=== PATIENT | female | born 1950 | race Caucasian/White ===

== ENCOUNTER 2023-12-18 15:05 | Inpatient (IN) | payer MEDICARE, OTHER, SELFPAY ==
--- NOTE | 2023-12-18 15:10 | MHC.CARE ---
Expect from [facility]. Pt is on a section 12 and disposition at this time is Geriatric bedsearch pending medical clearance.
[2023-12-18 15:21] VITALS: BP 165/62; PULSE 76; RESP 16; TEMP 36.6; O2SAT 100; BMI 33.3
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
[2023-12-18 16:53] LABS: MANUAL DIFF FLAG NO
[2023-12-18 16:55] LABS: Basophils Percent Auto 0.4 % (0-2); Eosinophils Percent Auto 0.2 % (0-4); Hematocrit 37.3 % (37.0-47.0); Hemoglobin 12.5 g/dl (12.0-16.0); Imm Gran Abs Auto 0.01 X10*3/uL (0.00-0.03); Imm Gran Pct Auto 0.2 % (0.0-0.4); Lymphocytes Absolute Auto 1.5 X10*3/uL (1.2-4.9); Lymphocytes Percent Auto 28.4 % (20-40); Mean Corpuscular HGB Conc 33.5 g/dl (31.0-35.0); Mean Corpuscular Hemoglobin 31.3 pg (27.0-33.0); Mean Corpuscular Volume 93.3 fL (80.0-98.0); Mean Platelet Volume 10.3 fL (9.4-12.3); Monocytes Absolute Auto 0.6 X10*3/uL (0.1-1.2); Monocytes Percent Auto 11.7 % (2-11); Neutrophils Absolute Auto 3.1 x10*3/uL (2.0-8.3); Neutrophils Percent Auto 59.1 % (45-73); Platelet Count 244 X10*3/uL (160-400); Red Cell Distribution Width 12.3 % (11.0-16.0); White Blood Count 5.2 X10*3/uL (4.8-10.8)
[2023-12-18 17:16] LABS: Alanine Aminotransferase 18 U/L (0-31); Albumin Level 4.5 g/dL (3.5-5.0); Alkaline Phosphatase 62 U/L (39-117); Anion Gap 16 (12-20); Aspartate Amino Transferase 20 U/L (5-31); Bilirubin Direct 0.2 mg/dL (0.0-0.5); Bilirubin Total 0.5 mg/dL (0.0-1.0); Blood Urea Nitrogen 13 mg/dL (9-16); Calcium 9.7 mg/dL (8.4-10.2); Carbon Dioxide 25 mmol/L (22-29); Chloride 106 mmol/L (96-108); Creatinine Clr Calc Pharmacy 61.4; Estimated Glomerular Filt Rate > 60; Ethanol < 10 mg/dL; Glucose Random 109 mg/dL (60-115); Magnesium 1.8 mg/dL (1.6-2.6); Potassium 3.9 mmol/L (3.3-5.1); Sodium 143 mmol/L (135-145); Total Protein 6.8 g/dL (6.5-8.0)
[2023-12-18 17:18] LABS: COVID-19 Test Negative (Negative); IDNOW Serial# 152EDE1D
[2023-12-18 17:29] LABS: TSH reflex Free T4 1.18 uIU/mL (0.32-4.0)
[2023-12-18 18:30] LABS: Appearance Urine Clear; Color Urine Yellow; Glucose Urine UA Negative (Negative); Leukocyte Esterase Urine Trace (Negative); Nitrite Urine Negative (Negative); PH 6.5 (5.0-9.0); UMIC TRIGGER UACC YES; Urine Blood Negative (Negative); Urine Ketones Trace mg/dL (Negative); Urine Protein Negative (Neg-Trace)
[2023-12-18 18:33] LABS: Bacteria Urine None Seen (None Seen); Hyaline Casts Urine 0-2 /LPF (0-2); RBC Urine 0-2 /HPF (0-2); Squamous Epithelial Cell Urine 0-2 /HPF (0-2); WBC Urine 0-5 /HPF (0-5)
[2023-12-18 18:34] LABS: Amphetamine Screen Urine Not Detected (Not Detect); Barbiturates, Urine Not Detected (Not Detect); Benzodiazepines Screen Urine POSITIVE (Not Detect); Cannabinoid Screen Urine Not Detected (Not Detect); Cocaine Screen Urine Not Detected (Not Detect); Fentanyl, urine Not Detected (Not Detect); Opiate Screen Urine Not Detected (Not Detect); Phencyclidine Screen Urine Not Detected (Not Detect)
--- NOTE | 2023-12-18 19:30 | PC.NURSE ---
This investment underwriter assumed care of this Pt at 1900. 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 Pt denies SI/HI/AH/VH. 1:1 sitter at bedside, sister at bedside.
[2023-12-18 21:02] VITALS: RESP 16
--- NOTE | 2023-12-18 23:37 | PC.NURSE ---
Med rec done by charge nurse Wilma, Pt and sister verbalized home meds. Provider Jigar made aware.
[2023-12-18] MEDS: ALPRAZolam 0.5 MG TABLET PO (23:46)
[2023-12-18] MEDS: Gabapentin 300 MG CAPSULE PO (23:46)
--- NOTE | 2023-12-19 02:34 | PC.NURSE ---
Pt given sandwich and PO fluids. Sister remains at bedside.
[2023-12-19] MEDS: OLANZapine 5 MG TABLET PO ×2 (02:41→18:23)
[2023-12-19 04:00] VITALS: BP 112/45; PULSE 78; RESP 16; O2SAT 93
[2023-12-19] MEDS: LORazepam 1 MG TABLET PO ×2 (04:58→18:23)
--- NOTE | 2023-12-19 05:15 | PC.NURSE ---
Pt ambulated to BR with slow steady gait. Reports given to Lin, Pt will be transferred to pod. Sister updated on plan.
--- NOTE | 2023-12-19 05:45 | MHC.EDTECH ---
PATIENT JUST CAME OVER FROM THE MAIN ED TO POD ROOM #1 ,PATIENT SISTER ACCOMPANY HER INTO POD ,WARM BLANKET WAS GIVEN TO PATIENT ,PATIENT NOW SLEEPING ,PATIENT BELONGING S LIST WAS UPDATED ,BECAUSE PT SISTER TOOK PATIENT JEWELRY HOME .
[2023-12-19 10:25] VITALS: BP 154/89; PULSE 90; TEMP 36.3; O2SAT 97
[2023-12-19] MEDS: lisinopriL 20 MG TABLET PO (10:25)
[2023-12-19] MEDS: hydroCHLOROthiazide 12.5 MG TABLET PO (10:25)
[2023-12-19] MEDS: Gabapentin 300 MG CAPSULE PO ×3 (10:25→20:46)
--- NOTE | 2023-12-19 12:19 | ECG_ITS ---
Test Reason : CHECK PROLONG QT Blood Pressure : / mmHG Vent. Rate : 071 BPM Atrial Rate : 071 BPM P-R Int : 138 ms QRS Dur : 072 ms QT Int : 416 ms P-R-T Axes : 028 014 021 degrees QTc Int : 452 ms Normal sinus rhythm Normal ECG No previous ECGs available Referred By: Wade Yu Electronically Signed By:ELSA ARIAS MD
[2023-12-19 14:05] VITALS: BP 136/61; PULSE 84; RESP 16; TEMP 35.8; O2SAT 93
[2023-12-19 14:06] VITALS: BMI 33.0
--- NOTE | 2023-12-19 15:24 | PC.ADMIT ---
Maryam was admitted to at 14:00 on 12/19/23 on a CV for the treatment of unspecified mood disorder. Sharps check was completed by staff. Prior to admission, Maryam had been endorsing SI without a plan. Maryam's sister reports increased paranoia and delusional thoughts regarding her neighbors and being a part of a group on the dark web . She denies suicidal and homicidal thoughts and intent. She denies auditory and visual hallucinations. She is alert and oriented to person, place, and time. She was cooperative with the admission process. She was hyperverbal and pressured during admission interview. She denies current substance abuse, utox was positive for benzos, BAL <10. She was placed on 5 minute checks for safety.
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
[2023-12-19 19:50] VITALS: BP 108/52; PULSE 74; RESP 18; TEMP 36.2; O2SAT 97
[2023-12-19] MEDS: OLANZapine 2.5 MG TABLET PO (20:46)
[2023-12-19] MEDS: Atorvastatin Calcium 20 MG TABLET PO (20:46)
[2023-12-19] MEDS: traZODone HCL 50 MG TABLET PO (20:46)
[2023-12-20 06:00] VITALS: BP 138/74; PULSE 86; RESP 14; TEMP 36.7; O2SAT 98
[2023-12-20] MEDS: Levothyroxine Sodium 125 MCG TABLET PO (06:42)
[2023-12-20] MEDS: hydroCHLOROthiazide 12.5 MG TABLET PO (08:24)
[2023-12-20] MEDS: lisinopriL 20 MG TABLET PO (08:24)
[2023-12-20] MEDS: Gabapentin 300 MG CAPSULE PO ×3 (08:24→20:40)
[2023-12-20 08:56] LABS: Alanine Aminotransferase 17 U/L (0-31); Albumin Level 4.4 g/dL (3.5-5.0); Alkaline Phosphatase 61 U/L (39-117); Anion Gap 13 (12-20); Aspartate Amino Transferase 20 U/L (5-31); Bilirubin Total 0.6 mg/dL (0.0-1.0); Blood Urea Nitrogen 17 mg/dL (9-16); Calcium 9.8 mg/dL (8.4-10.2); Carbon Dioxide 23 mmol/L (22-29); Chloride 107 mmol/L (96-108); Cholesterol 172 mg/dL (<200); Creatinine Clr Calc Pharmacy 47.7; Estimated Glomerular Filt Rate 51; Glucose Fasting 118 mg/dL (60-99); HDL Cholesterol 69 mg/dL (>40); LDL Cholesterol Calculated 83 mg/dL (<100); Potassium 3.7 mmol/L (3.3-5.1); Sodium 139 mmol/L (135-145); Total Protein 6.8 g/dL (6.5-8.0); Triglycerides 103 mg/dL (<150)
--- NOTE | 2023-12-20 13:11 | HO.PSYCHPN ---
Subjective Subjective Date of Service: 12/20/23 Reason For Visit: SI psychosis Subjective Notes: Conditional Voluntary Interim History: The nursing staff reported the patient was compliant with her medications she took all her medications and she reported that she had past suicidal ideation with a plan. Today she denies suicidal ideation she denies auditory hallucinations she had been cooperative. She slept well last night and she looks less pressured than yesterday. Mental Status Exam Mental Status Exam Patient Appearance: Appropriate (On hospital gowns) Patient Orientation: Person Level of Consciousness: Awake Patient Behavior: Guarded Mood Description: Anxious and Apprehensive Affect Description: Labile Ability to Follow Directions: Fair Speech Pattern: Monotone and Rapid Hallucinations: None Delusions: Grandiose and Ideas of Reference Thought Process: Distracted and Evasive Thought Content: positive for Flight of Ideas and positive for [place] Judgement: Poor Diagnostics Vital Signs (24Hr): Vital Signs - 24 hr 12/19/23 14:05 12/19/23 19:50 Temperature 96.4 F L 97.2 F Pulse Rate 84 74 Respiratory Rate 16 18 Blood Pressure 136/61 108/52 L Pulse Oximetry 93 97 Oxygen Delivery Method Room Air Room Air BMI result Body Mass Index 33.0 Labs 12/18/23 16:48 12/20/23 07:59 Labs: Laboratory Results - last 48 hr 12/18/23 12/18/23 12/18/23 16:48 16:48 18:19 WBC 5.2 RBC 4.00 L Hgb 12.5 Hct 37.3 MCV 93.3 MCH 31.3 MCHC 33.5 RDW 12.3 Plt Count 244 MPV 10.3 Immature Gran % (Auto) 0.2 Neut % (Auto) 59.1 Lymph % (Auto) 28.4 [place] % (Auto) 11.7 H Eos % (Auto) 0.2 Baso % (Auto) 0.4 Lymph # (Auto) 1.5 [place] # (Auto) 0.6 Eos # (Auto) 0.0 Baso # (Auto) 0.0 Abs Immat Gran (auto) 0.01 Absolute Neuts (auto) 3.1 Absolute Nucleated RBC 0.000 Nucleated RBC % (auto) 0.0 Sodium 143 Potassium 3.9 Chloride 106 Carbon Dioxide 25 Anion Gap 16 BUN 13 Creatinine 0.82 Estim Creat Clear Calc 61.4 Estimated GFR > 60 Random Glucose 109 Fasting Glucose Calcium 9.7 Magnesium 1.8 Total Bilirubin 0.5 Direct Bilirubin 0.2 AST 20 ALT 18 Alkaline Phosphatase 62 Total Protein 6.8 Albumin 4.5 Triglycerides Cholesterol LDL Cholesterol, Calc HDL Cholesterol TSH 1.18 Urine Color Yellow Urine Appearance Clear Urine pH 6.5 Ur Specific [place] 1.010 Urine Protein Negative Urine Glucose (UA) Negative Urine Ketones Trace Urine Blood Negative Urine Nitrite Negative Ur Leukocyte Esterase Trace H Urine RBC 0-2 Urine WBC 0-5 Ur Squamous Epith Cells 0-2 Urine Bacteria None Seen Hyaline Casts 0-2 Urine Opiates Screen Not Detected Urine Fentanyl Screen Not Detected Ur Barbiturates Screen Not Detected Ur Phencyclidine Scrn Not Detected Ur Amphetamines Screen Not Detected U Benzodiazepines Scrn POSITIVE H Urine Cocaine Screen Not Detected U Marijuana (THC) Screen Not Detected Ethyl Alcohol < 10 Cancelled COVID-19 ([facility]OMI) Negative COVID-19 [employer] See Note 12/20/23 07:59 WBC RBC Hgb Hct MCV MCH MCHC RDW Plt Count MPV Immature Gran % (Auto) Neut % (Auto) Lymph % (Auto) [place] % (Auto) Eos % (Auto) Baso % (Auto) Lymph # (Auto) [place] # (Auto) Eos # (Auto) Baso # (Auto) Abs Immat Gran (auto) Absolute Neuts (auto) Absolute Nucleated RBC Nucleated RBC % (auto) Sodium 139 Potassium 3.7 Chloride 107 Carbon Dioxide 23 Anion Gap 13 BUN 17 H Creatinine 1.05 Estim Creat Clear Calc 47.7 Estimated GFR 51 Random Glucose Fasting Glucose 118 H Calcium 9.8 Magnesium Total Bilirubin 0.6 Direct Bilirubin AST 20 ALT 17 Alkaline Phosphatase 61 Total Protein 6.8 Albumin 4.4 Triglycerides 103 Cholesterol 172 LDL Cholesterol, Calc 83 HDL Cholesterol 69 TSH Urine Color Urine Appearance Urine pH Ur Specific [place] Urine Protein Urine Glucose (UA) Urine Ketones Urine Blood Urine Nitrite Ur Leukocyte Esterase Urine RBC Urine WBC Ur Squamous Epith Cells Urine Bacteria Hyaline Casts Urine Opiates Screen Urine Fentanyl Screen Ur Barbiturates Screen Ur Phencyclidine Scrn Ur Amphetamines Screen U Benzodiazepines Scrn Urine Cocaine Screen U Marijuana (THC) Screen Ethyl Alcohol COVID-19 ([facility]OMI) COVID-19 [employer] Medications Medications Current Medications Acetaminophen (Acetaminophen 325 Mg Tablet) 650 mg PO Q6H PRN PRN Reason: Headache/Pain Mild Scale (1-3) Al Hydroxide/Mg Hydroxide (Magnesium Hydrox/Alum Hydrox 30 Ml Oral.Susp) 30 ml PO Q6H PRN PRN Reason: Heartburn/Nausea Atorvastatin Calcium (Atorvastatin Calcium 20 Mg Tablet) 20 mg PO BEDTIME [facility] Last Admin: 12/19/23 20:46 Dose: 20 mg Docusate Sodium (Docusate Sodium 100 Mg Capsule) 100 mg PO BEDTIME [facility] Gabapentin (Gabapentin 300 Mg Capsule) 300 mg PO TID [facility] Last Admin: 12/20/23 08:24 Dose: 300 mg Hydrochlorothiazide (Hydrochlorothiazide 12.5 Mg Tablet) 12.5 mg PO DAILY [facility]; Protocol Last Admin: 12/20/23 08:24 Dose: 12.5 mg Hydroxyzine HCl (Hydroxyzine Hcl 25 Mg Tablet) 25 mg PO Q6H PRN PRN Reason: Anxiety Levothyroxine Sodium (Levothyroxine Sodium 125 Mcg Tablet) 125 mcg PO DAILY@0630 [facility] Last Admin: 12/20/23 06:42 Dose: 125 mcg Lisinopril (Lisinopril 20 Mg Tablet) 20 mg PO DAILY [facility]; Protocol Last Admin: 12/20/23 08:24 Dose: 20 mg Loratadine (Loratadine 10 Mg Tablet) 10 mg PO BEDTIME [facility] Magnesium Hydroxide (Milk Of Magnesia 30 Ml Oral.Susp) 30 ml PO DAILY PRN PRN Reason: Constipation Olanzapine (Olanzapine 2.5 Mg Tablet) 2.5 mg PO BEDTIME [facility] Last Admin: 12/19/23 20:46 Dose: 2.5 mg Trazodone HCl (Trazodone Hcl 50 Mg Tablet) 50 mg PO BEDTIME [facility] Last Admin: 12/19/23 20:46 Dose: 50 mg Trazodone HCl (Trazodone Hcl 50 Mg Tablet) 50 mg PO BEDTIME MRX1 PRN PRN Reason: Insomnia Allergies Allergies Allergy/AdvReac Type Severity Reaction Status Date / Time Unable to Assess Allergy Verified 12/18/23 15:46 Assessment & Plan Assessment & Plan (1) Bipolar disorder: Status: Acute Code(s): F31.9 - Bipolar disorder, unspecified (2) Borderline personality disorder: Status: Acute Code(s): F60.3 - Borderline personality disorder (3) Psychosis: Status: Acute Code(s): F29 - Unspecified psychosis not due to a substance or known physiological condition Plan The patient is an elderly female with a past history of borderline personality disorder and bipolar disorder who was brought into the facility with active symptoms of loan with racing thoughts, flight of ideas and grandiosity but also recently she complained of suicidal ideation without a clear plan or intent. Sister called 911 since she had been reporting suicidal thoughts. On interview it was clear that the patient was manic. Plan 1. Gather collateral information. We will try to contact her sister to get more information regarding past treatments. 2. Continue with gabapentin and other medications prescribed by her previous psychiatrist. 3. We discussed risks, benefits, side-effects and alternatives and the patient agreed to take Zyprexa 2.5 mg p.o. q.h.s. to target insomnia and mood lability. 4. Blood work tomorrow. 5. . Reassessment with results. 6. 15 minute checks. The patient is able to contract for safety in the facility . 7. Increase Zyprexa to 5 mg p.o. q.h.s. on December 20 Reason for continued inpatient stay Substantial Risk for: inability to function, rapid decompensation and med/psych decompensation Time Spent With Patient Time: Total time managing care of this patient today __20__ minutes.
[2023-12-20 18:00] VITALS: BP 136/60; PULSE 82; RESP 18; TEMP 36.6; O2SAT 96
[2023-12-20] MEDS: Docusate Sodium 100 MG CAPSULE PO (20:40)
[2023-12-20] MEDS: OLANZapine 5 MG TABLET PO (20:40)
[2023-12-20] MEDS: Loratadine 10 MG TABLET PO (20:40)
[2023-12-20] MEDS: Atorvastatin Calcium 20 MG TABLET PO (20:41)
[2023-12-20] MEDS: traZODone HCL 50 MG TABLET PO (20:41)
[2023-12-20] MEDS: Magnesium Hydrox/Alum Hydrox 30 ML ORAL.SUSP PO (20:48)
[2023-12-21] MEDS: Levothyroxine Sodium 125 MCG TABLET PO (05:40)
[2023-12-21 07:00] VITALS: BMI 33.3
[2023-12-21 07:30] VITALS: BP 106/62; PULSE 80; RESP 18; TEMP 36.8; O2SAT 96
[2023-12-21] MEDS: hydroCHLOROthiazide 12.5 MG TABLET PO (08:21)
[2023-12-21] MEDS: Gabapentin 300 MG CAPSULE PO ×3 (08:21→20:53)
[2023-12-21] MEDS: lisinopriL 20 MG TABLET PO (08:21)
--- NOTE | 2023-12-21 16:48 | HO.PSYCHPN ---
Subjective Subjective Date of Service: 12/21/23 Reason For Visit: SI psychosis Subjective Notes: Conditional Voluntary Interim History: The nursing staff reported the patient had been more talkative in the evening hyperverbal at times. In the morning she was doing fairly well. The occupational therapist reported that she was self aware of her hypomania she had good insight and she left the group when she became a little disruptive. On interview the patient denies new symptoms she feels much better she agreed to increase Zyprexa to 7.5 p.o. q.h.s.. Mental Status Exam Mental Status Exam Patient Appearance: Well Grooomed and Appropriate Patient Orientation: Person and Situation Level of Consciousness: Awake and Appropriate Patient Behavior: Guarded and Passive Mood Description: Withdrawn Affect Description: Constricted Patient Cognition Impaired: Yes Ability to Follow Directions: Good Speech Pattern: Clear Hallucinations: None Delusions: Ideas of Reference Thought Process: Distracted Thought Content: positive for [place] and positive for Poverty of Content Judgement: Poor Diagnostics Vital Signs (24Hr): Vital Signs - 24 hr 12/20/23 18:00 12/21/23 07:30 Temperature 97.9 F 98.2 F Pulse Rate 82 80 Respiratory Rate 18 18 Blood Pressure 136/60 106/62 Pulse Oximetry 96 96 Oxygen Delivery Method Room Air Room Air BMI result Body Mass Index 33.3 Labs 12/18/23 16:48 12/20/23 07:59 Labs: Laboratory Results - last 48 hr 12/20/23 07:59 Sodium 139 Potassium 3.7 Chloride 107 Carbon Dioxide 23 Anion Gap 13 BUN 17 H Creatinine 1.05 Estim Creat Clear Calc 47.7 Estimated GFR 51 Fasting Glucose 118 H Calcium 9.8 Total Bilirubin 0.6 AST 20 ALT 17 Alkaline Phosphatase 61 Total Protein 6.8 Albumin 4.4 Triglycerides 103 Cholesterol 172 LDL Cholesterol, Calc 83 HDL Cholesterol 69 Medications Medications Current Medications Acetaminophen (Acetaminophen 325 Mg Tablet) 650 mg PO Q6H PRN PRN Reason: Headache/Pain Mild Scale (1-3) Al Hydroxide/Mg Hydroxide (Magnesium Hydrox/Alum Hydrox 30 Ml Oral.Susp) 30 ml PO Q6H PRN PRN Reason: Heartburn/Nausea Last Admin: 12/20/23 20:48 Dose: 30 ml Atorvastatin Calcium (Atorvastatin Calcium 20 Mg Tablet) 20 mg PO BEDTIME [facility] Last Admin: 12/20/23 20:41 Dose: 20 mg Docusate Sodium (Docusate Sodium 100 Mg Capsule) 100 mg PO BEDTIME [facility] Last Admin: 12/20/23 20:40 Dose: 100 mg Gabapentin (Gabapentin 300 Mg Capsule) 300 mg PO TID [facility] Last Admin: 12/21/23 14:34 Dose: 300 mg Hydrochlorothiazide (Hydrochlorothiazide 12.5 Mg Tablet) 12.5 mg PO DAILY [facility]; Protocol Last Admin: 12/21/23 08:21 Dose: 12.5 mg Levothyroxine Sodium (Levothyroxine Sodium 125 Mcg Tablet) 125 mcg PO DAILY@0630 [facility] Last Admin: 12/21/23 05:40 Dose: 125 mcg Lisinopril (Lisinopril 20 Mg Tablet) 20 mg PO DAILY [facility]; Protocol Last Admin: 12/21/23 08:21 Dose: 20 mg Loratadine (Loratadine 10 Mg Tablet) 10 mg PO BEDTIME [facility] Last Admin: 12/20/23 20:40 Dose: 10 mg Lorazepam (Lorazepam 1 Mg Tablet) 1 mg PO Q6H PRN PRN Reason: Anxiety Magnesium Hydroxide (Milk Of Magnesia 30 Ml Oral.Susp) 30 ml PO DAILY PRN PRN Reason: Constipation Olanzapine (Olanzapine 2.5 Mg Tablet) 2.5 mg PO BID PRN PRN Reason: psychosis Olanzapine (Olanzapine 7.5 Mg Tablet) 7.5 mg PO BEDTIME [facility] Trazodone HCl (Trazodone Hcl 50 Mg Tablet) 50 mg PO BEDTIME [facility] Last Admin: 12/20/23 20:41 Dose: 50 mg Trazodone HCl (Trazodone Hcl 50 Mg Tablet) 50 mg PO BEDTIME MRX1 PRN PRN Reason: Insomnia Allergies Allergies Allergy/AdvReac Type Severity Reaction Status Date / Time Unable to Assess Allergy Verified 12/18/23 15:46 Assessment & Plan Assessment & Plan (1) Bipolar disorder: Status: Acute Code(s): F31.9 - Bipolar disorder, unspecified (2) Borderline personality disorder: Status: Acute Code(s): F60.3 - Borderline personality disorder (3) Psychosis: Status: Acute Code(s): F29 - Unspecified psychosis not due to a substance or known physiological condition Plan The patient is an elderly female with a past history of borderline personality disorder and bipolar disorder who was brought into the facility with active symptoms of loan with racing thoughts, flight of ideas and grandiosity but also recently she complained of suicidal ideation without a clear plan or intent. Sister called 911 since she had been reporting suicidal thoughts. On interview it was clear that the patient was manic. Plan 1. Gather collateral information. We will try to contact her sister to get more information regarding past treatments. 2. Continue with gabapentin and other medications prescribed by her previous psychiatrist. 3. We discussed risks, benefits, side-effects and alternatives and the patient agreed to take Zyprexa 2.5 mg p.o. q.h.s. to target insomnia and mood lability. 4. Blood work tomorrow. 5. . Reassessment with results. 6. 15 minute checks. The patient is able to contract for safety in the facility . 7. Increase Zyprexa to7. 5 mg p.o. q.h.s. on December 21 Reason for continued inpatient stay Substantial Risk for: inability to function, rapid decompensation and med/psych decompensation Time Spent With Patient Time: Total time managing care of this patient today __20__ minutes.
[2023-12-21 18:00] VITALS: BP 157/69; PULSE 76; RESP 16; TEMP 35.9; O2SAT 99
[2023-12-21] MEDS: Acetaminophen 325 MG TABLET 650 MG PO (20:52)
[2023-12-21] MEDS: OLANZapine 7.5 MG TABLET PO (20:53)
[2023-12-21] MEDS: Docusate Sodium 100 MG CAPSULE PO (20:53)
[2023-12-21] MEDS: Loratadine 10 MG TABLET PO (20:53)
[2023-12-21] MEDS: Atorvastatin Calcium 20 MG TABLET PO (20:54)
[2023-12-21] MEDS: traZODone HCL 50 MG TABLET PO ×3 (20:54→22:32)
[2023-12-21] MEDS: LORazepam 1 MG TABLET PO (22:32)
[2023-12-22] MEDS: Levothyroxine Sodium 125 MCG TABLET PO (06:18)
[2023-12-22 08:33] VITALS: BP 153/65; PULSE 102; RESP 18; TEMP 36.3; O2SAT 97
[2023-12-22] MEDS: lisinopriL 20 MG TABLET PO (08:35)
[2023-12-22] MEDS: Gabapentin 300 MG CAPSULE PO ×3 (08:35→20:53)
[2023-12-22] MEDS: hydroCHLOROthiazide 12.5 MG TABLET PO (08:35)
--- NOTE | 2023-12-22 11:19 | HO.PSYCHPN ---
Subjective Subjective Reason For Visit: SI psychosis Diagnostics Vital Signs (24Hr): Vital Signs - 24 hr 12/21/23 18:00 12/22/23 08:33 Temperature 96.6 F L 97.4 F Pulse Rate 76 102 H Respiratory Rate 16 18 Blood Pressure 157/69 H 153/65 H Pulse Oximetry 99 97 Oxygen Delivery Method Room Air BMI result Body Mass Index 33.3 Labs 12/18/23 16:48 12/20/23 07:59 Medications Medications Current Medications Acetaminophen (Acetaminophen 325 Mg Tablet) 650 mg PO Q6H PRN PRN Reason: Headache/Pain Mild Scale (1-3) Last Admin: 12/21/23 20:52 Dose: 650 mg Al Hydroxide/Mg Hydroxide (Magnesium Hydrox/Alum Hydrox 30 Ml Oral.Susp) 30 ml PO Q6H PRN PRN Reason: Heartburn/Nausea Last Admin: 12/20/23 20:48 Dose: 30 ml Atorvastatin Calcium (Atorvastatin Calcium 20 Mg Tablet) 20 mg PO BEDTIME [facility] Last Admin: 12/21/23 20:54 Dose: 20 mg Docusate Sodium (Docusate Sodium 100 Mg Capsule) 100 mg PO BEDTIME [facility] Last Admin: 12/21/23 20:53 Dose: 100 mg Gabapentin (Gabapentin 300 Mg Capsule) 300 mg PO TID [facility] Last Admin: 12/22/23 08:35 Dose: 300 mg Hydrochlorothiazide (Hydrochlorothiazide 12.5 Mg Tablet) 12.5 mg PO DAILY [facility]; Protocol Last Admin: 12/22/23 08:35 Dose: 12.5 mg Levothyroxine Sodium (Levothyroxine Sodium 125 Mcg Tablet) 125 mcg PO DAILY@0630 [facility] Last Admin: 12/22/23 06:18 Dose: 125 mcg Lisinopril (Lisinopril 20 Mg Tablet) 20 mg PO DAILY [facility]; Protocol Last Admin: 12/22/23 08:35 Dose: 20 mg Loratadine (Loratadine 10 Mg Tablet) 10 mg PO BEDTIME [facility] Last Admin: 12/21/23 20:53 Dose: 10 mg Lorazepam (Lorazepam 1 Mg Tablet) 1 mg PO Q6H PRN PRN Reason: Anxiety Last Admin: 12/21/23 22:32 Dose: 1 mg Magnesium Hydroxide (Milk Of Magnesia 30 Ml Oral.Susp) 30 ml PO DAILY PRN PRN Reason: Constipation Olanzapine (Olanzapine 2.5 Mg Tablet) 2.5 mg PO BID PRN PRN Reason: psychosis Olanzapine (Olanzapine 7.5 Mg Tablet) 7.5 mg PO BEDTIME [facility] Last Admin: 12/21/23 20:53 Dose: 7.5 mg Trazodone HCl (Trazodone Hcl 50 Mg Tablet) 50 mg PO BEDTIME [facility] Last Admin: 12/21/23 20:54 Dose: 50 mg Trazodone HCl (Trazodone Hcl 50 Mg Tablet) 50 mg PO BEDTIME MRX1 PRN PRN Reason: Insomnia Last Admin: 12/21/23 22:32 Dose: 50 mg Allergies Allergies Allergy/AdvReac Type Severity Reaction Status Date / Time Unable to Assess Allergy Verified 12/18/23 15:46 Assessment & Plan Assessment & Plan (1) Bipolar disorder: Status: Acute Code(s): F31.9 - Bipolar disorder, unspecified (2) Borderline personality disorder: Status: Acute Code(s): F60.3 - Borderline personality disorder (3) Psychosis: Status: Acute Code(s): F29 - Unspecified psychosis not due to a substance or known physiological condition Plan The patient is an elderly female with a past history of borderline personality disorder and bipolar disorder who was brought into the facility with active symptoms of loan with racing thoughts, flight of ideas and grandiosity but also recently she complained of suicidal ideation without a clear plan or intent. Sister called 911 since she had been reporting suicidal thoughts. On interview it was clear that the patient was manic. Plan 1. Gather collateral information. We will try to contact her sister to get more information regarding past treatments. 2. Continue with gabapentin and other medications prescribed by her previous psychiatrist. 3. We discussed risks, benefits, side-effects and alternatives and the patient agreed to take Zyprexa 2.5 mg p.o. q.h.s. to target insomnia and mood lability. 4. Blood work tomorrow. 5. . Reassessment with results. 6. 15 minute checks. The patient is able to contract for safety in the facility . 7. Increase Zyprexa to7. 5 mg p.o. q.h.s. on December 21 Time Spent With Patient Time: Total time managing care of this patient today ____ minutes.
--- NOTE | 2023-12-22 15:03 | HO.PSYCHPN ---
Subjective Subjective Date of Service: 12/22/23 Reason For Visit: SI psychosis Interim History: The nursing staff reported the patient had been more talkative in the evening hyperverbal at times. In the morning she was doing fairly well. This advertising copy writer observed patient being very kind and patient with another patient who was quite confused and needed redirection. pt continues to be tangential and has some persecutory thoughts but less agitated. patient denies new symptoms and states she feels much better with current medication. Medication Compliance: Yes Side effects from medications: No Attending Groups: Intermittent Review of Systems Acute medical concerns: No Medical Review of Systems: unchanged Review of Systems Review of Systems no change Yes all other systems are reviewed and are negative Mental Status Exam Mental Status Exam Patient Appearance: Well Grooomed and Appropriate Patient Orientation: Person and Situation Level of Consciousness: Awake and Appropriate Patient Behavior: Guarded and Passive Mood Description: Withdrawn and Cheerful Affect Description: Constricted, Cheerful and Expansive Patient Cognition Impaired: Yes Ability to Follow Directions: Good Speech Pattern: Clear Memory Description: Intact Thought Process: Racing Thought Content: positive for Loose Associations Judgement: Fair Diagnostics Vital Signs (24Hr): Vital Signs - 24 hr 12/21/23 18:00 12/22/23 08:33 Temperature 96.6 F L 97.4 F Pulse Rate 76 102 H Respiratory Rate 16 18 Blood Pressure 157/69 H 153/65 H Pulse Oximetry 99 97 Oxygen Delivery Method Room Air BMI result Body Mass Index 33.3 Labs 12/18/23 16:48 12/20/23 07:59 Medications Medications Current Medications Acetaminophen (Acetaminophen 325 Mg Tablet) 650 mg PO Q6H PRN PRN Reason: Headache/Pain Mild Scale (1-3) Last Admin: 12/21/23 20:52 Dose: 650 mg Al Hydroxide/Mg Hydroxide (Magnesium Hydrox/Alum Hydrox 30 Ml Oral.Susp) 30 ml PO Q6H PRN PRN Reason: Heartburn/Nausea Last Admin: 12/20/23 20:48 Dose: 30 ml Atorvastatin Calcium (Atorvastatin Calcium 20 Mg Tablet) 20 mg PO BEDTIME [facility] Last Admin: 12/21/23 20:54 Dose: 20 mg Docusate Sodium (Docusate Sodium 100 Mg Capsule) 100 mg PO BEDTIME [facility] Last Admin: 12/21/23 20:53 Dose: 100 mg Gabapentin (Gabapentin 300 Mg Capsule) 300 mg PO TID [facility] Last Admin: 12/22/23 14:54 Dose: 300 mg Hydrochlorothiazide (Hydrochlorothiazide 12.5 Mg Tablet) 12.5 mg PO DAILY [facility]; Protocol Last Admin: 12/22/23 08:35 Dose: 12.5 mg Levothyroxine Sodium (Levothyroxine Sodium 125 Mcg Tablet) 125 mcg PO DAILY@0630 [facility] Last Admin: 12/22/23 06:18 Dose: 125 mcg Lisinopril (Lisinopril 20 Mg Tablet) 20 mg PO DAILY [facility]; Protocol Last Admin: 12/22/23 08:35 Dose: 20 mg Loratadine (Loratadine 10 Mg Tablet) 10 mg PO BEDTIME [facility] Last Admin: 12/21/23 20:53 Dose: 10 mg Lorazepam (Lorazepam 1 Mg Tablet) 1 mg PO Q6H PRN PRN Reason: Anxiety Last Admin: 12/21/23 22:32 Dose: 1 mg Magnesium Hydroxide (Milk Of Magnesia 30 Ml Oral.Susp) 30 ml PO DAILY PRN PRN Reason: Constipation Olanzapine (Olanzapine 2.5 Mg Tablet) 2.5 mg PO BID PRN PRN Reason: psychosis Olanzapine (Olanzapine 7.5 Mg Tablet) 7.5 mg PO BEDTIME [facility] Last Admin: 12/21/23 20:53 Dose: 7.5 mg Trazodone HCl (Trazodone Hcl 50 Mg Tablet) 50 mg PO BEDTIME [facility] Last Admin: 12/21/23 20:54 Dose: 50 mg Trazodone HCl (Trazodone Hcl 50 Mg Tablet) 50 mg PO BEDTIME MRX1 PRN PRN Reason: Insomnia Last Admin: 12/21/23 22:32 Dose: 50 mg Allergies Allergies Allergy/AdvReac Type Severity Reaction Status Date / Time Unable to Assess Allergy Verified 12/18/23 15:46 Assessment & Plan Assessment & Plan (1) Bipolar disorder: Status: Acute Code(s): F31.9 - Bipolar disorder, unspecified (2) Borderline personality disorder: Status: Acute Code(s): F60.3 - Borderline personality disorder (3) Psychosis: Status: Acute Code(s): F29 - Unspecified psychosis not due to a substance or known physiological condition Plan The patient is an elderly female with a past history of borderline personality disorder and bipolar disorder who was brought into the facility with active symptoms of loan with racing thoughts, flight of ideas and grandiosity but also recently she complained of suicidal ideation without a clear plan or intent. Sister called 911 since she had been reporting suicidal thoughts. On interview it was clear that the patient was manic. Plan 1. Gather collateral information. We will try to contact her sister to get more information regarding past treatments. 2. Continue with gabapentin and other medications prescribed by her previous psychiatrist. 3. We discussed risks, benefits, side-effects and alternatives and the patient agreed to take Zyprexa 2.5 mg p.o. q.h.s. to target insomnia and mood lability. 4. Blood work tomorrow. 5. . Reassessment with results. 6. 15 minute checks. The patient is able to contract for safety in the facility . 7. Increase Zyprexa to7. 5 mg p.o. q.h.s. on December 21 12/22/23 tolerating increase in zyprexa; continue tx plan Reason for continued inpatient stay Substantial Risk for: harm to self, inability to function and rapid decompensation Time Spent With Patient Time: Total time managing care of this patient today ____ minutes.
[2023-12-22 18:00] VITALS: BP 149/65; PULSE 79; RESP 16; TEMP 36.2; O2SAT 96
[2023-12-22] MEDS: Atorvastatin Calcium 20 MG TABLET PO (20:52)
[2023-12-22] MEDS: traZODone HCL 50 MG TABLET PO (20:53)
[2023-12-22] MEDS: LORazepam 1 MG TABLET PO (20:53)
[2023-12-22] MEDS: Loratadine 10 MG TABLET PO (20:54)
[2023-12-22] MEDS: OLANZapine 7.5 MG TABLET PO (20:54)
[2023-12-22] MEDS: Calcium Carbonate 750 MG TAB.CHEW PO (22:18)
[2023-12-23] MEDS: Levothyroxine Sodium 125 MCG TABLET PO (05:29)
[2023-12-23 08:32] VITALS: BP 104/49; PULSE 80; RESP 19; TEMP 36.5; O2SAT 96
[2023-12-23] MEDS: hydroCHLOROthiazide 12.5 MG TABLET PO (08:33)
[2023-12-23] MEDS: lisinopriL 20 MG TABLET PO (08:33)
[2023-12-23] MEDS: Gabapentin 300 MG CAPSULE PO ×3 (08:33→21:14)
--- NOTE | 2023-12-23 11:25 | HO.PSYCHPN ---
Subjective Subjective Date of Service: 12/23/23 Reason For Visit: SI psychosis Interim History: pressured, tangential. pleasant. per staff, no behavioral issues. remains manic. Mental Status Exam Mental Status Exam Patient Appearance: Well Grooomed and Appropriate Patient Orientation: Person and Situation Level of Consciousness: Awake and Appropriate Patient Behavior: Talkative Mood Description: Euphoric and Cheerful Affect Description: Euphoric, Cheerful and Expansive Patient Cognition Impaired: Yes Ability to Follow Directions: Good Speech Pattern: Clear Memory Description: Intact Thought Process: Racing Thought Content: positive for Loose Associations Judgement: Fair Diagnostics Vital Signs (24Hr): Vital Signs - 24 hr 12/22/23 18:00 12/23/23 08:32 Temperature 97.1 F 97.7 F Pulse Rate 79 80 Respiratory Rate 16 19 Blood Pressure 149/65 H 104/49 L Pulse Oximetry 96 96 Oxygen Delivery Method Room Air Room Air BMI result Body Mass Index 33.3 Labs 12/18/23 16:48 12/20/23 07:59 Medications Medications Current Medications Acetaminophen (Acetaminophen 325 Mg Tablet) 650 mg PO Q6H PRN PRN Reason: Headache/Pain Mild Scale (1-3) Last Admin: 12/21/23 20:52 Dose: 650 mg Al Hydroxide/Mg Hydroxide (Magnesium Hydrox/Alum Hydrox 30 Ml Oral.Susp) 30 ml PO Q6H PRN PRN Reason: Heartburn/Nausea Last Admin: 12/20/23 20:48 Dose: 30 ml Atorvastatin Calcium (Atorvastatin Calcium 20 Mg Tablet) 20 mg PO BEDTIME [facility] Last Admin: 12/22/23 20:52 Dose: 20 mg Calcium Carbonate (Calcium Carbonate 750 Mg Tab.Chew) 750 mg PO Q6H PRN PRN Reason: GI Upset Last Admin: 12/22/23 22:18 Dose: 750 mg Docusate Sodium (Docusate Sodium 100 Mg Capsule) 100 mg PO BEDTIME [facility] Last Admin: 12/22/23 20:55 Dose: Not Given Gabapentin (Gabapentin 300 Mg Capsule) 300 mg PO TID [facility] Last Admin: 12/23/23 08:33 Dose: 300 mg Hydrochlorothiazide (Hydrochlorothiazide 12.5 Mg Tablet) 12.5 mg PO DAILY [facility]; Protocol Last Admin: 12/23/23 08:33 Dose: 12.5 mg Levothyroxine Sodium (Levothyroxine Sodium 125 Mcg Tablet) 125 mcg PO DAILY@0630 [facility] Last Admin: 12/23/23 05:29 Dose: 125 mcg Lisinopril (Lisinopril 20 Mg Tablet) 20 mg PO DAILY [facility]; Protocol Last Admin: 12/23/23 08:33 Dose: 20 mg Loratadine (Loratadine 10 Mg Tablet) 10 mg PO BEDTIME [facility] Last Admin: 12/22/23 20:54 Dose: 10 mg Lorazepam (Lorazepam 1 Mg Tablet) 1 mg PO Q6H PRN PRN Reason: Anxiety Last Admin: 12/22/23 20:53 Dose: 1 mg Magnesium Hydroxide (Milk Of Magnesia 30 Ml Oral.Susp) 30 ml PO DAILY PRN PRN Reason: Constipation Olanzapine (Olanzapine 2.5 Mg Tablet) 2.5 mg PO BID PRN PRN Reason: psychosis Olanzapine (Olanzapine 7.5 Mg Tablet) 7.5 mg PO BEDTIME [facility] Last Admin: 12/22/23 20:54 Dose: 7.5 mg Trazodone HCl (Trazodone Hcl 50 Mg Tablet) 50 mg PO BEDTIME [facility] Last Admin: 12/22/23 20:53 Dose: 50 mg Trazodone HCl (Trazodone Hcl 50 Mg Tablet) 50 mg PO BEDTIME MRX1 PRN PRN Reason: Insomnia Last Admin: 12/21/23 22:32 Dose: 50 mg Allergies Allergies Allergy/AdvReac Type Severity Reaction Status Date / Time Unable to Assess Allergy Verified 12/18/23 15:46 Assessment & Plan Assessment & Plan (1) Bipolar disorder: Status: Acute Code(s): F31.9 - Bipolar disorder, unspecified (2) Borderline personality disorder: Status: Acute Code(s): F60.3 - Borderline personality disorder (3) Psychosis: Status: Acute Code(s): F29 - Unspecified psychosis not due to a substance or known physiological condition Plan The patient is an elderly female with a past history of borderline personality disorder and bipolar disorder who was brought into the facility with active symptoms of loan with racing thoughts, flight of ideas and grandiosity but also recently she complained of suicidal ideation without a clear plan or intent. Sister called 911 since she had been reporting suicidal thoughts. On interview it was clear that the patient was manic. Plan 1. Gather collateral information. We will try to contact her sister to get more information regarding past treatments. 2. Continue with gabapentin and other medications prescribed by her previous psychiatrist. 3. We discussed risks, benefits, side-effects and alternatives and the patient agreed to take Zyprexa 2.5 mg p.o. q.h.s. to target insomnia and mood lability. 4. Blood work tomorrow. 5. . Reassessment with results. 6. 15 minute checks. The patient is able to contract for safety in the facility . 7. Increase Zyprexa to7. 5 mg p.o. q.h.s. on December 21 12/22/23 tolerating increase in zyprexa; continue tx plan 12/23: remains pressured, manic. pleasant, however, and not exhibiting disruptive behaviors. continue current mgmt. Reason for continued inpatient stay Substantial Risk for: inability to function and rapid decompensation Time Spent With Patient Time: Total time managing care of this patient today ____ minutes.
[2023-12-23] MEDS: OLANZapine 7.5 MG TABLET PO (21:13)
[2023-12-23] MEDS: LORazepam 1 MG TABLET PO (21:13)
[2023-12-23] MEDS: Docusate Sodium 100 MG CAPSULE PO (21:14)
[2023-12-23] MEDS: Loratadine 10 MG TABLET PO (21:14)
[2023-12-23] MEDS: traZODone HCL 50 MG TABLET PO (21:14)
[2023-12-23] MEDS: Atorvastatin Calcium 20 MG TABLET PO (21:15)
[2023-12-24] MEDS: Levothyroxine Sodium 125 MCG TABLET PO (05:10)
[2023-12-24] MEDS: Milk of Magnesia 30 ML ORAL.SUSP PO (05:10)
[2023-12-24 08:10] VITALS: BP 116/58; PULSE 88; RESP 17; TEMP 36.3; O2SAT 95
[2023-12-24] MEDS: hydroCHLOROthiazide 12.5 MG TABLET PO (08:12)
[2023-12-24] MEDS: Gabapentin 300 MG CAPSULE PO ×3 (08:12→21:23)
[2023-12-24] MEDS: lisinopriL 20 MG TABLET PO (08:12)
--- NOTE | 2023-12-24 11:00 | HO.PSYCHPN ---
Subjective Subjective Date of Service: 12/24/23 Reason For Visit: SI psychosis Interim History: hyperverbal, redirectable. pleasant. looking forward to seeing dr. pruitt again tomorrow. concerned about whether she will have enough depends for the night, redirected to request more from nursing staff. talking about her supersonic hearing and how she can hear everyone talking shit about everyone else and how discouraging it is. per staff, no change in presentation. slept well. taking meds. hyperverbal. pleasant. Mental Status Exam Mental Status Exam Patient Appearance: Well Grooomed and Appropriate Patient Orientation: Person and Situation Level of Consciousness: Awake and Appropriate Patient Behavior: Talkative Mood Description: Euphoric and Cheerful Affect Description: Euphoric, Cheerful and Expansive Patient Cognition Impaired: Yes Ability to Follow Directions: Good Speech Pattern: Clear Memory Description: Intact Thought Process: Racing Thought Content: positive for Loose Associations Judgement: Fair Diagnostics Vital Signs (24Hr): Vital Signs - 24 hr 12/24/23 08:10 Temperature 97.3 F Pulse Rate 88 Respiratory Rate 17 Blood Pressure 116/58 L Pulse Oximetry 95 Oxygen Delivery Method Room Air BMI result Body Mass Index 33.3 Labs 12/18/23 16:48 12/20/23 07:59 Medications Medications Current Medications Acetaminophen (Acetaminophen 325 Mg Tablet) 650 mg PO Q6H PRN PRN Reason: Headache/Pain Mild Scale (1-3) Last Admin: 12/21/23 20:52 Dose: 650 mg Al Hydroxide/Mg Hydroxide (Magnesium Hydrox/Alum Hydrox 30 Ml Oral.Susp) 30 ml PO Q6H PRN PRN Reason: Heartburn/Nausea Last Admin: 12/20/23 20:48 Dose: 30 ml Atorvastatin Calcium (Atorvastatin Calcium 20 Mg Tablet) 20 mg PO BEDTIME [facility] Last Admin: 12/23/23 21:15 Dose: 20 mg Calcium Carbonate (Calcium Carbonate 750 Mg Tab.Chew) 750 mg PO Q6H PRN PRN Reason: GI Upset Last Admin: 12/22/23 22:18 Dose: 750 mg Docusate Sodium (Docusate Sodium 100 Mg Capsule) 100 mg PO BEDTIME [facility] Last Admin: 12/23/23 21:14 Dose: 100 mg Gabapentin (Gabapentin 300 Mg Capsule) 300 mg PO TID [facility] Last Admin: 12/24/23 08:12 Dose: 300 mg Hydrochlorothiazide (Hydrochlorothiazide 12.5 Mg Tablet) 12.5 mg PO DAILY [facility]; Protocol Last Admin: 12/24/23 08:12 Dose: 12.5 mg Levothyroxine Sodium (Levothyroxine Sodium 125 Mcg Tablet) 125 mcg PO DAILY@0630 [facility] Last Admin: 12/24/23 05:10 Dose: 125 mcg Lisinopril (Lisinopril 20 Mg Tablet) 20 mg PO DAILY [facility]; Protocol Last Admin: 12/24/23 08:12 Dose: 20 mg Loratadine (Loratadine 10 Mg Tablet) 10 mg PO BEDTIME [facility] Last Admin: 12/23/23 21:14 Dose: 10 mg Lorazepam (Lorazepam 1 Mg Tablet) 1 mg PO Q6H PRN PRN Reason: Anxiety Last Admin: 12/23/23 21:13 Dose: 1 mg Magnesium Hydroxide (Milk Of Magnesia 30 Ml Oral.Susp) 30 ml PO DAILY PRN PRN Reason: Constipation Last Admin: 12/24/23 05:10 Dose: 30 ml Olanzapine (Olanzapine 2.5 Mg Tablet) 2.5 mg PO BID PRN PRN Reason: psychosis Olanzapine (Olanzapine 7.5 Mg Tablet) 7.5 mg PO BEDTIME [facility] Last Admin: 12/23/23 21:13 Dose: 7.5 mg Trazodone HCl (Trazodone Hcl 50 Mg Tablet) 50 mg PO BEDTIME [facility] Last Admin: 12/23/23 21:14 Dose: 50 mg Trazodone HCl (Trazodone Hcl 50 Mg Tablet) 50 mg PO BEDTIME MRX1 PRN PRN Reason: Insomnia Last Admin: 12/21/23 22:32 Dose: 50 mg Allergies Allergies Allergy/AdvReac Type Severity Reaction Status Date / Time Unable to Assess Allergy Verified 12/18/23 15:46 Assessment & Plan Assessment & Plan (1) Bipolar disorder: Status: Acute Code(s): F31.9 - Bipolar disorder, unspecified (2) Borderline personality disorder: Status: Acute Code(s): F60.3 - Borderline personality disorder (3) Psychosis: Status: Acute Code(s): F29 - Unspecified psychosis not due to a substance or known physiological condition Plan The patient is an elderly female with a past history of borderline personality disorder and bipolar disorder who was brought into the facility with active symptoms of loan with racing thoughts, flight of ideas and grandiosity but also recently she complained of suicidal ideation without a clear plan or intent. Sister called 911 since she had been reporting suicidal thoughts. On interview it was clear that the patient was manic. Plan 1. Gather collateral information. We will try to contact her sister to get more information regarding past treatments. 2. Continue with gabapentin and other medications prescribed by her previous psychiatrist. 3. We discussed risks, benefits, side-effects and alternatives and the patient agreed to take Zyprexa 2.5 mg p.o. q.h.s. to target insomnia and mood lability. 4. Blood work tomorrow. 5. . Reassessment with results. 6. 15 minute checks. The patient is able to contract for safety in the facility . 7. Increase Zyprexa to7. 5 mg p.o. q.h.s. on December 21 12/22/23 tolerating increase in zyprexa; continue tx plan 2/3: remains pressured, manic. pleasant, however, and not exhibiting disruptive behaviors. continue current mgmt. 12/24: divulging AH. no change in presentation. continue current mgmt. Reason for continued inpatient stay Substantial Risk for: inability to function and rapid decompensation Time Spent With Patient Time: Total time managing care of this patient today ____ minutes.
[2023-12-24] MEDS: Acetaminophen 325 MG TABLET 650 MG PO ×2 (14:39→21:20)
[2023-12-24 18:00] VITALS: BP 135/62; PULSE 72; RESP 16; TEMP 35.9; O2SAT 98
[2023-12-24] MEDS: OLANZapine 7.5 MG TABLET PO (21:20)
[2023-12-24] MEDS: Atorvastatin Calcium 20 MG TABLET PO (21:22)
[2023-12-24] MEDS: traZODone HCL 50 MG TABLET PO (21:22)
[2023-12-24] MEDS: LORazepam 1 MG TABLET PO (21:23)
[2023-12-24] MEDS: Loratadine 10 MG TABLET PO (21:24)
[2023-12-25] MEDS: Levothyroxine Sodium 125 MCG TABLET PO (05:53)
[2023-12-25 09:26] VITALS: BP 141/61; PULSE 100; RESP 20; TEMP 37.1; O2SAT 94
[2023-12-25] MEDS: hydroCHLOROthiazide 12.5 MG TABLET PO (09:30)
[2023-12-25] MEDS: Gabapentin 300 MG CAPSULE PO ×3 (09:30→20:50)
[2023-12-25] MEDS: lisinopriL 20 MG TABLET PO (09:30)
[2023-12-25] MEDS: LORazepam 1 MG TABLET PO (10:35)
[2023-12-25] MEDS: OLANZapine 2.5 MG TABLET PO (10:35)
--- NOTE | 2023-12-25 14:59 | HO.PSYCHPN ---
Subjective Subjective Date of Service: 12/25/23 Reason For Visit: SI psychosis Interim History: Met with patient; discussed with team; reviewed chart Patient says she is doing good relative to the things she is been dealing with. She says she has not as depressed and denies any SI. Patient shared that her granddaughter recently committed suicide and thinks that her son is partly to blame for the way he is treated her. Patient said she is coping. Reviewed medications and Depakote level dipped a little from last reading to 49.7 (was 57.2) Nursing reports that patient has become increasingly self-sufficient Mental Status Exam Mental Status Exam Narrative: Pt is alert and oriented; behavior is cooperative, friendly and calm; patient is not in distress; dressed in hospital attire, leaning on walker with adequate hygiene; mood is described as doing good and affect congruent; eye contact appropriate; Speech is normal rate, volume and prosody and not pressured; no psychomotor agitation/retardation present; thought process is organized and goal directed; Thought content is on loss of her granddaughter; tx; otherwise pertinent to relevant topics and without any delusional content, paranoid ideations or grandiosity; denies any SI/HI. There is no evidence of perceptual disturbance. Patients insight and judgment appear intact. Diagnostics Vital Signs (24Hr): Vital Signs - 24 hr 12/24/23 18:00 12/25/23 09:26 Temperature 96.6 F L 98.7 F Pulse Rate 72 100 Respiratory Rate 16 20 Blood Pressure 135/62 141/61 H Pulse Oximetry 98 94 Oxygen Delivery Method Room Air Room Air BMI result Body Mass Index 33.3 Labs 12/18/23 16:48 12/20/23 07:59 Medications Medications Current Medications Acetaminophen (Acetaminophen 325 Mg Tablet) 650 mg PO Q6H PRN PRN Reason: Headache/Pain Mild Scale (1-3) Last Admin: 12/24/23 21:20 Dose: 650 mg Al Hydroxide/Mg Hydroxide (Magnesium Hydrox/Alum Hydrox 30 Ml Oral.Susp) 30 ml PO Q6H PRN PRN Reason: Heartburn/Nausea Last Admin: 12/20/23 20:48 Dose: 30 ml Atorvastatin Calcium (Atorvastatin Calcium 20 Mg Tablet) 20 mg PO BEDTIME [facility] Last Admin: 12/24/23 21:22 Dose: 20 mg Calcium Carbonate (Calcium Carbonate 750 Mg Tab.Chew) 750 mg PO Q6H PRN PRN Reason: GI Upset Last Admin: 12/22/23 22:18 Dose: 750 mg Docusate Sodium (Docusate Sodium 100 Mg Capsule) 100 mg PO BEDTIME [facility] Last Admin: 12/24/23 21:24 Dose: Not Given Gabapentin (Gabapentin 300 Mg Capsule) 300 mg PO TID [facility] Last Admin: 12/25/23 14:53 Dose: 300 mg Hydrochlorothiazide (Hydrochlorothiazide 12.5 Mg Tablet) 12.5 mg PO DAILY [facility]; Protocol Last Admin: 12/25/23 09:30 Dose: 12.5 mg Levothyroxine Sodium (Levothyroxine Sodium 125 Mcg Tablet) 125 mcg PO DAILY@0630 [facility] Last Admin: 12/25/23 05:53 Dose: 125 mcg Lisinopril (Lisinopril 20 Mg Tablet) 20 mg PO DAILY [facility]; Protocol Last Admin: 12/25/23 09:30 Dose: 20 mg Loratadine (Loratadine 10 Mg Tablet) 10 mg PO BEDTIME [facility] Last Admin: 12/24/23 21:24 Dose: 10 mg Lorazepam (Lorazepam 1 Mg Tablet) 1 mg PO Q6H PRN PRN Reason: Anxiety Last Admin: 12/25/23 10:35 Dose: 1 mg Magnesium Hydroxide (Milk Of Magnesia 30 Ml Oral.Susp) 30 ml PO DAILY PRN PRN Reason: Constipation Last Admin: 12/24/23 05:10 Dose: 30 ml Olanzapine (Olanzapine 2.5 Mg Tablet) 2.5 mg PO BID PRN PRN Reason: psychosis Last Admin: 12/25/23 10:35 Dose: 2.5 mg Olanzapine (Olanzapine 7.5 Mg Tablet) 7.5 mg PO BEDTIME [facility] Last Admin: 12/24/23 21:20 Dose: 7.5 mg Trazodone HCl (Trazodone Hcl 50 Mg Tablet) 50 mg PO BEDTIME [facility] Last Admin: 12/24/23 21:22 Dose: 50 mg Trazodone HCl (Trazodone Hcl 50 Mg Tablet) 50 mg PO BEDTIME MRX1 PRN PRN Reason: Insomnia Last Admin: 12/21/23 22:32 Dose: 50 mg Allergies Allergies Allergy/AdvReac Type Severity Reaction Status Date / Time Unable to Assess Allergy Verified 12/18/23 15:46 Assessment & Plan Assessment & Plan (1) Bipolar disorder: Status: Acute Code(s): F31.9 - Bipolar disorder, unspecified (2) Borderline personality disorder: Status: Acute Code(s): F60.3 - Borderline personality disorder (3) Psychosis: Status: Acute Code(s): F29 - Unspecified psychosis not due to a substance or known physiological condition Plan The patient is an elderly female with a past history of borderline personality disorder and bipolar disorder who was brought into the facility with active symptoms of loan with racing thoughts, flight of ideas and grandiosity but also recently she complained of suicidal ideation without a clear plan or intent. Sister called 911 since she had been reporting suicidal thoughts. On interview it was clear that the patient was manic. Plan 1. Gather collateral information. We will try to contact her sister to get more information regarding past treatments. 2. Continue with gabapentin and other medications prescribed by her previous psychiatrist. 3. We discussed risks, benefits, side-effects and alternatives and the patient agreed to take Zyprexa 2.5 mg p.o. q.h.s. to target insomnia and mood lability. 4. Blood work tomorrow. 5. . Reassessment with results. 6. 15 minute checks. The patient is able to contract for safety in the facility . 7. Increase Zyprexa to7. 5 mg p.o. q.h.s. on December 21 Hospital course: 12/22/23 tolerating increase in zyprexa; continue tx plan 12/23: remains pressured, manic. pleasant, however, and not exhibiting disruptive behaviors. continue current mgmt. 12/24: divulging AH. no change in presentation. continue current mgmt. 12/25 Patient says she is doing good relative to the things she is been dealing with. She says she has not as depressed and denies any SI. Patient shared that her granddaughter recently committed suicide and thinks that her son is partly to blame for the way he is treated her. Patient said she is coping. Reviewed medications and Depakote level dipped a little from last reading to 49.7 (was 57.2) Nursing reports that patient has become increasingly self-sufficient -continue current treatment plan Patient educated on: diagnosis and therapeutic strategies Informed Consent: understands Reason for continued inpatient stay Substantial Risk for: rapid decompensation Time Spent With Patient Time: Total time managing care of this patient today ____ minutes.
[2023-12-25 20:00] VITALS: BP 141/63; PULSE 80; RESP 18; TEMP 37.1; O2SAT 97
[2023-12-25] MEDS: OLANZapine 7.5 MG TABLET PO (20:49)
[2023-12-25] MEDS: Loratadine 10 MG TABLET PO (20:49)
[2023-12-25] MEDS: Atorvastatin Calcium 20 MG TABLET PO (20:49)
[2023-12-25] MEDS: traZODone HCL 50 MG TABLET PO (20:50)
[2023-12-25] MEDS: Docusate Sodium 100 MG CAPSULE PO (20:50)
[2023-12-26] MEDS: Levothyroxine Sodium 125 MCG TABLET PO (06:36)
[2023-12-26 07:55] VITALS: BP 133/59; PULSE 98; RESP 18; TEMP 36.6; O2SAT 94
[2023-12-26] MEDS: Gabapentin 300 MG CAPSULE PO ×3 (09:03→21:06)
[2023-12-26] MEDS: lisinopriL 20 MG TABLET PO (09:03)
[2023-12-26] MEDS: hydroCHLOROthiazide 12.5 MG TABLET PO (09:04)
--- NOTE | 2023-12-26 10:12 | P.PNPSI_ITS ---
Subjective Subjective Date of Service: 12/26/23 Reason For Visit: SI psychosis Subjective Notes: Conditional Voluntary Interim History: The nursing staff reported the patient had been hypomanic, grandiose with weird statements stating that she is smarter than anyone and she has super sonic senses. She slept 8 hours. The psychiatric social worker supervisor reported that we will have a family meeting at 13:00. On interview the patient denies new symptoms she is manic so she agreed to increase Zyprexa to 10 mg p.o. q.h.s. to target mood lability. Mental Status Exam Mental Status Exam Patient Appearance: Appropriate Patient Orientation: Person and Situation Level of Consciousness: Awake Patient Behavior: Guarded and Passive Mood Description: Calm Affect Description: Labile Patient Cognition Impaired: Yes Ability to Follow Directions: Good Speech Pattern: Clear Hallucinations: None Delusions: Grandiose Thought Process: Racing and Distracted Thought Content: positive for [place] and positive for Poverty of Content Judgement: Poor Diagnostics Vital Signs (24Hr): Vital Signs - 24 hr 12/25/23 20:00 12/26/23 07:55 Temperature 98.8 F 97.9 F Pulse Rate 80 98 Respiratory Rate 18 18 Blood Pressure 141/63 H 133/59 L Pulse Oximetry 97 94 Oxygen Delivery Method Room Air Room Air BMI result Body Mass Index 33.3 Labs 12/18/23 16:48 12/20/23 07:59 Medications Medications Current Medications Acetaminophen (Acetaminophen 325 Mg Tablet) 650 mg PO Q6H PRN PRN Reason: Headache/Pain Mild Scale (1-3) Last Admin: 12/24/23 21:20 Dose: 650 mg Al Hydroxide/Mg Hydroxide (Magnesium Hydrox/Alum Hydrox 30 Ml Oral.Susp) 30 ml PO Q6H PRN PRN Reason: Heartburn/Nausea Last Admin: 12/20/23 20:48 Dose: 30 ml Atorvastatin Calcium (Atorvastatin Calcium 20 Mg Tablet) 20 mg PO BEDTIME [facility] Last Admin: 12/25/23 20:49 Dose: 20 mg Calcium Carbonate (Calcium Carbonate 750 Mg Tab.Chew) 750 mg PO Q6H PRN PRN Reason: GI Upset Last Admin: 12/22/23 22:18 Dose: 750 mg Docusate Sodium (Docusate Sodium 100 Mg Capsule) 100 mg PO BEDTIME [facility] Last Admin: 12/25/23 20:50 Dose: 100 mg Gabapentin (Gabapentin 300 Mg Capsule) 300 mg PO TID [facility] Last Admin: 12/26/23 09:03 Dose: 300 mg Hydrochlorothiazide (Hydrochlorothiazide 12.5 Mg Tablet) 12.5 mg PO DAILY [facility]; Protocol Last Admin: 12/26/23 09:04 Dose: 12.5 mg Levothyroxine Sodium (Levothyroxine Sodium 125 Mcg Tablet) 125 mcg PO DAILY@0630 [facility] Last Admin: 12/26/23 06:36 Dose: 125 mcg Lisinopril (Lisinopril 20 Mg Tablet) 20 mg PO DAILY [facility]; Protocol Last Admin: 12/26/23 09:03 Dose: 20 mg Loratadine (Loratadine 10 Mg Tablet) 10 mg PO BEDTIME [facility] Last Admin: 12/25/23 20:49 Dose: 10 mg Lorazepam (Lorazepam 1 Mg Tablet) 1 mg PO Q6H PRN PRN Reason: Anxiety Last Admin: 12/25/23 10:35 Dose: 1 mg Magnesium Hydroxide (Milk Of Magnesia 30 Ml Oral.Susp) 30 ml PO DAILY PRN PRN Reason: Constipation Last Admin: 12/24/23 05:10 Dose: 30 ml Olanzapine (Olanzapine 2.5 Mg Tablet) 2.5 mg PO BID PRN PRN Reason: psychosis Last Admin: 12/25/23 10:35 Dose: 2.5 mg Olanzapine (Olanzapine 10 Mg Tablet) 10 mg PO BEDTIME [facility] Trazodone HCl (Trazodone Hcl 50 Mg Tablet) 50 mg PO BEDTIME [facility] Last Admin: 12/25/23 20:50 Dose: 50 mg Trazodone HCl (Trazodone Hcl 50 Mg Tablet) 50 mg PO BEDTIME MRX1 PRN PRN Reason: Insomnia Last Admin: 12/21/23 22:32 Dose: 50 mg Allergies Allergies Allergy/AdvReac Type Severity Reaction Status Date / Time Unable to Assess Allergy Verified 12/18/23 15:46 Assessment & Plan Assessment & Plan (1) Bipolar disorder: Status: Acute Code(s): F31.9 - Bipolar disorder, unspecified (2) Borderline personality disorder: Status: Acute Code(s): F60.3 - Borderline personality disorder (3) Psychosis: Status: Acute Code(s): F29 - Unspecified psychosis not due to a substance or known physiological condition Plan The patient is an elderly female with a past history of borderline personality disorder and bipolar disorder who was brought into the facility with active symptoms of loan with racing thoughts, flight of ideas and grandiosity but also recently she complained of suicidal ideation without a clear plan or intent. Sister called 911 since she had been reporting suicidal thoughts. On interview it was clear that the patient was manic. Plan 1. Gather collateral information. We will try to contact her sister to get more information regarding past treatments. 2. Continue with gabapentin and other medications prescribed by her previous psychiatrist. 3. We discussed risks, benefits, side-effects and alternatives and the patient agreed to take Zyprexa 2.5 mg p.o. q.h.s. to target insomnia and mood lability. 4. Blood work tomorrow. 5. . Reassessment with results. 6. 15 minute checks. The patient is able to contract for safety in the facility . 7. Increase Zyprexa to7. 5 mg p.o. q.h.s. on December 21. On December 26 we increase Zyprexa to 10 mg p.o. q.h.s. to target loan. Reason for continued inpatient stay Substantial Risk for: inability to function, rapid decompensation and med/psych decompensation Time Spent With Patient Time: Total time managing care of this patient today _20___ minutes.
[2023-12-26 20:35] VITALS: BP 132/80; PULSE 92; RESP 18; TEMP 35.9; O2SAT 96
[2023-12-26] MEDS: Atorvastatin Calcium 20 MG TABLET PO (21:06)
[2023-12-26] MEDS: Loratadine 10 MG TABLET PO (21:06)
[2023-12-26] MEDS: traZODone HCL 50 MG TABLET PO (21:06)
[2023-12-26] MEDS: Docusate Sodium 100 MG CAPSULE PO (21:06)
[2023-12-26] MEDS: OLANZapine 10 MG TABLET PO (21:06)
[2023-12-27] MEDS: traZODone HCL 50 MG TABLET PO ×2 (02:59→20:41)
[2023-12-27] MEDS: Levothyroxine Sodium 125 MCG TABLET PO (05:53)
[2023-12-27 08:00] VITALS: BP 120/60; PULSE 89; RESP 18; TEMP 36.7; O2SAT 95
[2023-12-27] MEDS: hydroCHLOROthiazide 12.5 MG TABLET PO (08:09)
[2023-12-27] MEDS: Gabapentin 300 MG CAPSULE PO ×3 (08:09→20:41)
[2023-12-27] MEDS: lisinopriL 20 MG TABLET PO (08:09)
--- NOTE | 2023-12-27 12:36 | P.PNPSI_ITS ---
Subjective Subjective Date of Service: 12/27/23 Reason For Visit: SI psychosis Subjective Notes: Conditional Voluntary Interim History: The nursing staff reported the patient had been cheerful and disorganized at times, very talkative. On interview the patient is very pleasant, denies side effects with increase of Zyprexa. Still manic. The social science analyst reported that yesterday we had a family meeting and we explained to her daughter and sister about the treatment goals. They are agreement of continue treatment. Mental Status Exam Mental Status Exam Patient Appearance: Appropriate Patient Orientation: Person and Situation Level of Consciousness: Awake and Appropriate Patient Behavior: Appropriate Mood Description: Calm and Relaxed Affect Description: Labile Patient Cognition Impaired: No Ability to Follow Directions: Good Speech Pattern: Clear Hallucinations: None Delusions: Paranoid Ideation, Grandiose and Ideas of Reference Thought Process: Distracted and Slowed Thinking Thought Content: positive for [place] and positive for Circumstantial Judgement: Fair Diagnostics Vital Signs (24Hr): Vital Signs - 24 hr 12/26/23 20:35 12/27/23 08:00 Temperature 96.7 F L 98.0 F Pulse Rate 92 89 Respiratory Rate 18 18 Blood Pressure 132/80 120/60 Pulse Oximetry 96 95 Oxygen Delivery Method Room Air Room Air BMI result Body Mass Index 33.3 Labs 12/18/23 16:48 12/20/23 07:59 Medications Medications Current Medications Acetaminophen (Acetaminophen 325 Mg Tablet) 650 mg PO Q6H PRN PRN Reason: Headache/Pain Mild Scale (1-3) Last Admin: 12/24/23 21:20 Dose: 650 mg Al Hydroxide/Mg Hydroxide (Magnesium Hydrox/Alum Hydrox 30 Ml Oral.Susp) 30 ml PO Q6H PRN PRN Reason: Heartburn/Nausea Last Admin: 12/20/23 20:48 Dose: 30 ml Atorvastatin Calcium (Atorvastatin Calcium 20 Mg Tablet) 20 mg PO BEDTIME [facility] Last Admin: 12/26/23 21:06 Dose: 20 mg Calcium Carbonate (Calcium Carbonate 750 Mg Tab.Chew) 750 mg PO Q6H PRN PRN Reason: GI Upset Last Admin: 12/22/23 22:18 Dose: 750 mg Docusate Sodium (Docusate Sodium 100 Mg Capsule) 100 mg PO BEDTIME [facility] Last Admin: 12/26/23 21:06 Dose: 100 mg Gabapentin (Gabapentin 300 Mg Capsule) 300 mg PO TID [facility] Last Admin: 12/27/23 08:09 Dose: 300 mg Hydrochlorothiazide (Hydrochlorothiazide 12.5 Mg Tablet) 12.5 mg PO DAILY [facility]; Protocol Last Admin: 12/27/23 08:09 Dose: 12.5 mg Levothyroxine Sodium (Levothyroxine Sodium 125 Mcg Tablet) 125 mcg PO DAILY@0630 [facility] Last Admin: 12/27/23 05:53 Dose: 125 mcg Lisinopril (Lisinopril 20 Mg Tablet) 20 mg PO DAILY [facility]; Protocol Last Admin: 12/27/23 08:09 Dose: 20 mg Loratadine (Loratadine 10 Mg Tablet) 10 mg PO BEDTIME [facility] Last Admin: 12/26/23 21:06 Dose: 10 mg Lorazepam (Lorazepam 1 Mg Tablet) 1 mg PO Q6H PRN PRN Reason: Anxiety Last Admin: 12/25/23 10:35 Dose: 1 mg Magnesium Hydroxide (Milk Of Magnesia 30 Ml Oral.Susp) 30 ml PO DAILY PRN PRN Reason: Constipation Last Admin: 12/24/23 05:10 Dose: 30 ml Olanzapine (Olanzapine 2.5 Mg Tablet) 2.5 mg PO BID PRN PRN Reason: psychosis Last Admin: 12/25/23 10:35 Dose: 2.5 mg Olanzapine (Olanzapine 10 Mg Tablet) 10 mg PO BEDTIME [facility] Last Admin: 12/26/23 21:06 Dose: 10 mg Trazodone HCl (Trazodone Hcl 50 Mg Tablet) 50 mg PO BEDTIME [facility] Last Admin: 12/26/23 21:06 Dose: 50 mg Trazodone HCl (Trazodone Hcl 50 Mg Tablet) 50 mg PO BEDTIME MRX1 PRN PRN Reason: Insomnia Last Admin: 12/27/23 02:59 Dose: 50 mg Allergies Allergies Allergy/AdvReac Type Severity Reaction Status Date / Time Unable to Assess Allergy Verified 12/18/23 15:46 Assessment & Plan Assessment & Plan (1) Bipolar disorder: Status: Acute Code(s): F31.9 - Bipolar disorder, unspecified (2) Borderline personality disorder: Status: Acute Code(s): F60.3 - Borderline personality disorder (3) Psychosis: Status: Acute Code(s): F29 - Unspecified psychosis not due to a substance or known physiological condition Plan The patient is an elderly female with a past history of borderline personality disorder and bipolar disorder who was brought into the facility with active symptoms of loan with racing thoughts, flight of ideas and grandiosity but also recently she complained of suicidal ideation without a clear plan or intent. Sister called 911 since she had been reporting suicidal thoughts. On interview it was clear that the patient was manic. Plan 1. Gather collateral information. We will try to contact her sister to get more information regarding past treatments. 2. Continue with gabapentin and other medications prescribed by her previous psychiatrist. 3. We discussed risks, benefits, side-effects and alternatives and the patient agreed to take Zyprexa 2.5 mg p.o. q.h.s. to target insomnia and mood lability. 4. Blood work tomorrow. 5. . Reassessment with results. 6. 15 minute checks. The patient is able to contract for safety in the facility . 7. Increase Zyprexa to7. 5 mg p.o. q.h.s. on December 21. On December 26 we increase Zyprexa to 10 mg p.o. q.h.s. to target loan. Reason for continued inpatient stay Substantial Risk for: inability to function, rapid decompensation and med/psych decompensation Time Spent With Patient Time: Total time managing care of this patient today __20__ minutes.
[2023-12-27 18:00] VITALS: BP 147/81; PULSE 81; RESP 18; TEMP 37; O2SAT 100
[2023-12-27] MEDS: Loratadine 10 MG TABLET PO (20:41)
[2023-12-27] MEDS: Atorvastatin Calcium 20 MG TABLET PO (20:41)
[2023-12-27] MEDS: OLANZapine 10 MG TABLET PO (20:41)
[2023-12-27] MEDS: Docusate Sodium 100 MG CAPSULE PO (20:41)
[2023-12-28] MEDS: Levothyroxine Sodium 125 MCG TABLET PO (06:23)
[2023-12-28 08:51] VITALS: BP 135/61; PULSE 91; RESP 18; TEMP 35.6; O2SAT 94
[2023-12-28] MEDS: hydroCHLOROthiazide 12.5 MG TABLET PO (08:55)
[2023-12-28] MEDS: Gabapentin 300 MG CAPSULE PO (08:55)
[2023-12-28] MEDS: lisinopriL 20 MG TABLET PO (08:55)
--- NOTE | 2023-12-28 13:34 | HO.PSYCHPN ---
Subjective Subjective Date of Service: 12/28/23 Reason For Visit: SI psychosis Subjective Notes: Conditional Voluntary Interim History: The nursing staff reported the patient had been fully compliant with treatment, she has attended to groups. The occupational therapist reported that she goes to groups but sometimes she lives early when she is overwhelmed. On interview the patient reports that she is feeling better but still with some hypomanic symptoms. We discussed options and she agreed to increase gabapentin up to 400 mg p.o. t.i.d. to target mood lability and anxiety. Mental Status Exam Mental Status Exam Patient Appearance: Well Grooomed and Appropriate Patient Orientation: Person and Situation Level of Consciousness: Awake and Appropriate Patient Behavior: Appropriate and Passive Mood Description: Withdrawn Affect Description: Constricted Patient Cognition Impaired: Yes Ability to Follow Directions: Good Speech Pattern: Clear Hallucinations: None Delusions: Paranoid Ideation and Ideas of Reference Thought Process: Distracted and Slowed Thinking Thought Content: positive for [place] and positive for Circumstantial Judgement: Fair Diagnostics Vital Signs (24Hr): Vital Signs - 24 hr 12/27/23 18:00 12/28/23 08:51 Temperature 98.6 F 96.1 F L Pulse Rate 81 91 Respiratory Rate 18 18 Blood Pressure 147/81 H 135/61 Pulse Oximetry 100 94 Oxygen Delivery Method Room Air Room Air BMI result Body Mass Index 33.3 Labs 12/18/23 16:48 12/20/23 07:59 Medications Medications Current Medications Acetaminophen (Acetaminophen 325 Mg Tablet) 650 mg PO Q6H PRN PRN Reason: Headache/Pain Mild Scale (1-3) Last Admin: 12/24/23 21:20 Dose: 650 mg Al Hydroxide/Mg Hydroxide (Magnesium Hydrox/Alum Hydrox 30 Ml Oral.Susp) 30 ml PO Q6H PRN PRN Reason: Heartburn/Nausea Last Admin: 12/20/23 20:48 Dose: 30 ml Albuterol Sulfate (Albuterol Sulfate 90 Mcg 8 Gm Inhaler) 2 puff INHALE RQ4H PRN PRN Reason: Bronchospasm Atorvastatin Calcium (Atorvastatin Calcium 20 Mg Tablet) 20 mg PO BEDTIME [facility] Last Admin: 12/27/23 20:41 Dose: 20 mg Calcium Carbonate (Calcium Carbonate 750 Mg Tab.Chew) 750 mg PO Q6H PRN PRN Reason: GI Upset Last Admin: 12/22/23 22:18 Dose: 750 mg Docusate Sodium (Docusate Sodium 100 Mg Capsule) 100 mg PO BEDTIME [facility] Last Admin: 12/27/23 20:41 Dose: 100 mg Gabapentin (Gabapentin 400 Mg Capsule) 400 mg PO TID [facility] Hydrochlorothiazide (Hydrochlorothiazide 12.5 Mg Tablet) 12.5 mg PO DAILY [facility]; Protocol Last Admin: 12/28/23 08:55 Dose: 12.5 mg Levothyroxine Sodium (Levothyroxine Sodium 125 Mcg Tablet) 125 mcg PO DAILY@0630 [facility] Last Admin: 12/28/23 06:23 Dose: 125 mcg Lisinopril (Lisinopril 20 Mg Tablet) 20 mg PO DAILY [facility]; Protocol Last Admin: 12/28/23 08:55 Dose: 20 mg Loratadine (Loratadine 10 Mg Tablet) 10 mg PO BEDTIME [facility] Last Admin: 12/27/23 20:41 Dose: 10 mg Lorazepam (Lorazepam 1 Mg Tablet) 1 mg PO Q6H PRN PRN Reason: Anxiety Last Admin: 12/25/23 10:35 Dose: 1 mg Magnesium Hydroxide (Milk Of Magnesia 30 Ml Oral.Susp) 30 ml PO DAILY PRN PRN Reason: Constipation Last Admin: 12/24/23 05:10 Dose: 30 ml Miconazole Nitrate (Miconazole Nitrate 2% Oint 57 Gm Oint...G.) 1 appl TOPICAL BID [facility]; Protocol Olanzapine (Olanzapine 2.5 Mg Tablet) 2.5 mg PO BID PRN PRN Reason: psychosis Last Admin: 12/25/23 10:35 Dose: 2.5 mg Olanzapine (Olanzapine 10 Mg Tablet) 10 mg PO BEDTIME [facility] Last Admin: 12/27/23 20:41 Dose: 10 mg Sodium Chloride (Sodium Chloride 0.65 % Nasal 44 Ml Sprbtl) 1 spray NOSTRIL-B Q1H PRN PRN Reason: Nasal Congestion Trazodone HCl (Trazodone Hcl 50 Mg Tablet) 50 mg PO BEDTIME [facility] Last Admin: 12/27/23 20:41 Dose: 50 mg Trazodone HCl (Trazodone Hcl 50 Mg Tablet) 50 mg PO BEDTIME MRX1 PRN PRN Reason: Insomnia Last Admin: 12/27/23 02:59 Dose: 50 mg Allergies Allergies Allergy/AdvReac Type Severity Reaction Status Date / Time Unable to Assess Allergy Verified 12/18/23 15:46 Assessment & Plan Assessment & Plan (1) Bipolar disorder: Status: Acute Code(s): F31.9 - Bipolar disorder, unspecified (2) Borderline personality disorder: Status: Acute Code(s): F60.3 - Borderline personality disorder (3) Psychosis: Status: Acute Code(s): F29 - Unspecified psychosis not due to a substance or known physiological condition Plan The patient is an elderly female with a past history of borderline personality disorder and bipolar disorder who was brought into the facility with active symptoms of loan with racing thoughts, flight of ideas and grandiosity but also recently she complained of suicidal ideation without a clear plan or intent. Sister called 911 since she had been reporting suicidal thoughts. On interview it was clear that the patient was manic. Plan 1. Gather collateral information. We will try to contact her sister to get more information regarding past treatments. 2. Continue with gabapentin and other medications prescribed by her previous psychiatrist. 3. We discussed risks, benefits, side-effects and alternatives and the patient agreed to take Zyprexa 2.5 mg p.o. q.h.s. to target insomnia and mood lability. 4. Blood work tomorrow. 5. . Reassessment with results. 6. 15 minute checks. The patient is able to contract for safety in the facility . 7. Increase Zyprexa to7. 5 mg p.o. q.h.s. on December 21. On December 26 we increase Zyprexa to 10 mg p.o. q.h.s. to target loan. 8. On December 28 we increased gabapentin up to 400 mg p.o. t.i.d. Reason for continued inpatient stay Substantial Risk for: inability to function, rapid decompensation and med/psych decompensation Time Spent With Patient Time: Total time managing care of this patient today _20___ minutes.
[2023-12-28] MEDS: Gabapentin 400 MG CAPSULE PO ×2 (14:55→21:04)
[2023-12-28] MEDS: Acetaminophen 325 MG TABLET 650 MG PO (14:55)
[2023-12-28 19:35] VITALS: BP 164/62; PULSE 83; RESP 18; TEMP 36.6; O2SAT 97
[2023-12-28] MEDS: Docusate Sodium 100 MG CAPSULE PO (21:04)
[2023-12-28] MEDS: Atorvastatin Calcium 20 MG TABLET PO (21:04)
[2023-12-28] MEDS: LORazepam 1 MG TABLET PO (21:04)
[2023-12-28] MEDS: Loratadine 10 MG TABLET PO (21:04)
[2023-12-28] MEDS: traZODone HCL 50 MG TABLET PO (21:04)
[2023-12-28] MEDS: OLANZapine 10 MG TABLET PO (21:04)
[2023-12-29] MEDS: Levothyroxine Sodium 125 MCG TABLET PO (06:08)
[2023-12-29 08:36] VITALS: BP 120/55; PULSE 89; RESP 18; TEMP 36.6; O2SAT 96
[2023-12-29] MEDS: hydroCHLOROthiazide 12.5 MG TABLET PO (08:40)
[2023-12-29] MEDS: Gabapentin 400 MG CAPSULE PO ×3 (08:40→21:07)
[2023-12-29] MEDS: lisinopriL 20 MG TABLET PO (08:40)
[2023-12-29] MEDS: Miconazole Nitrate 2% Oint 57 GM OINT...G. 1 APPL TOPICAL ×2 (08:40→21:12)
--- NOTE | 2023-12-29 14:39 | HO.PSYCHPN ---
Subjective Subjective Date of Service: 12/29/23 Reason For Visit: SI psychosis Subjective Notes: Conditional Voluntary Interim History: The nursing staff reported the patient had been compliant with treatment. She remains hyperverbal, she had poor sleep last night. The occupational therapist reported that she is less functional than the other patients that attend to groups. On interview the patient remains with some manic symptoms and psychosis with some disorganized thought process. I spoke with her sister and explained the goals of treatment. They agreed increase Zyprexa at night. Mental Status Exam Mental Status Exam Patient Appearance: Well Grooomed and Appropriate Patient Orientation: Person and Situation Level of Consciousness: Awake and Appropriate Patient Behavior: Guarded and Passive Mood Description: Withdrawn Affect Description: Constricted Patient Cognition Impaired: Yes Ability to Follow Directions: Good Speech Pattern: Clear Hallucinations: None Delusions: Paranoid Ideation and Ideas of Reference Thought Process: Racing, Illogical and Distracted Thought Content: positive for [place] and positive for Circumstantial Judgement: Fair Diagnostics Vital Signs (24Hr): Vital Signs - 24 hr 12/28/23 19:35 12/29/23 08:36 Temperature 97.8 F 97.8 F Pulse Rate 83 89 Respiratory Rate 18 18 Blood Pressure 164/62 H 120/55 L Pulse Oximetry 97 96 Oxygen Delivery Method Room Air Room Air BMI result Body Mass Index 33.3 Labs 12/18/23 16:48 12/20/23 07:59 Medications Medications Current Medications Acetaminophen (Acetaminophen 325 Mg Tablet) 650 mg PO Q6H PRN PRN Reason: Headache/Pain Mild Scale (1-3) Last Admin: 12/28/23 14:55 Dose: 650 mg Al Hydroxide/Mg Hydroxide (Magnesium Hydrox/Alum Hydrox 30 Ml Oral.Susp) 30 ml PO Q6H PRN PRN Reason: Heartburn/Nausea Last Admin: 12/20/23 20:48 Dose: 30 ml Albuterol Sulfate (Albuterol Sulfate 90 Mcg 8 Gm Inhaler) 2 puff INHALE RQ4H PRN PRN Reason: Bronchospasm Atorvastatin Calcium (Atorvastatin Calcium 20 Mg Tablet) 20 mg PO BEDTIME [facility] Last Admin: 12/28/23 21:04 Dose: 20 mg Calcium Carbonate (Calcium Carbonate 750 Mg Tab.Chew) 750 mg PO Q6H PRN PRN Reason: GI Upset Last Admin: 12/22/23 22:18 Dose: 750 mg Docusate Sodium (Docusate Sodium 100 Mg Capsule) 100 mg PO BEDTIME [facility] Last Admin: 12/28/23 21:04 Dose: 100 mg Gabapentin (Gabapentin 400 Mg Capsule) 400 mg PO TID [facility] Last Admin: 12/29/23 14:26 Dose: 400 mg Hydrochlorothiazide (Hydrochlorothiazide 12.5 Mg Tablet) 12.5 mg PO DAILY [facility]; Protocol Last Admin: 12/29/23 08:40 Dose: 12.5 mg Levothyroxine Sodium (Levothyroxine Sodium 125 Mcg Tablet) 125 mcg PO DAILY@0630 [facility] Last Admin: 12/29/23 06:08 Dose: 125 mcg Lisinopril (Lisinopril 20 Mg Tablet) 20 mg PO DAILY [facility]; Protocol Last Admin: 12/29/23 08:40 Dose: 20 mg Loratadine (Loratadine 10 Mg Tablet) 10 mg PO BEDTIME [facility] Last Admin: 12/28/23 21:04 Dose: 10 mg Lorazepam (Lorazepam 1 Mg Tablet) 1 mg PO Q6H PRN PRN Reason: Anxiety Last Admin: 12/28/23 21:04 Dose: 1 mg Magnesium Hydroxide (Milk Of Magnesia 30 Ml Oral.Susp) 30 ml PO DAILY PRN PRN Reason: Constipation Last Admin: 12/24/23 05:10 Dose: 30 ml Miconazole Nitrate (Miconazole Nitrate 2% Oint 57 Gm Oint...G.) 1 appl TOPICAL BID [facility]; Protocol Last Admin: 12/29/23 08:40 Dose: 1 appl Olanzapine (Olanzapine 2.5 Mg Tablet) 2.5 mg PO BID PRN PRN Reason: psychosis Last Admin: 12/25/23 10:35 Dose: 2.5 mg Olanzapine (Olanzapine 7.5 Mg Tablet) 15 mg PO BEDTIME [facility] Sodium Chloride (Sodium Chloride 0.65 % Nasal 44 Ml Sprbtl) 1 spray NOSTRIL-B Q1H PRN PRN Reason: Nasal Congestion Trazodone HCl (Trazodone Hcl 50 Mg Tablet) 50 mg PO BEDTIME [facility] Last Admin: 12/28/23 21:04 Dose: 50 mg Trazodone HCl (Trazodone Hcl 50 Mg Tablet) 50 mg PO BEDTIME MRX1 PRN PRN Reason: Insomnia Last Admin: 12/27/23 02:59 Dose: 50 mg Allergies Allergies Allergy/AdvReac Type Severity Reaction Status Date / Time Unable to Assess Allergy Verified 12/18/23 15:46 Assessment & Plan Assessment & Plan (1) Bipolar disorder: Status: Acute Code(s): F31.9 - Bipolar disorder, unspecified (2) Borderline personality disorder: Status: Acute Code(s): F60.3 - Borderline personality disorder (3) Psychosis: Status: Acute Code(s): F29 - Unspecified psychosis not due to a substance or known physiological condition Plan The patient is an elderly female with a past history of borderline personality disorder and bipolar disorder who was brought into the facility with active symptoms of loan with racing thoughts, flight of ideas and grandiosity but also recently she complained of suicidal ideation without a clear plan or intent. Sister called 911 since she had been reporting suicidal thoughts. On interview it was clear that the patient was manic. Plan 1. Gather collateral information. We will try to contact her sister to get more information regarding past treatments. 2. Continue with gabapentin and other medications prescribed by her previous psychiatrist. 3. We discussed risks, benefits, side-effects and alternatives and the patient agreed to take Zyprexa 2.5 mg p.o. q.h.s. to target insomnia and mood lability. 4. Blood work on admission. 5. . Reassessment with results. 6. 15 minute checks. The patient is able to contract for safety in the facility . 7. Increase Zyprexa to7. 5 mg p.o. q.h.s. on December 21. On December 26 we increase Zyprexa to 10 mg p.o. q.h.s. to target loan. On December 29 we are increasing Zyprexa to 15 mg p.o. q.h.s.. 8. On December 28 we increased gabapentin up to 400 mg p.o. t.i.d. 9. Blood work for Monday. Reason for continued inpatient stay Substantial Risk for: inability to function, rapid decompensation and med/psych decompensation Time Spent With Patient Time: Total time managing care of this patient today _20___ minutes.
[2023-12-29] MEDS: Acetaminophen 325 MG TABLET 650 MG PO (16:26)
[2023-12-29] MEDS: LORazepam 1 MG TABLET PO ×2 (16:27→22:35)
[2023-12-29 19:30] VITALS: BP 116/55; PULSE 72; RESP 16; TEMP 36.9; O2SAT 97
[2023-12-29] MEDS: traZODone HCL 50 MG TABLET PO (21:07)
[2023-12-29] MEDS: Docusate Sodium 100 MG CAPSULE PO (21:07)
[2023-12-29] MEDS: Loratadine 10 MG TABLET PO (21:07)
[2023-12-29] MEDS: OLANZapine 7.5 MG TABLET 15 MG PO (21:07)
[2023-12-29] MEDS: Atorvastatin Calcium 20 MG TABLET PO (21:07)
[2023-12-30] MEDS: Levothyroxine Sodium 125 MCG TABLET PO (05:00)
--- NOTE | 2023-12-30 06:35 | PC.NURSE ---
Patient awake at 0500, ambulating down hallway. When approached, patient reports, I fell twice last night. Patient declined to provide further details and deflected answering any questions regarding what happened. This resume writer as well as ancillary staff on floor witnessed patient in bed throughout the night. Patient vitals obtained. T: 97.9 HR: 74 BP:138/78 O2: 97%. Skin check performed, no areas of redness, bruising or sign of injury. When asked if patient was hurt, pt reports no I didn't hit anything. Operations Officer and provider precision lens polisher notified of statements.
[2023-12-30 09:03] VITALS: BP 134/67; PULSE 80; RESP 18; TEMP 36.6; O2SAT 95
[2023-12-30] MEDS: Miconazole Nitrate 2% Oint 57 GM OINT...G. 1 APPL TOPICAL ×2 (09:41→22:04)
[2023-12-30] MEDS: lisinopriL 20 MG TABLET PO (09:41)
[2023-12-30] MEDS: Gabapentin 400 MG CAPSULE PO ×3 (09:41→20:53)
[2023-12-30] MEDS: hydroCHLOROthiazide 12.5 MG TABLET PO (09:41)
--- NOTE | 2023-12-30 10:27 | HO.PSYCHPN ---
Subjective Subjective Date of Service: 12/30/23 Reason For Visit: SI psychosis Interim History: Pt seen, reviewed with team. Hypomanic. Last evening reports falls x 2, however, team observed her directly all night and this was not accurate. Today, in bed, head at the foot of the bed, legs raised, treating her headache and edema she states. Team reports pt able to sleep, intake is adequate and no behavioral dyscontrol, just misperception of falling. Medication Compliance: Yes Side effects from medications: No Attending Groups: Intermittent Review of Systems Acute medical concerns: No Medical Review of Systems: unchanged Review of Systems Review of Systems Yes Unobtainable due to mental status Mental Status Exam Mental Status Exam Patient Appearance: Well Grooomed and Appropriate Patient Orientation: Person and Situation Level of Consciousness: Awake and Appropriate Patient Behavior: Guarded and Passive Mood Description: Withdrawn Affect Description: Constricted Patient Cognition Impaired: Yes Ability to Follow Directions: Good Speech Pattern: Clear Hallucinations: None Delusions: Paranoid Ideation and Ideas of Reference Thought Process: Racing, Illogical and Distracted Thought Content: positive for [place] and positive for Circumstantial Judgement: Fair Diagnostics Vital Signs (24Hr): Vital Signs - 24 hr 12/29/23 19:30 12/30/23 09:03 Temperature 98.4 F 98 F Pulse Rate 72 80 Respiratory Rate 16 18 Blood Pressure 116/55 L 134/67 Pulse Oximetry 97 95 Oxygen Delivery Method Room Air Room Air BMI result Body Mass Index 33.3 Labs 12/18/23 16:48 12/20/23 07:59 Medications Medications Current Medications Acetaminophen (Acetaminophen 325 Mg Tablet) 650 mg PO Q6H PRN PRN Reason: Headache/Pain Mild Scale (1-3) Last Admin: 12/29/23 16:26 Dose: 650 mg Al Hydroxide/Mg Hydroxide (Magnesium Hydrox/Alum Hydrox 30 Ml Oral.Susp) 30 ml PO Q6H PRN PRN Reason: Heartburn/Nausea Last Admin: 12/20/23 20:48 Dose: 30 ml Albuterol Sulfate (Albuterol Sulfate 90 Mcg 8 Gm Inhaler) 2 puff INHALE RQ4H PRN PRN Reason: Bronchospasm Atorvastatin Calcium (Atorvastatin Calcium 20 Mg Tablet) 20 mg PO BEDTIME [facility] Last Admin: 12/29/23 21:07 Dose: 20 mg Calcium Carbonate (Calcium Carbonate 750 Mg Tab.Chew) 750 mg PO Q6H PRN PRN Reason: GI Upset Last Admin: 12/22/23 22:18 Dose: 750 mg Docusate Sodium (Docusate Sodium 100 Mg Capsule) 100 mg PO BEDTIME [facility] Last Admin: 12/29/23 21:07 Dose: 100 mg Gabapentin (Gabapentin 400 Mg Capsule) 400 mg PO TID [facility] Last Admin: 12/30/23 09:41 Dose: 400 mg Hydrochlorothiazide (Hydrochlorothiazide 12.5 Mg Tablet) 12.5 mg PO DAILY [facility]; Protocol Last Admin: 12/30/23 09:41 Dose: 12.5 mg Levothyroxine Sodium (Levothyroxine Sodium 125 Mcg Tablet) 125 mcg PO DAILY@0630 [facility] Last Admin: 12/30/23 05:00 Dose: 125 mcg Lisinopril (Lisinopril 20 Mg Tablet) 20 mg PO DAILY [facility]; Protocol Last Admin: 12/30/23 09:41 Dose: 20 mg Loratadine (Loratadine 10 Mg Tablet) 10 mg PO BEDTIME [facility] Last Admin: 12/29/23 21:07 Dose: 10 mg Lorazepam (Lorazepam 1 Mg Tablet) 1 mg PO Q6H PRN PRN Reason: Anxiety Last Admin: 12/29/23 22:35 Dose: 1 mg Magnesium Hydroxide (Milk Of Magnesia 30 Ml Oral.Susp) 30 ml PO DAILY PRN PRN Reason: Constipation Last Admin: 12/24/23 05:10 Dose: 30 ml Miconazole Nitrate (Miconazole Nitrate 2% Oint 57 Gm Oint...G.) 1 appl TOPICAL BID [facility]; Protocol Last Admin: 12/30/23 09:41 Dose: 1 appl Olanzapine (Olanzapine 2.5 Mg Tablet) 2.5 mg PO BID PRN PRN Reason: psychosis Last Admin: 12/25/23 10:35 Dose: 2.5 mg Olanzapine (Olanzapine 7.5 Mg Tablet) 15 mg PO BEDTIME [facility] Last Admin: 12/29/23 21:07 Dose: 15 mg Sodium Chloride (Sodium Chloride 0.65 % Nasal 44 Ml Sprbtl) 1 spray NOSTRIL-B Q1H PRN PRN Reason: Nasal Congestion Trazodone HCl (Trazodone Hcl 50 Mg Tablet) 50 mg PO BEDTIME [facility] Last Admin: 12/29/23 21:07 Dose: 50 mg Trazodone HCl (Trazodone Hcl 50 Mg Tablet) 50 mg PO BEDTIME MRX1 PRN PRN Reason: Insomnia Last Admin: 12/27/23 02:59 Dose: 50 mg Allergies Allergies Allergy/AdvReac Type Severity Reaction Status Date / Time Unable to Assess Allergy Verified 12/18/23 15:46 Assessment & Plan Assessment & Plan (1) Bipolar disorder: Status: Acute Code(s): F31.9 - Bipolar disorder, unspecified Assessment and Plan: 12/30/23: Continue current tx. (2) Borderline personality disorder: Status: Acute Code(s): F60.3 - Borderline personality disorder (3) Psychosis: Status: Acute Code(s): F29 - Unspecified psychosis not due to a substance or known physiological condition Plan The patient is an elderly female with a past history of borderline personality disorder and bipolar disorder who was brought into the facility with active symptoms of loan with racing thoughts, flight of ideas and grandiosity but also recently she complained of suicidal ideation without a clear plan or intent. Sister called 911 since she had been reporting suicidal thoughts. On interview it was clear that the patient was manic. Plan 1. Gather collateral information. We will try to contact her sister to get more information regarding past treatments. 2. Continue with gabapentin and other medications prescribed by her previous psychiatrist. 3. We discussed risks, benefits, side-effects and alternatives and the patient agreed to take Zyprexa 2.5 mg p.o. q.h.s. to target insomnia and mood lability. 4. Blood work on admission. 5. . Reassessment with results. 6. 15 minute checks. The patient is able to contract for safety in the facility . 7. Increase Zyprexa to7. 5 mg p.o. q.h.s. on December 21. On December 26 we increase Zyprexa to 10 mg p.o. q.h.s. to target loan. On December 29 we are increasing Zyprexa to 15 mg p.o. q.h.s.. 8. On December 28 we increased gabapentin up to 400 mg p.o. t.i.d. 9. Blood work for Monday. Informed Consent: further education needed Reason for continued inpatient stay Substantial Risk for: rapid decompensation Time Spent With Patient Time: Total time managing care of this patient today ____ minutes.
[2023-12-30 20:25] VITALS: BP 132/68; PULSE 80; RESP 18; TEMP 36.6; O2SAT 96
[2023-12-30] MEDS: OLANZapine 7.5 MG TABLET 15 MG PO (20:52)
[2023-12-30] MEDS: Loratadine 10 MG TABLET PO (20:53)
[2023-12-30] MEDS: Atorvastatin Calcium 20 MG TABLET PO (20:53)
[2023-12-30] MEDS: traZODone HCL 50 MG TABLET PO (20:53)
[2023-12-30] MEDS: Acetaminophen 325 MG TABLET 650 MG PO (23:10)
[2023-12-30] MEDS: LORazepam 1 MG TABLET PO (23:11)
[2023-12-31] MEDS: Levothyroxine Sodium 125 MCG TABLET PO (06:24)
[2023-12-31 08:00] VITALS: BP 146/68; PULSE 80; RESP 18; TEMP 36.6; O2SAT 97
[2023-12-31] MEDS: Gabapentin 400 MG CAPSULE PO ×3 (08:43→20:58)
[2023-12-31] MEDS: lisinopriL 20 MG TABLET PO (08:43)
[2023-12-31] MEDS: hydroCHLOROthiazide 12.5 MG TABLET PO (08:43)
[2023-12-31] MEDS: Miconazole Nitrate 2% Oint 57 GM OINT...G. 1 APPL TOPICAL ×2 (08:59→20:57)
--- NOTE | 2023-12-31 18:10 | P.PNPSI_ITS ---
Subjective Subjective Date of Service: 12/31/23 Reason For Visit: SI psychosis Interim History: Pt seen, reviewed with her team. No current concerns. Pleasant, confused when she interacts Medication Compliance: Yes Side effects from medications: No Attending Groups: Intermittent Review of Systems Medical Review of Systems: unchanged Review of Systems Review of Systems Yes Unobtainable due to mental status Mental Status Exam Mental Status Exam Patient Appearance: Well Grooomed and Appropriate Patient Orientation: Person and Situation Level of Consciousness: Awake and Appropriate Patient Behavior: Guarded and Passive Mood Description: Withdrawn Affect Description: Constricted Patient Cognition Impaired: Yes Ability to Follow Directions: Good Speech Pattern: Clear Hallucinations: None Delusions: Paranoid Ideation and Ideas of Reference Thought Process: Racing, Illogical and Distracted Thought Content: positive for [place] and positive for Circumstantial Judgement: Fair Diagnostics Vital Signs (24Hr): Vital Signs - 24 hr 12/30/23 20:25 12/31/23 08:00 Temperature 98 F 97.9 F Pulse Rate 80 80 Respiratory Rate 18 18 Blood Pressure 132/68 146/68 H Pulse Oximetry 96 97 Oxygen Delivery Method Room Air Room Air BMI result Body Mass Index 33.3 Labs 12/18/23 16:48 12/20/23 07:59 Medications Medications Current Medications Acetaminophen (Acetaminophen 325 Mg Tablet) 650 mg PO Q6H PRN PRN Reason: Headache/Pain Mild Scale (1-3) Last Admin: 12/30/23 23:10 Dose: 650 mg Al Hydroxide/Mg Hydroxide (Magnesium Hydrox/Alum Hydrox 30 Ml Oral.Susp) 30 ml PO Q6H PRN PRN Reason: Heartburn/Nausea Last Admin: 12/20/23 20:48 Dose: 30 ml Albuterol Sulfate (Albuterol Sulfate 90 Mcg 8 Gm Inhaler) 2 puff INHALE RQ4H PRN PRN Reason: Bronchospasm Atorvastatin Calcium (Atorvastatin Calcium 20 Mg Tablet) 20 mg PO BEDTIME JOHNNY Last Admin: 12/30/23 20:53 Dose: 20 mg Calcium Carbonate (Calcium Carbonate 750 Mg Tab.Chew) 750 mg PO Q6H PRN PRN Reason: GI Upset Last Admin: 12/22/23 22:18 Dose: 750 mg Docusate Sodium (Docusate Sodium 100 Mg Capsule) 100 mg PO BEDTIME JOHNN[facility] Last Admin: 12/30/23 20:57 Dose: Not Given Gabapentin (Gabapentin 400 Mg Capsule) 400 mg PO TID JOHNNY Last Admin: 12/31/23 16:29 Dose: 400 mg Hydrochlorothiazide (Hydrochlorothiazide 12.5 Mg Tablet) 12.5 mg PO DAILY [facility]; Protocol Last Admin: 12/31/23 08:43 Dose: 12.5 mg Levothyroxine Sodium (Levothyroxine Sodium 125 Mcg Tablet) 125 mcg PO DAILY@0630 [facility] Last Admin: 12/31/23 06:24 Dose: 125 mcg Lisinopril (Lisinopril 20 Mg Tablet) 20 mg PO DAILY [facility]; Protocol Last Admin: 12/31/23 08:43 Dose: 20 mg Loratadine (Loratadine 10 Mg Tablet) 10 mg PO BEDTIME [facility] Last Admin: 12/30/23 20:53 Dose: 10 mg Lorazepam (Lorazepam 1 Mg Tablet) 1 mg PO Q6H PRN PRN Reason: Anxiety Last Admin: 12/30/23 23:11 Dose: 1 mg Magnesium Hydroxide (Milk Of Magnesia 30 Ml Oral.Susp) 30 ml PO DAILY PRN PRN Reason: Constipation Last Admin: 12/24/23 05:10 Dose: 30 ml Miconazole Nitrate (Miconazole Nitrate 2% Oint 57 Gm Oint...G.) 1 appl TOPICAL BID JOHNNY; Protocol Last Admin: 12/31/23 08:59 Dose: 1 appl Olanzapine (Olanzapine 2.5 Mg Tablet) 2.5 mg PO BID PRN PRN Reason: psychosis Last Admin: 12/25/23 10:35 Dose: 2.5 mg Olanzapine (Olanzapine 7.5 Mg Tablet) 15 mg PO BEDTIME JOH[facility]Y Last Admin: 12/30/23 20:52 Dose: 15 mg Sodium Chloride (Sodium Chloride 0.65 % Nasal 44 Ml Sprbtl) 1 spray NOSTRIL-B Q1H PRN PRN Reason: Nasal Congestion Trazodone HCl (Trazodone Hcl 50 Mg Tablet) 50 mg PO BEDTIME JOHNNY Last Admin: 12/30/23 20:53 Dose: 50 mg Trazodone HCl (Trazodone Hcl 50 Mg Tablet) 50 mg PO BEDTIME MRX1 PRN PRN Reason: Insomnia Last Admin: 12/27/23 02:59 Dose: 50 mg Allergies Allergies Allergy/AdvReac Type Severity Reaction Status Date / Time Unable to Assess Allergy Verified 12/18/23 15:46 Assessment & Plan Assessment & Plan (1) Bipolar disorder: Status: Acute Code(s): F31.9 - Bipolar disorder, unspecified Assessment and Plan: 12/30/23: Continue current tx. 12/31/23: Continue current tx. (2) Borderline personality disorder: Status: Acute Code(s): F60.3 - Borderline personality disorder (3) Psychosis: Status: Acute Code(s): F29 - Unspecified psychosis not due to a substance or known physiological condition Plan The patient is an elderly female with a past history of borderline personality disorder and bipolar disorder who was brought into the facility with active symptoms of loan with racing thoughts, flight of ideas and grandiosity but also recently she complained of suicidal ideation without a clear plan or intent. Sister called 911 since she had been reporting suicidal thoughts. On interview it was clear that the patient was manic. Plan 1. Gather collateral information. We will try to contact her sister to get more information regarding past treatments. 2. Continue with gabapentin and other medications prescribed by her previous psychiatrist. 3. We discussed risks, benefits, side-effects and alternatives and the patient agreed to take Zyprexa 2.5 mg p.o. q.h.s. to target insomnia and mood lability. 4. Blood work on admission. 5. . Reassessment with results. 6. 15 minute checks. The patient is able to contract for safety in the facility . 7. Increase Zyprexa to7. 5 mg p.o. q.h.s. on December 21. On December 26 we increase Zyprexa to 10 mg p.o. q.h.s. to target loan. On December 29 we are increasing Zyprexa to 15 mg p.o. q.h.s.. 8. On December 28 we increased gabapentin up to 400 mg p.o. t.i.d. 9. Blood work for Monday. Reason for continued inpatient stay Substantial Risk for: rapid decompensation Time Spent With Patient Time: Total time managing care of this patient today ____ minutes.
[2023-12-31 20:45] VITALS: BP 145/60; PULSE 86; RESP 16; TEMP 36.3; O2SAT 98
[2023-12-31] MEDS: Acetaminophen 325 MG TABLET 650 MG PO (20:57)
[2023-12-31] MEDS: OLANZapine 7.5 MG TABLET 15 MG PO (20:57)
[2023-12-31] MEDS: Atorvastatin Calcium 20 MG TABLET PO (20:58)
[2023-12-31] MEDS: Loratadine 10 MG TABLET PO (20:58)
[2023-12-31] MEDS: traZODone HCL 50 MG TABLET PO (20:58)
[2023-12-31] MEDS: LORazepam 1 MG TABLET PO (23:37)
[2024-01-01] MEDS: Levothyroxine Sodium 125 MCG TABLET PO (07:46)
[2024-01-01 08:13] VITALS: BP 129/66; PULSE 94; RESP 17; TEMP 36.3; O2SAT 96
[2024-01-01] MEDS: Gabapentin 400 MG CAPSULE PO ×3 (08:17→20:28)
[2024-01-01] MEDS: hydroCHLOROthiazide 12.5 MG TABLET PO (08:17)
[2024-01-01] MEDS: lisinopriL 20 MG TABLET PO (08:17)
[2024-01-01 08:50] LABS: Alanine Aminotransferase 17 U/L (0-31); Albumin Level 4.4 g/dL (3.5-5.0); Alkaline Phosphatase 62 U/L (39-117); Anion Gap 14 (12-20); Aspartate Amino Transferase 18 U/L (5-31); Bilirubin Total 0.4 mg/dL (0.0-1.0); Blood Urea Nitrogen 23 mg/dL (9-16); Calcium 9.7 mg/dL (8.4-10.2); Carbon Dioxide 26 mmol/L (22-29); Chloride 103 mmol/L (96-108); Creatinine Clr Calc Pharmacy 48.8; Estimated Glomerular Filt Rate 52; Glucose Fasting 98 mg/dL (60-99); Sodium 139 mmol/L (135-145); Total Protein 6.9 g/dL (6.5-8.0)
[2024-01-01] MEDS: Miconazole Nitrate 2% Oint 57 GM OINT...G. 1 APPL TOPICAL ×2 (08:58→20:28)
--- NOTE | 2024-01-01 13:26 | HO.PSYCHPN ---
Subjective Subjective Date of Service: 01/01/24 Reason For Visit: SI psychosis Subjective Notes: Conditional Voluntary Interim History: The nursing staff reported the patient had been isolative, she has attended a few groups and she slept well. The occupational therapist reported the patient at the surface looks okay but she is chronically paranoid with bizarre interpretations of reality. On interview the patient denies new symptoms no over-sedation with Zyprexa 15 mg p.o. q.h.s. to target psychosis. We have a conversation with his sister and apparently she is suspicious at times. We are going to continue the same dose and observe. Mental Status Exam Mental Status Exam Patient Appearance: Appropriate Patient Orientation: Person and Situation Level of Consciousness: Awake and Appropriate Patient Behavior: Guarded and Passive Mood Description: Withdrawn Affect Description: Constricted Patient Cognition Impaired: Yes Ability to Follow Directions: Good Speech Pattern: Clear Hallucinations: None Delusions: Paranoid Ideation and Ideas of Reference Thought Process: Distracted and Evasive Thought Content: positive for [place] and positive for Poverty of Content Judgement: Poor Diagnostics Vital Signs (24Hr): Vital Signs - 24 hr 12/31/23 20:45 01/01/24 08:13 Temperature 97.4 F 97.4 F Pulse Rate 86 94 Respiratory Rate 16 17 Blood Pressure 145/60 H 129/66 Pulse Oximetry 98 96 Oxygen Delivery Method Room Air Room Air BMI result Body Mass Index 33.3 Labs 12/18/23 16:48 01/01/24 08:27 Labs: Laboratory Results - last 48 hr 01/01/24 08:27 Sodium 139 Potassium 4.0 Chloride 103 Carbon Dioxide 26 Anion Gap 14 BUN 23 H Creatinine 1.03 Estim Creat Clear Calc 48.8 Estimated GFR 52 Fasting Glucose 98 Calcium 9.7 Total Bilirubin 0.4 AST 18 ALT 17 Alkaline Phosphatase 62 Total Protein 6.9 Albumin 4.4 Medications Medications Current Medications Acetaminophen (Acetaminophen 325 Mg Tablet) 650 mg PO Q6H PRN PRN Reason: Headache/Pain Mild Scale (1-3) Last Admin: 12/31/23 20:57 Dose: 650 mg Al Hydroxide/Mg Hydroxide (Magnesium Hydrox/Alum Hydrox 30 Ml Oral.Susp) 30 ml PO Q6H PRN PRN Reason: Heartburn/Nausea Last Admin: 12/20/23 20:48 Dose: 30 ml Albuterol Sulfate (Albuterol Sulfate 90 Mcg 8 Gm Inhaler) 2 puff INHALE RQ4H PRN PRN Reason: Bronchospasm Atorvastatin Calcium (Atorvastatin Calcium 20 Mg Tablet) 20 mg PO BEDTIME JOHNNY Last Admin: 12/31/23 20:58 Dose: 20 mg Calcium Carbonate (Calcium Carbonate 750 Mg Tab.Chew) 750 mg PO Q6H PRN PRN Reason: GI Upset Last Admin: 12/22/23 22:18 Dose: 750 mg Docusate Sodium (Docusate Sodium 100 Mg Capsule) 100 mg PO BEDTIME JOHNN[facility] Last Admin: 12/31/23 21:00 Dose: Not Given Gabapentin (Gabapentin 400 Mg Capsule) 400 mg PO TID JOHNNY Last Admin: 01/01/24 08:17 Dose: 400 mg Hydrochlorothiazide (Hydrochlorothiazide 12.5 Mg Tablet) 12.5 mg PO DAILY [facility]; Protocol Last Admin: 01/01/24 08:17 Dose: 12.5 mg Levothyroxine Sodium (Levothyroxine Sodium 125 Mcg Tablet) 125 mcg PO DAILY@0630 JOH[facility] Last Admin: 01/01/24 07:46 Dose: 125 mcg Lisinopril (Lisinopril 20 Mg Tablet) 20 mg PO DAILY [facility]; Protocol Last Admin: 01/01/24 08:17 Dose: 20 mg Loratadine (Loratadine 10 Mg Tablet) 10 mg PO BEDTIME JOHNN[facility] Last Admin: 12/31/23 20:58 Dose: 10 mg Lorazepam (Lorazepam 1 Mg Tablet) 1 mg PO Q6H PRN PRN Reason: Anxiety Last Admin: 12/31/23 23:37 Dose: 1 mg Magnesium Hydroxide (Milk Of Magnesia 30 Ml Oral.Susp) 30 ml PO DAILY PRN PRN Reason: Constipation Last Admin: 12/24/23 05:10 Dose: 30 ml Miconazole Nitrate (Miconazole Nitrate 2% Oint 57 Gm Oint...G.) 1 appl TOPICAL BID [facility]OHNN[facility]; Protocol Last Admin: 01/01/24 08:58 Dose: 1 appl Olanzapine (Olanzapine 2.5 Mg Tablet) 2.5 mg PO BID PRN PRN Reason: psychosis Last Admin: 12/25/23 10:35 Dose: 2.5 mg Olanzapine (Olanzapine 7.5 Mg Tablet) 15 mg PO BEDTIME JOHNNY Last Admin: 12/31/23 20:57 Dose: 15 mg Sodium Chloride (Sodium Chloride 0.65 % Nasal 44 Ml Sprbtl) 1 spray NOSTRIL-B Q1H PRN PRN Reason: Nasal Congestion Trazodone HCl (Trazodone Hcl 50 Mg Tablet) 50 mg PO BEDTIME JOHNNY Last Admin: 12/31/23 20:58 Dose: 50 mg Trazodone HCl (Trazodone Hcl 50 Mg Tablet) 50 mg PO BEDTIME MRX1 PRN PRN Reason: Insomnia Last Admin: 12/27/23 02:59 Dose: 50 mg Allergies Allergies Allergy/AdvReac Type Severity Reaction Status Date / Time Unable to Assess Allergy Verified 12/18/23 15:46 Assessment & Plan Assessment & Plan (1) Bipolar disorder: Status: Acute Code(s): F31.9 - Bipolar disorder, unspecified Assessment and Plan: 12/30/23: Continue current tx. 12/31/23: Continue current tx. (2) Borderline personality disorder: Status: Acute Code(s): F60.3 - Borderline personality disorder (3) Psychosis: Status: Acute Code(s): F29 - Unspecified psychosis not due to a substance or known physiological condition Plan The patient is an elderly female with a past history of borderline personality disorder and bipolar disorder who was brought into the facility with active symptoms of loan with racing thoughts, flight of ideas and grandiosity but also recently she complained of suicidal ideation without a clear plan or intent. Sister called 911 since she had been reporting suicidal thoughts. On interview it was clear that the patient was manic. Plan 1. Gather collateral information. We will try to contact her sister to get more information regarding past treatments. 2. Continue with gabapentin and other medications prescribed by her previous psychiatrist. 3. We discussed risks, benefits, side-effects and alternatives and the patient agreed to take Zyprexa 2.5 mg p.o. q.h.s. to target insomnia and mood lability. 4. Blood work on admission. 5. . Reassessment with results. 6. 15 minute checks. The patient is able to contract for safety in the facility . 7. Increase Zyprexa to7. 5 mg p.o. q.h.s. on December 21. On December 26 we increase Zyprexa to 10 mg p.o. q.h.s. to target loan. On December 29 we are increasing Zyprexa to 15 mg p.o. q.h.s.. 8. On December 28 we increased gabapentin up to 400 mg p.o. t.i.d. 9. Blood work for tomorrow AM. Reason for continued inpatient stay Substantial Risk for: inability to function, rapid decompensation and med/psych decompensation Time Spent With Patient Time: Total time managing care of this patient today __20__ minutes.
[2024-01-01 18:00] VITALS: BP 145/63; PULSE 75; RESP 16; TEMP 36.3; O2SAT 97
[2024-01-01] MEDS: Atorvastatin Calcium 20 MG TABLET PO (20:27)
[2024-01-01] MEDS: Loratadine 10 MG TABLET PO (20:28)
[2024-01-01] MEDS: OLANZapine 7.5 MG TABLET 15 MG PO (20:28)
[2024-01-01] MEDS: traZODone HCL 50 MG TABLET PO (20:29)
[2024-01-01] MEDS: Calcium Carbonate 750 MG TAB.CHEW PO (21:28)
[2024-01-01] MEDS: Acetaminophen 325 MG TABLET 650 MG PO (23:44)
[2024-01-01] MEDS: LORazepam 1 MG TABLET PO (23:45)
[2024-01-02] MEDS: Levothyroxine Sodium 125 MCG TABLET PO (06:02)
[2024-01-02 07:56] VITALS: BP 158/78; PULSE 101; RESP 17; TEMP 36.5; O2SAT 95
[2024-01-02] MEDS: Miconazole Nitrate 2% Oint 57 GM OINT...G. 1 APPL TOPICAL ×2 (07:57→20:26)
[2024-01-02] MEDS: Gabapentin 400 MG CAPSULE PO ×3 (07:57→20:23)
[2024-01-02] MEDS: hydroCHLOROthiazide 12.5 MG TABLET PO (07:57)
[2024-01-02] MEDS: lisinopriL 20 MG TABLET PO (08:03)
[2024-01-02 08:32] LABS: MANUAL DIFF FLAG NO
[2024-01-02 08:44] LABS: Basophils Percent Auto 0.4 % (0-2); Eosinophils Percent Auto 0.4 % (0-4); Hematocrit 36.3 % (37.0-47.0); Hemoglobin 12.1 g/dl (12.0-16.0); Imm Gran Abs Auto 0.01 X10*3/uL (0.00-0.03); Imm Gran Pct Auto 0.2 % (0.0-0.4); Lymphocytes Absolute Auto 1.8 X10*3/uL (1.2-4.9); Lymphocytes Percent Auto 35.2 % (20-40); Mean Corpuscular HGB Conc 33.3 g/dl (31.0-35.0); Mean Corpuscular Hemoglobin 30.1 pg (27.0-33.0); Mean Corpuscular Volume 90.3 fL (80.0-98.0); Mean Platelet Volume 11.5 fL (9.4-12.3); Monocytes Absolute Auto 0.6 X10*3/uL (0.1-1.2); Monocytes Percent Auto 12.3 % (2-11); Neutrophils Absolute Auto 2.6 x10*3/uL (2.0-8.3); Neutrophils Percent Auto 51.5 % (45-73); Platelet Count 263 X10*3/uL (160-400); Red Blood Count 4.02 X10*6/uL (4.20-5.50); Red Cell Distribution Width 12.1 % (11.0-16.0); White Blood Count 5.1 X10*3/uL (4.8-10.8)
[2024-01-02 09:09] LABS: Alanine Aminotransferase 16 U/L (0-31); Albumin Level 4.2 g/dL (3.5-5.0); Alkaline Phosphatase 61 U/L (39-117); Anion Gap 12 (12-20); Aspartate Amino Transferase 17 U/L (5-31); Bilirubin Total 0.4 mg/dL (0.0-1.0); Blood Urea Nitrogen 24 mg/dL (9-16); Calcium 9.6 mg/dL (8.4-10.2); Carbon Dioxide 24 mmol/L (22-29); Chloride 106 mmol/L (96-108); Creatinine Clr Calc Pharmacy 58.4; Estimated Glomerular Filt Rate > 60; Glucose Fasting 104 mg/dL (60-99); Potassium 4.1 mmol/L (3.3-5.1); Sodium 138 mmol/L (135-145); Total Protein 6.7 g/dL (6.5-8.0)
[2024-01-02] MEDS: LORazepam 1 MG TABLET PO ×2 (11:24→23:20)
--- NOTE | 2024-01-02 12:24 | HO.PSYCHPN ---
Subjective Subjective Date of Service: 01/02/24 Reason For Visit: SI psychosis Subjective Notes: Conditional Voluntary Interim History: The nursing staff reported the patient remains pleasant, cooperative she slept well last night. The occupational therapist reported that yesterday she went to groups only for 15 minutes. On interview the patient remains pleasant and cooperative less manic but still paranoid and psychotic. Easily redirectable. Mental Status Exam Mental Status Exam Patient Appearance: Well Grooomed and Appropriate Patient Orientation: Person and Situation Level of Consciousness: Awake and Appropriate Patient Behavior: Cooperative Mood Description: Calm Affect Description: Constricted Patient Cognition Impaired: Yes Ability to Follow Directions: Good Speech Pattern: Clear Hallucinations: None Delusions: Paranoid Ideation and Ideas of Reference Thought Process: Illogical and Distracted Thought Content: positive for Poverty of Content and positive for Loose Associations Judgement: Fair Diagnostics Vital Signs (24Hr): Vital Signs - 24 hr 01/01/24 18:00 01/02/24 07:56 Temperature 97.3 F 97.7 F Pulse Rate 75 101 H Respiratory Rate 16 17 Blood Pressure 145/63 H 158/78 H Pulse Oximetry 97 95 Oxygen Delivery Method Room Air Room Air BMI result Body Mass Index 33.3 Labs 01/02/24 07:24 01/02/24 07:24 Labs: Laboratory Results - last 48 hr 01/01/24 01/02/24 08:27 07:24 WBC 5.1 RBC 4.02 L Hgb 12.1 Hct 36.3 L MCV 90.3 MCH 30.1 MCHC 33.3 RDW 12.1 Plt Count 263 MPV 11.5 Immature Gran % (Auto) 0.2 Neut % (Auto) 51.5 Lymph % (Auto) 35.2 [place] % (Auto) 12.3 H Eos % (Auto) 0.4 Baso % (Auto) 0.4 Lymph # (Auto) 1.8 [place] # (Auto) 0.6 Eos # (Auto) 0.0 Baso # (Auto) 0.0 Abs Immat Gran (auto) 0.01 Absolute Neuts (auto) 2.6 Absolute Nucleated RBC 0.000 Nucleated RBC % (auto) 0.0 Sodium 139 138 Potassium 4.0 4.1 Chloride 103 106 Carbon Dioxide 26 24 Anion Gap 14 12 BUN 23 H 24 H Creatinine 1.03 0.86 Estim Creat Clear Calc 48.8 58.4 Estimated GFR 52 > 60 Fasting Glucose 98 104 H Calcium 9.7 9.6 Total Bilirubin 0.4 0.4 AST 18 17 ALT 17 16 Alkaline Phosphatase 62 61 Total Protein 6.9 6.7 Albumin 4.4 4.2 Medications Medications Current Medications Acetaminophen (Acetaminophen 325 Mg Tablet) 650 mg PO Q6H PRN PRN Reason: Headache/Pain Mild Scale (1-3) Last Admin: 01/01/24 23:44 Dose: 650 mg Al Hydroxide/Mg Hydroxide (Magnesium Hydrox/Alum Hydrox 30 Ml Oral.Susp) 30 ml PO Q6H PRN PRN Reason: Heartburn/Nausea Last Admin: 12/20/23 20:48 Dose: 30 ml Albuterol Sulfate (Albuterol Sulfate 90 Mcg 8 Gm Inhaler) 2 puff INHALE RQ4H PRN PRN Reason: Bronchospasm Atorvastatin Calcium (Atorvastatin Calcium 20 Mg Tablet) 20 mg PO BEDTIME [facility] Last Admin: 01/01/24 20:27 Dose: 20 mg Calcium Carbonate (Calcium Carbonate 750 Mg Tab.Chew) 750 mg PO Q6H PRN PRN Reason: GI Upset Last Admin: 01/01/24 21:28 Dose: 750 mg Docusate Sodium (Docusate Sodium 100 Mg Capsule) 100 mg PO BEDTIME [facility] Last Admin: 01/01/24 20:32 Dose: Not Given Gabapentin (Gabapentin 400 Mg Capsule) 400 mg PO TID [facility] Last Admin: 01/02/24 07:57 Dose: 400 mg Hydrochlorothiazide (Hydrochlorothiazide 12.5 Mg Tablet) 12.5 mg PO DAILY [facility]; Protocol Last Admin: 01/02/24 07:57 Dose: 12.5 mg Levothyroxine Sodium (Levothyroxine Sodium 125 Mcg Tablet) 125 mcg PO DAILY@0630 [facility] Last Admin: 01/02/24 06:02 Dose: 125 mcg Lisinopril (Lisinopril 20 Mg Tablet) 20 mg PO DAILY [facility]; Protocol Last Admin: 01/02/24 08:03 Dose: 20 mg Loratadine (Loratadine 10 Mg Tablet) 10 mg PO BEDTIME [facility] Last Admin: 01/01/24 20:28 Dose: 10 mg Lorazepam (Lorazepam 1 Mg Tablet) 1 mg PO Q6H PRN PRN Reason: Anxiety Last Admin: 01/02/24 11:24 Dose: 1 mg Magnesium Hydroxide (Milk Of Magnesia 30 Ml Oral.Susp) 30 ml PO DAILY PRN PRN Reason: Constipation Last Admin: 12/24/23 05:10 Dose: 30 ml Miconazole Nitrate (Miconazole Nitrate 2% Oint 57 Gm Oint...G.) 1 appl TOPICAL BID [facility]OHNN[facility]; Protocol Last Admin: 01/02/24 07:57 Dose: 1 appl Olanzapine (Olanzapine 2.5 Mg Tablet) 2.5 mg PO BID PRN PRN Reason: psychosis Last Admin: 12/25/23 10:35 Dose: 2.5 mg Olanzapine (Olanzapine 7.5 Mg Tablet) 15 mg PO BEDTIME JOHNNY Last Admin: 01/01/24 20:28 Dose: 15 mg Sodium Chloride (Sodium Chloride 0.65 % Nasal 44 Ml Sprbtl) 1 spray NOSTRIL-B Q1H PRN PRN Reason: Nasal Congestion Trazodone HCl (Trazodone Hcl 50 Mg Tablet) 50 mg PO BEDTIME JOHNNY Last Admin: 01/01/24 20:29 Dose: 50 mg Trazodone HCl (Trazodone Hcl 50 Mg Tablet) 50 mg PO BEDTIME MRX1 PRN PRN Reason: Insomnia Last Admin: 12/27/23 02:59 Dose: 50 mg Allergies Allergies Allergy/AdvReac Type Severity Reaction Status Date / Time Unable to Assess Allergy Verified 12/18/23 15:46 Assessment & Plan Assessment & Plan (1) Bipolar disorder: Status: Acute Code(s): F31.9 - Bipolar disorder, unspecified Assessment and Plan: 12/30/23: Continue current tx. 12/31/23: Continue current tx. (2) Borderline personality disorder: Status: Acute Code(s): F60.3 - Borderline personality disorder (3) Psychosis: Status: Acute Code(s): F29 - Unspecified psychosis not due to a substance or known physiological condition Plan The patient is an elderly female with a past history of borderline personality disorder and bipolar disorder who was brought into the facility with active symptoms of loan with racing thoughts, flight of ideas and grandiosity but also recently she complained of suicidal ideation without a clear plan or intent. Sister called 911 since she had been reporting suicidal thoughts. On interview it was clear that the patient was manic. Plan 1. Gather collateral information. We will try to contact her sister to get more information regarding past treatments. 2. Continue with gabapentin and other medications prescribed by her previous psychiatrist. 3. We discussed risks, benefits, side-effects and alternatives and the patient agreed to take Zyprexa 2.5 mg p.o. q.h.s. to target insomnia and mood lability. 4. Blood work on admission. 5. . Reassessment with results. 6. 15 minute checks. The patient is able to contract for safety in the facility . 7. Increase Zyprexa to7. 5 mg p.o. q.h.s. on December 21. On December 26 we increase Zyprexa to 10 mg p.o. q.h.s. to target loan. On December 29 we are increasing Zyprexa to 15 mg p.o. q.h.s.. 8. On December 28 we increased gabapentin up to 400 mg p.o. t.i.d. 9. Blood work for January 02 came back within normal limits no changes Reason for continued inpatient stay Substantial Risk for: inability to function, rapid decompensation and med/psych decompensation Time Spent With Patient Time: Total time managing care of this patient today __20__ minutes.
[2024-01-02 19:55] VITALS: BP 106/53; PULSE 88; RESP 18; TEMP 36; O2SAT 96
[2024-01-02] MEDS: Loratadine 10 MG TABLET PO (20:23)
[2024-01-02] MEDS: Atorvastatin Calcium 20 MG TABLET PO (20:23)
[2024-01-02] MEDS: OLANZapine 7.5 MG TABLET 15 MG PO (20:23)
[2024-01-02] MEDS: Docusate Sodium 100 MG CAPSULE PO (20:23)
[2024-01-02] MEDS: traZODone HCL 50 MG TABLET PO (20:23)
[2024-01-02] MEDS: Acetaminophen 325 MG TABLET 650 MG PO (23:19)
[2024-01-03] MEDS: Levothyroxine Sodium 125 MCG TABLET PO (06:13)
[2024-01-03 08:00] VITALS: BP 141/66; PULSE 72; RESP 17; TEMP 36.1; O2SAT 95
[2024-01-03] MEDS: Gabapentin 400 MG CAPSULE PO ×3 (08:38→20:14)
[2024-01-03] MEDS: hydroCHLOROthiazide 12.5 MG TABLET PO (08:38)
[2024-01-03] MEDS: lisinopriL 20 MG TABLET PO (08:39)
[2024-01-03] MEDS: Miconazole Nitrate 2% Oint 57 GM OINT...G. 1 APPL TOPICAL (09:22)
--- NOTE | 2024-01-03 13:37 | HO.PSYCHPN ---
Subjective Subjective Date of Service: 01/03/24 Reason For Visit: SI psychosis Subjective Notes: Conditional Voluntary Interim History: The nursing staff reported the patient had been pleasant and cooperative, fully compliant with treatment she slept well. On interview the patient remains with chronic paranoid delusions easily redirectable. No side-effects with Zyprexa 50 mg p.o. q.h.s. no over-sedation with gabapentin 400 mg p.o. t.i.d.. We are going to start working on discharge planning since she is at baseline at this moment. Mental Status Exam Mental Status Exam Patient Appearance: Well Grooomed and Appropriate Patient Orientation: Person and Situation Level of Consciousness: Awake and Appropriate Patient Behavior: Guarded and Passive Mood Description: Withdrawn Affect Description: Constricted Patient Cognition Impaired: Yes Ability to Follow Directions: Good Speech Pattern: Clear Hallucinations: None Delusions: Paranoid Ideation and Ideas of Reference Thought Process: Distracted and Slowed Thinking Thought Content: positive for Tangential Judgement: Fair Diagnostics Vital Signs (24Hr): Vital Signs - 24 hr 01/02/24 19:55 01/03/24 08:00 Temperature 96.8 F 97 F Pulse Rate 88 72 Respiratory Rate 18 17 Blood Pressure 106/53 L 141/66 H Pulse Oximetry 96 95 Oxygen Delivery Method Room Air Room Air BMI result Body Mass Index 33.3 Labs 01/02/24 07:24 01/02/24 07:24 Labs: Laboratory Results - last 48 hr 01/02/24 07:24 WBC 5.1 RBC 4.02 L Hgb 12.1 Hct 36.3 L MCV 90.3 MCH 30.1 MCHC 33.3 RDW 12.1 Plt Count 263 MPV 11.5 Immature Gran % (Auto) 0.2 Neut % (Auto) 51.5 Lymph % (Auto) 35.2 [place] % (Auto) 12.3 H Eos % (Auto) 0.4 Baso % (Auto) 0.4 Lymph # (Auto) 1.8 [place] # (Auto) 0.6 Eos # (Auto) 0.0 Baso # (Auto) 0.0 Abs Immat Gran (auto) 0.01 Absolute Neuts (auto) 2.6 Absolute Nucleated RBC 0.000 Nucleated RBC % (auto) 0.0 Sodium 138 Potassium 4.1 Chloride 106 Carbon Dioxide 24 Anion Gap 12 BUN 24 H Creatinine 0.86 Estim Creat Clear Calc 58.4 Estimated GFR > 60 Fasting Glucose 104 H Calcium 9.6 Total Bilirubin 0.4 AST 17 ALT 16 Alkaline Phosphatase 61 Total Protein 6.7 Albumin 4.2 Medications Medications Current Medications Acetaminophen (Acetaminophen 325 Mg Tablet) 650 mg PO Q6H PRN PRN Reason: Headache/Pain Mild Scale (1-3) Last Admin: 01/02/24 23:19 Dose: 650 mg Al Hydroxide/Mg Hydroxide (Magnesium Hydrox/Alum Hydrox 30 Ml Oral.Susp) 30 ml PO Q6H PRN PRN Reason: Heartburn/Nausea Last Admin: 12/20/23 20:48 Dose: 30 ml Albuterol Sulfate (Albuterol Sulfate 90 Mcg 8 Gm Inhaler) 2 puff INHALE RQ4H PRN PRN Reason: Bronchospasm Atorvastatin Calcium (Atorvastatin Calcium 20 Mg Tablet) 20 mg PO BEDTIME JOHNNY Last Admin: 01/02/24 20:23 Dose: 20 mg Calcium Carbonate (Calcium Carbonate 750 Mg Tab.Chew) 750 mg PO Q6H PRN PRN Reason: GI Upset Last Admin: 01/01/24 21:28 Dose: 750 mg Docusate Sodium (Docusate Sodium 100 Mg Capsule) 100 mg PO BEDTIME JOHNNY Last Admin: 01/02/24 20:23 Dose: 100 mg Gabapentin (Gabapentin 400 Mg Capsule) 400 mg PO TID JOHNNY Last Admin: 01/03/24 08:38 Dose: 400 mg Hydrochlorothiazide (Hydrochlorothiazide 12.5 Mg Tablet) 12.5 mg PO DAILY JOHNNY; Protocol Last Admin: 01/03/24 08:38 Dose: 12.5 mg Levothyroxine Sodium (Levothyroxine Sodium 125 Mcg Tablet) 125 mcg PO DAILY@0630 JOHNNY Last Admin: 01/03/24 06:13 Dose: 125 mcg Lisinopril (Lisinopril 20 Mg Tablet) 20 mg PO DAILY JOHNNY; Protocol Last Admin: 01/03/24 08:39 Dose: 20 mg Loratadine (Loratadine 10 Mg Tablet) 10 mg PO BEDTIME JOHNNY Last Admin: 01/02/24 20:23 Dose: 10 mg Lorazepam (Lorazepam 1 Mg Tablet) 1 mg PO Q6H PRN PRN Reason: Anxiety Last Admin: 01/02/24 23:20 Dose: 1 mg Magnesium Hydroxide (Milk Of Magnesia 30 Ml Oral.Susp) 30 ml PO DAILY PRN PRN Reason: Constipation Last Admin: 12/24/23 05:10 Dose: 30 ml Miconazole Nitrate (Miconazole Nitrate 2% Oint 57 Gm Oint...G.) 1 appl TOPICAL BID JOHNNY; Protocol Last Admin: 01/03/24 09:22 Dose: 1 appl Olanzapine (Olanzapine 2.5 Mg Tablet) 2.5 mg PO BID PRN PRN Reason: psychosis Last Admin: 12/25/23 10:35 Dose: 2.5 mg Olanzapine (Olanzapine 7.5 Mg Tablet) 15 mg PO BEDTIME JOHNNY Last Admin: 01/02/24 20:23 Dose: 15 mg Sodium Chloride (Sodium Chloride 0.65 % Nasal 44 Ml Sprbtl) 1 spray NOSTRIL-B Q1H PRN PRN Reason: Nasal Congestion Trazodone HCl (Trazodone Hcl 50 Mg Tablet) 50 mg PO BEDTIME JOHNNY Last Admin: 01/02/24 20:23 Dose: 50 mg Trazodone HCl (Trazodone Hcl 50 Mg Tablet) 50 mg PO BEDTIME MRX1 PRN PRN Reason: Insomnia Last Admin: 12/27/23 02:59 Dose: 50 mg Allergies Allergies Allergy/AdvReac Type Severity Reaction Status Date / Time Unable to Assess Allergy Verified 12/18/23 15:46 Assessment & Plan Assessment & Plan (1) Bipolar disorder: Status: Acute Code(s): F31.9 - Bipolar disorder, unspecified Assessment and Plan: 12/30/23: Continue current tx. 12/31/23: Continue current tx. (2) Borderline personality disorder: Status: Acute Code(s): F60.3 - Borderline personality disorder (3) Psychosis: Status: Acute Code(s): F29 - Unspecified psychosis not due to a substance or known physiological condition Plan The patient is an elderly female with a past history of borderline personality disorder and bipolar disorder who was brought into the facility with active symptoms of loan with racing thoughts, flight of ideas and grandiosity but also recently she complained of suicidal ideation without a clear plan or intent. Sister called 911 since she had been reporting suicidal thoughts. On interview it was clear that the patient was manic. Plan 1. Gather collateral information. We will try to contact her sister to get more information regarding past treatments. 2. Continue with gabapentin and other medications prescribed by her previous psychiatrist. 3. We discussed risks, benefits, side-effects and alternatives and the patient agreed to take Zyprexa 2.5 mg p.o. q.h.s. to target insomnia and mood lability. 4. Blood work on admission. 5. . Reassessment with results. 6. 15 minute checks. The patient is able to contract for safety in the facility . 7. Increase Zyprexa to7. 5 mg p.o. q.h.s. on December 21. On December 26 we increase Zyprexa to 10 mg p.o. q.h.s. to target loan. On December 29 we are increasing Zyprexa to 15 mg p.o. q.h.s.. 8. On December 28 we increased gabapentin up to 400 mg p.o. t.i.d. 9. Blood work for January 02 came back within normal limits no changes Reason for continued inpatient stay Substantial Risk for: inability to function, rapid decompensation and med/psych decompensation Time Spent With Patient Time: Total time managing care of this patient today ___20_ minutes.
[2024-01-03] MEDS: OLANZapine 2.5 MG TABLET PO (17:44)
[2024-01-03] MEDS: Acetaminophen 325 MG TABLET 650 MG PO (17:44)
[2024-01-03 18:00] VITALS: BP 155/69; PULSE 87; RESP 18; TEMP 36.6; O2SAT 96
[2024-01-03] MEDS: Loratadine 10 MG TABLET PO (20:14)
[2024-01-03] MEDS: OLANZapine 7.5 MG TABLET 15 MG PO (20:14)
[2024-01-03] MEDS: Atorvastatin Calcium 20 MG TABLET PO (20:15)
[2024-01-03] MEDS: Docusate Sodium 100 MG CAPSULE PO (20:15)
[2024-01-03] MEDS: LORazepam 1 MG TABLET PO (20:33)
[2024-01-04] MEDS: LORazepam 1 MG TABLET PO ×2 (02:34→20:35)
[2024-01-04] MEDS: Levothyroxine Sodium 125 MCG TABLET PO (06:39)
[2024-01-04 07:00] VITALS: BMI 33.8
[2024-01-04] MEDS: Gabapentin 400 MG CAPSULE PO ×3 (08:23→20:17)
[2024-01-04] MEDS: lisinopriL 20 MG TABLET PO (08:23)
[2024-01-04] MEDS: hydroCHLOROthiazide 12.5 MG TABLET PO (08:23)
[2024-01-04] MEDS: Miconazole Nitrate 2% Oint 57 GM OINT...G. 1 APPL TOPICAL (08:23)
[2024-01-04] MEDS: Acetaminophen 325 MG TABLET 650 MG PO ×2 (08:23→16:31)
--- NOTE | 2024-01-04 13:15 | HO.PSYCHPN ---
Subjective Subjective Date of Service: 01/04/24 Reason For Visit: SI psychosis Subjective Notes: Conditional Voluntary Interim History: The nursing staff reported the patient had been compliant with treatment isolative and pleasant, no evidence of unsafe behaviors. She took some p.r.n. Zyprexa and slept 7 hours. The social media marketing analyst reported that we are working on discharge planning. On interview the patient denies new symptoms, no evidence of loan at this point. Mental Status Exam Mental Status Exam Patient Appearance: Well Grooomed and Appropriate Patient Orientation: Person Level of Consciousness: Awake and Appropriate Patient Behavior: Guarded and Passive Mood Description: Calm Affect Description: Constricted Patient Cognition Impaired: Yes Ability to Follow Directions: Good Speech Pattern: Clear Hallucinations: None Delusions: Ideas of Reference Thought Process: Distracted and Goal Oriented Thought Content: positive for [place] and positive for [place] of Content Judgement: Fair Diagnostics Vital Signs (24Hr): Vital Signs - 24 hr 01/03/24 18:00 01/04/24 08:18 Temperature 97.9 F Pulse Rate 87 Respiratory Rate 18 Blood Pressure 155/69 H Pulse Oximetry 96 Oxygen Delivery Method Room Air Room Air BMI result Body Mass Index 33.8 Labs 01/02/24 07:24 01/02/24 07:24 Medications Medications Current Medications Acetaminophen (Acetaminophen 325 Mg Tablet) 650 mg PO Q6H PRN PRN Reason: Headache/Pain Mild Scale (1-3) Last Admin: 01/04/24 08:23 Dose: 650 mg Al Hydroxide/Mg Hydroxide (Magnesium Hydrox/Alum Hydrox 30 Ml Oral.Susp) 30 ml PO Q6H PRN PRN Reason: Heartburn/Nausea Last Admin: 12/20/23 20:48 Dose: 30 ml Albuterol Sulfate (Albuterol Sulfate 90 Mcg 8 Gm Inhaler) 2 puff INHALE RQ4H PRN PRN Reason: Bronchospasm Atorvastatin Calcium (Atorvastatin Calcium 20 Mg Tablet) 20 mg PO BEDTIME JOHNNY Last Admin: 01/03/24 20:15 Dose: 20 mg Calcium Carbonate (Calcium Carbonate 750 Mg Tab.Chew) 750 mg PO Q6H PRN PRN Reason: GI Upset Last Admin: 01/01/24 21:28 Dose: 750 mg Docusate Sodium (Docusate Sodium 100 Mg Capsule) 100 mg PO BEDTIME JOHNNY Last Admin: 01/03/24 20:15 Dose: 100 mg Gabapentin (Gabapentin 400 Mg Capsule) 400 mg PO TID JOHNNY Last Admin: 01/04/24 08:23 Dose: 400 mg Hydrochlorothiazide (Hydrochlorothiazide 12.5 Mg Tablet) 12.5 mg PO DAILY JOHNNY; Protocol Last Admin: 01/04/24 08:23 Dose: 12.5 mg Levothyroxine Sodium (Levothyroxine Sodium 125 Mcg Tablet) 125 mcg PO DAILY@0630 JOHNNY Last Admin: 01/04/24 06:39 Dose: 125 mcg Lisinopril (Lisinopril 20 Mg Tablet) 20 mg PO DAILY JOHNNY; Protocol Last Admin: 01/04/24 08:23 Dose: 20 mg Loratadine (Loratadine 10 Mg Tablet) 10 mg PO BEDTIME JOHNNY Last Admin: 01/03/24 20:14 Dose: 10 mg Lorazepam (Lorazepam 1 Mg Tablet) 1 mg PO Q6H PRN PRN Reason: Anxiety Last Admin: 01/04/24 02:34 Dose: 1 mg Magnesium Hydroxide (Milk Of Magnesia 30 Ml Oral.Susp) 30 ml PO DAILY PRN PRN Reason: Constipation Last Admin: 12/24/23 05:10 Dose: 30 ml Miconazole Nitrate (Miconazole Nitrate 2% Oint 57 Gm Oint...G.) 1 appl TOPICAL BID JOHNNY; Protocol Last Admin: 01/04/24 08:23 Dose: 1 appl Olanzapine (Olanzapine 2.5 Mg Tablet) 2.5 mg PO BID PRN PRN Reason: psychosis Last Admin: 01/03/24 17:44 Dose: 2.5 mg Olanzapine (Olanzapine 7.5 Mg Tablet) 15 mg PO BEDTIME JOHNNY Last Admin: 01/03/24 20:14 Dose: 15 mg Sodium Chloride (Sodium Chloride 0.65 % Nasal 44 Ml Sprbtl) 1 spray NOSTRIL-B Q1H PRN PRN Reason: Nasal Congestion Trazodone HCl (Trazodone Hcl 50 Mg Tablet) 50 mg PO BEDTIME MRX1 PRN PRN Reason: Insomnia Last Admin: 12/27/23 02:59 Dose: 50 mg Allergies Allergies Allergy/AdvReac Type Severity Reaction Status Date / Time Unable to Assess Allergy Verified 12/18/23 15:46 Assessment & Plan Assessment & Plan (1) Bipolar disorder: Status: Acute Code(s): F31.9 - Bipolar disorder, unspecified Assessment and Plan: 12/30/23: Continue current tx. 12/31/23: Continue current tx. (2) Borderline personality disorder: Status: Acute Code(s): F60.3 - Borderline personality disorder (3) Psychosis: Status: Acute Code(s): F29 - Unspecified psychosis not due to a substance or known physiological condition Plan The patient is an elderly female with a past history of borderline personality disorder and bipolar disorder who was brought into the facility with active symptoms of loan with racing thoughts, flight of ideas and grandiosity but also recently she complained of suicidal ideation without a clear plan or intent. Sister called 911 since she had been reporting suicidal thoughts. On interview it was clear that the patient was manic. Plan 1. Gather collateral information. We will try to contact her sister to get more information regarding past treatments. 2. Continue with gabapentin and other medications prescribed by her previous psychiatrist. 3. We discussed risks, benefits, side-effects and alternatives and the patient agreed to take Zyprexa 2.5 mg p.o. q.h.s. to target insomnia and mood lability. 4. Blood work on admission. 5. . Reassessment with results. 6. 15 minute checks. The patient is able to contract for safety in the facility . 7. Increase Zyprexa to7. 5 mg p.o. q.h.s. on December 21. On December 26 we increase Zyprexa to 10 mg p.o. q.h.s. to target loan. On December 29 we are increasing Zyprexa to 15 mg p.o. q.h.s.. 8. On December 28 we increased gabapentin up to 400 mg p.o. t.i.d. 9. Blood work for January 02 came back within normal limits no changes Reason for continued inpatient stay Substantial Risk for: inability to function, rapid decompensation and med/psych decompensation Time Spent With Patient Time: Total time managing care of this patient today __20__ minutes.
--- NOTE | 2024-01-04 14:26 | PC.NURSE ---
Pt. A & O X 3. Lacks insight into situation. Continues to be hyperverbal in interactions, but though process and speech are logical. Denies depression/SI/HI/perceptual disturbances. My anxiety went from 1 to about 8 when the girl told me my weight. Eating and drinking well and med compliant.
[2024-01-04 20:05] VITALS: BP 140/63; PULSE 93; RESP 18; TEMP 36.4; O2SAT 95
[2024-01-04] MEDS: OLANZapine 7.5 MG TABLET 15 MG PO (20:17)
[2024-01-04] MEDS: Atorvastatin Calcium 20 MG TABLET PO (20:17)
[2024-01-04] MEDS: Docusate Sodium 100 MG CAPSULE PO (20:17)
[2024-01-04] MEDS: Loratadine 10 MG TABLET PO (20:17)
[2024-01-05 06:00] VITALS: BP 143/64; PULSE 82; RESP 16; TEMP 36.6; O2SAT 93
[2024-01-05] MEDS: Levothyroxine Sodium 125 MCG TABLET PO (06:22)
[2024-01-05] MEDS: hydroCHLOROthiazide 12.5 MG TABLET PO (08:22)
[2024-01-05] MEDS: Gabapentin 400 MG CAPSULE PO ×3 (08:22→20:40)
[2024-01-05] MEDS: Miconazole Nitrate 2% Oint 57 GM OINT...G. 1 APPL TOPICAL ×2 (08:22→20:40)
[2024-01-05] MEDS: lisinopriL 20 MG TABLET PO (08:22)
[2024-01-05] MEDS: Acetaminophen 325 MG TABLET 650 MG PO ×2 (08:22→20:40)
--- NOTE | 2024-01-05 12:59 | HO.PSYCHPN ---
Subjective Subjective Date of Service: 01/05/24 Reason For Visit: SI psychosis Subjective Notes: Conditional Voluntary Interim History: The nursing staff reported the patient had been talkative but not overly manic. No evidence of grandiosity. She is more logical on her writings. The occupational therapist reported that she always presents with long papers and now it is more organized. We discussed discharge planning and she will be discharged with ancillary services next Monday. Mental Status Exam Mental Status Exam Patient Appearance: Well Grooomed and Appropriate Patient Orientation: Person and Situation Level of Consciousness: Awake and Appropriate Patient Behavior: Guarded and Passive Mood Description: Calm Affect Description: Constricted Patient Cognition Impaired: Yes Ability to Follow Directions: Good Speech Pattern: Clear Hallucinations: None Delusions: Not Present Thought Process: Distracted Thought Content: positive for [place] and positive for Circumstantial Judgement: Poor Diagnostics Vital Signs (24Hr): Vital Signs - 24 hr 01/04/24 20:05 01/05/24 06:00 Temperature 97.6 F 97.9 F Pulse Rate 93 82 Respiratory Rate 18 16 Blood Pressure 140/63 H 143/64 H Pulse Oximetry 95 93 Oxygen Delivery Method Room Air Room Air BMI result Body Mass Index 33.8 Labs 01/02/24 07:24 01/02/24 07:24 Medications Medications Current Medications Acetaminophen (Acetaminophen 325 Mg Tablet) 650 mg PO Q6H PRN PRN Reason: Headache/Pain Mild Scale (1-3) Last Admin: 01/05/24 08:22 Dose: 650 mg Al Hydroxide/Mg Hydroxide (Magnesium Hydrox/Alum Hydrox 30 Ml Oral.Susp) 30 ml PO Q6H PRN PRN Reason: Heartburn/Nausea Last Admin: 12/20/23 20:48 Dose: 30 ml Albuterol Sulfate (Albuterol Sulfate 90 Mcg 8 Gm Inhaler) 2 puff INHALE RQ4H PRN PRN Reason: Bronchospasm Atorvastatin Calcium (Atorvastatin Calcium 20 Mg Tablet) 20 mg PO BEDTIME JOHNNY Last Admin: 01/04/24 20:17 Dose: 20 mg Calcium Carbonate (Calcium Carbonate 750 Mg Tab.Chew) 750 mg PO Q6H PRN PRN Reason: GI Upset Last Admin: 01/01/24 21:28 Dose: 750 mg Docusate Sodium (Docusate Sodium 100 Mg Capsule) 100 mg PO BEDTIME JOHNNY Last Admin: 01/04/24 20:17 Dose: 100 mg Gabapentin (Gabapentin 400 Mg Capsule) 400 mg PO TID [facility] Last Admin: 01/05/24 08:22 Dose: 400 mg Hydrochlorothiazide (Hydrochlorothiazide 12.5 Mg Tablet) 12.5 mg PO DAILY JOHNNY; Protocol Last Admin: 01/05/24 08:22 Dose: 12.5 mg Levothyroxine Sodium (Levothyroxine Sodium 125 Mcg Tablet) 125 mcg PO DAILY@0630 JOHNNY Last Admin: 01/05/24 06:22 Dose: 125 mcg Lisinopril (Lisinopril 20 Mg Tablet) 20 mg PO DAILY JOHNNY; Protocol Last Admin: 01/05/24 08:22 Dose: 20 mg Loratadine (Loratadine 10 Mg Tablet) 10 mg PO BEDTIME JOHNNY Last Admin: 01/04/24 20:17 Dose: 10 mg Lorazepam (Lorazepam 1 Mg Tablet) 1 mg PO Q6H PRN PRN Reason: Anxiety Last Admin: 01/04/24 20:35 Dose: 1 mg Magnesium Hydroxide (Milk Of Magnesia 30 Ml Oral.Susp) 30 ml PO DAILY PRN PRN Reason: Constipation Last Admin: 12/24/23 05:10 Dose: 30 ml Miconazole Nitrate (Miconazole Nitrate 2% Oint 57 Gm Oint...G.) 1 appl TOPICAL BID [facility] [place]; Protocol Last Admin: 01/05/24 08:22 Dose: 1 appl Olanzapine (Olanzapine 2.5 Mg Tablet) 2.5 mg PO BID PRN PRN Reason: psychosis Last Admin: 01/03/24 17:44 Dose: 2.5 mg Olanzapine (Olanzapine 7.5 Mg Tablet) 15 mg PO BEDTIME JOHNNY Last Admin: 01/04/24 20:17 Dose: 15 mg Sodium Chloride (Sodium Chloride 0.65 % Nasal 44 Ml Sprbtl) 1 spray NOSTRIL-B Q1H PRN PRN Reason: Nasal Congestion Trazodone HCl (Trazodone Hcl 50 Mg Tablet) 50 mg PO BEDTIME MRX1 PRN PRN Reason: Insomnia Last Admin: 12/27/23 02:59 Dose: 50 mg Allergies Allergies Allergy/AdvReac Type Severity Reaction Status Date / Time Unable to Assess Allergy Verified 12/18/23 15:46 Assessment & Plan Assessment & Plan (1) Bipolar disorder: Status: Acute Code(s): F31.9 - Bipolar disorder, unspecified Assessment and Plan: 12/30/23: Continue current tx. 12/31/23: Continue current tx. (2) Borderline personality disorder: Status: Acute Code(s): F60.3 - Borderline personality disorder (3) Psychosis: Status: Acute Code(s): F29 - Unspecified psychosis not due to a substance or known physiological condition Plan The patient is an elderly female with a past history of borderline personality disorder and bipolar disorder who was brought into the facility with active symptoms of loan with racing thoughts, flight of ideas and grandiosity but also recently she complained of suicidal ideation without a clear plan or intent. Sister called 911 since she had been reporting suicidal thoughts. On interview it was clear that the patient was manic. Plan 1. Gather collateral information. We will try to contact her sister to get more information regarding past treatments. 2. Continue with gabapentin and other medications prescribed by her previous psychiatrist. 3. We discussed risks, benefits, side-effects and alternatives and the patient agreed to take Zyprexa 2.5 mg p.o. q.h.s. to target insomnia and mood lability. 4. Blood work on admission. 5. . Reassessment with results. 6. 15 minute checks. The patient is able to contract for safety in the facility . 7. Increase Zyprexa to7. 5 mg p.o. q.h.s. on December 21. On December 26 we increase Zyprexa to 10 mg p.o. q.h.s. to target loan. On December 29 we are increasing Zyprexa to 15 mg p.o. q.h.s.. 8. On December 28 we increased gabapentin up to 400 mg p.o. t.i.d. 9. Blood work for January 02 came back within normal limits no changes 10. The patient requested with B12 and vitamin D . 11. Discharge next Monday with ancillary services. Reason for continued inpatient stay Substantial Risk for: inability to function, rapid decompensation and med/psych decompensation Time Spent With Patient Time: Total time managing care of this patient today __20__ minutes.
[2024-01-05] MEDS: LORazepam 1 MG TABLET PO ×2 (13:39→20:40)
[2024-01-05 18:00] VITALS: BP 129/59; PULSE 86; RESP 18; TEMP 36.1; O2SAT 95
[2024-01-05] MEDS: Docusate Sodium 100 MG CAPSULE PO (20:39)
[2024-01-05] MEDS: Atorvastatin Calcium 20 MG TABLET PO (20:39)
[2024-01-05] MEDS: Loratadine 10 MG TABLET PO (20:40)
[2024-01-05] MEDS: OLANZapine 7.5 MG TABLET 15 MG PO (20:40)
[2024-01-06] MEDS: Levothyroxine Sodium 125 MCG TABLET PO (05:53)
[2024-01-06 08:52] VITALS: BP 146/65; PULSE 86; RESP 17; TEMP 36.3; O2SAT 97
[2024-01-06] MEDS: Cholecalciferol (Vitamin D3) 10 MCG TABLET PO (08:55)
[2024-01-06] MEDS: hydroCHLOROthiazide 12.5 MG TABLET PO (08:55)
[2024-01-06] MEDS: lisinopriL 20 MG TABLET PO (08:55)
[2024-01-06] MEDS: Cyanocobalamin (Vitamin B-12) 100 MCG TABLET PO (08:55)
[2024-01-06] MEDS: Gabapentin 400 MG CAPSULE PO ×3 (08:55→21:53)
[2024-01-06] MEDS: Acetaminophen 325 MG TABLET 650 MG PO (09:00)
[2024-01-06] MEDS: LORazepam 1 MG TABLET PO ×3 (09:01→21:53)
[2024-01-06] MEDS: Miconazole Nitrate 2% Oint 57 GM OINT...G. 1 APPL TOPICAL ×2 (09:02→21:53)
--- NOTE | 2024-01-06 17:22 | HO.PSYCHPN ---
Subjective Subjective Date of Service: 01/06/24 Reason For Visit: SI psychosis Subjective Notes: Conditional Voluntary Interim History: Pt slept most of the night. She reports difficult falling and staying asleep. She has been visible on the unit, social with select peers. No paranoia towards staff or peers. She reports feeling safe here but triggered by peers who inadvertently enter her room. No behavioral concerns. She denies SI/HI. Medication Compliance: Yes Review of Systems Review of Systems no change Yes all other systems are reviewed and are negative and Unobtainable due to mental status Mental Status Exam Mental Status Exam Patient Appearance: Well Grooomed and Appropriate Patient Orientation: Person and Situation Level of Consciousness: Awake and Appropriate Patient Behavior: Guarded and Passive Mood Description: Calm Affect Description: Constricted Patient Cognition Impaired: Yes Ability to Follow Directions: Good Speech Pattern: Clear Memory Description: Intact Diagnostics Vital Signs (24Hr): Vital Signs - 24 hr 01/05/24 18:00 01/06/24 08:52 Temperature 97 F 97.3 F Pulse Rate 86 86 Respiratory Rate 18 17 Blood Pressure 129/59 L 146/65 H Pulse Oximetry 95 97 Oxygen Delivery Method Room Air Room Air BMI result Body Mass Index 33.8 Labs 01/02/24 07:24 01/02/24 07:24 Medications Medications Current Medications Acetaminophen (Acetaminophen 325 Mg Tablet) 650 mg PO Q6H PRN PRN Reason: Headache/Pain Mild Scale (1-3) Last Admin: 01/06/24 09:00 Dose: 650 mg Al Hydroxide/Mg Hydroxide (Magnesium Hydrox/Alum Hydrox 30 Ml Oral.Susp) 30 ml PO Q6H PRN PRN Reason: Heartburn/Nausea Last Admin: 12/20/23 20:48 Dose: 30 ml Albuterol Sulfate (Albuterol Sulfate 90 Mcg 8 Gm Inhaler) 2 puff INHALE RQ4H PRN PRN Reason: Bronchospasm Atorvastatin Calcium (Atorvastatin Calcium 20 Mg Tablet) 20 mg PO BEDTIME [facility] Last Admin: 01/05/24 20:39 Dose: 20 mg Calcium Carbonate (Calcium Carbonate 750 Mg Tab.Chew) 750 mg PO Q6H PRN PRN Reason: GI Upset Last Admin: 01/01/24 21:28 Dose: 750 mg Cyanocobalamin (Cyanocobalamin (Vitamin B-12) 100 Mcg Tablet) 100 mcg PO DAILY [facility] Last Admin: 01/06/24 08:55 Dose: 100 mcg Docusate Sodium (Docusate Sodium 100 Mg Capsule) 100 mg PO BEDTIME [facility] Last Admin: 01/05/24 20:39 Dose: 100 mg Gabapentin (Gabapentin 400 Mg Capsule) 400 mg PO TID [facility] Last Admin: 01/06/24 15:34 Dose: 400 mg Hydrochlorothiazide (Hydrochlorothiazide 12.5 Mg Tablet) 12.5 mg PO DAILY [facility]; Protocol Last Admin: 01/06/24 08:55 Dose: 12.5 mg Levothyroxine Sodium (Levothyroxine Sodium 125 Mcg Tablet) 125 mcg PO DAILY@0630 [facility] Last Admin: 01/06/24 05:53 Dose: 125 mcg Lisinopril (Lisinopril 20 Mg Tablet) 20 mg PO DAILY [facility]; Protocol Last Admin: 01/06/24 08:55 Dose: 20 mg Loratadine (Loratadine 10 Mg Tablet) 10 mg PO BEDTIME [facility] Last Admin: 01/05/24 20:40 Dose: 10 mg Lorazepam (Lorazepam 1 Mg Tablet) 1 mg PO Q6H PRN PRN Reason: Anxiety Last Admin: 01/06/24 15:34 Dose: 1 mg Lorazepam (Lorazepam 1 Mg Tablet) 1 mg PO BEDTIME [facility] Last Admin: 01/05/24 20:40 Dose: 1 mg Magnesium Hydroxide (Milk Of Magnesia 30 Ml Oral.Susp) 30 ml PO DAILY PRN PRN Reason: Constipation Last Admin: 12/24/23 05:10 Dose: 30 ml Miconazole Nitrate (Miconazole Nitrate 2% Oint 57 Gm Oint...G.) 1 appl TOPICAL BID [facility]; Protocol Last Admin: 01/06/24 09:02 Dose: 1 appl Olanzapine (Olanzapine 2.5 Mg Tablet) 2.5 mg PO BID PRN PRN Reason: psychosis Last Admin: 01/03/24 17:44 Dose: 2.5 mg Olanzapine (Olanzapine 7.5 Mg Tablet) 15 mg PO BEDTIME [facility] Last Admin: 01/05/24 20:40 Dose: 15 mg Sodium Chloride (Sodium Chloride 0.65 % Nasal 44 Ml Sprbtl) 1 spray NOSTRIL-B Q1H PRN PRN Reason: Nasal Congestion Trazodone HCl (Trazodone Hcl 50 Mg Tablet) 50 mg PO BEDTIME MRX1 PRN PRN Reason: Insomnia Last Admin: 12/27/23 02:59 Dose: 50 mg Vitamin D (Cholecalciferol (Vitamin D3) 10 Mcg Tablet) 10 mcg PO DAILY [facility] Last Admin: 01/06/24 08:55 Dose: 10 mcg Allergies Allergies Allergy/AdvReac Type Severity Reaction Status Date / Time Unable to Assess Allergy Verified 12/18/23 15:46 Assessment & Plan Assessment & Plan (1) Bipolar disorder: Status: Acute Code(s): F31.9 - Bipolar disorder, unspecified Assessment and Plan: 12/30/23: Continue current tx. 12/31/23: Continue current tx. (2) Borderline personality disorder: Status: Acute Code(s): F60.3 - Borderline personality disorder (3) Psychosis: Status: Acute Code(s): F29 - Unspecified psychosis not due to a substance or known physiological condition Plan The patient is an elderly female with a past history of borderline personality disorder and bipolar disorder who was brought into the facility with active symptoms of loan with racing thoughts, flight of ideas and grandiosity but also recently she complained of suicidal ideation without a clear plan or intent. Sister called 911 since she had been reporting suicidal thoughts. On interview it was clear that the patient was manic. Plan 1. Gather collateral information. We will try to contact her sister to get more information regarding past treatments. 2. Continue with gabapentin and other medications prescribed by her previous psychiatrist. 3. We discussed risks, benefits, side-effects and alternatives and the patient agreed to take Zyprexa 2.5 mg p.o. q.h.s. to target insomnia and mood lability. 4. Blood work on admission. 5. . Reassessment with results. 6. 15 minute checks. The patient is able to contract for safety in the facility . 7. Increase Zyprexa to7. 5 mg p.o. q.h.s. on December 21. On December 26 we increase Zyprexa to 10 mg p.o. q.h.s. to target loan. On December 29 we are increasing Zyprexa to 15 mg p.o. q.h.s.. 8. On December 28 we increased gabapentin up to 400 mg p.o. t.i.d. 9. Blood work for January 02 came back within normal limits no changes 10. The patient requested with B12 and vitamin D . 11. Discharge next Monday with ancillary services. Reason for continued inpatient stay Substantial Risk for: inability to function Time Spent With Patient Time: Total time managing care of this patient today ____ minutes.
[2024-01-06 18:00] VITALS: BP 140/56; PULSE 74; RESP 18; TEMP 36.4; O2SAT 99
[2024-01-06] MEDS: OLANZapine 7.5 MG TABLET 15 MG PO (21:53)
[2024-01-06] MEDS: Loratadine 10 MG TABLET PO (21:54)
[2024-01-06] MEDS: traZODone HCL 50 MG TABLET PO (21:54)
[2024-01-06] MEDS: Docusate Sodium 100 MG CAPSULE PO (21:54)
[2024-01-06] MEDS: Atorvastatin Calcium 20 MG TABLET PO (22:04)
[2024-01-07 08:45] VITALS: BP 124/60; PULSE 84; RESP 17; TEMP 36.3; O2SAT 98
[2024-01-07] MEDS: lisinopriL 20 MG TABLET PO (08:49)
[2024-01-07] MEDS: Cholecalciferol (Vitamin D3) 10 MCG TABLET PO (08:50)
[2024-01-07] MEDS: Cyanocobalamin (Vitamin B-12) 100 MCG TABLET PO (08:50)
[2024-01-07] MEDS: hydroCHLOROthiazide 12.5 MG TABLET PO (08:50)
[2024-01-07] MEDS: Gabapentin 400 MG CAPSULE PO ×3 (08:50→20:16)
[2024-01-07] MEDS: Miconazole Nitrate 2% Oint 57 GM OINT...G. 1 APPL TOPICAL ×2 (09:04→20:47)
[2024-01-07] MEDS: Acetaminophen 325 MG TABLET 650 MG PO ×2 (09:50→20:17)
--- NOTE | 2024-01-07 15:32 | P.PNPSI_ITS ---
Subjective Subjective Date of Service: 01/07/24 Reason For Visit: SI psychosis Subjective Notes: Conditional Voluntary Interim History: Pt slept most of the night. She reports difficult falling and staying asleep. She has been visible on the unit, social with select peers. No paranoia towards staff or peers. She reports at home neighbor is suspicious but she states she feels safe to return there. She reports feeling safe here but triggered by peers who inadvertently enter her room. No behavioral concerns. She denies SI/HI. Review of Systems Review of Systems no change Yes all other systems are reviewed and are negative and Unobtainable due to mental status Mental Status Exam Mental Status Exam Patient Appearance: Well Grooomed and Appropriate Patient Orientation: Person and Situation Level of Consciousness: Awake and Appropriate Patient Behavior: Guarded and Passive Mood Description: Calm Affect Description: Constricted Patient Cognition Impaired: Yes Ability to Follow Directions: Good Speech Pattern: Clear Memory Description: Intact Diagnostics Vital Signs (24Hr): Vital Signs - 24 hr 01/06/24 18:00 01/07/24 08:45 Temperature 97.6 F 97.4 F Pulse Rate 74 84 Respiratory Rate 18 17 Blood Pressure 140/56 H 124/60 Pulse Oximetry 99 98 Oxygen Delivery Method Room Air Room Air BMI result Body Mass Index 33.8 Labs 01/02/24 07:24 01/02/24 07:24 Medications Medications Current Medications Acetaminophen (Acetaminophen 325 Mg Tablet) 650 mg PO Q6H PRN PRN Reason: Headache/Pain Mild Scale (1-3) Last Admin: 01/07/24 09:50 Dose: 650 mg Al Hydroxide/Mg Hydroxide (Magnesium Hydrox/Alum Hydrox 30 Ml Oral.Susp) 30 ml PO Q6H PRN PRN Reason: Heartburn/Nausea Last Admin: 12/20/23 20:48 Dose: 30 ml Albuterol Sulfate (Albuterol Sulfate 90 Mcg 8 Gm Inhaler) 2 puff INHALE RQ4H PRN PRN Reason: Bronchospasm Atorvastatin Calcium (Atorvastatin Calcium 20 Mg Tablet) 20 mg PO BEDTIME [facility] Last Admin: 01/06/24 22:04 Dose: 20 mg Calcium Carbonate (Calcium Carbonate 750 Mg Tab.Chew) 750 mg PO Q6H PRN PRN Reason: GI Upset Last Admin: 01/01/24 21:28 Dose: 750 mg Cyanocobalamin (Cyanocobalamin (Vitamin B-12) 100 Mcg Tablet) 100 mcg PO DAILY [facility] Last Admin: 01/07/24 08:50 Dose: 100 mcg Docusate Sodium (Docusate Sodium 100 Mg Capsule) 100 mg PO BEDTIME [facility] Last Admin: 01/06/24 21:54 Dose: 100 mg Gabapentin (Gabapentin 400 Mg Capsule) 400 mg PO TID [facility] Last Admin: 01/07/24 08:50 Dose: 400 mg Hydrochlorothiazide (Hydrochlorothiazide 12.5 Mg Tablet) 12.5 mg PO DAILY [facility]; Protocol Last Admin: 01/07/24 08:50 Dose: 12.5 mg Levothyroxine Sodium (Levothyroxine Sodium 125 Mcg Tablet) 125 mcg PO DAILY@0630 [facility] Last Admin: 01/07/24 08:54 Dose: Not Given Lisinopril (Lisinopril 20 Mg Tablet) 20 mg PO DAILY [facility]; Protocol Last Admin: 01/07/24 08:49 Dose: 20 mg Loratadine (Loratadine 10 Mg Tablet) 10 mg PO BEDTIME [facility] Last Admin: 01/06/24 21:54 Dose: 10 mg Lorazepam (Lorazepam 1 Mg Tablet) 1 mg PO Q6H PRN PRN Reason: Anxiety Last Admin: 01/06/24 15:34 Dose: 1 mg Lorazepam (Lorazepam 1 Mg Tablet) 1 mg PO BEDTIME [facility] Last Admin: 01/06/24 21:53 Dose: 1 mg Magnesium Hydroxide (Milk Of Magnesia 30 Ml Oral.Susp) 30 ml PO DAILY PRN PRN Reason: Constipation Last Admin: 12/24/23 05:10 Dose: 30 ml Miconazole Nitrate (Miconazole Nitrate 2% Oint 57 Gm Oint...G.) 1 appl TOPICAL BID [facility]; Protocol Last Admin: 01/07/24 09:04 Dose: 1 appl Olanzapine (Olanzapine 2.5 Mg Tablet) 2.5 mg PO BID PRN PRN Reason: psychosis Last Admin: 01/03/24 17:44 Dose: 2.5 mg Olanzapine (Olanzapine 7.5 Mg Tablet) 15 mg PO BEDTIME [facility] Last Admin: 01/06/24 21:53 Dose: 15 mg Sodium Chloride (Sodium Chloride 0.65 % Nasal 44 Ml Sprbtl) 1 spray NOSTRIL-B Q1H PRN PRN Reason: Nasal Congestion Trazodone HCl (Trazodone Hcl 50 Mg Tablet) 50 mg PO BEDTIME MRX1 PRN PRN Reason: Insomnia Last Admin: 01/06/24 21:54 Dose: 50 mg Vitamin D (Cholecalciferol (Vitamin D3) 10 Mcg Tablet) 10 mcg PO DAILY [facility] Last Admin: 01/07/24 08:50 Dose: 10 mcg Allergies Allergies Allergy/AdvReac Type Severity Reaction Status Date / Time Unable to Assess Allergy Verified 12/18/23 15:46 Assessment & Plan Assessment & Plan (1) Bipolar disorder: Status: Acute Code(s): F31.9 - Bipolar disorder, unspecified Assessment and Plan: 12/30/23: Continue current tx. 12/31/23: Continue current tx. (2) Borderline personality disorder: Status: Acute Code(s): F60.3 - Borderline personality disorder (3) Psychosis: Status: Acute Code(s): F29 - Unspecified psychosis not due to a substance or known physiological condition Plan The patient is an elderly female with a past history of borderline personality disorder and bipolar disorder who was brought into the facility with active symptoms of loan with racing thoughts, flight of ideas and grandiosity but also recently she complained of suicidal ideation without a clear plan or intent. Sister called 911 since she had been reporting suicidal thoughts. On interview it was clear that the patient was manic. Plan 1. Gather collateral information. We will try to contact her sister to get more information regarding past treatments. 2. Continue with gabapentin and other medications prescribed by her previous psychiatrist. 3. We discussed risks, benefits, side-effects and alternatives and the patient agreed to take Zyprexa 2.5 mg p.o. q.h.s. to target insomnia and mood lability. 4. Blood work on admission. 5. . Reassessment with results. 6. 15 minute checks. The patient is able to contract for safety in the facility . 7. Increase Zyprexa to7. 5 mg p.o. q.h.s. on December 21. On December 26 we increase Zyprexa to 10 mg p.o. q.h.s. to target loan. On December 29 we are increasing Zyprexa to 15 mg p.o. q.h.s.. 8. On December 28 we increased gabapentin up to 400 mg p.o. t.i.d. 9. Blood work for January 02 came back within normal limits no changes 10. The patient requested with B12 and vitamin D . 11. Discharge next Monday with ancillary services. Reason for continued inpatient stay Substantial Risk for: inability to function Time Spent With Patient Time: Total time managing care of this patient today ____ minutes.
[2024-01-07] MEDS: LORazepam 1 MG TABLET PO ×2 (18:31→20:16)
[2024-01-07 19:30] VITALS: BP 138/62; PULSE 79; RESP 18; TEMP 36.3; O2SAT 97
[2024-01-07] MEDS: OLANZapine 7.5 MG TABLET 15 MG PO (20:15)
[2024-01-07] MEDS: Atorvastatin Calcium 20 MG TABLET PO (20:16)
[2024-01-07] MEDS: Docusate Sodium 100 MG CAPSULE PO (20:16)
[2024-01-07] MEDS: Loratadine 10 MG TABLET PO (20:16)
[2024-01-08 03:26] VITALS: BP 139/62; PULSE 71; RESP 17; TEMP 36.3; O2SAT 97
--- NOTE | 2024-01-08 03:28 | PC.NURSE ---
[id number] Maryam used her call chacon to get staff attention to report am unwitnessed fall.According to pt, I was trying to get up to the milieu to ask for water, felt a bit dizzy and lost balance, then slid against the wall close to her bed, down to the floor. I am hurting from my left arm and left side of my hip and thigh area vital signs are stable. pt reported she didnt hit her head. Dr. Prem Merrill notified as well as Lesa, the clinical supervisor cutting and sewing room. Xray ordered by . pt back in bed and resting comfortably.
[2024-01-08] MEDS: Levothyroxine Sodium 125 MCG TABLET PO (06:31)
[2024-01-08 09:03] VITALS: BP 140/68; PULSE 83; RESP 16; TEMP 37.5; O2SAT 95
[2024-01-08] MEDS: lisinopriL 20 MG TABLET PO (09:06)
[2024-01-08] MEDS: Cholecalciferol (Vitamin D3) 10 MCG TABLET PO (09:06)
[2024-01-08] MEDS: Gabapentin 400 MG CAPSULE PO ×3 (09:06→20:39)
[2024-01-08] MEDS: Cyanocobalamin (Vitamin B-12) 100 MCG TABLET PO (09:06)
[2024-01-08] MEDS: Acetaminophen 325 MG TABLET 650 MG PO ×2 (09:07→18:42)
[2024-01-08] MEDS: hydroCHLOROthiazide 12.5 MG TABLET PO (09:07)
[2024-01-08] MEDS: Miconazole Nitrate 2% Oint 57 GM OINT...G. 1 APPL TOPICAL ×2 (09:07→20:39)
[2024-01-08 18:00] VITALS: BP 145/73; PULSE 77; RESP 18; TEMP 36.6; O2SAT 97
--- NOTE | 2024-01-08 20:23 | P.PNPSI_ITS ---
Subjective Subjective Date of Service: 01/08/24 Reason For Visit: SI psychosis Subjective Notes: Conditional Voluntary Interim History: Pt slept most of the night. She reports difficult falling and staying asleep- added melatonin. She has been visible on the unit, social with select peers. No paranoia towards staff or peers. She reports at home neighbor is suspicious but she states she feels safe to return there. She is pleasant on approach and appreciative of care received in the hospital. She reports feeling safe here but triggered by peers who inadvertently enter her room. No behavioral concerns. She denies SI/HI. Review of Systems Review of Systems no change Yes all other systems are reviewed and are negative and Unobtainable due to mental status Mental Status Exam Mental Status Exam Patient Appearance: Well Grooomed and Appropriate Patient Orientation: Person and Situation Level of Consciousness: Awake and Appropriate Patient Behavior: Guarded and Passive Mood Description: Calm Affect Description: Constricted Patient Cognition Impaired: Yes Ability to Follow Directions: Good Speech Pattern: Clear Memory Description: Intact Diagnostics Vital Signs (24Hr): Vital Signs - 24 hr 01/08/24 03:26 01/08/24 09:03 Temperature 97.3 F 99.5 F Pulse Rate 71 83 Respiratory Rate 17 16 Blood Pressure 139/62 140/68 H Pulse Oximetry 97 95 Oxygen Delivery Method Room Air Room Air BMI result Body Mass Index 33.8 Labs 01/02/24 07:24 01/02/24 07:24 Medications Medications Current Medications Acetaminophen (Acetaminophen 325 Mg Tablet) 650 mg PO Q6H PRN PRN Reason: Headache/Pain Mild Scale (1-3) Last Admin: 01/08/24 18:42 Dose: 650 mg Al Hydroxide/Mg Hydroxide (Magnesium Hydrox/Alum Hydrox 30 Ml Oral.Susp) 30 ml PO Q6H PRN PRN Reason: Heartburn/Nausea Last Admin: 12/20/23 20:48 Dose: 30 ml Albuterol Sulfate (Albuterol Sulfate 90 Mcg 8 Gm Inhaler) 2 puff INHALE RQ4H PRN PRN Reason: Bronchospasm Atorvastatin Calcium (Atorvastatin Calcium 20 Mg Tablet) 20 mg PO BEDTIME [facility] Last Admin: 01/07/24 20:16 Dose: 20 mg Calcium Carbonate (Calcium Carbonate 750 Mg Tab.Chew) 750 mg PO Q6H PRN PRN Reason: GI Upset Last Admin: 01/01/24 21:28 Dose: 750 mg Cyanocobalamin (Cyanocobalamin (Vitamin B-12) 100 Mcg Tablet) 100 mcg PO DAILY [facility] Last Admin: 01/08/24 09:06 Dose: 100 mcg Docusate Sodium (Docusate Sodium 100 Mg Capsule) 100 mg PO BEDTIME [facility] Last Admin: 01/07/24 20:16 Dose: 100 mg Gabapentin (Gabapentin 400 Mg Capsule) 400 mg PO TID [facility] Last Admin: 01/08/24 14:07 Dose: 400 mg Hydrochlorothiazide (Hydrochlorothiazide 12.5 Mg Tablet) 12.5 mg PO DAILY [facility]; Protocol Last Admin: 01/08/24 09:07 Dose: 12.5 mg Levothyroxine Sodium (Levothyroxine Sodium 125 Mcg Tablet) 125 mcg PO DAILY@0630 [facility] Last Admin: 01/08/24 06:31 Dose: 125 mcg Lisinopril (Lisinopril 20 Mg Tablet) 20 mg PO DAILY [facility]; Protocol Last Admin: 01/08/24 09:06 Dose: 20 mg Loratadine (Loratadine 10 Mg Tablet) 10 mg PO BEDTIME [facility] Last Admin: 01/07/24 20:16 Dose: 10 mg Lorazepam (Lorazepam 1 Mg Tablet) 1 mg PO BEDTIME [facility] Last Admin: 01/07/24 20:16 Dose: 1 mg Lorazepam (Lorazepam 1 Mg Tablet) 1 mg PO Q6H PRN PRN Reason: anxiety/agitation Magnesium Hydroxide (Milk Of Magnesia 30 Ml Oral.Susp) 30 ml PO DAILY PRN PRN Reason: Constipation Last Admin: 12/24/23 05:10 Dose: 30 ml Melatonin (Melatonin 3 Mg Tablet) 6 mg PO BEDTIME [facility] Miconazole Nitrate (Miconazole Nitrate 2% Oint 57 Gm Oint...G.) 1 appl TOPICAL BID [facility]; Protocol Last Admin: 01/08/24 09:07 Dose: 1 appl Olanzapine (Olanzapine 2.5 Mg Tablet) 2.5 mg PO BID PRN PRN Reason: psychosis Last Admin: 01/03/24 17:44 Dose: 2.5 mg Olanzapine (Olanzapine 7.5 Mg Tablet) 15 mg PO BEDTIME [facility] Last Admin: 01/07/24 20:15 Dose: 15 mg Sodium Chloride (Sodium Chloride 0.65 % Nasal 44 Ml Sprbtl) 1 spray NOSTRIL-B Q1H PRN PRN Reason: Nasal Congestion Trazodone HCl (Trazodone Hcl 50 Mg Tablet) 50 mg PO BEDTIME MRX1 PRN PRN Reason: Insomnia Last Admin: 01/06/24 21:54 Dose: 50 mg Vitamin D (Cholecalciferol (Vitamin D3) 10 Mcg Tablet) 10 mcg PO DAILY [facility] Last Admin: 01/08/24 09:06 Dose: 10 mcg Allergies Allergies Allergy/AdvReac Type Severity Reaction Status Date / Time Unable to Assess Allergy Verified 12/18/23 15:46 Assessment & Plan Assessment & Plan (1) Bipolar disorder: Status: Acute Code(s): F31.9 - Bipolar disorder, unspecified Assessment and Plan: 12/30/23: Continue current tx. 12/31/23: Continue current tx. (2) Borderline personality disorder: Status: Acute Code(s): F60.3 - Borderline personality disorder (3) Psychosis: Status: Acute Code(s): F29 - Unspecified psychosis not due to a substance or known physiological condition Plan The patient is an elderly female with a past history of borderline personality disorder and bipolar disorder who was brought into the facility with active symptoms of loan with racing thoughts, flight of ideas and grandiosity but also recently she complained of suicidal ideation without a clear plan or intent. Sister called 911 since she had been reporting suicidal thoughts. On interview it was clear that the patient was manic. Plan 1. Gather collateral information. We will try to contact her sister to get more information regarding past treatments. 2. Continue with gabapentin and other medications prescribed by her previous psychiatrist. 3. We discussed risks, benefits, side-effects and alternatives and the patient agreed to take Zyprexa 2.5 mg p.o. q.h.s. to target insomnia and mood lability. 4. Blood work on admission. 5. . Reassessment with results. 6. 15 minute checks. The patient is able to contract for safety in the facility . 7. Increase Zyprexa to7. 5 mg p.o. q.h.s. on December 21. On December 26 we increase Zyprexa to 10 mg p.o. q.h.s. to target loan. On December 29 we are increasing Zyprexa to 15 mg p.o. q.h.s.. 8. On December 28 we increased gabapentin up to 400 mg p.o. t.i.d. 9. Blood work for January 02 came back within normal limits no changes 10. The patient requested with B12 and vitamin D . 11. Discharge next Monday with ancillary services. Reason for continued inpatient stay Substantial Risk for: inability to function Time Spent With Patient Time: Total time managing care of this patient today ____ minutes.
[2024-01-08] MEDS: Melatonin 3 MG TABLET 6 MG PO (20:29)
[2024-01-08] MEDS: OLANZapine 7.5 MG TABLET 15 MG PO (20:29)
[2024-01-08] MEDS: Docusate Sodium 100 MG CAPSULE PO (20:38)
[2024-01-08] MEDS: Atorvastatin Calcium 20 MG TABLET PO (20:38)
[2024-01-08] MEDS: LORazepam 1 MG TABLET PO (20:38)
[2024-01-08] MEDS: Loratadine 10 MG TABLET PO (20:39)
[2024-01-09] MEDS: Levothyroxine Sodium 125 MCG TABLET PO (06:37)
--- NOTE | 2024-01-09 08:11 | PM.PSYDC ---
DS: Providers Provider Date of Service: 01/09/24 Date of admission: 12/19/23 13:27 Date of discharge: 01/09/24 Primary care physician: Unknown Physician DS: Diagnosis Discharge Diagnosis (1) Bipolar disorder: Status: Acute (2) Borderline personality disorder: Status: Acute (3) Psychosis: Status: Acute DS: Medications Discharge Medications Home Medications: Home Medications Medication Instructions Recorded Confirmed alprazolam 0.5 mg tablet PO BID 12/18/23 atorvastatin 20 mg tablet 20 mg PO DAILY 12/18/23 12/18/23 gabapentin 300 mg capsule 300 mg PO TID 12/18/23 12/18/23 hydrochlorothiazide 12.5 mg tablet 12.5 mg PO DAILY 12/18/23 12/18/23 levothyroxine 125 mcg tablet 125 mcg PO DAILY 12/18/23 12/18/23 lisinopril 20 mg tablet 20 mg PO DAILY 12/18/23 12/18/23 trazodone 50 mg tablet 50 mg PO BEDTIME 12/18/23 12/18/23 Mental Status Exam Mental Status Exam Patient Appearance: Well Grooomed and Appropriate Patient Orientation: Person and Situation Level of Consciousness: Awake and Appropriate Patient Behavior: Guarded and Passive Mood Description: Calm and Constricted Affect Description: Constricted Patient Cognition Impaired: Yes Ability to Follow Directions: Good Speech Pattern: Clear Hallucinations: None Delusions: Ideas of Reference Thought Process: Distracted and Goal Oriented Thought Content: positive for Circumstantial Judgement: Fair Data Data Completed and Pending Completed studies during hospitalization [Text1]: 01/02/24 07:24 WBC 5.1 RBC 4.02 L Hgb 12.1 Hct 36.3 L MCV 90.3 MCH 30.1 MCHC 33.3 RDW 12.1 Plt Count 263 MPV 11.5 Immature Gran % (Auto) 0.2 Neut % (Auto) 51.5 Lymph % (Auto) 35.2 Spalding % (Auto) 12.3 H Eos % (Auto) 0.4 Baso % (Auto) 0.4 Lymph # (Auto) 1.8 Spalding # (Auto) 0.6 Eos # (Auto) 0.0 Baso # (Auto) 0.0 Abs Immat Gran (auto) 0.01 Absolute Neuts (auto) 2.6 Absolute Nucleated RBC 0.000 Nucleated RBC % (auto) 0.0 Sodium 138 Potassium 4.1 Chloride 106 Carbon Dioxide 24 Anion Gap 12 BUN 24 H Creatinine 0.86 Estim Creat Clear Calc 58.4 Estimated GFR > 60 Fasting Glucose 104 H Calcium 9.6 Total Bilirubin 0.4 AST 17 ALT 16 Alkaline Phosphatase 61 Total Protein 6.7 Albumin 4.2 DS: Summary Hospital Course Hospital Course: The patient is a 73-year-old female with a past history of bipolar disorder who was brought to the facility for depressive symptoms with suicidal ideation. She was assessed by the crisis team and transferring to this facility for psychiatric stabilization. Please see the HPI of the admission note for further details. On admission, even though the patient complained of depressive symptoms it was clear that the patient have manic symptoms with racing thoughts, flight of ideas and psychotic symptoms elicited by paranoia and disorganized thought process. We discussed risks, benefits, side-effects and alternatives and she agreed to start Zyprexa that was titrated up slowly up to 7.5 mg p.o. q.h.s. with for improvement. We had several family meetings with his her sister who is the primary support in the community. The patient lives alone by herself but she needed ancillary services. Her symptoms improved and she was able to contract for safety. Since there were no safety concerns discharge planning was discussed. At the moment of the discharge there were no evidence of loan even though that she is chronically distressful and with ideas of reference as baseline. Time spent discussing smoking cessation with patient: 3 to 10 minutes Status at Discharge Cognitive/behavioral status at discharge: At baseline Functional status at discharge: independent ambulation Overall status at discharge: patient is back to baseline Time Spent with Patient Time attestation: Total time managing care of this patient today __30__ minutes. Time spent: Less than 30 minutes Discharge Plan Discharge Anticipated Discharge Date/Time: 01/09/24 10:00 Patient Disposition: Home, Self-Care Discharge Diagnosis: Schizoaffective disorder bipolar type Referrals: Charlee Sharma MD [Physician] - 01/22/24 1:00 pm ([facility] [address] ) Lupe Camarena [Primary Care Provider] - 1 Week Discharge Medications: New acetaminophen 325 mg Tablet 650 mg PO Q6H PRN (Reason: Headache/Pain Mild Scale (1-3)) 30 Days Qty: 60 0RF gabapentin 400 mg Capsule 400 mg PO TID 30 Days Qty: 90 0RF lorazepam 1 mg Tablet 1 mg PO BEDTIME 30 Days Qty: 30 0RF albuterol sulfate [Ventolin HFA] 90 mcg/actuation Hfa Aerosol Inhaler 2 puff inhalation RQ4H PRN (Reason: Bronchospasm) 30 Days Qty: 1 0RF loratadine 10 mg Tablet 10 mg PO BEDTIME 30 Days Qty: 30 0RF olanzapine 15 mg tablet 15 mg PO BEDTIME 30 Days Qty: 30 0RF cyanocobalamin (vitamin B-12) [Vitamin B-12] 100 mcg Tablet 100 mcg PO DAILY 30 Days Qty: 30 0RF trazodone 50 mg Tablet 50 mg PO BEDTIME MRX1 PRN (Reason: Insomnia) 30 Days Qty: 30 0RF melatonin 3 mg Tablet 6 mg PO BEDTIME 30 Days Qty: 60 0RF Critic-Aid Clear AF(miconazol) 2 % Ointment 1 appl topical BID 30 Days Qty: 1 0RF Protocol: Apply to: Apply to: feet docusate sodium 100 mg Capsule 100 mg PO BEDTIME 30 Days Qty: 30 0RF cholecalciferol (vitamin D3) [Vitamin D3] 10 mcg (400 unit) Tablet 10 mcg PO DAILY Qty: 30 0RF Deep Sea Nasal 0.65 % Aerosol,Timblin 1 spray intranasal Q1H PRN (Reason: Nasal Congestion) 30 Days Qty: 5 0RF Continued atorvastatin 20 mg tablet 20 mg PO DAILY 30 Days Qty: 30 0RF lisinopril 20 mg tablet 20 mg PO DAILY 30 Days Qty: 30 0RF levothyroxine 125 mcg tablet 125 mcg PO DAILY 30 Days Qty: 30 0RF hydrochlorothiazide 12.5 mg tablet 12.5 mg PO DAILY 30 Days Qty: 30 0RF Discontinued trazodone 50 mg tablet 50 mg PO BEDTIME alprazolam 0.5 mg tablet PO BID gabapentin 300 mg capsule 300 mg PO TID Diet: Advance to usual diet Activity on Discharge: As tolerated Stand Alone Forms: Patient Portal Discharge page Care Plan Goals: Care plan goals achieved in this admission no evidence of suicidal ideation Health Concerns: Continue treatment with primary care physician as an outpatient Plan of Treatment: Continue with outpatient providers in the community Assessment: Elderly female with a past history of bipolar symptoms such as loan and depression with psychosis who responded fairly well to Zyprexa titrated up to 7.5 mg p.o. q.h.s. with resolution of loan. At this moment ready to be discharged in the community.
[2024-01-09] MEDS: Cholecalciferol (Vitamin D3) 10 MCG TABLET PO (08:53)
[2024-01-09] MEDS: lisinopriL 20 MG TABLET PO (08:54)
[2024-01-09] MEDS: Gabapentin 400 MG CAPSULE PO (08:54)
[2024-01-09] MEDS: Cyanocobalamin (Vitamin B-12) 100 MCG TABLET PO (08:54)
[2024-01-09] MEDS: hydroCHLOROthiazide 12.5 MG TABLET PO (08:54)
== END 2024-01-09 10:25 | disposition home or self-care (01) | DRG 883 ==
LOC: HO.ED 12-19 10:50 → HO.PGERI 12-19 13:42
PROVIDERS: Emergency Medicine; Admitting Provider Psychiatry & Neurology Psychiatry; Emergency Provider Emergency Medicine Emergency Medical Services; Visit Provider Psychiatry & Neurology Psychiatry
DX: F60.3 Borderline personality disorder (principal); F29 Unspecified psychosis not due to a substance or known physiological condition; F25.9 Schizoaffective disorder, unspecified; Z20.822 Contact with and (suspected) exposure to COVID-19; Z23 Encounter for immunization; Z79.890 Hormone replacement therapy; Z79.899 Other long term (current) drug therapy
CPT/HCPCS: 36415; 80048; 80053; 80061; 80076; 80307; 81001; 83735; 84443; 85025; 87635; 90471; 90686; 93005; 99285

== ENCOUNTER → 2023-12-19 12:19 | Outpatient (BNV) | payer MEDICARE, OTHER, SELFPAY | PROVIDERS: Admitting Provider Psychiatry & Neurology Psychiatry; Emergency Provider Emergency Medicine Emergency Medical Services; Visit Provider Internal Medicine Cardiovascular Disease | DX: I45.81 Long QT syndrome (principal) | CPT/HCPCS: 93010 ==

== ENCOUNTER → 2023-12-19 13:27 | Outpatient (BNV) | payer MEDICARE, OTHER, SELFPAY | PROVIDERS: Admitting Provider Psychiatry & Neurology Psychiatry; Emergency Provider Emergency Medicine Emergency Medical Services; Visit Provider Psychiatry & Neurology Psychiatry | DX: F60.3 Borderline personality disorder (principal); F31.63 Bipolar disorder, current episode mixed, severe, without psychotic features; F29 Unspecified psychosis not due to a substance or known physiological condition | CPT/HCPCS: 90792; 99231; 99232; 99238 ==

== ENCOUNTER 2025-01-18 08:53 | Inpatient (IN) | payer MEDICARE, OTHER, SELFPAY ==
[2025-01-18] VITALS (7 sets, daily range): BP systolic 100–168; BP diastolic 60–114; PULSE 77–102; RESP 16–18; TEMP 36.6–36.9; O2SAT 93–99; BMI 22.3
--- NOTE | 2025-01-18 | ECG_ITS ---
Test Reason : PROLONGED QT Blood Pressure : */* mmHG Vent. Rate : 86 BPM Atrial Rate : 86 BPM P-R Int : 104 ms QRS Dur : 72 ms QT Int : 370 ms P-R-T Axes : 10 50 46 degrees QTcB Int : 442 ms Sinus rhythm with short NY with Premature atrial complexes Otherwise normal ECG When compared with ECG of 19-Dec-2023 12:32, Premature atrial complexes are now Present NY interval has decreased Referred By: Rebekah Pearson Electronically Signed By: Keegan Spring
--- NOTE | ~2025-01-18 | CT_ITS ---
CLINICAL HISTORY: worsening confusion and paranoia CT head without contrast Comparison: None Findings: No intra-axial mass, midline shift, hydrocephalus, or acute hemorrhage. No significant atrophy-like change or white matter disease. There is no sinus or mastoid fluid. The orbits are within normal limits. There is no acute fracture. IMPRESSION: 1. No acute intracranial findings. This document has been electronically signed by: Jim Islas MD on 01/18/2025 17:10:44
--- OUTSIDE RECORDS SUMMARY | 2025-01-18 09:12 | XMS_ITS ---
Author Organization [employer] Address [address] [facility] [address] [facility] [address] [place] [address] Care Team Providers Care Tool Chaser Name Role Phone FLACA RUIZ, ANAIS Primary Care Provider Manjula Hall Unavailable [phone] REASON FOR VISIT ASKED YOU TO PRAY FOR HER Encounters Encounter Location Date Provider Diagnosis [facility] [address] [place] [address] [address] [place] [address] 12/16/2024 Manjula Pitt Plan Of Treatment Next Appt Details Provider Name:Manjula santiago, 04/07/2025 01:00:00 PM, [address] [facility] [address] [facility], [address], [place], [address], Progress Notes * PANFILO PUENTESPATOOB:[birth year] (74 yo F)Acc No.[id number]:12/16/2024 Patient:?BHARGAV PUENTES :1950???Age:74 Y???Sex:Female Address:[address] [place] [address], [address], [place], [address] * true * Date:? Generated for Printi mateo/Kyle/eTransmitting on:?01/18/2025 09:12 AM EST
--- OUTSIDE RECORDS SUMMARY | 2025-01-18 09:12 | XMS_ITS ---
Author Name [facility] Unknown History of Medication Use Medication Directions Dispensed Refills Start Date End Date Stat latanoprost (XALATAN) 0.005 % ophthalmic solution 03/13/2024 05/26/20 2 4 aborted gabapentin (NEURONTIN) capsule 200 mg 200 mg, Oral, 3 times daily, First dose (after last modification) on Mon05/29/24 at 2100 05/30/2024 4 aborted potassium chloride ER tablet 40 mEq 40 mEq, Oral, Once, On Mon03/23/24 at 1500, For 1 doseDo not crush or chew tablet.?To make a liquid dissolution from a tablet: ??1) Place the whole tablet(s) in approximately ? ? ? cup of water (4 fluid ounces). ??2) Allow approximately 2 minutes for the tablet(s) to disintegrate. ??3) Stir for about elijah 03/23/2024 4 completed gabapentin (NEURONTIN) capsule 300 mg 300 mg, Oral, 3 times daily, First dose (after last modification) on Mon05/31/24 at 1600 05/31/2024 4 aborted ALPRAZolam (XANAX) 0.5 MG tablet Take 2 tablets (1 mg total) by mouth every night at bedtime. 03/08/2024 4 aborted ALPRAZolam (XANAX) tablet 0.5 mg 0.5 mg, Oral, 2 times daily, First dose on Mon05/27/24 at 1330 05/27/2024 4 aborted mirtazapine (REMERON) tablet 15 mg 15 mg, Oral, Every Night at Bedtime, First dose (after last modification) on Mon05/29/24 at 2100 05/28/2024 4 aborted magnesium hydroxide (MILK OF MAGNESIA) 400 MG/5ML suspension 30 mL 30 mL, Oral, 2 times daily PRN, constipation, Starting on Mon05/27/24 at 204205/28/2024 active acetaminophen (TYLENOL) tablet 650 mg 650 mg, Oral, Every 4 hours PRN, mild pain (1-3), Starting on Mon05/27/24 at 204205/28/2024 active lurasidone HCl (LATUDA) 20 MG TABS tablet Take 2 tablets (40 mg total) by mouth daily. 03/08/2024 4 aborted atorvastatin (LIPITOR) tablet 20 mg Take 1 tablet (20 mg total) by mouth every night at bedtime. 01/04/2024 4 aborted lisinopril (PRINIVIL,ZESTRIL) tablet 10 mg Take 1 tablet (10 mg total) by mouth daily. 03/12/2024 4 active risperiDONE (RisperDAL) tablet 0.25 mg 0.25 mg, Oral, Every 12 hours scheduled (2 times per day), First dose on Mon05/27/24 at 2100Reproductive/Br east Feeding Risk: Use appropriate precautions for handling and disposal. 05/28/2024 4 aborted potassium chloride ER (K-DUR,KLOR-CON) tablet 20 mEq Take 2 tablets (40 mEq total) by mouth daily for 3 days. 03/23/2024 4 active Problems Problem Status Onset Date Problem Type Date of Resolution Source Withdrawal from benzodiazepine, with unspecified complication active 2024-05-30 ProblemAct [facility] JUAN (generalized anxiety disorder) active 2024-05-30 ProblemAct [facility] Depression active EncounterDiagnosisAct [facility] Anxiety active 2024-05-27 ProblemAct [facility]
--- OUTSIDE RECORDS SUMMARY | 2025-01-18 09:12 | XMS_ITS | Clinical Summary ---
Author Organization [facility] Address [address] [place] [address] Care Team Providers Care Temple Meat Cutter Name Role Phone Charlee Sharma MD Primary Care Provider [phone] Allergies Active Allergy Reactions Criticality Noted Date Comments Brimonidine 03/23/2024 Cortisone 03/23/2024 Other reaction(s): psychosis Erythromycin 03/23/2024 Penicillins 03/23/2024 Medications Medication Sig Dispensed Refills Start Date End Date Status clonazePAM (KlonoPIN) 1 MG tabletIndications:Anx iety Take 1 tablet (1 mg total) by mouth every 12 (twelve) hours. 60 tablet 0 06/06/2024 Active docusate sodium 100 MG CAPSIndications:Const ipation Take 100 mg by mouth daily. 30 capsule 0 06/07/2024 Active gabapentin (NEURONTIN) 400 MG capsuleIndications:Ge neralized Anxiety Disorder Take 1 capsule (400 mg total) by mouth 3 (three) times a day. 90 capsule 0 06/06/2024 Active latanoprost (XALATAN) 0.005 % ophthalmic solutionIndications:O cular Hypertension Place 1 drop into both eyes every night at bedtime. 2.5 mL 0 06/06/2024 Active levothyroxine (SYNTHROID) tablet 50 mcgIndications:Hypoth yroidism Take 1 tablet (50 mcg total) by mouth every morning on an empty stomach. 30 tablet 0 06/07/2024 Active lisinopril (PRINIVIL,ZESTRIL) tablet 10 mgIndications:Hyperte nsion Take 1 tablet (10 mg total) by mouth daily. 30 tablet 0 06/07/2024 Active mirtazapine (REMERON) 30 MG tabletIndications:Elías or Depressive Disorder Take 1 tablet (30 mg total) by mouth every night at bedtime. 30 tablet 0 06/06/2024 Active senna (SENOKOT) 8.6 MG tabletIndications:Con stipation Take 1 tablet by mouth every night at bedtime. 30 tablet 0 06/06/2024 Active OXcarbazepine (TRILEPTAL) 300 MG tabletIndications:Man ic Phase of Bipolar Mood Disorder Take 1 tablet (300 mg total) by mouth daily. 30 tablet 0 06/07/2024 Active OXcarbazepine (TRILEPTAL) 150 MG tabletIndications:Man ic Phase of Bipolar Mood Disorder Take 3 tablets (450 mg total) by mouth every night at bedtime. 90 tablet 0 06/06/2024 Active QUEtiapine (SEROquel) 25 MG tabletIndications:Gen eralized Anxiety Disorder Take 1 tablet (25 mg total) by mouth 2 (two) times a day. 60 tablet 0 06/06/2024 Active QUEtiapine (SEROquel) 200 MG tabletIndications:Ins omnia Take 1 tablet (200 mg total) by mouth every night at bedtime. 30 tablet 0 06/06/2024 Active Active Problems Problem Noted Date Diagnosed Date JUAN (generalized anxiety disorder) 05/30/2024 Withdrawal from benzodiazepi ne, with unspecified complication 05/30/2024 Anxiety 05/27/2024 Social History Tobacco Use Types Packs/Day Years Used Date Smoking Tobacco: Never Alcohol Use Standard Drinks/Week Comments Never 0 (1 standard drink = 0.6 oz pur e alcohol) Sex and Gender Information Value Date Recorded Sex Assigned at Female 03/23/2024 1:39 PM EDT Gender Identity Female 03/23/2024 1:39 PM EDT Sexual Orientation Not on file Job Start Date Occupation Industry Not on file Not on file Not on file Last Filed Vital Signs Vital Sign Reading Time Taken Comments Blood Pressure 148/84 06/07/2024 7:11 AM EDT Pulse 76 06/07/2024 7:11 AM EDT Temperature 36.6 ??C (97.8 ??F) 06/07/2024 7:11 AM ED T Respiratory Rate 18 06/07/2024 7:11 AM EDT Oxygen Saturation 96% 06/07/2024 7:11 AM EDT Inhaled Oxygen Concentration - - Weight 72.6 kg (160 lb) 06/03/2024 2:19 PM EDT Height 157.5 cm (5' 2 ) 06/03/2024 2:20 PM EDT Body Mass Index 29.26 06/03/2024 2:19 PM EDT Plan of Treatment Health Maintenance Due Date Last Done Comments Hepatitis C Screening 1950 COVID-19 Vaccine (#1) 1950 Depression Screening 1960 Preventative Health Evaluation 1966 DTap / Tdap / Td (1 - Tdap) 1967 Shingrix-Zoster Vaccine (1 of 2) 1998 Fall Risk Assessment 2013 Osteoporosis Screening (DEXA Scan) 2013 Pneumococcal Vaccine (1 of 1 - PCV) 2013 RSV Adult > 60+ Yrs or Pregn ant (1 - 1-dose 75+ series) 2023 Influenza Vaccine (#1) 2024 11/30/2022 Hepatitis B Vaccines Aged Out No long er eligible based on patient's age to complete this topic RSV Ped < 20 months Aged Out No longe r eligible based on patient's age to complete this topic Advance Directives For more information, please contact: [phone] Documents on File Type Date Recorded Patient Network Internship Expl anation Advance Directive and Living Will 06/10/2024 11:06 AM [facility] Proxy Latest Code Status on File Code Status Date Activated Date Inactivated Comments Full Code 05/27/2024 8:45 PM 06/07/2024 9:14 PM This c ode status was ascertained in the following way: per unit protocol. Care Teams Temple Meat Cutter Relationship Specialty Start Date End Date Charlee Sharma MD [address] [place] [address] PCP - General Internal Medicine 03/23/24
--- OUTSIDE RECORDS SUMMARY | 2025-01-18 09:12 | XMS_ITS | Patient Health Record ---
Author Organization [employer] [facility] Address [address] [place] [address] Care Team Providers Care Process Trainer Name Role Phone ANAIS THAYER MD Primary Care Provider Manjula Hall Unavailable [phone] Allergies Allergen (clinical drug ingredient) Drug/Non Drug Allergy documented on EMR Reaction Allergy Type Onset Date Status cortisone Cortisone Psychosis Drug Allergy Active Penicillin Skin Rash Drug Allergy Active Reason For Referral No Information Medications Medication SIG (Take, Route, Frequency, Duration) Notes Start Date End Date Status Cetirizine HCl 10 MG 1 tablet Orally Onc e a day for 30 day(s) Active Levothyroxine Sodium 125 MCG 1 tablet in the morning on an empty stomach Orally Once a day for 30 day(s) Active Folic Acid 800 MCG 1 tablet Orally Once a day for 30 day(s) Active Gabapentin 300 MG Oral for 90 Active Cranberry Plus Vitamin C 4200-20-3 MG-MG-UNIT as directed Orally A ctive buPROPion HCl ER (XL) 150 MG 1 tablet in the morning Orally Once a day for 30 day(s) Active Vitamin B12 1000 MCG 1 tablet Orally Onc e a day for 30 day(s) Active Atorvastatin Calcium 20 MG 1 tablet Orally Once a day for 30 day(s) Active Lisinopril 20 MG 1 tablet Orally Once a day for 30 day(s) Active Calcium 600 MG 1 tablet with meals Orally Once a day Active ZyrTEC 10MG 1 ORAL daily for -3 Azar-MJ 06/17/2013 Not-Taking Centrum Women - as directed Orally Active OXcarbazepine 300 MG 1 tablet Orally 300 mg in AM, 450mg at bedtime Active Citalopram Hydrobromide 20 MG 1 tablet Orally Twice a day, 2 at bedtime Active Vitamin D3 1000 IU ORAL twice daily for -3 Azar-MJ 06/04/2012 Active Social History Tobacco Use: Social History Observation Description Date Details (start date - stop date) Never Smoker NA - NA Tobacco Use/Smoking Question Answer Notes Are you a nonsmoker Alcohol Screen (Audit-C) Question Answer Notes Did you have a drink contain ing alcohol in the past year? Yes How often did you have a dri nk containing alcohol in the past year? Monthly or less (1 point) How many drinks did you have on a typical day when you were drinking in the past year? 1 or 2 drinks (0 point) Points 1 Interpretation Negative Sexual History Question Answer Notes Had sex in the past 12 months (vaginal, oral, or anal)? No Problems Problem Type SNOMED Code ICD Code Onset Dates Problem Status W/U Status Risk Notes Problem Vitamin D deficiency (67242876) Vitamin D deficiency, unspecified (E55.9) Active confirmed Problem Postmenopausal atrophic vaginitis (80624085) Postmenopausal atrophic vaginitis (N95.2) Active confirmed Problem Dysplasia of cervix uteri (69196249) Dysplasia of cervix uteri, unspecified (N87.9) Active confirmed Problem Age-related osteoporosis (806963325) Age-related osteoporosis without current pathological fracture (M81.0) Active confirmed Problem Essential hypertension (67296699) Essential (primary) hypertension (I10) Active confirmed Problem Hypothyroidism (73891209) Hypothyroidism, unspecified (E03.9) Active confirmed Problem Major depression, single episode (47463067) Major depressive disorder, single episode, unspecified (F32.9) Active confirmed Problem 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 Problem Hyperlipidemia (27376922) Other hyperlipidemia (E78.4) Active confirmed Problem Anxiety disorder (476129076) Anxiety disorder, unspecified (F41.9) Active confirmed Problem Retinal detachment (disorder) (48121620) Other retinal detachments (H33.8) Active confirmed Problem Menopause (408958964) Menopausal and female climacteric states (N95.1) Active confirmed Problem Hypothyroidism (38917750) Unspecified hypothyroidism (244.9) Active confirmed Major Problem Hyperlipidemia (25772830) Other and unspecified hyperlipidemia (272.4) Active confirmed Major Problem 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 Problem Depressive disorder (96945399) Depressive disorder, not elsewhere classified (311) Active confirmed Major Problem Retinal detachment (11328814) Other forms of retinal detachment (361.89) Active confirmed Major Problem Dysplasia of cervix (07165172) Dysplasia of cervix, unspecified (622.10) Active confirmed Diag Problem Menopausal symptom (01815488) Symptomatic menopausal or female climacteric states (627.2) Active confirmed Major Problem Gynecological examination normal (888081219466870) Routine gynecological examination (V72.31) Active confirmed Major Problem History of risk factor (442517997) Other specified personal history presenting hazards to health (V15.89) Active confirmed Major Problem Screening for malignant neoplasm of colon (865260210) Special screening for malignant neoplasms, colon (V76.51) Active confirmed Major Encounters Encounter Location Date Provider Diagnosis [facility] [address] [place] [address] 12/16/2024 Manjula Pitt Plan Of Treatment Pending Test Test Name Order Date MAMMOGRAM, SCREENING 10/26/2022 BONE DENSITY 10/26/2022 MM Digital Mammo Screening 10/26/2022 Next Appt Details Provider Name:Manjula santiago, 04/07/2025 01:00:00 PM, [address], [address], [place], [address], Insurance Providers Payer Name Payer Address Payer Phone Subscriber Number Group Number Insured Name Patient Relationship to Insured Coverage Start Date Coverage End Date MEDICARE [address] [place] [place] [id number] BHARGAV PUENTES Self - patient is the insured [facility] IN[employer]MN[employer] PL[facility] [address] [place], [place] [id number] DENTON Self - patient is the insured Medical (General) History Medical History History ICD Code Hypothyroidism, unspecified E03.9 Other hyperlipidemia E78.4 Selective deficiency of immunoglobulin A [IgA] D80.2 Major depressive disorder, single episod e, unspecified F32.9 Other retinal detachments H33.8 Dysplasia of cervix uteri, unspecified N 87.9 Menopausal and female climacteric states N95.1 Anxiety disorder, unspecified F41.9 Essential (primary) hypertension I10 Vitamin D deficiency, unspecified E55.9 Surgical History Surgery Date(Month/Year) Colonoscopy Hospitalization History Reason Date(Month/Year) 1 Vaginal Delivery
--- OUTSIDE RECORDS SUMMARY | 2025-01-18 09:12 | XMS_ITS | Encounter Summary ---
Author Organization [facility] Address [address] [place] [address] Care Team Providers Care Vacuum Filter Operator Name Role Phone Charlee Sharma MD Primary Care Provider Encounter Details Date Type Department Care Team (Late st Contact Info) Description 01/04/2025 Lab Requisition [facility] - Main Lab [address] [place] [id number] [id number] [place] [address] Other fdc (current) drug therapy Social History Tobacco Use Types Packs/Day Years Used Date Smoking Tobacco: Never Alcohol Use Standard Drinks/Week Comments Never 0 (1 standard drink = 0.6 oz pur e alcohol) Comments Unknown Sex and Gender Information Value Date Recorded Sex Assigned at Not on file Legal Sex Female 8:27 PM EST Gender Identity Not on file Sexual Orientation Not on file documented as of this encounter Plan of Treatment Not on file documented as of this encounter Procedures Procedure Name Priority Date/Time Associated Diagnosis Comments URINALYSIS WITH REFLEX MICROSCOPIC AND CULTURE Routine 01/04/2025 7:00 AM EST Other long term care pharmacist (current) drug therapy BAUER URINE CULTURE TUBE Routine 01/04/2025 7:00 AM EST Other long term care pharmacist (current) drug therapy URINALYSIS WITH REFLEX MICROSCOPIC AND CULTURE Routine 01/04/2025 7:00 AM EST Other fdc (current) drug therapy documented in this encounter Results * Bauer urine culture tube (01/04/2025 7:00 AM EST) Extra Tube Hold for add-ons. 01/04/2025 3:01 PM EST [facility] Comment:Auto resulted. Urine Urine specimen obtained by clean catch procedure / Unknown Non-blood Collection / Unknown 01/04/2025 7:00 AM EST 01/04/2025 1:11 PM EST [facility] LAB URINE ORDERABLES Final Resul t [facility] [address] [place] [address], [place] [phone] * Urinalysis with reflex microscopic and culture (01/04/2025 7:00 AM EST) Pathologist [facility] Specific [place] Urine 1.004 1.003 - 1.030 LAB URINALYSIS - AUTOMATED METHOD 01/04/2025 2:00 PM [facility] pH, Urine 7.0 5.0 - 8.0 pH LAB URINALYSIS - AUTOMATED METHOD 01/04/2025 2:00 PM [facility] Leukocytes, Urine Negative Negative LAB URINALYSIS - AUTOMATED METHOD 01/04/2025 2:00 PM [facility] Nitrite, Urine Negative Negative LAB URINALYSIS - AUTOMATED METHOD 01/04/2025 2:00 PM [facility] Protein, Urine Negative <=Trace mg/dL LAB URINALYSIS - AUTOMATED METHOD 01/04/2025 2:00 PM [facility] Glucose, Urine Negative Negative mg/dL LAB URINALYSIS - AUTOMATED METHOD 01/04/2025 2:00 PM [facility] Ketones, Urine Negative Negative mg/dL LAB URINALYSIS - AUTOMATED METHOD 01/04/2025 2:00 PM EST [facility] Urobilinogen, Urine 0.2 0.2 - 1.0 mg/dL LAB URINALYSIS - AUTOMATED METHOD 01/04/2025 2:00 PM [facility] Bilirubin, Urine Negative Negative LAB URINALYSIS - AUTOMATED METHOD 01/04/2025 2:00 PM [facility] Blood, Urine Negative Negative LAB URINALYSIS - AUTOMATED METHOD 01/04/2025 2:00 PM [facility] Urine Urine specimen obtained by clean catch procedure / Unknown Non-blood Collection / Unknown 01/04/2025 7:00 AM EST 01/04/2025 1:11 PM EST [facility] LAB URINE ORDERABLES Final Resul t [facility] [address] [place] [address], documented in this encounter Visit Diagnoses Diagnosis Other long term care pharmacist (current) drug therapy documented in this encounter Care Teams Vacuum Filter Operator Relationship Specialty Start Date End Date Charlee Sharma MD [address] [place], [place] PCP - General 03/23/24 documented as of this encounter
--- OUTSIDE RECORDS SUMMARY | 2025-01-18 09:12 | XMS_ITS | Clinical Summary ---
Author Organization [facility] Address [address] [place] [address] Phone Care Team Providers Care Advertising Dispatch Clerks Supervisor Name Role Phone Charlee Sharma MD Primary Care Provider [phone] Encounters Date Type Department Care Team Description 01/04/2025 Lab Requisition [facility] - Main Lab [address] [facility] [place] [address] [facility] Other fpc (current) drug therapy from Last 3 Months Medical History Medical History Date Comments Hypertension DX:Hypertension Anxiety DX:Anxiety Depression DX:Depression Hypercholesterolemia DX:Hypercho lesterolemia Hypothyroidism DX:Hypothyroidis m B12 deficiency DX:B12 deficienc y Social History Tobacco Use Types Packs/Day Years Used Date Smoking Tobacco: Never Alcohol Use Standard Drinks/Week Comments Never 0 (1 standard drink = 0.6 oz pur e alcohol) Comments Unknown Sex and Gender Information Value Date Recorded Sex Assigned at Not on file Legal Sex Female 8:27 PM EST Gender Identity Not on file Sexual Orientation Not on file Obstetrics History Plan of Treatment Health Maintenance Due Date Last Done Comments DTaP,Tdap,and Td Vaccines (1 - Tdap) 1967 Pneumococcal Vaccine: 50+ Ye ars (1 of 1 - PCV) 1998 Zoster Vaccines (1 of 2) 1998 RSV Immunization Patients 60 + Years Old (1 - 1-dose 75+ series) 2023 Depression Screening 12/15/2023 Falls Risk Assessment 12/15/2023 Hepatitis C Screening 12/15/2023 Osteoporosis Screening (Bone Density Screening) 12/15/2023 Social Influencers of Health Screening 12/15/2023 COVID-19 Vaccine (1 - 2023-2 5 season) 2024 Influenza Vaccine (#1) 2024 Cholesterol Screening (Lipid Panel) 05/28/2029 05/28/2024 HIB Vaccines Aged Out No longer eligi ble based on patient's age to complete this topic HPV Vaccines Aged Out No longer eligi ble based on patient's age to complete this topic Hepatitis A Vaccines Aged Out No long er eligible based on patient's age to complete this topic Hepatitis B Vaccines Aged Out No long er eligible based on patient's age to complete this topic IPV Vaccines Aged Out No longer eligi ble based on patient's age to complete this topic MMR Vaccines Aged Out No longer eligi ble based on patient's age to complete this topic Meningococcal ACWY Vaccine Aged Out N o longer eligible based on patient's age to complete this topic Meningococcal B Vacine Aged Out No lo nger eligible based on patient's age to complete this topic RSV Immunization Patients Un ailyn 20 months Aged Out No longer eligible b ased on patient's age to complete this topic Varicella Vaccines Aged Out No longer eligible based on patient's age to complete this topic Procedures Procedure Name Priority Date/Time Associated Diagnosis Comments BAUER URINE CULTURE TUBE Routine 01/04/2025 7:00 AM EST Other fpc (current) drug therapy URINALYSIS WITH REFLEX MICROSCOPIC AND CULTURE Routine 01/04/2025 7:00 AM EST Other fpc (current) drug therapy URINALYSIS WITH REFLEX MICROSCOPIC AND CULTURE Routine 01/04/2025 7:00 AM EST Other marine oil terminal superintendent (current) drug therapy from Last 3 Months Results * Urinalysis with reflex microscopic and culture (01/04/2025 7:00 AM EST) Specific [place] Urine 1.004 1.003 - 1.030 LAB URINALYSIS - AUTOMATED METHOD 01/04/2025 2:00 PM EST [facility] pH, Urine 7.0 5.0 - 8.0 pH LAB URINALYSIS - AUTOMATED METHOD 01/04/2025 2:00 PM [facility] Leukocytes, Urine Negative Negative LAB URINALYSIS - AUTOMATED METHOD 01/04/2025 2:00 PM [facility] Nitrite, Urine Negative Negative LAB URINALYSIS - AUTOMATED METHOD 01/04/2025 2:00 PM [facility] Protein, Urine Negative <=Trace mg/dL LAB URINALYSIS - AUTOMATED METHOD 01/04/2025 2:00 PM [facility] Glucose, Urine Negative Negative mg/dL LAB URINALYSIS - AUTOMATED METHOD 01/04/2025 2:00 PM [facility] Ketones, Urine Negative Negative mg/dL LAB URINALYSIS - AUTOMATED METHOD 01/04/2025 2:00 PM [facility] Urobilinogen, Urine 0.2 0.2 - 1.0 mg/dL LAB URINALYSIS - AUTOMATED METHOD 01/04/2025 2:00 PM [facility] Bilirubin, Urine Negative Negative LAB URINALYSIS - AUTOMATED METHOD 01/04/2025 2:00 PM [facility] Blood, Urine Negative Negative LAB URINALYSIS - AUTOMATED METHOD 01/04/2025 2:00 PM [facility] Urine Urine specimen obtained by clean catch procedure / Unknown Non-blood Collection / Unknown 01/04/2025 7:00 AM EST 01/04/2025 1:11 PM EST [facility] LAB URINE ORDERABLES Final Resul t [facility] [address] [place] [address], [place] [phone] * Bauer urine culture tube (01/04/2025 7:00 AM EST) Extra Tube Hold for add-ons. 01/04/2025 3:01 PM EST [facility] Comment:Auto resulted. Urine Urine specimen obtained by clean catch procedure / Unknown Non-blood Collection / Unknown 01/04/2025 7:00 AM EST 01/04/2025 1:11 PM EST [facility] LAB URINE ORDERABLES Final Resul t [facility] [address] [place] [address], [place] [phone] from Last 3 Months Advance Directives Documents on File Type Date Recorded Patient Dental Mechanic Expl anation Health Care Decision (hx) 07/17/2024 AD ADAN DIRECTIVE Health Care Decision (hx) 06/10/2024 AD ADAN DIRECTIVE Care Teams Advertising Dispatch Clerks Supervisor Relationship Specialty Start Date End Date Charlee Sharma MD [address] [place], [place] PCP - General 03/23/24
--- NOTE | 2025-01-18 09:32 | ED.PSYCH ---
HPI - Psych General Chief Complaint: Psychiatric Symptoms Stated Complaint: psych Time Seen by Provider: 01/18/25 09:23 Source: family (son), RN notes reviewed and old records reviewed Mode of arrival: ambulatory Limitations: no limitations History of Present Illness ED Provider: Denys HPI Narrative: Patient is a 74-year-old female with history of bipolar disorder, borderline personality disorder, paranoia presenting to the emergency department with her son who reports that she was recently discharged from [facility] on Monday. He states that since being discharged home the patient has been paranoid, confused. He states that he has been giving her her medications and she has been taking them, but he feels they are not working. Patient lives alone and has mainly been cared for by her sister's, however, they recently expressed to her son that they are feeling overwhelmed and do not feel they will be able to care for her in this state any longer. Son lives in [place] and is only in [place] for a few days. Patient's thought process is illogical and she reports feeling confused. MD complaint: altered mental status Onset (ago): day(s) Duration: constant History of same: Yes Related Data Home Medications ?Medication ?Instructions ?Recorded ?Confirmed oxcarbazepine 150 mg tablet 150 mg PO BEDTIME 01/18/25 01/18/25 sennosides 8.6 mg tablet (senna) 8.6 mg PO DAILY PRN Constipation 01/18/25 01/18/25 Previous Rx's ?Medication ?Instructions ?Recorded acetaminophen 325 mg tablet 650 mg (2 x 325 mg) PO Q6H PRN 01/09/24 Headache/Pain Mild Scale (1-3) 30 days #60 tabs albuterol sulfate 90 mcg/actuation 2 puff inhalation RQ4H PRN 01/09/24 aerosol inhaler (Ventolin HFA) Bronchospasm 30 days #1 inhaler atorvastatin 20 mg tablet 20 mg PO DAILY 30 days #30 tabs 01/09/24 cholecalciferol (vitamin D3) 10 10 mcg PO DAILY #30 tabs 01/09/24 mcg (400 unit) tablet (Vitamin D3) cyanocobalamin (vitamin B-12) 100 100 mcg PO DAILY 30 days #30 tabs 01/09/24 mcg tablet (Vitamin B-12) docusate sodium 100 mg capsule 100 mg PO BEDTIME 30 days #30 caps 01/09/24 gabapentin 400 mg capsule 400 mg PO TID 30 days #90 caps 01/09/24 hydrochlorothiazide 12.5 mg tablet 12.5 mg PO DAILY 30 days #30 tabs 01/09/24 levothyroxine 125 mcg tablet 125 mcg PO DAILY 30 days #30 tabs 01/09/24 lisinopril 20 mg tablet 20 mg PO DAILY 30 days #30 tabs 01/09/24 loratadine 10 mg tablet 10 mg PO BEDTIME 30 days #30 tabs 01/09/24 lorazepam 1 mg tablet 1 mg PO BEDTIME 30 days #30 tabs 01/09/24 melatonin 3 mg tablet 6 mg (2 x 3 mg) PO BEDTIME 30 days 01/09/24 #60 tabs miconazole nitrate 2 % topical 1 appl topical BID 30 days #1 g 01/09/24 ointment (Critic-Aid Clear AF (miconazole)) olanzapine 15 mg tablet 15 mg PO BEDTIME 30 days #30 tabs 01/09/24 sodium chloride 0.65 % nasal spray 1 spray intranasal Q1H PRN Nasal 01/09/24 aerosol (Deep Sea Nasal) Congestion 30 days #5 mL trazodone 50 mg tablet 50 mg PO BEDTIME MRX1 PRN Insomnia 01/09/24 30 days #30 tabs Allergies Allergy/AdvReac Type Severity Reaction Status Date / Time cat dander [cats] Allergy Unknown Verified 01/18/25 09:04 cortisone Allergy Unknown Verified 01/18/25 09:04 dog dander [dogs] Allergy Unknown Verified 01/18/25 09:04 Review of Systems Review of Systems: As per HPI Yes all other systems are reviewed and are negative Constitutional: Constitutional: Reports as per HPI [facility] Social History Social History Household Members: None Housing: Apartment Do you presently have visiting nurse or other home services: No Unable to assess alcohol history related to: Unknown Alcohol intake: current Alcohol intake frequency: holidays/special occasions only Alcohol type: wine Patient Tobacco Use Status: Never used Tobacco Smoked in Last 30 Days: No e-Cigarette/Vaping Use: Never Used Second Hand Smoke Exposure: No Use of substances other than those prescribed or required for medical reasons: No Advance Directives: No Advance Directives Information Provided: No Do you have a plan to hurt others: No Plan service: No Physical Exam Vital Signs: Vital Signs: Last Vital Signs Temp 98 F 01/18/25 17:24 Pulse 77 01/18/25 17:24 Resp 16 01/18/25 17:24 BP 109/73 01/18/25 17:24 Pulse Ox 99 01/18/25 17:24 O2 Del Method Room Air 01/18/25 17:24 BMI result Body Mass Index 22.3 Vital signs have been reviewed and appear to be correct. Blood pressure elevated. Heart rate normal. Respiratory rate normal. Temperature normal. Oxygen saturation normal. Const: General: cooperative and no acute distress Orientation/consciousness: oriented to person HEENT: Head: Yes normocephalic and Yes atraumatic Ears: external ears normal General nose exam: Normal external nose present Face and sinus: Yes face symmetric Mouth: oropharynx normal and moist mucous membranes Throat: Yes uvula midline Eyes: Pupils: Equal, round and reactive pupils present Neck: Neck: Yes normal visual inspection and Yes supple Resp: Effort & Inspection: normal respiratory effort and able to speak in complete sentences Auscultation: clear to auscultation bilaterally Cardio: Rate: regular rate Rhythm: regular rhythm Heart sounds: S1 normal heart sound present and S2 normal heart sound present GI: Palpation (GI): Soft to palpation and nontender Auscultation: normoactive bowel sounds : General: Yes no CVA tenderness Back/Spine/Pelvis: Back: no CVA tenderness Skin: General skin exam: elasticity normal and turgor normal Neuro: General: oriented to person, moves all extremities, no focal motor deficits and CN's II-XI intact bilaterally Cranial nerves: Yes Equal, round and reactive pupils present Extrem: General: Yes full ROM, Yes no pedal edema and Yes no calf tenderness Psych: Appearance: grossly normal Speech and movement: Restless speech present Affect: Anxious affect present Attitude: Guarded attititude/behavior present Thought process: Illogical thought process present Thought content: Paranoid delusions present Insight: Poor insight present (Psych) Judgement: Poor judgement present (Psych) Medications Administered Discontinued Medications Generic Name Dose Route Start Last Admin Trade Name Freq PRN Reason Stop Dose Admin Alprazolam 0.5 mg 01/18/25 14:34 01/18/25 15:03 Alprazolam 0.5 Mg Tablet PO 01/18/25 14:35 0.5 mg ONCE ONE Administration Clonazepam 0.5 mg 01/18/25 10:31 01/18/25 10:50 Clonazepam 0.5 Mg Tablet PO 01/18/25 10:32 0.5 mg ONCE ONE Administration Clonidine HCl 0.1 mg 01/18/25 10:31 01/18/25 10:51 Clonidine Hcl 0.1 Mg Tablet PO 01/18/25 10:32 0.1 mg ONCE ONE Administration Protocol Gabapentin 400 mg 01/18/25 14:34 01/18/25 15:03 Gabapentin 400 Mg Capsule PO 01/18/25 14:35 400 mg ONCE ONE Administration Hydrochlorothiazide 12.5 mg 01/18/25 10:25 01/18/25 11:22 Hydrochlorothiazide 12.5 Mg Tablet PO 01/18/25 10:26 12.5 mg ONCE ONE Administration Protocol Lisinopril 20 mg 01/18/25 10:25 01/18/25 11:25 Lisinopril 20 Mg Tablet PO 01/18/25 10:26 20 mg ONCE ONE Administration Protocol Olanzapine 5 mg 01/18/25 10:25 01/18/25 10:52 Olanzapine 5 Mg Tablet PO 01/18/25 10:26 5 mg ONCE ONE Administration Medical Decision Making Medical Decision Making [facility] Narrative: Patient is a 74-year-old female with history of bipolar disorder, borderline personality disorder, paranoia presenting to the emergency department with her son who reports that she was recently discharged from [facility] on Monday. On exam patient is awake, A+Ox1, confused, paranoid, BP elevated, VS otherwise WNL, afebrile, normal neurological exam without focal deficits, physical exam findings as above. Given reported symptoms and physical exam findings, initial differential includes but is not limited to bipolar disorder, paranoia. Labs unremarkable, negative ethanol. Viral serology negative. CT head unremarkable. Will medically clear patient at this time for CARE team eval and place on physician observation. Differential Diagnosis Differential Diagnoses: The differential diagnosis associated with the presentation includes as per [facility] Admission/Observation Consideration of admission/observation: Escalation of care including admission/observation considered Consult Healthcare Provider Management of the patient was discussed with: Behavioral Health Provider Lab Data [facility] Lab Attestation statement: I reviewed the patient's lab results. as per [facility] 01/18/25 11:24 01/18/25 11:24 Labs: Lab Results 01/18/25 Range/Units 11:24 WBC 6.6 (4.8-10.8) X10*3/uL RBC 4.66 (4.20-5.50) X10*6/uL Hgb 14.2 (12.0-16.0) g/dl Hct 41.5 (37.0-47.0) % MCV 89.1 (80.0-98.0) fL MCH 30.5 (27.0-33.0) pg MCHC 34.2 (31.0-35.0) g/dl RDW 12.5 (11.0-16.0) % Plt Count 227 (160-400) X10*3/uL MPV 11.5 (9.4-12.3) fL Immature Gran % (Auto) 0.3 (0.0-0.4) % Neut % (Auto) 75.6 H (45-73) % Lymph % (Auto) 16.1 L (20-40) % Dougherty % (Auto) 7.7 (2-11) % Eos % (Auto) 0.0 (0-4) % Baso % (Auto) 0.3 (0-2) % Lymph # (Auto) 1.1 L (1.2-4.9) X10*3/uL [place] # (Auto) 0.5 (0.1-1.2) X10*3/uL Eos # (Auto) 0.0 (0.0-0.4) X10*3/uL Baso # (Auto) 0.0 (0.0-0.2) X10*3/uL Abs Immat Gran (auto) 0.02 (0.00-0.03) X10*3/uL Absolute Neuts (auto) 5.0 (2.0-8.3) x10*3/uL Absolute Nucleated RBC 0.000 (0.0-0.012) X10*3/uL Nucleated RBC % (auto) 0.0 (0.0-0.2) /100WBC Sodium 141 (135-145) mmol/L Potassium 4.0 (3.3-5.1) mmol/L Chloride 105 (96-108) mmol/L Carbon Dioxide 24 (22-29) mmol/L Anion Gap 16 (12-20) BUN 19 H (9-16) mg/dL Creatinine 0.79 (0.5-1.4) mg/dL Estim Creat Clear Calc 56.7 Estimated GFR > 60 Random Glucose 120 H (60-115) mg/dL Calcium 9.9 (8.4-10.2) mg/dL Total Bilirubin 1.0 (0.0-1.0) mg/dL AST 29 (5-31) U/L ALT 22 (0-31) U/L Alkaline Phosphatase 69 (39-117) U/L Total Protein 7.4 (6.5-8.0) g/dL Albumin 4.7 (3.5-5.0) g/dL Salicylates < 5.0 L (15-30) mg/dL Acetaminophen < 3 (<30) mcg/mL Ethyl Alcohol < 10 mg/dL Influenza Type A (PCR) NEGATIVE (Negative) Influenza Type B (PCR) NEGATIVE (Negative) RSV RNA Qual (PCR) NEGATIVE (Negative) SARS-CoV-2 RNA (RT-PCR) NEGATIVE (Negative) Independent Interpretation I performed an independent interpretation of an: CT Scan Interpretation: CT head without acute abnormality. Radiology Impression Discussion of test interpretation with radiology: I have reviewed the radiologist's reading. Radiologist Impression: CT head without contrast Comparison: None Findings: No intra-axial mass, midline shift, hydrocephalus, or acute hemorrhage. No significant atrophy-like change or white matter disease. There is no sinus or mastoid fluid. The orbits are within normal limits. There is no acute fracture. IMPRESSION: 1. No acute intracranial findings. Independent Historian Clinical information obtained from an independent historian. History obtained from or confirmed by: Other (son) External Record Review External record reviewed: Inpatient record, Office record and Outpatient record Discharge Plan Discharge Clinical Impression: Paranoia, Disorganized thought process Patient Disposition: Still a Patient Prescriptions: No Action acetaminophen 325 mg Tablet 650 mg PO Q6H PRN (Reason: Headache/Pain Mild Scale (1-3)) 30 Days Qty: 60 0RF gabapentin 400 mg Capsule 400 mg PO TID 30 Days Qty: 90 0RF lorazepam 1 mg Tablet 1 mg PO BEDTIME 30 Days Qty: 30 0RF albuterol sulfate [Ventolin HFA] 90 mcg/actuation Hfa Aerosol Inhaler 2 puff inhalation RQ4H PRN (Reason: Bronchospasm) 30 Days Qty: 1 0RF loratadine 10 mg Tablet 10 mg PO BEDTIME 30 Days Qty: 30 0RF olanzapine 15 mg tablet 15 mg PO BEDTIME 30 Days Qty: 30 0RF cyanocobalamin (vitamin B-12) [Vitamin B-12] 100 mcg Tablet 100 mcg PO DAILY 30 Days Qty: 30 0RF trazodone 50 mg Tablet 50 mg PO BEDTIME MRX1 PRN (Reason: Insomnia) 30 Days Qty: 30 0RF melatonin 3 mg Tablet 6 mg PO BEDTIME 30 Days Qty: 60 0RF Critic-Aid Clear AF(miconazol) 2 % Ointment 1 appl topical BID 30 Days Qty: 1 0RF Protocol: Apply to: Apply to: feet docusate sodium 100 mg Capsule 100 mg PO BEDTIME 30 Days Qty: 30 0RF cholecalciferol (vitamin D3) [Vitamin D3] 10 mcg (400 unit) Tablet 10 mcg PO DAILY Qty: 30 0RF Deep Sea Nasal 0.65 % Aerosol,[place] 1 spray intranasal Q1H PRN (Reason: Nasal Congestion) 30 Days Qty: 5 0RF atorvastatin 20 mg tablet 20 mg PO DAILY 30 Days Qty: 30 0RF lisinopril 20 mg tablet 20 mg PO DAILY 30 Days Qty: 30 0RF levothyroxine 125 mcg tablet 125 mcg PO DAILY 30 Days Qty: 30 0RF hydrochlorothiazide 12.5 mg tablet 12.5 mg PO DAILY 30 Days Qty: 30 0RF sennosides [senna] 8.6 mg Tablet 8.6 mg PO DAILY PRN (Reason: Constipation) Interventions: [place]-Suicide Risk Severity Scale Last Done: 01/18/25 10:33 Print Language: Egyptian
--- NOTE | 2025-01-18 09:58 | MHC.EDTECH ---
this pct attempted to get patients urine with hat but patient missed putting urine in it .
--- NOTE | 2025-01-18 10:33 | MHC.CM.ED ---
Received telephone call from Verna Swartz of [facility]. Verna can be reached via telephone at [phone]. Per Verna, patient has been to [facility] and other facilities for inpatient psych recently. Patient is highly education and has a Master's degree. Came to ER due to SI, but patient is unable to perform daily ADLs. Patient's 2 older sisters have been assisting patient but are having difficulty. Patient's son lives in [place]. Lary CALHOUN aware. Continue to monitor for d/c needs.
[2025-01-18] MEDS: clonazePAM 0.5 MG TABLET PO ×2 (10:50→23:34)
[2025-01-18] MEDS: cloNIDine HCL 0.1 MG TABLET PO (10:51)
[2025-01-18] MEDS: OLANZapine 5 MG TABLET PO (10:52)
--- NOTE | 2025-01-18 11:20 | PC.NURSE ---
Pt paranoid, difficult to direct during care
[2025-01-18] MEDS: hydroCHLOROthiazide 12.5 MG TABLET PO (11:22)
[2025-01-18] MEDS: lisinopriL 20 MG TABLET PO (11:25)
[2025-01-18 11:29] LABS: MANUAL DIFF FLAG NO
[2025-01-18 11:31] LABS: Basophils Percent Auto 0.3 % (0-2); Hematocrit 41.5 % (37.0-47.0); Hemoglobin 14.2 g/dl (12.0-16.0); Imm Gran Abs Auto 0.02 X10*3/uL (0.00-0.03); Imm Gran Pct Auto 0.3 % (0.0-0.4); Lymphocytes Absolute Auto 1.1 X10*3/uL (1.2-4.9); Lymphocytes Percent Auto 16.1 % (20-40); Mean Corpuscular HGB Conc 34.2 g/dl (31.0-35.0); Mean Corpuscular Hemoglobin 30.5 pg (27.0-33.0); Mean Corpuscular Volume 89.1 fL (80.0-98.0); Mean Platelet Volume 11.5 fL (9.4-12.3); Monocytes Absolute Auto 0.5 X10*3/uL (0.1-1.2); Monocytes Percent Auto 7.7 % (2-11); Neutrophils Percent Auto 75.6 % (45-73); Platelet Count 227 X10*3/uL (160-400); Red Blood Count 4.66 X10*6/uL (4.20-5.50); Red Cell Distribution Width 12.5 % (11.0-16.0); White Blood Count 6.6 X10*3/uL (4.8-10.8)
[2025-01-18 11:58] LABS: Acetaminophen LAB < 3 mcg/mL (<30); Alanine Aminotransferase 22 U/L (0-31); Albumin Level 4.7 g/dL (3.5-5.0); Alkaline Phosphatase 69 U/L (39-117); Anion Gap 16 (12-20); Aspartate Amino Transferase 29 U/L (5-31); Blood Urea Nitrogen 19 mg/dL (9-16); Calcium 9.9 mg/dL (8.4-10.2); Carbon Dioxide 24 mmol/L (22-29); Chloride 105 mmol/L (96-108); Creatinine Clr Calc Pharmacy 56.7; Estimated Glomerular Filt Rate > 60; Ethanol < 10 mg/dL; Glucose Random 120 mg/dL (60-115); Salicylate < 5.0 mg/dL (15-30); Sodium 141 mmol/L (135-145); Total Protein 7.4 g/dL (6.5-8.0)
[2025-01-18 12:17] LABS: Influenza A PCR NEGATIVE (Negative); Influenza B PCR NEGATIVE (Negative); Resp Syncy Virus RNA Qual PCR NEGATIVE (Negative); SARS COV2 PCR INHOUSE NEGATIVE (Negative)
[2025-01-18] MEDS: Gabapentin 400 MG CAPSULE PO (15:03)
[2025-01-18] MEDS: ALPRAZolam 0.5 MG TABLET PO (15:03)
--- NOTE | 2025-01-18 16:33 | PC.NURSE ---
Pt to CT scan via wheelchair with tech, security and family member accompanying for support
--- NOTE | 2025-01-18 17:27 | PC.NURSE ---
Pt tolerated CT scan; vss with improvement in bp; son remains at bedside; pt unable to provide urine sample; po liquids gv
--- NOTE | 2025-01-18 18:46 | PC.NURSE ---
Care team at bedside to speak with pt/pt's son
[2025-01-18 18:55] LABS: Appearance Urine Turbid; Color Urine Dark Yellow; Glucose Urine UA Negative (Negative); Leukocyte Esterase Urine Large (3+) (Negative); Nitrite Urine Negative (Negative); Specific Gravity - Urine 1.025 (1.005-1.025); UMIC TRIGGER UA YES; Urine Blood Trace (Negative); Urine Ketones 15 mg/dL (Negative); Urine Protein 30 (1+) mg/dL (Neg-Trace)
[2025-01-18 19:07] LABS: Amphetamine Screen Urine Not Detected (Not Detect); Barbiturates, Urine Not Detected (Not Detect); Benzodiazepines Screen Urine POSITIVE (Not Detect); Buprenorphine Scr Not Detected (Not Detect); Cannabinoid Screen Urine Not Detected (Not Detect); Cocaine Screen Urine Not Detected (Not Detect); Fentanyl, urine Not Detected (Not Detect); Methadone Screen, Urine Not Detected (Not Detect); Opiate Screen Urine Not Detected (Not Detect); Oxycodone Screen Urine Not Detected (Not Detect); Phencyclidine Screen Urine Not Detected (Not Detect)
[2025-01-18 19:12] LABS: Bacteria Urine None Seen (None Seen); RBC Urine >20 /HPF (0-2); WBC Urine >50 /HPF (0-5)
--- NOTE | 2025-01-18 19:19 | PHA.MEDREC ---
Addendum entered by Areli Hagen [facility] 01/19/25 09:24: Spoke to patients son who also agreed that discharge list from [facility] should be the most up to date and current list. Original Note: Pharmacy Consult ? Medication Reconciliation Pharmacy has completed the medication reconciliation.med rec completed based on discharge notes from [facility]
--- NOTE | 2025-01-18 19:25 | PC.NURSE ---
patient appears to remain at rest presently visitor and care team meeting with client, recently tearful.
[2025-01-18] MEDS: traZODone HCL 50 MG TABLET PO (23:34)
--- NOTE | 2025-01-19 00:47 | PC.NURSE ---
2346-pt was witnessed holding hallway hand rail and lowering self on to the floor. she sat onto her onto buttocks. [facility] witnessed pt intentionally placing self onto the floor. pt is awake and confused. her thoughts are disjointed and nonsensical. 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 she then proceeds to converse how marijuana is illegal in [place] yet her son is giving her marijuana gummies. she is not a reliable historian and her conversation is at baseline since hospitalization. t 98.4 p 90 bpm rr 16 sa02 93% b/p 100/60
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
[2025-01-19 02:29] VITALS: BMI 22.5
[2025-01-19] MEDS: ALPRAZolam 0.5 MG TABLET PO ×4 (02:50→20:39)
[2025-01-19] MEDS: Levothyroxine Sodium 50 MCG TABLET PO (06:05)
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
[2025-01-19 08:19] LABS: Cholesterol 132 mg/dL (<200); HDL Cholesterol 58 mg/dL (>40); LDL Cholesterol Calculated 59 mg/dL (<100); Triglycerides 78 mg/dL (<150)
[2025-01-19 08:32] LABS: Estimated Average Glucose 108 mg/dL; Hemoglobin A1C 130.8071 umol/L; Hemoglobin A1c % 5.4 % (<6.0); Total Hemoglobin (HGBA1C) 3661.2212 umol/L
[2025-01-19 08:54] LABS: Folate 9.5 ng/mL (> or = 4.0); Vitamin B12 1631 pg/mL (200-900)
[2025-01-19 09:28] VITALS: BP 125/57; PULSE 112; RESP 18; TEMP 36.3; O2SAT 97
[2025-01-19] MEDS: lisinopriL 10 MG TABLET 30 MG PO (10:04)
[2025-01-19] MEDS: Gabapentin 400 MG CAPSULE PO ×3 (10:06→20:39)
[2025-01-19] MEDS: HaloperidoL 1 MG TABLET 2 MG PO ×2 (15:21→20:39)
[2025-01-19 20:00] VITALS: BP 132/71; PULSE 76; RESP 18; TEMP 36.6; O2SAT 95
[2025-01-19] MEDS: Atorvastatin Calcium 40 MG TABLET PO (20:39)
[2025-01-19] MEDS: Melatonin 3 MG TABLET 9 MG PO (20:39)
[2025-01-19] MEDS: Docusate Sodium 100 MG CAPSULE PO (20:39)
[2025-01-19] MEDS: Mirtazapine 7.5 MG TABLET PO (20:39)
[2025-01-19] MEDS: Latanoprost 0.005 % Ophth Sol 2.5 ML DROPS 1 DROP EYE-BOTH (21:35)
[2025-01-20] MEDS: traZODone HCL 50 MG TABLET PO ×2 (02:47→20:15)
[2025-01-20] MEDS: Levothyroxine Sodium 50 MCG TABLET PO (06:14)
[2025-01-20 08:00] VITALS: BP 129/62; PULSE 98; RESP 16; TEMP 36.5; O2SAT 96
--- NOTE | 2025-01-20 11:17 | HO.PSYCHPN ---
Subjective Subjective Date of Service: 01/20/25 Reason For Visit: Psychosis Interim History: The nursing staff reported the patient had been disorganized, staring at pictures, very paranoid. On interview the patient reports that she is feeling very scared, she recognized me from the previous admission last year and she had been internally preoccupied with thought blocking. Mental Status Exam Mental Status Exam Patient Appearance: Appropriate Patient Orientation: Person and Situation Level of Consciousness: Awake Patient Behavior: Guarded Mood Description: Withdrawn Affect Description: Blunted Patient Cognition Impaired: Yes Ability to Follow Directions: Good Speech Pattern: Impoverished Hallucinations: Auditory Delusions: Paranoid Ideation and Ideas of Reference Thought Process: Illogical Thought Content: positive for Poverty of Content and positive for Thought Blocking Judgement: Poor Diagnostics Vital Signs (24Hr): Vital Signs - 24 hr 01/19/25 20:00 Temperature 97.8 F Pulse Rate 76 Respiratory Rate 18 Blood Pressure 132/71 Pulse Oximetry 95 Oxygen Delivery Method Room Air BMI result Body Mass Index 22.5 Labs 01/18/25 11:24 01/18/25 11:24 Labs: Laboratory Results - last 48 hr 01/18/25 01/18/25 01/19/25 11:24 18:48 07:39 WBC 6.6 RBC 4.66 Hgb 14.2 Hct 41.5 MCV 89.1 MCH 30.5 MCHC 34.2 RDW 12.5 Plt Count 227 MPV 11.5 Immature Gran % (Auto) 0.3 Neut % (Auto) 75.6 H Lymph % (Auto) 16.1 L [place] % (Auto) 7.7 Eos % (Auto) 0.0 Baso % (Auto) 0.3 Lymph # (Auto) 1.1 L [place] # (Auto) 0.5 Eos # (Auto) 0.0 Baso # (Auto) 0.0 Abs Immat Gran (auto) 0.02 Absolute Neuts (auto) 5.0 Absolute Nucleated RBC 0.000 Nucleated RBC % (auto) 0.0 Sodium 141 Potassium 4.0 Chloride 105 Carbon Dioxide 24 Anion Gap 16 BUN 19 H Creatinine 0.79 Estim Creat Clear Calc 56.7 Estimated GFR > 60 Random Glucose 120 H Estimat Average Glucose 108 Hemoglobin A1c % 5.4 Calcium 9.9 Total Bilirubin 1.0 AST 29 ALT 22 Alkaline Phosphatase 69 Total Protein 7.4 Albumin 4.7 Triglycerides 78 Cholesterol 132 LDL Cholesterol, Calc 59 HDL Cholesterol 58 Vitamin B12 1631 H Folate 9.5 Urine Color Dark Yellow Urine Appearance Turbid Urine pH 5.0 Ur Specific [place] 1.025 Urine Protein 30 (1+) H Urine Glucose (UA) Negative Urine Ketones 15 Urine Blood Trace H Urine Nitrite Negative Ur Leukocyte Esterase Large (3+) H Urine RBC >20 H Urine WBC >50 H Ur Squamous Epith Cells 6-10 Urine Bacteria None Seen Hyaline Casts 11-20 Salicylates < 5.0 L Urine Opiates Screen Not Detected Ur Buprenorphine Scrn Not Detected Ur Oxycodone Screen Not Detected Urine Methadone Screen Not Detected Urine Fentanyl Screen Not Detected Acetaminophen < 3 Ur Barbiturates Screen Not Detected Ur Phencyclidine Scrn Not Detected Ur Amphetamines Screen Not Detected U Benzodiazepines Scrn POSITIVE H Urine Cocaine Screen Not Detected U Marijuana (THC) Screen Not Detected Ethyl Alcohol < 10 Influenza Type A (PCR) NEGATIVE Influenza Type B (PCR) NEGATIVE RSV RNA Qual (PCR) NEGATIVE SARS-CoV-2 RNA (RT-PCR) NEGATIVE Medications Medications Current Medications Acetaminophen (Acetaminophen 325 Mg Tablet) 650 mg PO Q6H PRN PRN Reason: Headache/Pain Mild Scale (1-3) Al Hydroxide/Mg Hydroxide (Magnesium Hydrox/Alum Hydrox 30 Ml Oral.Susp) 30 ml PO Q6H PRN PRN Reason: Heartburn/Nausea Albuterol Sulfate (Albuterol Sulfate 90 Mcg 8 Gm Inhaler) 2 puff INHALE RQ4H PRN PRN Reason: Bronchospasm Alprazolam (Alprazolam 0.5 Mg Tablet) 0.5 mg PO TID [facility] Last Admin: 01/19/25 20:39 Dose: 0.5 mg Atorvastatin Calcium (Atorvastatin Calcium 40 Mg Tablet) 40 mg PO BEDTIME [facility] Last Admin: 01/19/25 20:39 Dose: 40 mg Clonazepam (Clonazepam 0.5 Mg Tablet) 0.5 mg PO DAILY PRN PRN Reason: Anxiety Last Admin: 01/18/25 23:34 Dose: 0.5 mg Clonidine HCl (Clonidine Hcl 0.1 Mg Tablet) 0.1 mg PO BID PRN; Protocol PRN Reason: severe anxiety Docusate Sodium (Docusate Sodium 100 Mg Capsule) 100 mg PO BEDTIME [facility] Last Admin: 01/19/25 20:39 Dose: 100 mg Gabapentin (Gabapentin 400 Mg Capsule) 400 mg PO TID [facility] Last Admin: 01/19/25 20:39 Dose: 400 mg Haloperidol (Haloperidol 1 Mg Tablet) 2 mg PO TID [facility] Last Admin: 01/19/25 20:39 Dose: 2 mg Latanoprost (Latanoprost 0.005 % Ophth Hannah 2.5 Ml Drops) 1 drop EYE-BOTH BEDTIME [facility] Last Admin: 01/19/25 21:35 Dose: 1 drop Levothyroxine Sodium (Levothyroxine Sodium 50 Mcg Tablet) 50 mcg PO DAILY@0600 [facility] Last Admin: 01/20/25 06:14 Dose: 50 mcg Lisinopril (Lisinopril 10 Mg Tablet) 30 mg PO DAILY [facility]; Protocol Last Admin: 01/19/25 10:04 Dose: 30 mg Magnesium Hydroxide (Milk Of Magnesia 30 Ml Oral.Susp) 30 ml PO DAILY PRN PRN Reason: Constipation Melatonin (Melatonin 3 Mg Tablet) 9 mg PO BEDTIME [facility] Last Admin: 01/19/25 20:39 Dose: 9 mg Mirtazapine (Mirtazapine 7.5 Mg Tablet) 7.5 mg PO BEDTIME [facility] Last Admin: 01/19/25 20:39 Dose: 7.5 mg Senna (Sennosides 8.6 Mg Tablet) 8.6 mg PO DAILY PRN PRN Reason: Constipation Trazodone HCl (Trazodone Hcl 50 Mg Tablet) 50 mg PO BEDTIME MRX1 PRN PRN Reason: Insomnia Last Admin: 01/20/25 02:47 Dose: 50 mg Allergies Allergies Allergy/AdvReac Type Severity Reaction Status Date / Time cat dander [cats] Allergy Unknown Verified 01/18/25 09:04 cortisone Allergy Unknown Verified 01/18/25 09:04 dog dander [dogs] Allergy Unknown Verified 01/18/25 09:04 Assessment & Plan Assessment & Plan (1) Psychosis: Status: Resolved Code(s): F29 - Unspecified psychosis not due to a substance or known physiological condition Plan continue home medications aside from trileptal 150 mg, a very low dose of a medication which is not evidence-based for mood stabilization. if it is felt pt has bipolar diathesis, an evidence-based mood stabilizer should be started. consider whether relying on benzodiazepines is the best strategy to manage anxiety and perhaps loan in this 74 yo woman. start haldol 2 mg PO TID for psychosis. recheck UA as initial appears contaminated. further collateral tomorrow. Plan 1. Cross taper Haldol to Zyprexa. Historically she responded fairly well to Zyprexa and she needs a mood stabilizer since she has the history of bipolar. 2. Continue with the other medications as prescribed. Patient educated on: therapeutic strategies Reason for continued inpatient stay Substantial Risk for: inability to function, rapid decompensation and med/psych decompensation Time Spent With Patient Time: Total time managing care of this patient today __20__ minutes.
[2025-01-20 19:49] VITALS: BP 123/74; PULSE 101; RESP 18; TEMP 36.6; O2SAT 95
[2025-01-20] MEDS: HaloperidoL 1 MG TABLET 2 MG PO (20:14)
[2025-01-20] MEDS: Mirtazapine 7.5 MG TABLET PO (20:15)
[2025-01-20] MEDS: OLANZapine 2.5 MG TABLET PO (20:15)
[2025-01-20] MEDS: Atorvastatin Calcium 40 MG TABLET PO (20:15)
[2025-01-20] MEDS: ALPRAZolam 0.5 MG TABLET PO (20:15)
[2025-01-20] MEDS: Melatonin 3 MG TABLET 9 MG PO (20:15)
[2025-01-20] MEDS: Gabapentin 400 MG CAPSULE PO (20:15)
[2025-01-20] MEDS: Docusate Sodium 100 MG CAPSULE PO (20:15)
[2025-01-21] MEDS: Levothyroxine Sodium 50 MCG TABLET PO (06:12)
[2025-01-21 08:00] VITALS: BP 122/69; PULSE 90; RESP 16; O2SAT 95
[2025-01-21] MEDS: ALPRAZolam 0.5 MG TABLET PO ×3 (08:06→20:20)
[2025-01-21] MEDS: Gabapentin 400 MG CAPSULE PO ×3 (08:06→20:20)
[2025-01-21] MEDS: HaloperidoL 1 MG TABLET 2 MG PO ×2 (08:07→20:20)
[2025-01-21] MEDS: lisinopriL 10 MG TABLET 30 MG PO (08:07)
--- NOTE | 2025-01-21 10:24 | P.PNPSI_ITS ---
Subjective Subjective Date of Service: 01/21/25 Reason For Visit: Psychosis Subjective Notes: Conditional Voluntary Interim History: The nursing staff reported the patient had been intrusive, posturing very paranoid. She signed a CV. Last night she took her Zyprexa. The social media marketer will try to get more collateral information, on the last admission, her sisters were the primary caregivers. On interview the patient remains grossly psychotic very paranoid. She verbalized auditory and visual hallucinations, very paranoid. We are going to increase the Zyprexa. Mental Status Exam Mental Status Exam Patient Appearance: Appropriate Patient Orientation: Person and Situation Level of Consciousness: Awake and Appropriate Patient Behavior: Guarded and Passive Mood Description: Suspicious and Anxious Affect Description: Blunted Patient Cognition Impaired: Yes Ability to Follow Directions: Fair Speech Pattern: Impoverished Hallucinations: None Delusions: Paranoid Ideation and Ideas of Reference Thought Process: Incoherent and Distracted Thought Content: positive for [place], positive for Poverty of Content and positive for Thought Blocking Judgement: Poor Diagnostics Vital Signs (24Hr): Vital Signs - 24 hr 01/20/25 19:49 Temperature 97.9 F Pulse Rate 101 H Respiratory Rate 18 Blood Pressure 123/74 Pulse Oximetry 95 Oxygen Delivery Method Room Air BMI result Body Mass Index 22.5 Labs 01/18/25 11:24 01/18/25 11:24 Medications Medications Current Medications Acetaminophen (Acetaminophen 325 Mg Tablet) 650 mg PO Q6H PRN PRN Reason: Headache/Pain Mild Scale (1-3) Al Hydroxide/Mg Hydroxide (Magnesium Hydrox/Alum Hydrox 30 Ml Oral.Susp) 30 ml PO Q6H PRN PRN Reason: Heartburn/Nausea Albuterol Sulfate (Albuterol Sulfate 90 Mcg 8 Gm Inhaler) 2 puff INHALE RQ4H PRN PRN Reason: Bronchospasm Alprazolam (Alprazolam 0.5 Mg Tablet) 0.5 mg PO TID [facility] Last Admin: 01/21/25 08:06 Dose: 0.5 mg Atorvastatin Calcium (Atorvastatin Calcium 40 Mg Tablet) 40 mg PO BEDTIME [facility] Last Admin: 01/20/25 20:15 Dose: 40 mg Clonazepam (Clonazepam 0.5 Mg Tablet) 0.5 mg PO DAILY PRN PRN Reason: Anxiety Last Admin: 01/18/25 23:34 Dose: 0.5 mg Clonidine HCl (Clonidine Hcl 0.1 Mg Tablet) 0.1 mg PO BID PRN; Protocol PRN Reason: severe anxiety Docusate Sodium (Docusate Sodium 100 Mg Capsule) 100 mg PO BEDTIME [facility] Last Admin: 01/20/25 20:15 Dose: 100 mg Gabapentin (Gabapentin 400 Mg Capsule) 400 mg PO TID [facility] Last Admin: 01/21/25 08:06 Dose: 400 mg Haloperidol (Haloperidol 1 Mg Tablet) 2 mg PO BID [facility] Last Admin: 01/21/25 08:07 Dose: 2 mg Latanoprost (Latanoprost 0.005 % Ophth Hannah 2.5 Ml Drops) 1 drop EYE-BOTH BEDTIME [facility] Last Admin: 01/20/25 21:20 Dose: Not Given Levothyroxine Sodium (Levothyroxine Sodium 50 Mcg Tablet) 50 mcg PO DAILY@0600 [facility] Last Admin: 01/21/25 06:12 Dose: 50 mcg Lisinopril (Lisinopril 10 Mg Tablet) 30 mg PO DAILY [facility]; Protocol Last Admin: 01/21/25 08:07 Dose: 30 mg Magnesium Hydroxide (Milk Of Magnesia 30 Ml Oral.Susp) 30 ml PO DAILY PRN PRN Reason: Constipation Melatonin (Melatonin 3 Mg Tablet) 9 mg PO BEDTIME [facility] Last Admin: 01/20/25 20:15 Dose: 9 mg Mirtazapine (Mirtazapine 7.5 Mg Tablet) 7.5 mg PO BEDTIME [facility] Last Admin: 01/20/25 20:15 Dose: 7.5 mg Olanzapine (Olanzapine 2.5 Mg Tablet) 2.5 mg PO BEDTIME [facility] Last Admin: 01/20/25 20:15 Dose: 2.5 mg Senna (Sennosides 8.6 Mg Tablet) 8.6 mg PO DAILY PRN PRN Reason: Constipation Trazodone HCl (Trazodone Hcl 50 Mg Tablet) 50 mg PO BEDTIME MRX1 PRN PRN Reason: Insomnia Last Admin: 01/20/25 20:15 Dose: 50 mg Allergies Allergies Allergy/AdvReac Type Severity Reaction Status Date / Time cat dander [cats] Allergy Unknown Verified 01/18/25 09:04 cortisone Allergy Unknown Verified 01/18/25 09:04 dog dander [dogs] Allergy Unknown Verified 01/18/25 09:04 Assessment & Plan Assessment & Plan (1) Psychosis: Status: Resolved Code(s): F29 - Unspecified psychosis not due to a substance or known physiological condition Plan continue home medications aside from trileptal 150 mg, a very low dose of a medication which is not evidence-based for mood stabilization. if it is felt pt has bipolar diathesis, an evidence-based mood stabilizer should be started. consider whether relying on benzodiazepines is the best strategy to manage anxiety and perhaps loan in this 74 yo woman. start haldol 2 mg PO TID for psychosis. recheck UA as initial appears contaminated. further collateral tomorrow. Plan 1. Cross taper Haldol to Zyprexa. Historically she responded fairly well to Zyprexa and she needs a mood stabilizer since she has the history of bipolar. On January 21 we are increasing Zyprexa to 5 mg p.o. q.h.s. 2. Continue with the other medications as prescribed. Reason for continued inpatient stay Substantial Risk for: inability to function, rapid decompensation and med/psych decompensation Time Spent With Patient Time: Total time managing care of this patient today __20__ minutes.
[2025-01-21 20:00] VITALS: BP 111/63; PULSE 89; RESP 16; TEMP 36.4; O2SAT 99
[2025-01-21] MEDS: Docusate Sodium 100 MG CAPSULE PO (20:20)
[2025-01-21] MEDS: Atorvastatin Calcium 40 MG TABLET PO (20:21)
[2025-01-21] MEDS: Latanoprost 0.005 % Ophth Sol 2.5 ML DROPS 1 DROP EYE-BOTH (20:21)
[2025-01-21] MEDS: Melatonin 3 MG TABLET 9 MG PO (20:21)
[2025-01-21] MEDS: OLANZapine 5 MG TABLET PO (20:21)
[2025-01-21] MEDS: Mirtazapine 7.5 MG TABLET PO (20:21)
[2025-01-22] MEDS: Levothyroxine Sodium 50 MCG TABLET PO (05:42)
[2025-01-22 08:43] VITALS: BP 106/60; PULSE 74; RESP 20; TEMP 36.2; O2SAT 96
[2025-01-22] MEDS: Gabapentin 400 MG CAPSULE PO ×3 (08:45→22:28)
[2025-01-22] MEDS: ALPRAZolam 0.5 MG TABLET PO ×3 (08:45→19:56)
[2025-01-22] MEDS: HaloperidoL 1 MG TABLET 2 MG PO (08:46)
[2025-01-22] MEDS: lisinopriL 10 MG TABLET 30 MG PO (08:48)
--- NOTE | 2025-01-22 09:44 | HO.PSYCHPN ---
Subjective Subjective Date of Service: 01/22/25 Reason For Visit: Psychosis Subjective Notes: Conditional Voluntary Interim History: The nursing staff reported that the patient had been guarded internally preoccupied staring in the middle of the milieu. She had peers anxious. The social security assessor reported talked with her son who is involved but he does not live around. We are going to try to get a healthcare proxy since her sisters are not willing to get involved in her care. On interview the patient remains psychotic. I evaluated if she had a capacity oxygen she agreed to receive the help from her son. Mental Status Exam Mental Status Exam Patient Appearance: Appropriate and Unkempt Patient Orientation: Person and Situation Level of Consciousness: Awake and Appropriate Patient Behavior: Guarded and Passive Mood Description: Withdrawn Affect Description: Constricted Patient Cognition Impaired: Yes Speech Pattern: Impoverished Hallucinations: None Delusions: Paranoid Ideation and Ideas of Reference Thought Process: Distracted and Slowed Thinking Thought Content: positive for [place] and positive for Poverty of Content Judgement: Fair Diagnostics Vital Signs (24Hr): Vital Signs - 24 hr 01/21/25 20:00 01/22/25 08:43 Temperature 97.6 F 97.2 F Pulse Rate 89 74 Respiratory Rate 16 20 Blood Pressure 111/63 106/60 Pulse Oximetry 99 96 Oxygen Delivery Method Room Air Room Air BMI result Body Mass Index 22.5 Labs 01/18/25 11:24 01/18/25 11:24 Medications Medications Current Medications Acetaminophen (Acetaminophen 325 Mg Tablet) 650 mg PO Q6H PRN PRN Reason: Headache/Pain Mild Scale (1-3) Al Hydroxide/Mg Hydroxide (Magnesium Hydrox/Alum Hydrox 30 Ml Oral.Susp) 30 ml PO Q6H PRN PRN Reason: Heartburn/Nausea Albuterol Sulfate (Albuterol Sulfate 90 Mcg 8 Gm Inhaler) 2 puff INHALE RQ4H PRN PRN Reason: Bronchospasm Alprazolam (Alprazolam 0.5 Mg Tablet) 0.5 mg PO TID [facility] Last Admin: 01/22/25 08:45 Dose: 0.5 mg Atorvastatin Calcium (Atorvastatin Calcium 40 Mg Tablet) 40 mg PO BEDTIME [facility] Last Admin: 01/21/25 20:21 Dose: 40 mg Clonazepam (Clonazepam 0.5 Mg Tablet) 0.5 mg PO DAILY PRN PRN Reason: Anxiety Last Admin: 01/18/25 23:34 Dose: 0.5 mg Clonidine HCl (Clonidine Hcl 0.1 Mg Tablet) 0.1 mg PO BID PRN; Protocol PRN Reason: severe anxiety Docusate Sodium (Docusate Sodium 100 Mg Capsule) 100 mg PO BEDTIME [facility] Last Admin: 01/21/25 20:20 Dose: 100 mg Gabapentin (Gabapentin 400 Mg Capsule) 400 mg PO TID [facility] Last Admin: 01/22/25 08:45 Dose: 400 mg Haloperidol (Haloperidol 1 Mg Tablet) 2 mg PO BID [facility] Last Admin: 01/22/25 08:46 Dose: 2 mg Latanoprost (Latanoprost 0.005 % Ophth Hannah 2.5 Ml Drops) 1 drop EYE-BOTH BEDTIME [facility] Last Admin: 01/21/25 20:21 Dose: 1 drop Levothyroxine Sodium (Levothyroxine Sodium 50 Mcg Tablet) 50 mcg PO DAILY@0600 [facility] Last Admin: 01/22/25 05:42 Dose: 50 mcg Lisinopril (Lisinopril 10 Mg Tablet) 30 mg PO DAILY [facility]; Protocol Last Admin: 01/22/25 08:48 Dose: 30 mg Magnesium Hydroxide (Milk Of Magnesia 30 Ml Oral.Susp) 30 ml PO DAILY PRN PRN Reason: Constipation Melatonin (Melatonin 3 Mg Tablet) 9 mg PO BEDTIME [facility] Last Admin: 01/21/25 20:21 Dose: 9 mg Mirtazapine (Mirtazapine 7.5 Mg Tablet) 7.5 mg PO BEDTIME [facility] Last Admin: 01/21/25 20:21 Dose: 7.5 mg Olanzapine (Olanzapine 7.5 Mg Tablet) 7.5 mg PO BEDTIME [facility] Senna (Sennosides 8.6 Mg Tablet) 8.6 mg PO DAILY PRN PRN Reason: Constipation Trazodone HCl (Trazodone Hcl 50 Mg Tablet) 50 mg PO BEDTIME MRX1 PRN PRN Reason: Insomnia Last Admin: 01/20/25 20:15 Dose: 50 mg Allergies Allergies Allergy/AdvReac Type Severity Reaction Status Date / Time cat dander [cats] Allergy Unknown Verified 01/18/25 09:04 cortisone Allergy Unknown Verified 01/18/25 09:04 dog dander [dogs] Allergy Unknown Verified 01/18/25 09:04 Assessment & Plan Assessment & Plan (1) Psychosis: Status: Resolved Code(s): F29 - Unspecified psychosis not due to a substance or known physiological condition Plan continue home medications aside from trileptal 150 mg, a very low dose of a medication which is not evidence-based for mood stabilization. if it is felt pt has bipolar diathesis, an evidence-based mood stabilizer should be started. consider whether relying on benzodiazepines is the best strategy to manage anxiety and perhaps loan in this 74 yo woman. start haldol 2 mg PO TID for psychosis. recheck UA as initial appears contaminated. further collateral tomorrow. Plan 1. Cross taper Haldol to Zyprexa. Historically she responded fairly well to Zyprexa and she needs a mood stabilizer since she has the history of bipolar. On January 21 we are increasing Zyprexa to 5 mg p.o. q.h.s. on January 22 we increase it up to 7.5 mg p.o. q.h.s. to target psychosis. 2. Continue with the other medications as prescribed. 3. We are lowering Haldol to 2 mg once a day starting January 23 and discontinue much 7. We are going to use only Zyprexa as an antipsychotic/mood stabilizer since historically she did well on this medication. Reason for continued inpatient stay Substantial Risk for: inability to function, rapid decompensation and med/psych decompensation Time Spent With Patient Time: Total time managing care of this patient today __20__ minutes.
[2025-01-22] MEDS: OLANZapine 7.5 MG TABLET PO (19:57)
[2025-01-22 20:00] VITALS: RESP 16
[2025-01-22] MEDS: Melatonin 3 MG TABLET 9 MG PO (20:00)
[2025-01-22] MEDS: Latanoprost 0.005 % Ophth Sol 2.5 ML DROPS 1 DROP EYE-BOTH (20:03)
[2025-01-22] MEDS: Atorvastatin Calcium 40 MG TABLET PO (22:27)
[2025-01-22] MEDS: Mirtazapine 7.5 MG TABLET PO (22:28)
[2025-01-23] MEDS: Levothyroxine Sodium 50 MCG TABLET PO (06:07)
[2025-01-23 08:00] VITALS: BP 99/60; PULSE 78; RESP 16; O2SAT 100
[2025-01-23] MEDS: HaloperidoL 1 MG TABLET 2 MG PO (08:39)
[2025-01-23] MEDS: ALPRAZolam 0.5 MG TABLET PO (08:40)
[2025-01-23] MEDS: lisinopriL 10 MG TABLET 30 MG PO (08:40)
[2025-01-23] MEDS: Gabapentin 400 MG CAPSULE PO ×3 (08:40→20:01)
--- NOTE | 2025-01-23 14:26 | HO.PSYCHPN ---
Subjective Subjective Date of Service: 01/23/25 Reason For Visit: Psychosis Interim History: calm, cooperative. tangential, rambling, voluble. up all NOC. per staff, paranoid. not oriented to situation. less staring than before. slept 8 hours. taking meds. Mental Status Exam Mental Status Exam Narrative: dressed in [facility], seated in milieu. chet appearing, disheveled. cooperative to her ability. speech incr amount. nml rate, loudness. decr RACHAEL. thoughts tangential and disorganized. affect constricted, hyper-intense, non-labile. mood not assessed. no SI/HI/AVH expressed. Diagnostics Vital Signs (24Hr): Vital Signs - 24 hr 01/22/25 20:00 01/23/25 08:00 Pulse Rate 78 Respiratory Rate 16 16 Blood Pressure 99/60 Pulse Oximetry 100 Oxygen Delivery Method Room Air BMI result Body Mass Index 22.5 Labs 01/18/25 11:24 01/18/25 11:24 Medications Medications Current Medications Acetaminophen (Acetaminophen 325 Mg Tablet) 650 mg PO Q6H PRN PRN Reason: Headache/Pain Mild Scale (1-3) Al Hydroxide/Mg Hydroxide (Magnesium Hydrox/Alum Hydrox 30 Ml Oral.Susp) 30 ml PO Q6H PRN PRN Reason: Heartburn/Nausea Albuterol Sulfate (Albuterol Sulfate 90 Mcg 8 Gm Inhaler) 2 puff INHALE RQ4H PRN PRN Reason: Bronchospasm Alprazolam (Alprazolam 0.5 Mg Tablet) 0.5 mg PO TID [facility] Last Admin: 01/23/25 08:40 Dose: 0.5 mg Atorvastatin Calcium (Atorvastatin Calcium 40 Mg Tablet) 40 mg PO BEDTIME [facility] Last Admin: 01/22/25 22:27 Dose: 40 mg Clonazepam (Clonazepam 0.5 Mg Tablet) 0.5 mg PO DAILY PRN PRN Reason: Anxiety Last Admin: 01/18/25 23:34 Dose: 0.5 mg Clonidine HCl (Clonidine Hcl 0.1 Mg Tablet) 0.1 mg PO BID PRN; Protocol PRN Reason: severe anxiety Docusate Sodium (Docusate Sodium 100 Mg Capsule) 100 mg PO BEDTIME [facility] Last Admin: 01/22/25 22:28 Dose: Not Given Gabapentin (Gabapentin 400 Mg Capsule) 400 mg PO TID [facility] Last Admin: 01/23/25 08:40 Dose: 400 mg Latanoprost (Latanoprost 0.005 % Ophth Hannah 2.5 Ml Drops) 1 drop EYE-BOTH BEDTIME [facility] Last Admin: 01/22/25 20:03 Dose: 1 drop Levothyroxine Sodium (Levothyroxine Sodium 50 Mcg Tablet) 50 mcg PO DAILY@0600 [facility] Last Admin: 01/23/25 06:07 Dose: 50 mcg Lisinopril (Lisinopril 10 Mg Tablet) 30 mg PO DAILY [facility]; Protocol Last Admin: 01/23/25 08:40 Dose: 30 mg Magnesium Hydroxide (Milk Of Magnesia 30 Ml Oral.Susp) 30 ml PO DAILY PRN PRN Reason: Constipation Melatonin (Melatonin 3 Mg Tablet) 9 mg PO BEDTIME [facility] Last Admin: 01/22/25 20:00 Dose: 9 mg Mirtazapine (Mirtazapine 7.5 Mg Tablet) 7.5 mg PO BEDTIME [facility] Last Admin: 01/22/25 22:28 Dose: 7.5 mg Olanzapine (Olanzapine 7.5 Mg Tablet) 7.5 mg PO BEDTIME [facility] Last Admin: 01/22/25 19:57 Dose: 7.5 mg Senna (Sennosides 8.6 Mg Tablet) 8.6 mg PO DAILY PRN PRN Reason: Constipation Trazodone HCl (Trazodone Hcl 50 Mg Tablet) 50 mg PO BEDTIME MRX1 PRN PRN Reason: Insomnia Last Admin: 01/20/25 20:15 Dose: 50 mg Allergies Allergies Allergy/AdvReac Type Severity Reaction Status Date / Time cat dander [cats] Allergy Unknown Verified 01/18/25 09:04 cortisone Allergy Unknown Verified 01/18/25 09:04 dog dander [dogs] Allergy Unknown Verified 01/18/25 09:04 Assessment & Plan Assessment & Plan (1) Psychosis: Status: Resolved Code(s): F29 - Unspecified psychosis not due to a substance or known physiological condition Plan continue home medications aside from trileptal 150 mg, a very low dose of a medication which is not evidence-based for mood stabilization. if it is felt pt has bipolar diathesis, an evidence-based mood stabilizer should be started. consider whether relying on benzodiazepines is the best strategy to manage anxiety and perhaps loan in this 74 yo woman. start haldol 2 mg PO TID for psychosis. recheck UA as initial appears contaminated. further collateral tomorrow. Plan 1. Cross taper Haldol to Zyprexa. Historically she responded fairly well to Zyprexa and she needs a mood stabilizer since she has the history of bipolar. On January 21 we are increasing Zyprexa to 5 mg p.o. q.h.s. on January 22 we increase it up to 7.5 mg p.o. q.h.s. to target psychosis. 2. Continue with the other medications as prescribed. 3. We are lowering Haldol to 2 mg once a day starting January 23 and discontinue much . We are going to use only Zyprexa as an antipsychotic/mood stabilizer since historically she did well on this medication. 01/23: wean benzos, establish evidence-based mood stabilizer for loan. start VPA ER 250 TID, decrease xanax from 0.5 TID to 0.375 TID. remains disorganized, tangential. continue current regimen otherwise. Reason for continued inpatient stay Substantial Risk for: inability to function Time Spent With Patient Time: Total time managing care of this patient today __25__ minutes.
[2025-01-23] MEDS: ALPRAZolam 0.5 MG TABLET 0.375 MG PO ×2 (14:59→20:01)
[2025-01-23 20:00] VITALS: BP 125/61; PULSE 90; RESP 20; TEMP 36.1; O2SAT 98
[2025-01-23] MEDS: Mirtazapine 7.5 MG TABLET PO (20:01)
[2025-01-23] MEDS: Melatonin 3 MG TABLET 9 MG PO (20:01)
[2025-01-23] MEDS: Atorvastatin Calcium 40 MG TABLET PO (20:02)
[2025-01-23] MEDS: Divalproex Sodium ER 250 MG TAB.ER.24H PO (20:03)
[2025-01-23] MEDS: OLANZapine 7.5 MG TABLET PO (20:04)
[2025-01-23] MEDS: Latanoprost 0.005 % Ophth Sol 2.5 ML DROPS 1 DROP EYE-BOTH (20:27)
[2025-01-24] MEDS: Levothyroxine Sodium 50 MCG TABLET PO (06:30)
[2025-01-24 08:38] VITALS: BP 150/67; PULSE 69; RESP 16; TEMP 36.2; O2SAT 96
[2025-01-24] MEDS: Gabapentin 400 MG CAPSULE PO ×3 (08:40→20:19)
[2025-01-24] MEDS: Divalproex Sodium ER 250 MG TAB.ER.24H PO ×3 (08:40→20:19)
[2025-01-24] MEDS: lisinopriL 10 MG TABLET 30 MG PO (08:41)
[2025-01-24] MEDS: ALPRAZolam 0.25 MG TABLET 0.375 MG PO ×3 (09:10→20:18)
--- NOTE | 2025-01-24 12:28 | P.PNPSI_ITS ---
Subjective Subjective Date of Service: 01/24/25 Reason For Visit: Psychosis Interim History: speech less voluble than yesterday. still addressing MD as Dr. Castillo. give me something not to feel the pain, states she is having pain in her right ankle, but also psychic pain. per staff, guarded, paranoid. Mental Status Exam Mental Status Exam Narrative: dressed in [facility], seated in milieu. chet appearing, disheveled. cooperative to her ability. speech incr amount. nml rate, loudness. decr RACHAEL. thoughts tangential and disorganized. affect constricted, hyper-intense, non- labile. mood not assessed. no SI/HI/AVH expressed. Diagnostics Vital Signs (24Hr): Vital Signs - 24 hr 01/23/25 20:00 01/24/25 08:38 Temperature 97 F 97.1 F Pulse Rate 90 69 Respiratory Rate 20 16 Blood Pressure 125/61 150/67 H Pulse Oximetry 98 96 Oxygen Delivery Method Room Air Room Air BMI result Body Mass Index 22.5 Labs 01/18/25 11:24 01/18/25 11:24 Medications Medications Current Medications Acetaminophen (Acetaminophen 325 Mg Tablet) 650 mg PO Q6H PRN PRN Reason: Headache/Pain Mild Scale (1-3) Al Hydroxide/Mg Hydroxide (Magnesium Hydrox/Alum Hydrox 30 Ml Oral.Susp) 30 ml PO Q6H PRN PRN Reason: Heartburn/Nausea Albuterol Sulfate (Albuterol Sulfate 90 Mcg 8 Gm Inhaler) 2 puff INHALE RQ4H PRN PRN Reason: Bronchospasm Alprazolam (Alprazolam 0.25 Mg Tablet) 0.375 mg PO TID [facility] Last Admin: 01/24/25 09:10 Dose: 0.375 mg Atorvastatin Calcium (Atorvastatin Calcium 40 Mg Tablet) 40 mg PO BEDTIME [facility] Last Admin: 01/23/25 20:02 Dose: 40 mg Clonazepam (Clonazepam 0.5 Mg Tablet) 0.5 mg PO DAILY PRN PRN Reason: Anxiety Last Admin: 01/18/25 23:34 Dose: 0.5 mg Clonidine HCl (Clonidine Hcl 0.1 Mg Tablet) 0.1 mg PO BID PRN; Protocol PRN Reason: severe anxiety Divalproex Sodium (Divalproex Sodium Er 250 Mg Tab.Er.24h) 250 mg PO TID [facility] Last Admin: 01/24/25 08:40 Dose: 250 mg Docusate Sodium (Docusate Sodium 100 Mg Capsule) 100 mg PO BEDTIME [facility] Last Admin: 01/23/25 20:02 Dose: Not Given Gabapentin (Gabapentin 400 Mg Capsule) 400 mg PO TID [facility] Last Admin: 01/24/25 08:40 Dose: 400 mg Latanoprost (Latanoprost 0.005 % Ophth Hannah 2.5 Ml Drops) 1 drop EYE-BOTH BEDTIME [facility] Last Admin: 01/23/25 20:27 Dose: 1 drop Levothyroxine Sodium (Levothyroxine Sodium 50 Mcg Tablet) 50 mcg PO DAILY@0600 [facility] Last Admin: 01/24/25 06:30 Dose: 50 mcg Lisinopril (Lisinopril 10 Mg Tablet) 30 mg PO DAILY [facility]; Protocol Last Admin: 01/24/25 08:41 Dose: 30 mg Magnesium Hydroxide (Milk Of Magnesia 30 Ml Oral.Susp) 30 ml PO DAILY PRN PRN Reason: Constipation Melatonin (Melatonin 3 Mg Tablet) 9 mg PO BEDTIME [facility] Last Admin: 01/23/25 20:01 Dose: 9 mg Mirtazapine (Mirtazapine 7.5 Mg Tablet) 7.5 mg PO BEDTIME [facility] Last Admin: 01/23/25 20:01 Dose: 7.5 mg Olanzapine (Olanzapine 7.5 Mg Tablet) 7.5 mg PO BEDTIME [facility] Last Admin: 01/23/25 20:04 Dose: 7.5 mg Senna (Sennosides 8.6 Mg Tablet) 8.6 mg PO DAILY PRN PRN Reason: Constipation Trazodone HCl (Trazodone Hcl 50 Mg Tablet) 50 mg PO BEDTIME MRX1 PRN PRN Reason: Insomnia Last Admin: 01/20/25 20:15 Dose: 50 mg Allergies Allergies Allergy/AdvReac Type Severity Reaction Status Date / Time cat dander [cats] Allergy Unknown Verified 01/18/25 09:04 cortisone Allergy Unknown Verified 01/18/25 09:04 dog dander [dogs] Allergy Unknown Verified 01/18/25 09:04 Assessment & Plan Assessment & Plan (1) Psychosis: Status: Resolved Code(s): F29 - Unspecified psychosis not due to a substance or known physiological condition Plan continue home medications aside from trileptal 150 mg, a very low dose of a medication which is not evidence-based for mood stabilization. if it is felt pt has bipolar diathesis, an evidence-based mood stabilizer should be started. consider whether relying on benzodiazepines is the best strategy to manage anxiety and perhaps loan in this 74 yo woman. start haldol 2 mg PO TID for psychosis. recheck UA as initial appears contaminated. further collateral tomorrow. Plan 1. Cross taper Haldol to Zyprexa. Historically she responded fairly well to Zyprexa and she needs a mood stabilizer since she has the history of bipolar. On January 21 we are increasing Zyprexa to 5 mg p.o. q.h.s. on January 22 we increase it up to 7.5 mg p.o. q.h.s. to target psychosis. 2. Continue with the other medications as prescribed. 3. We are lowering Haldol to 2 mg once a day starting January 23 and discontinue much . We are going to use only Zyprexa as an antipsychotic/mood stabilizer since historically she did well on this medication. 01/23: wean benzos, establish evidence-based mood stabilizer for loan. start VPA ER 250 TID, decrease xanax from 0.5 TID to 0.375 TID. remains disorganized, tangential. continue current regimen otherwise. 01/24: continue current mgmt. consider further VPA titration and xanax taper over w/e as indicated and tolerated. would consider next step VPA 250/250/500 and xanax 0.25 TID. Reason for continued inpatient stay Substantial Risk for: inability to function Time Spent With Patient Time: Total time managing care of this patient today _25___ minutes.
[2025-01-24 19:48] VITALS: BP 107/61; PULSE 102; RESP 18; TEMP 36.3; O2SAT 95
[2025-01-24] MEDS: Latanoprost 0.005 % Ophth Sol 2.5 ML DROPS 1 DROP EYE-BOTH (20:18)
[2025-01-24] MEDS: OLANZapine 7.5 MG TABLET PO (20:18)
[2025-01-24] MEDS: Docusate Sodium 100 MG CAPSULE PO (20:19)
[2025-01-24] MEDS: Mirtazapine 7.5 MG TABLET PO (20:19)
[2025-01-24] MEDS: Atorvastatin Calcium 40 MG TABLET PO (20:19)
[2025-01-24] MEDS: Melatonin 3 MG TABLET 9 MG PO (20:19)
[2025-01-25] MEDS: Levothyroxine Sodium 50 MCG TABLET PO (05:38)
[2025-01-25 08:00] VITALS: BP 117/66; PULSE 72; RESP 18; TEMP 36.5; O2SAT 97
[2025-01-25] MEDS: ALPRAZolam 0.25 MG TABLET 0.375 MG PO ×3 (09:03→21:04)
[2025-01-25 09:09] VITALS: BP 117/66
[2025-01-25] MEDS: lisinopriL 10 MG TABLET 30 MG PO (09:09)
--- NOTE | 2025-01-25 09:21 | PC.NURSE ---
Maryam declined to take Gabapentin and Jonathan Mak NP notified.
[2025-01-25] MEDS: OLANZapine 2.5 MG TABLET PO ×2 (12:27→16:53)
--- NOTE | 2025-01-25 12:41 | P.PNPSI_ITS ---
Subjective Subjective Date of Service: 01/25/25 Reason For Visit: Psychosis Subjective Notes: Conditional Voluntary Interim History: patient was seen and discussed in rounds today. Records and plans were reviewed. She continues to be taking very little in, taking medications very selectively. Labs were ordered today. She also continues to be psychotic and internally preoccupied. She was sitting on the floor. Because of concerns for safety she was changed to one-to-one level of observation and Zyprexa 2.5 mg q.4 hours p.r.n. ordered. She does have a standing dose at nights. Review of Systems Review of Systems Yes Unobtainable due to mental status Mental Status Exam Mental Status Exam Narrative: In today's visit she was sitting on the floor. Speech is normal. Good eye contact. Affect is variable. Denies AVH but appears to be responding to internal stimuli. Delusions reported. No SI. Cognitively is very disorganized. Judgment is impaired Diagnostics Vital Signs (24Hr): Vital Signs - 24 hr 01/24/25 19:48 01/25/25 08:00 01/25/25 09:09 Temperature 97.3 F 97.7 F Pulse Rate 102 H 72 Respiratory Rate 18 18 Blood Pressure 107/61 117/66 117/66 Pulse Oximetry 95 97 Oxygen Delivery Method Room Air Room Air BMI result Body Mass Index 22.5 Labs 01/18/25 11:24 01/18/25 11:24 Medications Medications Current Medications Acetaminophen (Acetaminophen 325 Mg Tablet) 650 mg PO Q6H PRN PRN Reason: Headache/Pain Mild Scale (1-3) Al Hydroxide/Mg Hydroxide (Magnesium Hydrox/Alum Hydrox 30 Ml Oral.Susp) 30 ml PO Q6H PRN PRN Reason: Heartburn/Nausea Albuterol Sulfate (Albuterol Sulfate 90 Mcg 8 Gm Inhaler) 2 puff INHALE RQ4H PRN PRN Reason: Bronchospasm Alprazolam (Alprazolam 0.25 Mg Tablet) 0.375 mg PO TID [facility] Last Admin: 01/25/25 09:03 Dose: 0.375 mg Atorvastatin Calcium (Atorvastatin Calcium 40 Mg Tablet) 40 mg PO BEDTIME [facility] Last Admin: 01/24/25 20:19 Dose: 40 mg Clonazepam (Clonazepam 0.5 Mg Tablet) 0.5 mg PO DAILY PRN PRN Reason: Anxiety Last Admin: 01/18/25 23:34 Dose: 0.5 mg Clonidine HCl (Clonidine Hcl 0.1 Mg Tablet) 0.1 mg PO BID PRN; Protocol PRN Reason: severe anxiety Divalproex Sodium (Divalproex Sodium Er 250 Mg Tab.Er.24h) 250 mg PO TID [facility]PL[facility] Last Admin: 01/25/25 09:09 Dose: Not Given Docusate Sodium (Docusate Sodium 100 Mg Capsule) 100 mg PO BEDTIME REPLACED BY [facility] Last Admin: 01/24/25 20:19 Dose: 100 mg Gabapentin (Gabapentin 400 Mg Capsule) 400 mg PO TID [facility]PL[facility] Last Admin: 01/25/25 09:09 Dose: Not Given Latanoprost (Latanoprost 0.005 % Ophth Hannah 2.5 Ml Drops) 1 drop EYE-BOTH BEDTIME REPLACED [facility] Last Admin: 01/24/25 20:18 Dose: 1 drop Levothyroxine Sodium (Levothyroxine Sodium 50 Mcg Tablet) 50 mcg PO DAILY@0600 REPLACED BY [facility] Last Admin: 01/25/25 05:38 Dose: 50 mcg Lisinopril (Lisinopril 10 Mg Tablet) 30 mg PO DAILY [facility]PLACED BY [facility]; Protocol Last Admin: 01/25/25 09:09 Dose: 30 mg Magnesium Hydroxide (Milk Of Magnesia 30 Ml Oral.Susp) 30 ml PO DAILY PRN PRN Reason: Constipation Melatonin (Melatonin 3 Mg Tablet) 9 mg PO BEDTIME [facility]PLACED [facility] Last Admin: 01/24/25 20:19 Dose: 9 mg Mirtazapine (Mirtazapine 7.5 Mg Tablet) 7.5 mg PO BEDTIME REPLACED BY [facility] Last Admin: 01/24/25 20:19 Dose: 7.5 mg Olanzapine (Olanzapine 7.5 Mg Tablet) 7.5 mg PO BEDTIME REPLACED BY [facility] Last Admin: 01/24/25 20:18 Dose: 7.5 mg Olanzapine (Olanzapine 2.5 Mg Tablet) 2.5 mg PO Q4H PRN PRN Reason: Psychosis Last Admin: 01/25/25 12:27 Dose: 2.5 mg Senna (Sennosides 8.6 Mg Tablet) 8.6 mg PO DAILY PRN PRN Reason: Constipation Trazodone HCl (Trazodone Hcl 50 Mg Tablet) 50 mg PO BEDTIME MRX1 PRN PRN Reason: Insomnia Last Admin: 01/20/25 20:15 Dose: 50 mg Allergies Allergies Allergy/AdvReac Type Severity Reaction Status Date / Time cat dander [cats] Allergy Unknown Verified 01/18/25 09:04 cortisone Allergy Unknown Verified 01/18/25 09:04 dog dander [dogs] Allergy Unknown Verified 01/18/25 09:04 Assessment & Plan Assessment & Plan (1) Psychosis: Status: Resolved Code(s): F29 - Unspecified psychosis not due to a substance or known physiological condition Plan continue home medications aside from trileptal 150 mg, a very low dose of a medication which is not evidence-based for mood stabilization. if it is felt pt has bipolar diathesis, an evidence-based mood stabilizer should be started. consider whether relying on benzodiazepines is the best strategy to manage anxiety and perhaps loan in this 74 yo woman. start haldol 2 mg PO TID for psychosis. recheck UA as initial appears contaminated. further collateral tomorrow. Plan 1. Cross taper Haldol to Zyprexa. Historically she responded fairly well to Zyprexa and she needs a mood stabilizer since she has the history of bipolar. On January 21 we are increasing Zyprexa to 5 mg p.o. q.h.s. on January 22 we increase it up to 7.5 mg p.o. q.h.s. to target psychosis. 2. Continue with the other medications as prescribed. 3. We are lowering Haldol to 2 mg once a day starting January 23 and discontinue much . We are going to use only Zyprexa as an antipsychotic/mood stabilizer since historically she did well on this medication. 01/23: wean benzos, establish evidence-based mood stabilizer for loan. start VPA ER 250 TID, decrease xanax from 0.5 TID to 0.375 TID. remains disorganized, tangential. continue current regimen otherwise. 01/24: continue current mgmt. consider further VPA titration and xanax taper over w/e as indicated and tolerated. would consider next step VPA 250/250/500 and xanax 0.25 TID. 01/25/25: Continue current plans and regimen. CMP ordered. P.r.n. Zyprexa 2.5 mg Q 4 hours ordered. Patient educated on: medication risk/benefits Reason for continued inpatient stay Substantial Risk for: inability to function Time Spent With Patient Time: Total time managing care of this patient today ____ minutes.
[2025-01-25 13:30] LABS: Anion Gap 15 (12-20); Blood Urea Nitrogen 33 mg/dL (9-16); Calcium 9.9 mg/dL (8.4-10.2); Carbon Dioxide 22 mmol/L (22-29); Chloride 106 mmol/L (96-108); Creatinine Clr Calc Pharmacy 39.3; Estimated Glomerular Filt Rate 46; Glucose Random 128 mg/dL (60-115); Sodium 139 mmol/L (135-145)
--- NOTE | 2025-01-25 14:06 | PC.NURSE ---
BUN 33 and glucose [address] Merrill.
[2025-01-25] MEDS: Divalproex Sodium ER 250 MG TAB.ER.24H PO ×2 (14:24→21:05)
[2025-01-25] MEDS: Gabapentin 400 MG CAPSULE PO ×2 (14:24→21:05)
[2025-01-25 20:00] VITALS: BP 144/79; PULSE 98; TEMP 36.9; O2SAT 96
[2025-01-25] MEDS: OLANZapine 7.5 MG TABLET PO (21:04)
[2025-01-25] MEDS: Melatonin 3 MG TABLET 9 MG PO (21:04)
[2025-01-25] MEDS: Atorvastatin Calcium 40 MG TABLET PO (21:05)
[2025-01-25] MEDS: Docusate Sodium 100 MG CAPSULE PO (21:05)
[2025-01-25] MEDS: Mirtazapine 7.5 MG TABLET PO (21:05)
[2025-01-25] MEDS: Latanoprost 0.005 % Ophth Sol 2.5 ML DROPS 1 DROP EYE-BOTH (21:05)
[2025-01-26] MEDS: clonazePAM 0.5 MG TABLET PO (00:57)
[2025-01-26] MEDS: Acetaminophen 325 MG TABLET 650 MG PO ×2 (00:57→11:22)
[2025-01-26] MEDS: traZODone HCL 50 MG TABLET PO (00:58)
[2025-01-26] MEDS: OLANZapine 2.5 MG TABLET PO (00:58)
[2025-01-26] MEDS: Levothyroxine Sodium 50 MCG TABLET PO (06:04)
[2025-01-26 08:00] VITALS: BP 103/65; PULSE 83; RESP 18; TEMP 36.9; O2SAT 96
[2025-01-26] MEDS: ALPRAZolam 0.25 MG TABLET 0.375 MG PO ×3 (09:37→20:26)
--- NOTE | 2025-01-26 10:35 | P.PNPSI_ITS ---
Subjective Subjective Date of Service: 01/26/25 Reason For Visit: Psychosis Subjective Notes: Conditional Voluntary Interim History: patient was seen and discussed in rounds today. Records and plans were reviewed. She has continued to be quite psychotic, mostly on the floor. Placed on 5 minute checks. Very little intake. Laboratory studies from yesterday were reviewed with elevated BUN secondary to hemoconcentration. P.r.n. Zyprexa was changed to Zydis 5 mg q.6 hours p.r.n.. Medication Compliance: Intermittent Side effects from medications: No Attending Groups: No Review of Systems Review of Systems Yes Unobtainable due to mental status Mental Status Exam Mental Status Exam Narrative: In today's visit she was sitting on the floor. Speech is normal. Good eye contact. Affect is variable. Denies AVH but appears to be responding to internal stimuli. Lots of self dialogue. Delusions reported. No SI. Cognitively is very disorganized. Judgment is impaired Diagnostics Vital Signs (24Hr): Vital Signs - 24 hr 01/25/25 20:00 01/26/25 08:00 Temperature 98.5 F 98.4 F Pulse Rate 98 83 Respiratory Rate 18 Blood Pressure 144/79 H 103/65 Pulse Oximetry 96 96 Oxygen Delivery Method Room Air Room Air BMI result Body Mass Index 22.5 Labs 01/18/25 11:24 01/25/25 13:01 Labs: Laboratory Results - last 48 hr 01/25/25 13:01 Sodium 139 Potassium 4.0 Chloride 106 Carbon Dioxide 22 Anion Gap 15 BUN 33 H Creatinine 1.14 Estim Creat Clear Calc 39.3 Estimated GFR 46 Random Glucose 128 H Calcium 9.9 Medications Medications Current Medications Acetaminophen (Acetaminophen 325 Mg Tablet) 650 mg PO Q6H PRN PRN Reason: Headache/Pain Mild Scale (1-3) Last Admin: 01/26/25 00:57 Dose: 650 mg Al Hydroxide/Mg Hydroxide (Magnesium Hydrox/Alum Hydrox 30 Ml Oral.Susp) 30 ml PO Q6H PRN PRN Reason: Heartburn/Nausea Albuterol Sulfate (Albuterol Sulfate 90 Mcg 8 Gm Inhaler) 2 puff INHALE RQ4H PRN PRN Reason: Bronchospasm Alprazolam (Alprazolam 0.25 Mg Tablet) 0.375 mg PO TID [facility] Last Admin: 01/26/25 09:37 Dose: 0.375 mg Atorvastatin Calcium (Atorvastatin Calcium 40 Mg Tablet) 40 mg PO BEDTIME [facility] Last Admin: 01/25/25 21:05 Dose: 40 mg Clonazepam (Clonazepam 0.5 Mg Tablet) 0.5 mg PO DAILY PRN PRN Reason: Anxiety Last Admin: 01/26/25 00:57 Dose: 0.5 mg Clonidine HCl (Clonidine Hcl 0.1 Mg Tablet) 0.1 mg PO BID PRN; Protocol PRN Reason: severe anxiety Divalproex Sodium (Divalproex Sodium Er 250 Mg Tab.Er.24h) 250 mg PO TID [facility] Last Admin: 01/26/25 09:41 Dose: Not Given Docusate Sodium (Docusate Sodium 100 Mg Capsule) 100 mg PO BEDTIME [facility] Last Admin: 01/25/25 21:05 Dose: 100 mg Gabapentin (Gabapentin 400 Mg Capsule) 400 mg PO TID [facility] Last Admin: 01/26/25 09:40 Dose: Not Given Latanoprost (Latanoprost 0.005 % Ophth Hannah 2.5 Ml Drops) 1 drop EYE-BOTH BEDTIME [facility] Last Admin: 01/25/25 21:05 Dose: 1 drop Levothyroxine Sodium (Levothyroxine Sodium 50 Mcg Tablet) 50 mcg PO DAILY@0600 [facility] Last Admin: 01/26/25 06:04 Dose: 50 mcg Lisinopril (Lisinopril 10 Mg Tablet) 30 mg PO DAILY [facility]; Protocol Last Admin: 01/26/25 09:41 Dose: Not Given Magnesium Hydroxide (Milk Of Magnesia 30 Ml Oral.Susp) 30 ml PO DAILY PRN PRN Reason: Constipation Melatonin (Melatonin 3 Mg Tablet) 9 mg PO BEDTIME [facility] Last Admin: 01/25/25 21:04 Dose: 9 mg Mirtazapine (Mirtazapine 7.5 Mg Tablet) 7.5 mg PO BEDTIME [facility] Last Admin: 01/25/25 21:05 Dose: 7.5 mg Olanzapine (Olanzapine 7.5 Mg Tablet) 7.5 mg PO BEDTIME [facility] Last Admin: 01/25/25 21:04 Dose: 7.5 mg Olanzapine (Olanzapine Odt 10 Mg Tab.Rapdis) 5 mg TRANSLINGU Q6H PRN PRN Reason: Psychosis Senna (Sennosides 8.6 Mg Tablet) 8.6 mg PO DAILY PRN PRN Reason: Constipation Trazodone HCl (Trazodone Hcl 50 Mg Tablet) 50 mg PO BEDTIME MRX1 PRN PRN Reason: Insomnia Last Admin: 01/26/25 00:58 Dose: 50 mg Allergies Allergies Allergy/AdvReac Type Severity Reaction Status Date / Time cat dander [cats] Allergy Unknown Verified 01/18/25 09:04 cortisone Allergy Unknown Verified 01/18/25 09:04 dog dander [dogs] Allergy Unknown Verified 01/18/25 09:04 Assessment & Plan Assessment & Plan (1) Psychosis: Status: Resolved Code(s): F29 - Unspecified psychosis not due to a substance or known physiological condition Plan continue home medications aside from trileptal 150 mg, a very low dose of a medication which is not evidence-based for mood stabilization. if it is felt pt has bipolar diathesis, an evidence-based mood stabilizer should be started. consider whether relying on benzodiazepines is the best strategy to manage anxiety and perhaps loan in this 74 yo woman. start haldol 2 mg PO TID for psychosis. recheck UA as initial appears contaminated. further collateral tomorrow. Plan 1. Cross taper Haldol to Zyprexa. Historically she responded fairly well to Zyprexa and she needs a mood stabilizer since she has the history of bipolar. On January 21 we are increasing Zyprexa to 5 mg p.o. q.h.s. on January 22 we increase it up to 7.5 mg p.o. q.h.s. to target psychosis. 2. Continue with the other medications as prescribed. 3. We are lowering Haldol to 2 mg once a day starting January 23 and discontinue much . We are going to use only Zyprexa as an antipsychotic/mood stabilizer since historically she did well on this medication. 01/23: wean benzos, establish evidence-based mood stabilizer for loan. start VPA ER 250 TID, decrease xanax from 0.5 TID to 0.375 TID. remains disorganized, tangential. continue current regimen otherwise. 01/24: continue current mgmt. consider further VPA titration and xanax taper over w/e as indicated and tolerated. would consider next step VPA 250/250/500 and xanax 0.25 TID. 01/25/25: Continue current plans and regimen. CMP ordered. P.r.n. Zyprexa 2.5 mg Q 4 hours ordered. 01/26: Continue current regimen and plans. Zyprexa Zydis 5 mg q.6 p.r.n. Reason for continued inpatient stay Substantial Risk for: med/psych decompensation Time Spent With Patient Time: Total time managing care of this patient today ____ minutes.
--- NOTE | 2025-01-26 10:42 | HO.PSYCHPN ---
Subjective Subjective Date of Service: 01/26/25 Reason For Visit: Psychosis Subjective Notes: Conditional Voluntary Interim History: patient was seen and discussed in rounds today. Records and plans were reviewed. She has continued to be quite psychotic, mostly on the floor. Placed on 5 minute checks. Very little intake. Laboratory studies from yesterday were reviewed with elevated BUN secondary to hemoconcentration. P.r.n. Zyprexa was changed to Zydis 5 mg q.6 hours p.r.n.. Medication Compliance: Intermittent Side effects from medications: No Attending Groups: No Diagnostics Vital Signs (24Hr): Vital Signs - 24 hr 01/25/25 20:00 01/26/25 08:00 Temperature 98.5 F 98.4 F Pulse Rate 98 83 Respiratory Rate 18 Blood Pressure 144/79 H 103/65 Pulse Oximetry 96 96 Oxygen Delivery Method Room Air Room Air BMI result Body Mass Index 22.5 Labs 01/18/25 11:24 01/25/25 13:01 Labs: Laboratory Results - last 48 hr 01/25/25 13:01 Sodium 139 Potassium 4.0 Chloride 106 Carbon Dioxide 22 Anion Gap 15 BUN 33 H Creatinine 1.14 Estim Creat Clear Calc 39.3 Estimated GFR 46 Random Glucose 128 H Calcium 9.9 Medications Medications Current Medications Acetaminophen (Acetaminophen 325 Mg Tablet) 650 mg PO Q6H PRN PRN Reason: Headache/Pain Mild Scale (1-3) Last Admin: 01/26/25 00:57 Dose: 650 mg Al Hydroxide/Mg Hydroxide (Magnesium Hydrox/Alum Hydrox 30 Ml Oral.Susp) 30 ml PO Q6H PRN PRN Reason: Heartburn/Nausea Albuterol Sulfate (Albuterol Sulfate 90 Mcg 8 Gm Inhaler) 2 puff INHALE RQ4H PRN PRN Reason: Bronchospasm Alprazolam (Alprazolam 0.25 Mg Tablet) 0.375 mg PO TID [facility] Last Admin: 01/26/25 09:37 Dose: 0.375 mg Atorvastatin Calcium (Atorvastatin Calcium 40 Mg Tablet) 40 mg PO BEDTIME [facility] Last Admin: 01/25/25 21:05 Dose: 40 mg Clonazepam (Clonazepam 0.5 Mg Tablet) 0.5 mg PO DAILY PRN PRN Reason: Anxiety Last Admin: 01/26/25 00:57 Dose: 0.5 mg Clonidine HCl (Clonidine Hcl 0.1 Mg Tablet) 0.1 mg PO BID PRN; Protocol PRN Reason: severe anxiety Divalproex Sodium (Divalproex Sodium Er 250 Mg Tab.Er.24h) 250 mg PO TID [facility] Last Admin: 01/26/25 09:41 Dose: Not Given Docusate Sodium (Docusate Sodium 100 Mg Capsule) 100 mg PO BEDTIME [facility] Last Admin: 01/25/25 21:05 Dose: 100 mg Gabapentin (Gabapentin 400 Mg Capsule) 400 mg PO TID [facility] Last Admin: 01/26/25 09:40 Dose: Not Given Latanoprost (Latanoprost 0.005 % Ophth Hannah 2.5 Ml Drops) 1 drop EYE-BOTH BEDTIME [facility] Last Admin: 01/25/25 21:05 Dose: 1 drop Levothyroxine Sodium (Levothyroxine Sodium 50 Mcg Tablet) 50 mcg PO DAILY@0600 [facility] Last Admin: 01/26/25 06:04 Dose: 50 mcg Lisinopril (Lisinopril 10 Mg Tablet) 30 mg PO DAILY [facility]; Protocol Last Admin: 01/26/25 09:41 Dose: Not Given Magnesium Hydroxide (Milk Of Magnesia 30 Ml Oral.Susp) 30 ml PO DAILY PRN PRN Reason: Constipation Melatonin (Melatonin 3 Mg Tablet) 9 mg PO BEDTIME [facility] Last Admin: 01/25/25 21:04 Dose: 9 mg Mirtazapine (Mirtazapine 7.5 Mg Tablet) 7.5 mg PO BEDTIME [facility] Last Admin: 01/25/25 21:05 Dose: 7.5 mg Olanzapine (Olanzapine 7.5 Mg Tablet) 7.5 mg PO BEDTIME [facility] Last Admin: 01/25/25 21:04 Dose: 7.5 mg Olanzapine (Olanzapine Odt 10 Mg Tab.Rapdis) 5 mg TRANSLINGU Q6H PRN PRN Reason: Psychosis Senna (Sennosides 8.6 Mg Tablet) 8.6 mg PO DAILY PRN PRN Reason: Constipation Trazodone HCl (Trazodone Hcl 50 Mg Tablet) 50 mg PO BEDTIME MRX1 PRN PRN Reason: Insomnia Last Admin: 01/26/25 00:58 Dose: 50 mg Allergies Allergies Allergy/AdvReac Type Severity Reaction Status Date / Time cat dander [cats] Allergy Unknown Verified 01/18/25 09:04 cortisone Allergy Unknown Verified 01/18/25 09:04 dog dander [dogs] Allergy Unknown Verified 01/18/25 09:04 Assessment & Plan Assessment & Plan (1) Psychosis: Status: Resolved Code(s): F29 - Unspecified psychosis not due to a substance or known physiological condition Plan continue home medications aside from trileptal 150 mg, a very low dose of a medication which is not evidence-based for mood stabilization. if it is felt pt has bipolar diathesis, an evidence-based mood stabilizer should be started. consider whether relying on benzodiazepines is the best strategy to manage anxiety and perhaps loan in this 74 yo woman. start haldol 2 mg PO TID for psychosis. recheck UA as initial appears contaminated. further collateral tomorrow. Plan 1. Cross taper Haldol to Zyprexa. Historically she responded fairly well to Zyprexa and she needs a mood stabilizer since she has the history of bipolar. On January 21 we are increasing Zyprexa to 5 mg p.o. q.h.s. on January 22 we increase it up to 7.5 mg p.o. q.h.s. to target psychosis. 2. Continue with the other medications as prescribed. 3. We are lowering Haldol to 2 mg once a day starting January 23 and discontinue much . We are going to use only Zyprexa as an antipsychotic/mood stabilizer since historically she did well on this medication. 01/23: wean benzos, establish evidence-based mood stabilizer for loan. start VPA ER 250 TID, decrease xanax from 0.5 TID to 0.375 TID. remains disorganized, tangential. continue current regimen otherwise. 01/24: continue current mgmt. consider further VPA titration and xanax taper over w/e as indicated and tolerated. would consider next step VPA 250/250/500 and xanax 0.25 TID. 01/25/25: Continue current plans and regimen. CMP ordered. P.r.n. Zyprexa 2.5 mg Q 4 hours ordered. 01/26: Continue current regimen and plans. Zyprexa Zydis 5 mg q.6 p.r.n. Time Spent With Patient Time: Total time managing care of this patient today ____ minutes.
[2025-01-26] MEDS: OLANZapine ODT 10 MG TAB.RAPDIS 5 MG TRANSLINGU (11:22)
[2025-01-26] MEDS: Gabapentin 400 MG CAPSULE PO ×2 (14:24→20:26)
[2025-01-26] MEDS: Divalproex Sodium ER 250 MG TAB.ER.24H PO ×2 (14:24→20:26)
[2025-01-26 20:00] VITALS: BP 133/62; PULSE 75; RESP 18; TEMP 36.7; O2SAT 96
[2025-01-26] MEDS: Melatonin 3 MG TABLET 9 MG PO (20:26)
[2025-01-26] MEDS: Atorvastatin Calcium 40 MG TABLET PO (20:26)
[2025-01-26] MEDS: Docusate Sodium 100 MG CAPSULE PO (20:26)
[2025-01-26] MEDS: Mirtazapine 7.5 MG TABLET PO (20:26)
[2025-01-26] MEDS: OLANZapine 7.5 MG TABLET PO (20:26)
[2025-01-26] MEDS: Latanoprost 0.005 % Ophth Sol 2.5 ML DROPS 1 DROP EYE-BOTH (20:38)
[2025-01-27] MEDS: Levothyroxine Sodium 50 MCG TABLET PO (05:54)
[2025-01-27 08:00] VITALS: BP 127/100; PULSE 96; RESP 18; TEMP 36.8; O2SAT 95
[2025-01-27] MEDS: lisinopriL 10 MG TABLET 30 MG PO (08:44)
[2025-01-27] MEDS: Gabapentin 400 MG CAPSULE PO ×2 (08:44→14:16)
[2025-01-27] MEDS: ALPRAZolam 0.25 MG TABLET 0.375 MG PO ×2 (08:45→14:17)
[2025-01-27] MEDS: Divalproex Sodium ER 250 MG TAB.ER.24H PO ×2 (08:45→14:16)
[2025-01-27] MEDS: Acetaminophen 325 MG TABLET 650 MG PO (11:05)
[2025-01-27] MEDS: OLANZapine 5 MG TABLET PO (11:11)
[2025-01-27] MEDS: LORazepam 1 MG TABLET PO (12:27)
--- NOTE | 2025-01-27 13:06 | PC.NURSE ---
While attempting to obtain a urine sample, the patient was brought to the bathroom in the anter room. Her groin was checked for redness and was clear but a small open area was found on her inner left buttock, no drainage. Patient was uncooperative, unable to urinate and put herself on the floor. Dr. Her notified of open area.
[2025-01-27 14:10] LABS: Ammonia 51 umol/L (13-55)
--- NOTE | 2025-01-27 14:13 | HO.PSYCHPN ---
Subjective Subjective Date of Service: 01/27/25 Reason For Visit: Psychosis Subjective Notes: Conditional Voluntary Interim History: The patient is seen on the psychiatric unit chart reviewed patient with poor intake intermittent medication refusals remains grossly disorganized pttx for opem area buttocks Review of Systems poor intake Mental Status Exam Mental Status Exam Patient Appearance: Unkempt Patient Orientation: Person and Situation Level of Consciousness: Awake and Disoriented Patient Behavior: Cooperative and Distractible Mood Description: Apprehensive Affect Description: Constricted Patient Cognition Impaired: Yes Speech Pattern: Impoverished Hallucinations: None Delusions: Paranoid Ideation and Ideas of Reference Thought Process: Racing and Distracted Thought Content: positive for Blaine, positive for Poverty of Content and positive for Disorganized Depressive Symptoms: Increased Anxiety, Loss of Int. in Activity and Difficulty Concentrating Judgement: Fair Diagnostics Vital Signs (24Hr): Vital Signs - 24 hr 01/26/25 20:00 01/27/25 08:00 Temperature 98.1 F 98.2 F Pulse Rate 75 96 Respiratory Rate 18 18 Blood Pressure 133/62 127/100 H Pulse Oximetry 96 95 Oxygen Delivery Method Room Air Room Air BMI result Body Mass Index 22.5 Labs 01/18/25 11:24 01/27/25 13:48 Labs: Laboratory Results - last 48 hr 01/25/25 01/27/25 13:01 13:48 Sodium 139 Potassium 4.0 Chloride 106 Carbon Dioxide 22 Anion Gap 15 BUN 33 H Creatinine 1.14 Estim Creat Clear Calc 39.3 Estimated GFR 46 Random Glucose 128 H Calcium 9.9 Ammonia 51 Medications Medications Current Medications Acetaminophen (Acetaminophen 325 Mg Tablet) 650 mg PO Q6H PRN PRN Reason: Headache/Pain Mild Scale (1-3) Last Admin: 01/27/25 11:05 Dose: 650 mg Al Hydroxide/Mg Hydroxide (Magnesium Hydrox/Alum Hydrox 30 Ml Oral.Susp) 30 ml PO Q6H PRN PRN Reason: Heartburn/Nausea Albuterol Sulfate (Albuterol Sulfate 90 Mcg 8 Gm Inhaler) 2 puff INHALE RQ4H PRN PRN Reason: Bronchospasm Alprazolam (Alprazolam 0.25 Mg Tablet) 0.375 mg PO TID [facility] Last Admin: 01/27/25 08:45 Dose: 0.375 mg Atorvastatin Calcium (Atorvastatin Calcium 40 Mg Tablet) 40 mg PO BEDTIME [facility] Last Admin: 01/26/25 20:26 Dose: 40 mg Divalproex Sodium (Divalproex Sodium Er 250 Mg Tab.Er.24h) 250 mg PO TID [facility] Last Admin: 01/27/25 08:45 Dose: 250 mg Docusate Sodium (Docusate Sodium 100 Mg Capsule) 100 mg PO BEDTIME [facility] Last Admin: 01/26/25 20:26 Dose: 100 mg Gabapentin (Gabapentin 400 Mg Capsule) 400 mg PO TID [facility] Last Admin: 01/27/25 08:44 Dose: 400 mg Latanoprost (Latanoprost 0.005 % Ophth Hannah 2.5 Ml Drops) 1 drop EYE-BOTH BEDTIME [facility] Last Admin: 01/26/25 20:38 Dose: 1 drop Levothyroxine Sodium (Levothyroxine Sodium 50 Mcg Tablet) 50 mcg PO DAILY@0600 [facility] Last Admin: 01/27/25 05:54 Dose: 50 mcg Lisinopril (Lisinopril 10 Mg Tablet) 30 mg PO DAILY [facility]; Protocol Last Admin: 01/27/25 08:44 Dose: 30 mg Magnesium Hydroxide (Milk Of Magnesia 30 Ml Oral.Susp) 30 ml PO DAILY PRN PRN Reason: Constipation Melatonin (Melatonin 3 Mg Tablet) 9 mg PO BEDTIME [facility] Last Admin: 01/26/25 20:26 Dose: 9 mg Mirtazapine (Mirtazapine 7.5 Mg Tablet) 7.5 mg PO BEDTIME [facility] Last Admin: 01/26/25 20:26 Dose: 7.5 mg Olanzapine (Olanzapine 7.5 Mg Tablet) 7.5 mg PO BEDTIME [facility] Last Admin: 01/26/25 20:26 Dose: 7.5 mg Olanzapine (Olanzapine 5 Mg Tablet) 5 mg PO Q4H PRN PRN Reason: agitation Last Admin: 01/27/25 11:11 Dose: 5 mg Senna (Sennosides 8.6 Mg Tablet) 8.6 mg PO DAILY PRN PRN Reason: Constipation Trazodone HCl (Trazodone Hcl 50 Mg Tablet) 50 mg PO BEDTIME MRX1 PRN PRN Reason: Insomnia Last Admin: 01/26/25 00:58 Dose: 50 mg Allergies Allergies Allergy/AdvReac Type Severity Reaction Status Date / Time cat dander [cats] Allergy Unknown Verified 01/18/25 09:04 cortisone Allergy Unknown Verified 01/18/25 09:04 dog dander [dogs] Allergy Unknown Verified 01/18/25 09:04 Assessment & Plan Assessment & Plan (1) Psychosis: Status: Resolved Code(s): F29 - Unspecified psychosis not due to a substance or known physiological condition (2) Bipolar disorder, curr episode mixed, severe, with psychotic features: Status: Acute Code(s): F31.64 - Bipolar disorder, current episode mixed, severe, with psychotic features Plan 1 Mixed state with psychosis Depakote olanzapine taper gabapentin 2 slid on buttocks Skin protocol 3 urinary difficulty Check UA C&S straight cath Check labs encourage fluids Informed Consent: further education needed Reason for continued inpatient stay Substantial Risk for: harm to self, rapid decompensation and med/psych decompensation Time Spent With Patient Time: Total time managing care of this patient today30 ____ minutes.
[2025-01-27 14:19] LABS: Alanine Aminotransferase 18 U/L (0-31); Albumin Level 3.9 g/dL (3.5-5.0); Alkaline Phosphatase 66 U/L (39-117); Anion Gap 12 (12-20); Aspartate Amino Transferase 22 U/L (5-31); Bilirubin Total 0.6 mg/dL (0.0-1.0); Blood Urea Nitrogen 26 mg/dL (9-16); Calcium 9.7 mg/dL (8.4-10.2); Carbon Dioxide 26 mmol/L (22-29); Chloride 108 mmol/L (96-108); Creatinine Clr Calc Pharmacy 46.7; Estimated Glomerular Filt Rate 57; Glucose Random 143 mg/dL (60-115); Potassium 4.3 mmol/L (3.3-5.1); Sodium 142 mmol/L (135-145); Total Protein 6.3 g/dL (6.5-8.0)
--- NOTE | 2025-01-27 16:04 | PC.NURSE ---
This patient has been brought to the bathroom x2 today and was unable to void but 2 drops of urien today. Rosey Mak HIM CLERK updated and new order for a voiding trial obtained. Patient much more directable and cooperative since taking PRNS earlier today. PO fluids encouraged and taken well.
[2025-01-27 17:18] LABS: Appearance Urine Cloudy; Color Urine Yellow; Glucose Urine UA Negative (Negative); Leukocyte Esterase Urine Negative (Negative); Nitrite Urine Negative (Negative); Urine Blood Negative (Negative); Urine Ketones Trace mg/dL (Negative); Urine Protein Negative (Neg-Trace)
[2025-01-27 20:00] VITALS: BP 134/63; PULSE 78; RESP 18; TEMP 36.6; O2SAT 95
[2025-01-28] MEDS: OLANZapine 5 MG TABLET PO (03:38)
--- NOTE | 2025-01-28 05:21 | PC.NURSE ---
At approximately 0415, patient bladder scanned for 714cc. Patient brought to the bathroom and unable to void naturally on the toilet. Patient straight cath for 575cc of dark yulisa urine. PVR 138. Patient needed much reassurance throughout but tolerated
[2025-01-28] MEDS: Acetaminophen 325 MG TABLET 650 MG PO (06:27)
[2025-01-28] MEDS: LORazepam 1 MG TABLET PO (06:38)
--- NOTE | 2025-01-28 07:04 | PC.NURSE ---
Patient had been sleeping soundly from start of shift at 1900 through 0400, when this RN went to bladder scan patient. Upon awakening, patient is increasingly disorganized, responding to internal stimuli and attempting to throw herself on floor. Zyprexa 5mg PRN administered with some effect. Patient remained awake and became increasingly anxious, hyperverbal and difficult to redirect. She placed herself on floor multiple times. Patient began reporting all over pain, tylenol administered with encouragement. Patient then began to start pulling out strands of hair, attempting to strangle herself with [facility]. Patient redirectable to an extent. Attempted to listen to classical violin music, and practice some deep breathing as well as discussing her interests outside of the hospital. She is labile and tearful. Provider electronic bench technician notified. Patient placed on 1:1 observation and given 1mg ativan PO. Patient is currently resting in bed with 1:1 observer, calm and cooperative.
[2025-01-28 08:27] VITALS: RESP 18; TEMP 36.4
[2025-01-28] MEDS: LORazepam 0.5 MG TABLET PO ×3 (08:46→21:08)
[2025-01-28] MEDS: Gabapentin 400 MG CAPSULE PO (08:46)
[2025-01-28] MEDS: Divalproex Sodium ER 250 MG TAB.ER.24H PO ×3 (08:47→21:08)
[2025-01-28] MEDS: Levothyroxine Sodium 50 MCG TABLET PO (08:48)
[2025-01-28 08:54] VITALS: BP 102/55
[2025-01-28] MEDS: lisinopriL 10 MG TABLET 30 MG PO (08:54)
[2025-01-28 08:56] VITALS: BP 102/55; PULSE 100; O2SAT 95
[2025-01-28] MEDS: Gabapentin 100 MG CAPSULE 200 MG PO ×2 (14:24→21:08)
--- NOTE | 2025-01-28 15:41 | P.CNUR_ITS ---
History of Present Illness Consult details Consult date: 01/28/25 Narrative: Maryam is a 74 year old female admitted to psych on 01/19/2025 with paranoid delusions. Urology called due to symptoms of difficulty urinating. Urinalysis sent on 01/27 25-was negative. Review of Systems 2 Review of Systems: Yes all other systems are reviewed and are negative Constitutional: Constitutional: Reports no additional constitutional complaints Eyes: Eyes: Reports no additional eye complaints ENT: Reports system reviewed and no additional complaints, except as documented Cardiovascular: Cardiovascular: Reports no additional cardiovascular complaints Respiratory: Respiratory: Reports no additional respiratory complaints Gastrointestinal: Gastrointestinal: Reports no additional gastrointestinal complaints Genitourinary: Genitourinary: Reports as per HPI Musculoskeletal: Musculoskeletal: Reports no additional musculoskeletal complaints Integumentary/Breasts: Skin/Breast: Reports system reviewed and no additional complaints, except as docu Neurologic: Reports system reviewed and no additional complaints, except as documented Psychiatric: Psychiatric: Reports no additional psychiatric complaints Endocrine: Endocrine: Reports no additional endocrine complaints Hematologic/Lymphatic: Hematologic/Lymphatic: Reports no additional hematologic/lymphatic complaints Allergic/Immunologic: Allergic/Immunologic: Reports no additional allergic/immunologic complaints [facility] Past Medical History Medical History Psychosis Social History Social History Household Members: None Housing: Apartment Do you presently have visiting nurse or other home services: Yes (pt states that she has a underwriting assistant come x2 a week. pts family assists with her) Unable to assess alcohol history related to: Unknown Alcohol intake: current Alcohol intake frequency: holidays/special occasions only Alcohol type: wine Patient Tobacco Use Status: Never used Tobacco Smoked in Last 30 Days: No e-Cigarette/Vaping Use: Never Used Second Hand Smoke Exposure: No Use of substances other than those prescribed or required for medical reasons: No Currently Displaying Signs/Symptoms of Drug Intoxication Withdrawal: No Advance Directives: No Advance Directives Information Provided: No Do you have thoughts of harming others: None Do you have a plan to hurt others: No Plan Recently lost weight without trying: No How much weight loss: Unsure Eating poorly because of decreased appetite: No Nutrition screen score: 2 Patient : No : No Poor oral hygiene: No service: No Sexual orientation: Straight/Heterosexual Meds Allergies Allergy/AdvReac Type Severity Reaction Status Date / Time cat dander [cats] Allergy Unknown Verified 01/18/25 09:04 cortisone Allergy Unknown Verified 01/18/25 09:04 dog dander [dogs] Allergy Unknown Verified 01/18/25 09:04 Active Medications: Current Medications Acetaminophen (Acetaminophen 325 Mg Tablet) 650 mg PO Q6H PRN PRN Reason: Headache/Pain Mild Scale (1-3) Last Admin: 01/28/25 06:27 Dose: 650 mg Al Hydroxide/Mg Hydroxide (Magnesium Hydrox/Alum Hydrox 30 Ml Oral.Susp) 30 ml PO Q6H PRN PRN Reason: Heartburn/Nausea Albuterol Sulfate (Albuterol Sulfate 90 Mcg 8 Gm Inhaler) 2 puff INHALE RQ4H PRN PRN Reason: Bronchospasm Atorvastatin Calcium (Atorvastatin Calcium 40 Mg Tablet) 40 mg PO BEDTIME [facility] [place] Last Admin: 01/27/25 23:25 Dose: Not Given Divalproex Sodium (Divalproex Sodium Er 250 Mg Tab.Er.24h) 250 mg PO TID [facility] Last Admin: 01/28/25 14:25 Dose: 250 mg Docusate Sodium (Docusate Sodium 100 Mg Capsule) 100 mg PO BEDTIME [facility] Last Admin: 01/27/25 23:29 Dose: Not Given Gabapentin (Gabapentin 100 Mg Capsule) 200 mg PO TID [facility] Last Admin: 01/28/25 14:24 Dose: 200 mg Latanoprost (Latanoprost 0.005 % Ophth Hannah 2.5 Ml Drops) 1 drop EYE-BOTH BEDTIME [facility] [place] Last Admin: 01/27/25 23:29 Dose: Not Given Levothyroxine Sodium (Levothyroxine Sodium 50 Mcg Tablet) 50 mcg PO DAILY@0600 [facility] Last Admin: 01/28/25 08:48 Dose: 50 mcg Lisinopril (Lisinopril 10 Mg Tablet) 30 mg PO DAILY [facility]; Protocol Last Admin: 01/28/25 08:54 Dose: 30 mg Lorazepam (Lorazepam 0.5 Mg Tablet) 0.5 mg PO TID [facility] Last Admin: 01/28/25 14:25 Dose: 0.5 mg Magnesium Hydroxide (Milk Of Magnesia 30 Ml Oral.Susp) 30 ml PO DAILY PRN PRN Reason: Constipation Melatonin (Melatonin 3 Mg Tablet) 9 mg PO BEDTIME [facility] Last Admin: 01/27/25 23:29 Dose: Not Given Olanzapine (Olanzapine 7.5 Mg Tablet) 7.5 mg PO BEDTIME [facility] Last Admin: 01/27/25 23:29 Dose: Not Given Olanzapine (Olanzapine 5 Mg Tablet) 5 mg PO Q4H PRN PRN Reason: agitation Last Admin: 01/28/25 03:38 Dose: 5 mg Senna (Sennosides 8.6 Mg Tablet) 8.6 mg PO DAILY PRN PRN Reason: Constipation Tamsulosin HCl (Tamsulosin Hcl 0.4 Mg Capsule) 0.4 mg PO DAILY [facility] Trazodone HCl (Trazodone Hcl 50 Mg Tablet) 50 mg PO BEDTIME MRX1 PRN PRN Reason: Insomnia Last Admin: 01/26/25 00:58 Dose: 50 mg Home Medications ?Medication ?Instructions ?Recorded ?Confirmed ?Last Taken ?Type alprazolam 0.5 mg tablet 0.5 mg PO TID 01/18/25 01/18/25 Unknown History atorvastatin 40 mg tablet 40 mg PO BEDTIME 01/18/25 01/18/25 Unknown History clonazepam 0.5 mg tablet 0.5 mg PO DAILY PRN Anxiety 01/18/25 01/18/25 Unknown History clonidine HCl 0.1 mg tablet 0.1 mg PO BID PRN severe anxiety 01/18/25 01/18/25 Unknown History latanoprost 0.005 % eye drops 1 drp ophthalmic (eye) BEDTIME 01/18/25 01/18/25 Unknown History levothyroxine 50 mcg tablet 50 mcg PO DAILY@0600 01/18/25 01/18/25 Unknown History lisinopril 30 mg tablet 30 mg PO DAILY 01/18/25 01/18/25 Unknown History melatonin 3 mg tablet 9 mg PO BEDTIME 01/18/25 01/18/25 Unknown History mirtazapine 7.5 mg tablet 7.5 mg PO BEDTIME 01/18/25 01/18/25 Unknown History oxcarbazepine 150 mg tablet 150 mg PO BEDTIME 01/18/25 01/18/25 Unknown History sennosides 8.6 mg tablet (senna) 8.6 mg PO DAILY PRN Constipation 01/18/25 01/18/25 Unknown History Physical Exam 2 Vital Signs: Vital Signs: Last Vital Signs Temp 97.5 F 01/28/25 08:27 Pulse 100 01/28/25 08:56 Resp 18 01/28/25 08:27 BP 102/55 L 01/28/25 08:56 Pulse Ox 95 01/28/25 08:56 O2 Del Method Room Air 01/28/25 08:56 BMI result Body Mass Index 22.5 Const: General: cooperative and no acute distress HEENT: Head: Yes normal to inspection, Yes normocephalic and Yes atraumatic Eyes: Conjunctivae: conjunctivae normal Neck: Neck: Yes normal visual inspection and Yes trachea midline Chest: Chest palpation & inspection: normal inspection of the chest Resp: Effort & Inspection: normal respiratory effort GI: Inspection: Yes normal to inspection Psych: Appearance: grossly normal Results Labs 01/18/25 11:24 01/27/25 13:48 Labs: Urine 01/18/25 01/27/25 Range/Units 18:48 16:55 Urine Color Dark Yellow Yellow Urine Appearance Turbid Cloudy Urine pH 5.0 6.0 (5.0-9.0) Ur Specific [place] 1.025 1.020 (1.005-1.025) Urine Protein 30 (1+) H Negative (Neg-Trace) mg/dL Urine Glucose (UA) Negative Negative (Negative) mg/dL All other labs normal. Assessment and Plan (1) Paranoia: Status: Acute (2) Bipolar disorder: Status: Acute (3) Bipolar disorder, curr episode mixed, severe, with psychotic features: Status: Acute (4) Acute urinary retention: Status: Acute Plan The patient is on psychotic medications that have anticholinergic affects. Gabapentin has been titrated down from 400 mg t.i.d. to 200 mg t.i.d. and patient started on tamsulosin. Agree with medication adjustments and tamsulosin dosing. Urinalysis negative. Continue bladder scan and CIC every 8 hours for PVRs greater than 500 mL Procedures Date of Service Date of Service: 01/29/25
--- NOTE | 2025-01-28 15:56 | PC.NURSE ---
Addendum entered by Tasia Durham RN 01/28/25 16:08: Change in st cath if bladder scan to over 500cc per Dr. Reed, verified with Rosey Mak NP. Original Note: Dr. Reed saw the patient today for a urology consult. She would like us to continue the bladder scan and st cath every 8 hours if need, start the Tamsulosin tomorrow and continue conservative treatment.
--- NOTE | 2025-01-28 16:12 | P.PNPSI_ITS ---
Subjective Subjective Date of Service: 01/28/25 Reason For Visit: Psychosis Subjective Notes: Conditional Voluntary Interim History: Patient seen psychiatric follow-up. Patient has had episodes of urinary retention was seen by urology. They agreed with lowering gabapentin starting tamsulosin. The patient is severely anxious disorganized in thought acid difficult time giving a linear history. Patient remains on 5 minute checks has intermittent hopelessness helplessness vague SI. Periods of agitation UA was negative for infection. Patient has been intermittently straight cath Mental Status Exam Mental Status Exam Patient Appearance: Unkempt Patient Orientation: Person and Situation Level of Consciousness: Awake and Disoriented Mood Description: Apprehensive Affect Description: Constricted Patient Cognition Impaired: Yes Speech Pattern: Impoverished Hallucinations: None Delusions: Paranoid Ideation and Ideas of Reference Thought Process: Racing and Distracted Thought Content: positive for [place], positive for Poverty of Content and positive for Disorganized Depressive Symptoms: Increased Anxiety, Loss of Int. in Activity and Difficulty Concentrating Judgement: Fair Diagnostics Vital Signs (24Hr): Vital Signs - 24 hr 01/27/25 20:00 01/28/25 08:27 01/28/25 08:54 Temperature 97.8 F 97.5 F Pulse Rate 78 Respiratory Rate 18 18 Blood Pressure 134/63 102/55 L Pulse Oximetry 95 Oxygen Delivery Method Room Air 01/28/25 08:56 Temperature Pulse Rate 100 Respiratory Rate Blood Pressure 102/55 L Pulse Oximetry 95 Oxygen Delivery Method Room Air BMI result Body Mass Index 22.5 Labs 01/18/25 11:24 01/27/25 13:48 Labs: Laboratory Results - last 48 hr 01/27/25 01/27/25 13:48 16:55 Sodium 142 Potassium 4.3 Chloride 108 Carbon Dioxide 26 Anion Gap 12 BUN 26 H Creatinine 0.96 Estim Creat Clear Calc 46.7 Estimated GFR 57 Random Glucose 143 H Calcium 9.7 Total Bilirubin 0.6 AST 22 ALT 18 Alkaline Phosphatase 66 Ammonia 51 Total Protein 6.3 L Albumin 3.9 Urine Color Yellow Urine Appearance Cloudy Urine pH 6.0 Ur Specific [place] 1.020 Urine Protein Negative Urine Glucose (UA) Negative Urine Ketones Trace Urine Blood Negative Urine Nitrite Negative Ur Leukocyte Esterase Negative Medications Medications Current Medications Acetaminophen (Acetaminophen 325 Mg Tablet) 650 mg PO Q6H PRN PRN Reason: Headache/Pain Mild Scale (1-3) Last Admin: 01/28/25 06:27 Dose: 650 mg Al Hydroxide/Mg Hydroxide (Magnesium Hydrox/Alum Hydrox 30 Ml Oral.Susp) 30 ml PO Q6H PRN PRN Reason: Heartburn/Nausea Albuterol Sulfate (Albuterol Sulfate 90 Mcg 8 Gm Inhaler) 2 puff INHALE RQ4H PRN PRN Reason: Bronchospasm Atorvastatin Calcium (Atorvastatin Calcium 40 Mg Tablet) 40 mg PO BEDTIME [facility] Last Admin: 01/27/25 23:25 Dose: Not Given Divalproex Sodium (Divalproex Sodium Er 250 Mg Tab.Er.24h) 250 mg PO TID [facility] Last Admin: 01/28/25 14:25 Dose: 250 mg Docusate Sodium (Docusate Sodium 100 Mg Capsule) 100 mg PO BEDTIME [facility] Last Admin: 01/27/25 23:29 Dose: Not Given Gabapentin (Gabapentin 100 Mg Capsule) 200 mg PO TID [facility] Last Admin: 01/28/25 14:24 Dose: 200 mg Latanoprost (Latanoprost 0.005 % Ophth Hannah 2.5 Ml Drops) 1 drop EYE-BOTH BEDTIME [facility] Last Admin: 01/27/25 23:29 Dose: Not Given Levothyroxine Sodium (Levothyroxine Sodium 50 Mcg Tablet) 50 mcg PO DAILY@0600 [facility] Last Admin: 01/28/25 08:48 Dose: 50 mcg Lisinopril (Lisinopril 10 Mg Tablet) 30 mg PO DAILY [facility]; Protocol Last Admin: 01/28/25 08:54 Dose: 30 mg Lorazepam (Lorazepam 0.5 Mg Tablet) 0.5 mg PO TID [facility] Last Admin: 01/28/25 14:25 Dose: 0.5 mg Magnesium Hydroxide (Milk Of Magnesia 30 Ml Oral.Susp) 30 ml PO DAILY PRN PRN Reason: Constipation Melatonin (Melatonin 3 Mg Tablet) 9 mg PO BEDTIME [facility] Last Admin: 01/27/25 23:29 Dose: Not Given Olanzapine (Olanzapine 7.5 Mg Tablet) 7.5 mg PO BEDTIME [facility] Last Admin: 01/27/25 23:29 Dose: Not Given Olanzapine (Olanzapine 5 Mg Tablet) 5 mg PO Q4H PRN PRN Reason: agitation Last Admin: 01/28/25 03:38 Dose: 5 mg Senna (Sennosides 8.6 Mg Tablet) 8.6 mg PO DAILY PRN PRN Reason: Constipation Tamsulosin HCl (Tamsulosin Hcl 0.4 Mg Capsule) 0.4 mg PO DAILY [facility] Trazodone HCl (Trazodone Hcl 50 Mg Tablet) 50 mg PO BEDTIME MRX1 PRN PRN Reason: Insomnia Last Admin: 01/26/25 00:58 Dose: 50 mg Allergies Allergies Allergy/AdvReac Type Severity Reaction Status Date / Time cat dander [cats] Allergy Unknown Verified 01/18/25 09:04 cortisone Allergy Unknown Verified 01/18/25 09:04 dog dander [dogs] Allergy Unknown Verified 01/18/25 09:04 Assessment & Plan Assessment & Plan (1) Paranoia: Status: Acute Code(s): F22 - Delusional disorders (2) Bipolar disorder: Status: Acute Code(s): F31.9 - Bipolar disorder, unspecified (3) Bipolar disorder, curr episode mixed, severe, with psychotic features: Status: Acute Code(s): F31.64 - Bipolar disorder, current episode mixed, severe, with psychotic features (4) Acute urinary retention: Status: Acute Code(s): R33.8 - Other retention of urine Plan The patient is psychotic medications have anticholinergic affects. Gabapentin has been titrated down from 400 mg t.i.d. to 200 mg t.i.d. inpatient started on tamsulosin. Agree with medication adjustments and tamsulosin dosing. Urinalysis negative. Continue bladder scan and CIC every 8 hours for PVRs greater than 500 mL cont zyprexa for psychosis ? consider risp get addtnl hx ? cognitive impairmment vs primary psych illness Reason for continued inpatient stay Substantial Risk for: harm to self and rapid decompensation Time Spent With Patient Time: Total time managing care of this patient today ____ minutes.
[2025-01-28 19:47] VITALS: BP 126/58; PULSE 83; RESP 18; TEMP 37; O2SAT 97
[2025-01-28] MEDS: Melatonin 3 MG TABLET 9 MG PO (21:08)
[2025-01-28] MEDS: OLANZapine 7.5 MG TABLET PO (21:08)
[2025-01-28] MEDS: Docusate Sodium 100 MG CAPSULE PO (21:08)
[2025-01-28] MEDS: Atorvastatin Calcium 40 MG TABLET PO (21:08)
[2025-01-28] MEDS: Latanoprost 0.005 % Ophth Sol 2.5 ML DROPS 1 DROP EYE-BOTH (21:21)
[2025-01-29] MEDS: Levothyroxine Sodium 50 MCG TABLET PO (06:24)
[2025-01-29 08:00] VITALS: BP 128/60; PULSE 92; TEMP 36.6; O2SAT 98
[2025-01-29] MEDS: Gabapentin 100 MG CAPSULE 200 MG PO ×3 (08:17→21:00)
[2025-01-29] MEDS: Tamsulosin HCL 0.4 MG CAPSULE PO (08:18)
[2025-01-29] MEDS: Divalproex Sodium ER 250 MG TAB.ER.24H PO ×3 (08:18→20:59)
[2025-01-29] MEDS: LORazepam 0.5 MG TABLET PO ×3 (08:18→21:00)
[2025-01-29 08:19] VITALS: BP 128/60
[2025-01-29] MEDS: lisinopriL 10 MG TABLET 30 MG PO (08:19)
--- NOTE | 2025-01-29 09:39 | PC.NURSE ---
Orthostatic blood pressure obtained: 113/53 (92) laying down, 104/54 (100) sitting, 87/56 (103) standing. Dr Her made aware.
[2025-01-29] MEDS: OLANZapine 2.5 MG TABLET PO (15:05)
[2025-01-29 20:00] VITALS: BP 117/59; PULSE 90; RESP 18; TEMP 36.6; O2SAT 96
[2025-01-29] MEDS: Atorvastatin Calcium 40 MG TABLET PO (20:59)
[2025-01-29] MEDS: Docusate Sodium 100 MG CAPSULE PO (20:59)
[2025-01-29] MEDS: OLANZapine 10 MG TABLET PO (21:00)
[2025-01-29] MEDS: Latanoprost 0.005 % Ophth Sol 2.5 ML DROPS 1 DROP EYE-BOTH (21:00)
[2025-01-29] MEDS: Melatonin 3 MG TABLET 9 MG PO (21:00)
--- NOTE | 2025-01-29 21:10 | HO.PSYCHPN ---
Subjective Subjective Date of Service: 01/29/25 Reason For Visit: Psychosis Subjective Notes: Conditional Voluntary Healthcare Proxy: Yes Interim History: Pt anxious runinating paranoid fearful. Pt on bladder schedule st cath if needed Pt needs much reassurance Mental Status Exam Mental Status Exam Patient Appearance: Unkempt Patient Orientation: Person and Situation Level of Consciousness: Awake and Disoriented Mood Description: Apprehensive Affect Description: Constricted Patient Cognition Impaired: Yes Speech Pattern: Impoverished Hallucinations: None Delusions: Paranoid Ideation and Ideas of Reference Thought Process: Racing and Distracted Thought Content: positive for [place], positive for Poverty of Content and positive for Disorganized Depressive Symptoms: Increased Anxiety, Loss of Int. in Activity and Difficulty Concentrating Judgement: Fair Diagnostics Vital Signs (24Hr): Vital Signs - 24 hr 01/29/25 08:00 01/29/25 08:19 Temperature 97.9 F Pulse Rate 92 Blood Pressure 128/60 128/60 Pulse Oximetry 98 Oxygen Delivery Method Room Air BMI result Body Mass Index 22.5 Labs 01/18/25 11:24 01/27/25 13:48 Medications Medications Current Medications Acetaminophen (Acetaminophen 325 Mg Tablet) 650 mg PO Q6H PRN PRN Reason: Headache/Pain Mild Scale (1-3) Last Admin: 01/28/25 06:27 Dose: 650 mg Al Hydroxide/Mg Hydroxide (Magnesium Hydrox/Alum Hydrox 30 Ml Oral.Susp) 30 ml PO Q6H PRN PRN Reason: Heartburn/Nausea Albuterol Sulfate (Albuterol Sulfate 90 Mcg 8 Gm Inhaler) 2 puff INHALE RQ4H PRN PRN Reason: Bronchospasm Atorvastatin Calcium (Atorvastatin Calcium 40 Mg Tablet) 40 mg PO BEDTIME [facility] Last Admin: 01/29/25 20:59 Dose: 40 mg Divalproex Sodium (Divalproex Sodium Er 250 Mg Tab.Er.24h) 250 mg PO TID [facility] Last Admin: 01/29/25 20:59 Dose: 250 mg Docusate Sodium (Docusate Sodium 100 Mg Capsule) 100 mg PO BEDTIME [facility] Last Admin: 01/29/25 20:59 Dose: 100 mg Gabapentin (Gabapentin 100 Mg Capsule) 200 mg PO TID [facility] Last Admin: 01/29/25 21:00 Dose: 200 mg Latanoprost (Latanoprost 0.005 % Ophth Hannah 2.5 Ml Drops) 1 drop EYE-BOTH BEDTIME [facility] Last Admin: 01/29/25 21:00 Dose: 1 drop Levothyroxine Sodium (Levothyroxine Sodium 50 Mcg Tablet) 50 mcg PO DAILY@0600 [facility] Last Admin: 01/29/25 06:24 Dose: 50 mcg Lisinopril (Lisinopril 10 Mg Tablet) 30 mg PO DAILY [facility]; Protocol Last Admin: 01/29/25 08:19 Dose: 30 mg Lorazepam (Lorazepam 0.5 Mg Tablet) 0.5 mg PO TID [facility] Last Admin: 01/29/25 21:00 Dose: 0.5 mg Magnesium Hydroxide (Milk Of Magnesia 30 Ml Oral.Susp) 30 ml PO DAILY PRN PRN Reason: Constipation Melatonin (Melatonin 3 Mg Tablet) 9 mg PO BEDTIME [facility] Last Admin: 01/29/25 21:00 Dose: 9 mg Olanzapine (Olanzapine 5 Mg Tablet) 5 mg PO Q4H PRN PRN Reason: agitation Last Admin: 01/28/25 03:38 Dose: 5 mg Olanzapine (Olanzapine 10 Mg Tablet) 10 mg PO BEDTIME [facility] Last Admin: 01/29/25 21:00 Dose: 10 mg Senna (Sennosides 8.6 Mg Tablet) 8.6 mg PO DAILY PRN PRN Reason: Constipation Tamsulosin HCl (Tamsulosin Hcl 0.4 Mg Capsule) 0.4 mg PO DAILY [facility] Last Admin: 01/29/25 08:18 Dose: 0.4 mg Trazodone HCl (Trazodone Hcl 50 Mg Tablet) 50 mg PO BEDTIME MRX1 PRN PRN Reason: Insomnia Last Admin: 01/26/25 00:58 Dose: 50 mg Allergies Allergies Allergy/AdvReac Type Severity Reaction Status Date / Time cat dander [cats] Allergy Unknown Verified 01/18/25 09:04 cortisone Allergy Unknown Verified 01/18/25 09:04 dog dander [dogs] Allergy Unknown Verified 01/18/25 09:04 Assessment & Plan Assessment & Plan (1) Paranoia: Status: Acute Code(s): F22 - Delusional disorders (2) Bipolar disorder: Status: Acute Code(s): F31.9 - Bipolar disorder, unspecified (3) Bipolar disorder, curr episode mixed, severe, with psychotic features: Status: Acute Code(s): F31.64 - Bipolar disorder, current episode mixed, severe, with psychotic features (4) Acute urinary retention: Status: Acute Code(s): R33.8 - Other retention of urine Plan The patient is on psychotic medications that have anticholinergic affects. Gabapentin has been titrated down from 400 mg t.i.d. to 200 mg t.i.d. and patient started on tamsulosin. Agree with medication adjustments and tamsulosin dosing. Urinalysis negative. Continue bladder scan and CIC every 8 hours for PVRs greater than 500 mL 01/29/25 cont olanzapine depakote inc as tolerated Informed Consent: does not understand and further education needed Reason for continued inpatient stay Substantial Risk for: harm to self, rapid decompensation and med/psych decompensation Time Spent With Patient Time: Total time managing care of this patient today _30___ minutes.
[2025-01-30] MEDS: Levothyroxine Sodium 50 MCG TABLET PO (06:10)
[2025-01-30 08:53] VITALS: BP 117/51; PULSE 92; RESP 20; TEMP 36.9; O2SAT 95
[2025-01-30] MEDS: Divalproex Sodium ER 250 MG TAB.ER.24H PO ×3 (08:55→20:05)
[2025-01-30] MEDS: Gabapentin 100 MG CAPSULE 200 MG PO (08:55)
[2025-01-30] MEDS: Tamsulosin HCL 0.4 MG CAPSULE PO (08:56)
[2025-01-30] MEDS: LORazepam 0.5 MG TABLET PO ×3 (08:56→20:05)
[2025-01-30] MEDS: lisinopriL 10 MG TABLET 30 MG PO (08:56)
[2025-01-30] MEDS: Acetaminophen 325 MG TABLET 650 MG PO (10:19)
[2025-01-30] MEDS: Gabapentin 100 MG CAPSULE PO ×2 (16:19→20:07)
[2025-01-30 16:59] VITALS: BMI 21.8
[2025-01-30 20:00] VITALS: BP 132/63; PULSE 88; RESP 16; TEMP 36.6; O2SAT 98
[2025-01-30] MEDS: Atorvastatin Calcium 40 MG TABLET PO (20:05)
[2025-01-30] MEDS: OLANZapine 10 MG TABLET PO (20:06)
[2025-01-30] MEDS: Melatonin 3 MG TABLET 9 MG PO (20:06)
[2025-01-30] MEDS: traZODone HCL 50 MG TABLET PO ×2 (20:19→20:20)
[2025-01-30] MEDS: Latanoprost 0.005 % Ophth Sol 2.5 ML DROPS 1 DROP EYE-BOTH (20:19)
--- NOTE | 2025-01-30 21:55 | HO.PSYCHPN ---
Subjective Subjective Date of Service: 01/30/25 Reason For Visit: Psychosis Subjective Notes: Conditional Voluntary Healthcare Proxy: Yes Interim History: Pt with periods severe anxiety agitation .The pt was otherwise clearer at times knows numbers of son sisters more organized thought at times. Eating and drinking has improved Medication Compliance: Yes Side effects from medications: No Review of Systems Acute medical concerns: Yes had urinary retention Mental Status Exam Mental Status Exam Narrative: anxious in appearance places herself on floor at times Patient Appearance: Appropriate Patient Orientation: Person and Situation Level of Consciousness: Awake and Restless Patient Behavior: Anxious, Distractible and Good Eye Contact Mood Description: Depressed and Apprehensive Affect Description: Constricted Patient Cognition Impaired: Yes Speech Pattern: Impoverished Memory Description: Working Impaired Hallucinations: None Delusions: Paranoid Ideation and Ideas of Reference Thought Process: Racing and Distracted Thought Content: positive for [place], positive for Poverty of Content and positive for Disorganized Depressive Symptoms: Increased Anxiety, Loss of Int. in Activity and Difficulty Concentrating Abnormal Motor Activity Signs and Symptoms: Restlessness Judgement: Fair Diagnostics Vital Signs (24Hr): Vital Signs - 24 hr 01/30/25 08:53 Temperature 98.4 F Pulse Rate 92 Respiratory Rate 20 Blood Pressure 117/51 L Pulse Oximetry 95 Oxygen Delivery Method Room Air BMI result Body Mass Index 21.8 Labs 01/18/25 11:24 01/27/25 13:48 Medications Medications Current Medications Acetaminophen (Acetaminophen 325 Mg Tablet) 650 mg PO Q6H PRN PRN Reason: Headache/Pain Mild Scale (1-3) Last Admin: 01/30/25 10:19 Dose: 650 mg Al Hydroxide/Mg Hydroxide (Magnesium Hydrox/Alum Hydrox 30 Ml Oral.Susp) 30 ml PO Q6H PRN PRN Reason: Heartburn/Nausea Albuterol Sulfate (Albuterol Sulfate 90 Mcg 8 Gm Inhaler) 2 puff INHALE RQ4H PRN PRN Reason: Bronchospasm Atorvastatin Calcium (Atorvastatin Calcium 40 Mg Tablet) 40 mg PO BEDTIME [facility] Last Admin: 01/30/25 20:05 Dose: 40 mg Divalproex Sodium (Divalproex Sodium Er 250 Mg Tab.Er.24h) 250 mg PO TID [facility] Last Admin: 01/30/25 20:05 Dose: 250 mg Docusate Sodium (Docusate Sodium 100 Mg Capsule) 100 mg PO BEDTIME [facility] Last Admin: 01/29/25 20:59 Dose: 100 mg Gabapentin (Gabapentin 100 Mg Capsule) 100 mg PO TID [facility] Last Admin: 01/30/25 20:07 Dose: 100 mg Latanoprost (Latanoprost 0.005 % Ophth Hannah 2.5 Ml Drops) 1 drop EYE-BOTH BEDTIME [facility] Last Admin: 01/30/25 20:19 Dose: 1 drop Levothyroxine Sodium (Levothyroxine Sodium 50 Mcg Tablet) 50 mcg PO DAILY@0600 [facility] Last Admin: 01/30/25 06:10 Dose: 50 mcg Lisinopril (Lisinopril 10 Mg Tablet) 30 mg PO DAILY [facility]; Protocol Last Admin: 01/30/25 08:56 Dose: 30 mg Lorazepam (Lorazepam 0.5 Mg Tablet) 0.5 mg PO TID [facility] Last Admin: 01/30/25 20:05 Dose: 0.5 mg Magnesium Hydroxide (Milk Of Magnesia 30 Ml Oral.Susp) 30 ml PO DAILY PRN PRN Reason: Constipation Melatonin (Melatonin 3 Mg Tablet) 9 mg PO BEDTIME [facility] Last Admin: 01/30/25 20:06 Dose: 9 mg Olanzapine (Olanzapine 5 Mg Tablet) 5 mg PO Q4H PRN PRN Reason: agitation Last Admin: 01/28/25 03:38 Dose: 5 mg Olanzapine (Olanzapine 10 Mg Tablet) 10 mg PO BEDTIME [facility] Last Admin: 01/30/25 20:06 Dose: 10 mg Senna (Sennosides 8.6 Mg Tablet) 8.6 mg PO DAILY PRN PRN Reason: Constipation Tamsulosin HCl (Tamsulosin Hcl 0.4 Mg Capsule) 0.4 mg PO DAILY [facility] Last Admin: 01/30/25 08:56 Dose: 0.4 mg Trazodone HCl (Trazodone Hcl 50 Mg Tablet) 50 mg PO BEDTIME MRX1 PRN PRN Reason: Insomnia Last Admin: 01/30/25 20:20 Dose: 50 mg Allergies Allergies Allergy/AdvReac Type Severity Reaction Status Date / Time cat dander [cats] Allergy Unknown Verified 01/18/25 09:04 cortisone Allergy Unknown Verified 01/18/25 09:04 dog dander [dogs] Allergy Unknown Verified 01/18/25 09:04 Assessment & Plan Assessment & Plan (1) Paranoia: Status: Acute Code(s): F22 - Delusional disorders (2) Bipolar disorder: Status: Acute Code(s): F31.9 - Bipolar disorder, unspecified (3) Bipolar disorder, curr episode mixed, severe, with psychotic features: Status: Acute Code(s): F31.64 - Bipolar disorder, current episode mixed, severe, with psychotic features (4) Acute urinary retention: Status: Acute Code(s): R33.8 - Other retention of urine Plan The patient is on psychotic medications that have anticholinergic affects. Gabapentin has been titrated down from 400 mg t.i.d. to 200 mg t.i.d. and patient started on tamsulosin. Agree with medication adjustments and tamsulosin dosing. Urinalysis negative. Continue bladder scan and CIC every 8 hours for PVRs greater than 500 mL 01/29/25 cont olanzapine depakote inc as tolerated 01/30/25 pt somewhat clearer left message for son agitated depression consider ect ? mixed state Reason for continued inpatient stay Substantial Risk for: harm to self, inability to function and rapid decompensation Time Spent With Patient Time: Total time managing care of this patient today ____ minutes.
[2025-01-31] MEDS: Levothyroxine Sodium 50 MCG TABLET PO (06:03)
[2025-01-31 09:18] VITALS: BP 119/57; PULSE 79; RESP 20; TEMP 36.9; O2SAT 95
[2025-01-31] MEDS: Tamsulosin HCL 0.4 MG CAPSULE PO (09:19)
[2025-01-31] MEDS: LORazepam 0.5 MG TABLET PO ×3 (09:20→21:16)
[2025-01-31] MEDS: Gabapentin 100 MG CAPSULE PO ×3 (09:20→21:16)
[2025-01-31] MEDS: Divalproex Sodium ER 250 MG TAB.ER.24H PO ×3 (09:20→21:16)
[2025-01-31] MEDS: lisinopriL 10 MG TABLET 30 MG PO (09:21)
[2025-01-31] MEDS: Acetaminophen 325 MG TABLET 650 MG PO (16:04)
[2025-01-31 20:00] VITALS: BP 129/58; PULSE 74; RESP 16; TEMP 37; O2SAT 97
--- NOTE | 2025-01-31 20:43 | P.PNPSI_ITS ---
Subjective Subjective Date of Service: 01/31/25 Reason For Visit: Psychosis Subjective Notes: Section 7 and Conditional Voluntary Mental Status Exam Mental Status Exam Narrative: Mental Status Exam Narrative: Appearance: casually dressed Behavior:cooperative psychomotor: Speech: clear Thought proccess logical circumstantial Thought content:focused on her home getting better Mood:anxious dysphoric Affect:constricted SI:denies HI:denies VH/AH:none Delusions:some residual paranoia Insight/judgment:impaired but improving Memory/cog: Diagnostics Vital Signs (24Hr): Vital Signs - 24 hr 01/31/25 09:18 Temperature 98.4 F Pulse Rate 79 Respiratory Rate 20 Blood Pressure 119/57 L Pulse Oximetry 95 Oxygen Delivery Method Room Air BMI result Body Mass Index 21.8 Labs 01/18/25 11:24 01/27/25 13:48 Medications Medications Current Medications Acetaminophen (Acetaminophen 325 Mg Tablet) 650 mg PO Q6H PRN PRN Reason: Headache/Pain Mild Scale (1-3) Last Admin: 01/31/25 16:04 Dose: 650 mg Al Hydroxide/Mg Hydroxide (Magnesium Hydrox/Alum Hydrox 30 Ml Oral.Susp) 30 ml PO Q6H PRN PRN Reason: Heartburn/Nausea Albuterol Sulfate (Albuterol Sulfate 90 Mcg 8 Gm Inhaler) 2 puff INHALE RQ4H PRN PRN Reason: Bronchospasm Atorvastatin Calcium (Atorvastatin Calcium 40 Mg Tablet) 40 mg PO BEDTIME [facility] Last Admin: 01/30/25 20:05 Dose: 40 mg Divalproex Sodium (Divalproex Sodium Er 250 Mg Tab.Er.24h) 250 mg PO TID [facility] Last Admin: 01/31/25 15:49 Dose: 250 mg Docusate Sodium (Docusate Sodium 100 Mg Capsule) 100 mg PO BEDTIME [facility] Last Admin: 01/30/25 23:41 Dose: Not Given Gabapentin (Gabapentin 100 Mg Capsule) 100 mg PO TID [facility] Last Admin: 01/31/25 15:49 Dose: 100 mg Latanoprost (Latanoprost 0.005 % Ophth Hannah 2.5 Ml Drops) 1 drop EYE-BOTH BEDTIME [facility] Last Admin: 01/30/25 20:19 Dose: 1 drop Levothyroxine Sodium (Levothyroxine Sodium 50 Mcg Tablet) 50 mcg PO DAILY@0600 [facility] Last Admin: 01/31/25 06:03 Dose: 50 mcg Lisinopril (Lisinopril 10 Mg Tablet) 30 mg PO DAILY [facility]; Protocol Last Admin: 01/31/25 09:21 Dose: 30 mg Lorazepam (Lorazepam 0.5 Mg Tablet) 0.5 mg PO TID [facility] Last Admin: 01/31/25 15:49 Dose: 0.5 mg Magnesium Hydroxide (Milk Of Magnesia 30 Ml Oral.Susp) 30 ml PO DAILY PRN PRN Reason: Constipation Melatonin (Melatonin 3 Mg Tablet) 9 mg PO BEDTIME [facility] Last Admin: 01/30/25 20:06 Dose: 9 mg Olanzapine (Olanzapine 5 Mg Tablet) 5 mg PO Q4H PRN PRN Reason: agitation Last Admin: 01/28/25 03:38 Dose: 5 mg Olanzapine (Olanzapine 10 Mg Tablet) 10 mg PO BEDTIME [facility] Last Admin: 01/30/25 20:06 Dose: 10 mg Senna (Sennosides 8.6 Mg Tablet) 8.6 mg PO DAILY PRN PRN Reason: Constipation Tamsulosin HCl (Tamsulosin Hcl 0.4 Mg Capsule) 0.4 mg PO DAILY [facility] Last Admin: 01/31/25 09:19 Dose: 0.4 mg Trazodone HCl (Trazodone Hcl 50 Mg Tablet) 50 mg PO BEDTIME MRX1 PRN PRN Reason: Insomnia Last Admin: 01/30/25 20:20 Dose: 50 mg Allergies Allergies Allergy/AdvReac Type Severity Reaction Status Date / Time cat dander [cats] Allergy Unknown Verified 01/18/25 09:04 cortisone Allergy Unknown Verified 01/18/25 09:04 dog dander [dogs] Allergy Unknown Verified 01/18/25 09:04 Assessment & Plan Assessment & Plan (1) Paranoia: Status: Acute Code(s): F22 - Delusional disorders (2) Bipolar disorder: Status: Acute Code(s): F31.9 - Bipolar disorder, unspecified (3) Bipolar disorder, curr episode mixed, severe, with psychotic features: Status: Acute Code(s): F31.64 - Bipolar disorder, current episode mixed, severe, with psychotic features (4) Acute urinary retention: Status: Acute Code(s): R33.8 - Other retention of urine Plan The patient is on psychotic medications that have anticholinergic affects. Gabapentin has been titrated down from 400 mg t.i.d. to 200 mg t.i.d. and patient started on tamsulosin. Agree with medication adjustments and tamsulosin dosing. Urinalysis negative. Continue bladder scan and CIC every 8 hours for PVRs greater than 500 mL 01/29/25 cont olanzapine depakote inc as tolerated 01/30/25 pt somewhat clearer left message for son agitated depression consider ect ? mixed state 01/31/25 pt gradually improving cont depakote olanzapine needs much education reassurance Patient educated on: diagnosis and medication risk/benefits Informed Consent: further education needed Reason for continued inpatient stay Substantial Risk for: harm to self, inability to function and rapid decompensation Time Spent With Patient Time: Total time managing care of this patient today 30____ minutes.
[2025-01-31] MEDS: Docusate Sodium 100 MG CAPSULE PO (21:15)
[2025-01-31] MEDS: Melatonin 3 MG TABLET 9 MG PO (21:15)
[2025-01-31] MEDS: OLANZapine 10 MG TABLET PO (21:16)
[2025-01-31] MEDS: Latanoprost 0.005 % Ophth Sol 2.5 ML DROPS 1 DROP EYE-BOTH (21:16)
[2025-01-31] MEDS: Atorvastatin Calcium 40 MG TABLET PO (21:16)
[2025-02-01] MEDS: Levothyroxine Sodium 50 MCG TABLET PO (06:34)
[2025-02-01 08:08] VITALS: BP 145/65; PULSE 70; RESP 16; TEMP 35.9; O2SAT 98
[2025-02-01] MEDS: LORazepam 0.5 MG TABLET PO ×3 (08:28→20:18)
[2025-02-01] MEDS: Tamsulosin HCL 0.4 MG CAPSULE PO (08:29)
[2025-02-01] MEDS: Gabapentin 100 MG CAPSULE PO (08:29)
[2025-02-01] MEDS: Divalproex Sodium ER 250 MG TAB.ER.24H PO ×2 (08:29→14:44)
[2025-02-01] MEDS: lisinopriL 10 MG TABLET 30 MG PO (08:29)
--- NOTE | 2025-02-01 09:05 | PC.NURSE ---
Patient is voiding and has not had to be straight cathd in 2 days. OK to stop bladder scans per Dr. Leticia Her. Patient voided 180 cc this am concentrated yulisa urine without difficulty.
--- NOTE | 2025-02-01 10:52 | HO.PSYCHPN ---
Subjective Subjective Date of Service: 02/01/25 Reason For Visit: Psychosis Subjective Notes: Conditional Voluntary Healthcare Proxy: Yes Interim History: Patient seen psychiatric follow-up patient is anxious and ruminating able to give history perhaps consistent with bipolar 2. Has also had gait disturbance was supposed to go to rehab also a question of urinary incontinence she has been able to go the past 48 hours without straight cath Medication Compliance: Yes Attending Groups: Yes Review of Systems Acute medical concerns: Yes Gait disturbance incontinence Mental Status Exam Mental Status Exam Narrative: Mental Status Exam Narrative: Appearance: casually dressed anxious in appearance Behavior:cooperative psychomotor: Speech: clear mostly Thought proccess logical circumstantial confused at time Thought content:focused on getting better traumatic experience at [facility] Mood:anxious dysphoric Affect:constricted somewhat labile SI:denies currently HI:denies VH/AH:none Delusions:some residual paranoia Insight/judgment:impaired but improving Memory/cog: Diagnostics Vital Signs (24Hr): Vital Signs - 24 hr 01/31/25 20:00 02/01/25 08:08 Temperature 98.6 F 96.7 F L Pulse Rate 74 70 Respiratory Rate 16 16 Blood Pressure 129/58 L 145/65 H Pulse Oximetry 97 98 Oxygen Delivery Method Room Air Room Air BMI result Body Mass Index 21.8 Labs 01/18/25 11:24 01/27/25 13:48 Medications Medications Current Medications Acetaminophen (Acetaminophen 325 Mg Tablet) 650 mg PO Q6H PRN PRN Reason: Headache/Pain Mild Scale (1-3) Last Admin: 01/31/25 16:04 Dose: 650 mg Al Hydroxide/Mg Hydroxide (Magnesium Hydrox/Alum Hydrox 30 Ml Oral.Susp) 30 ml PO Q6H PRN PRN Reason: Heartburn/Nausea Albuterol Sulfate (Albuterol Sulfate 90 Mcg 8 Gm Inhaler) 2 puff INHALE RQ4H PRN PRN Reason: Bronchospasm Atorvastatin Calcium (Atorvastatin Calcium 40 Mg Tablet) 40 mg PO BEDTIME [facility] Last Admin: 01/31/25 21:16 Dose: 40 mg Divalproex Sodium (Divalproex Sodium Er 250 Mg Tab.Er.24h) 250 mg PO TID [facility] Last Admin: 02/01/25 08:29 Dose: 250 mg Docusate Sodium (Docusate Sodium 100 Mg Capsule) 100 mg PO BEDTIME [facility] Last Admin: 01/31/25 21:15 Dose: 100 mg Gabapentin (Gabapentin 100 Mg Capsule) 100 mg PO TID [facility] Last Admin: 02/01/25 08:29 Dose: 100 mg Latanoprost (Latanoprost 0.005 % Ophth Hannah 2.5 Ml Drops) 1 drop EYE-BOTH BEDTIME [facility] Last Admin: 01/31/25 21:16 Dose: 1 drop Levothyroxine Sodium (Levothyroxine Sodium 50 Mcg Tablet) 50 mcg PO DAILY@0600 [facility] Last Admin: 02/01/25 06:34 Dose: 50 mcg Lisinopril (Lisinopril 10 Mg Tablet) 30 mg PO DAILY [facility]; Protocol Last Admin: 02/01/25 08:29 Dose: 30 mg Lorazepam (Lorazepam 0.5 Mg Tablet) 0.5 mg PO TID [facility] Last Admin: 02/01/25 08:28 Dose: 0.5 mg Magnesium Hydroxide (Milk Of Magnesia 30 Ml Oral.Susp) 30 ml PO DAILY PRN PRN Reason: Constipation Melatonin (Melatonin 3 Mg Tablet) 9 mg PO BEDTIME [facility] Last Admin: 01/31/25 21:15 Dose: 9 mg Olanzapine (Olanzapine 5 Mg Tablet) 5 mg PO Q4H PRN PRN Reason: agitation Last Admin: 01/28/25 03:38 Dose: 5 mg Olanzapine (Olanzapine 10 Mg Tablet) 10 mg PO BEDTIME [facility] Last Admin: 01/31/25 21:16 Dose: 10 mg Senna (Sennosides 8.6 Mg Tablet) 8.6 mg PO DAILY PRN PRN Reason: Constipation Tamsulosin HCl (Tamsulosin Hcl 0.4 Mg Capsule) 0.4 mg PO DAILY [facility] Last Admin: 02/01/25 08:29 Dose: 0.4 mg Trazodone HCl (Trazodone Hcl 50 Mg Tablet) 50 mg PO BEDTIME MRX1 PRN PRN Reason: Insomnia Last Admin: 01/30/25 20:20 Dose: 50 mg Allergies Allergies Allergy/AdvReac Type Severity Reaction Status Date / Time cat dander [cats] Allergy Unknown Verified 01/18/25 09:04 cortisone Allergy Unknown Verified 01/18/25 09:04 dog dander [dogs] Allergy Unknown Verified 01/18/25 09:04 Assessment & Plan Assessment & Plan (1) Paranoia: Status: Acute Code(s): F22 - Delusional disorders (2) Bipolar disorder: Status: Acute Code(s): F31.9 - Bipolar disorder, unspecified (3) Bipolar disorder, curr episode mixed, severe, with psychotic features: Status: Acute Code(s): F31.64 - Bipolar disorder, current episode mixed, severe, with psychotic features (4) Acute urinary retention: Status: Acute Code(s): R33.8 - Other retention of urine Plan The patient is on psychotic medications that have anticholinergic affects. Gabapentin has been titrated down from 400 mg t.i.d. to 200 mg t.i.d. and patient started on tamsulosin. Agree with medication adjustments and tamsulosin dosing. Urinalysis negative. Continue bladder scan and CIC every 8 hours for PVRs greater than 500 mL 01/29/25 cont olanzapine depakote inc as tolerated 01/30/25 pt somewhat clearer left message for son agitated depression consider ect ? mixed state 01/31/25 pt gradually improving cont depakote olanzapine needs much education reassurance 02/01/2025 Continues to gradually improve lower Depakote to 250 b.i.d. lower olanzapine to 7.5 at bedtime mirtazapine 7.5 at bedtime if activated discontinue Reason for continued inpatient stay Substantial Risk for: harm to self, inability to function and rapid decompensation Time Spent With Patient Time: Total time managing care of this patient today ____ minutes.
[2025-02-01 20:00] VITALS: BP 140/72; PULSE 79; RESP 16; TEMP 37.3; O2SAT 96
[2025-02-01] MEDS: Latanoprost 0.005 % Ophth Sol 2.5 ML DROPS 1 DROP EYE-BOTH (20:15)
[2025-02-01] MEDS: OLANZapine 7.5 MG TABLET PO (20:18)
[2025-02-01] MEDS: Melatonin 3 MG TABLET 9 MG PO (20:18)
[2025-02-01] MEDS: Mirtazapine 7.5 MG TABLET PO (20:18)
[2025-02-01] MEDS: Atorvastatin Calcium 40 MG TABLET PO (20:18)
[2025-02-01] MEDS: Acetaminophen 325 MG TABLET 650 MG PO (21:02)
[2025-02-02] MEDS: Levothyroxine Sodium 50 MCG TABLET PO (06:22)
[2025-02-02 07:39] LABS: MANUAL DIFF FLAG NO
[2025-02-02 07:45] LABS: Basophils Percent Auto 0.3 % (0-2); Eosinophils Absolute Auto 0.1 X10*3/uL (0.0-0.4); Eosinophils Percent Auto 0.7 % (0-4); Hematocrit 35.5 % (37.0-47.0); Hemoglobin 12.2 g/dl (12.0-16.0); Imm Gran Abs Auto 0.06 X10*3/uL (0.00-0.03); Imm Gran Pct Auto 0.6 % (0.0-0.4); Lymphocytes Absolute Auto 1.1 X10*3/uL (1.2-4.9); Mean Corpuscular HGB Conc 34.4 g/dl (31.0-35.0); Mean Corpuscular Hemoglobin 30.8 pg (27.0-33.0); Mean Corpuscular Volume 89.6 fL (80.0-98.0); Mean Platelet Volume 11.6 fL (9.4-12.3); Monocytes Absolute Auto 0.8 X10*3/uL (0.1-1.2); Monocytes Percent Auto 8.8 % (2-11); Neutrophils Absolute Auto 7.3 x10*3/uL (2.0-8.3); Neutrophils Percent Auto 77.6 % (45-73); Platelet Count 161 X10*3/uL (160-400); Red Blood Count 3.96 X10*6/uL (4.20-5.50); Red Cell Distribution Width 12.8 % (11.0-16.0); White Blood Count 9.5 X10*3/uL (4.8-10.8)
[2025-02-02 07:58] LABS: Ammonia 35 umol/L (13-55)
[2025-02-02 08:00] VITALS: BP 140/62; PULSE 100; RESP 18; TEMP 36.8; O2SAT 97
[2025-02-02 08:06] LABS: Alanine Aminotransferase 13 U/L (0-31); Albumin Level 3.5 g/dL (3.5-5.0); Alkaline Phosphatase 57 U/L (39-117); Anion Gap 12 (12-20); Aspartate Amino Transferase 14 U/L (5-31); Bilirubin Total 0.6 mg/dL (0.0-1.0); Blood Urea Nitrogen 5 mg/dL (9-16); Calcium 8.7 mg/dL (8.4-10.2); Carbon Dioxide 25 mmol/L (22-29); Chloride 110 mmol/L (96-108); Creatinine Clr Calc Pharmacy 59.7; Estimated Glomerular Filt Rate > 60; Glucose Fasting 99 mg/dL (60-99); Potassium 3.6 mmol/L (3.3-5.1); Sodium 143 mmol/L (135-145); Total Protein 5.8 g/dL (6.5-8.0)
[2025-02-02 08:28] LABS: TSH reflex Free T4 3.18 uIU/mL (0.32-4.0)
[2025-02-02] MEDS: lisinopriL 10 MG TABLET 30 MG PO (08:35)
[2025-02-02] MEDS: LORazepam 0.5 MG TABLET PO ×3 (08:36→20:42)
[2025-02-02] MEDS: Divalproex Sodium ER 250 MG TAB.ER.24H PO ×2 (08:36→20:41)
--- NOTE | 2025-02-02 09:44 | P.PNPSI_ITS ---
Subjective Subjective Date of Service: 02/01/25 Reason For Visit: Psychosis Subjective Notes: Conditional Voluntary Healthcare Proxy: Yes Interim History: Patient remains anxious gradually becoming more organized UA positive for bacteria patient does urinary symptoms no fever. No current preoccupation psychotic thoughts or paranoia mood more stable Medication Compliance: Yes Attending Groups: Intermittent Mental Status Exam Mental Status Exam Narrative: Mental Status Exam Narrative: Appearance: casually dressed anxious in appearance Behavior:cooperative psychomotor: Speech: clear mostly Thought proccess logical Thought content:focused on getting better traumatic experience at [facility] worried about her son more reality based content Mood:anxious dysphoric Affect:constricted somewhat labile SI:denies currently HI:denies VH/AH:none Delusions:some residual paranoia but improving Insight/judgment:impaired but improving Memory/cog: Diagnostics Vital Signs (24Hr): Vital Signs - 24 hr 02/01/25 20:00 02/02/25 08:00 Temperature 99.1 F 98.2 F Pulse Rate 79 100 Respiratory Rate 16 18 Blood Pressure 140/72 H 140/62 H Pulse Oximetry 96 97 Oxygen Delivery Method Room Air Room Air BMI result Body Mass Index 21.8 Labs 02/02/25 07:29 02/02/25 07:29 Labs: Laboratory Results - last 48 hr 02/02/25 07:29 WBC 9.5 RBC 3.96 L Hgb 12.2 Hct 35.5 L MCV 89.6 MCH 30.8 MCHC 34.4 RDW 12.8 Plt Count 161 D MPV 11.6 Immature Gran % (Auto) 0.6 H Neut % (Auto) 77.6 H Lymph % (Auto) 12.0 L [place] % (Auto) 8.8 Eos % (Auto) 0.7 Baso % (Auto) 0.3 Lymph # (Auto) 1.1 L [place] # (Auto) 0.8 Eos # (Auto) 0.1 Baso # (Auto) 0.0 Abs Immat Gran (auto) 0.06 H Absolute Neuts (auto) 7.3 Absolute Nucleated RBC 0.000 Nucleated RBC % (auto) 0.0 Sodium 143 Potassium 3.6 Chloride 110 H Carbon Dioxide 25 Anion Gap 12 BUN 5 L Creatinine 0.75 Estim Creat Clear Calc 59.7 Estimated GFR > 60 Fasting Glucose 99 Calcium 8.7 D Total Bilirubin 0.6 AST 14 ALT 13 Alkaline Phosphatase 57 Ammonia 35 Total Protein 5.8 L Albumin 3.5 TSH 3.18 Valproic Acid 52.0 Medications Medications Current Medications Acetaminophen (Acetaminophen 325 Mg Tablet) 650 mg PO Q6H PRN PRN Reason: Headache/Pain Mild Scale (1-3) Last Admin: 02/01/25 21:02 Dose: 650 mg Al Hydroxide/Mg Hydroxide (Magnesium Hydrox/Alum Hydrox 30 Ml Oral.Susp) 30 ml PO Q6H PRN PRN Reason: Heartburn/Nausea Albuterol Sulfate (Albuterol Sulfate 90 Mcg 8 Gm Inhaler) 2 puff INHALE RQ4H PRN PRN Reason: Bronchospasm Atorvastatin Calcium (Atorvastatin Calcium 40 Mg Tablet) 40 mg PO BEDTIME [facility] BEDS [facility] Last Admin: 02/01/25 20:18 Dose: 40 mg Divalproex Sodium (Divalproex Sodium Er 250 Mg Tab.Er.24h) 250 mg PO BID COUNTS [facility]CLUDE 234 BEDS AT [facility] Last Admin: 02/02/25 08:36 Dose: 250 mg Docusate Sodium (Docusate Sodium 100 Mg Capsule) 100 mg PO BEDTIME [facility]S [facility]CLUDE 234 BEDS AT [facility] Last Admin: 02/01/25 20:24 Dose: Not Given Latanoprost (Latanoprost 0.005 % Ophth Hannah 2.5 Ml Drops) 1 drop EYE-BOTH BEDTIME [facility]S [facility]CLUDE 234 BEDS AT [facility] Last Admin: 02/01/25 20:15 Dose: 1 drop Levothyroxine Sodium (Levothyroxine Sodium 50 Mcg Tablet) 50 mcg PO DAILY@0600 [facility]S [facility]CLUDE 234 BEDS AT [facility] Last Admin: 02/02/25 06:22 Dose: 50 mcg Lisinopril (Lisinopril 10 Mg Tablet) 30 mg PO DAILY COUNTS [facility]CLUDE 234 BEDS AT [facility]; Protocol Last Admin: 02/02/25 08:35 Dose: 30 mg Lorazepam (Lorazepam 0.5 Mg Tablet) 0.5 mg PO TID [facility]S [facility]CLUDE 234 BEDS AT [facility] Last Admin: 02/02/25 08:36 Dose: 0.5 mg Magnesium Hydroxide (Milk Of Magnesia 30 Ml Oral.Susp) 30 ml PO DAILY PRN PRN Reason: Constipation Melatonin (Melatonin 3 Mg Tablet) 9 mg PO BEDTIME [facility] 234 BEDS [facility] Last Admin: 02/01/25 20:18 Dose: 9 mg Mirtazapine (Mirtazapine 7.5 Mg Tablet) 7.5 mg PO BEDTIME [facility]CLUDE 234 BEDS [facility] Last Admin: 02/01/25 20:18 Dose: 7.5 mg Olanzapine (Olanzapine 2.5 Mg Tablet) 2.5 mg PO Q4H PRN PRN Reason: agitation Olanzapine (Olanzapine 7.5 Mg Tablet) 7.5 mg PO BEDTIME [facility] Last Admin: 02/01/25 20:18 Dose: 7.5 mg Senna (Sennosides 8.6 Mg Tablet) 8.6 mg PO DAILY PRN PRN Reason: Constipation Trazodone HCl (Trazodone Hcl 50 Mg Tablet) 50 mg PO BEDTIME MRX1 PRN PRN Reason: Insomnia Last Admin: 01/30/25 20:20 Dose: 50 mg Allergies Allergies Allergy/AdvReac Type Severity Reaction Status Date / Time cat dander [cats] Allergy Unknown Verified 01/18/25 09:04 cortisone Allergy Unknown Verified 01/18/25 09:04 dog dander [dogs] Allergy Unknown Verified 01/18/25 09:04 Assessment & Plan Assessment & Plan (1) Paranoia: Status: Acute Code(s): F22 - Delusional disorders (2) Bipolar disorder: Status: Acute Code(s): F31.9 - Bipolar disorder, unspecified (3) Bipolar disorder, curr episode mixed, severe, with psychotic features: Status: Acute Code(s): F31.64 - Bipolar disorder, current episode mixed, severe, with psychotic features (4) Acute urinary retention: Status: Acute Code(s): R33.8 - Other retention of urine Plan The patient is on psychotic medications that have anticholinergic affects. Gabapentin has been titrated down from 400 mg t.i.d. to 200 mg t.i.d. and patient started on tamsulosin. Agree with medication adjustments and tamsulosin dosing. Urinalysis negative. Continue bladder scan and CIC every 8 hours for PVRs greater than 500 mL 01/29/25 cont olanzapine depakote inc as tolerated 01/30/25 pt somewhat clearer left message for son agitated depression consider ect ? mixed state 01/31/25 pt gradually improving cont depakote olanzapine needs much education reassurance 02/01/2025 Continues to gradually improve lower Depakote to 250 b.i.d. lower olanzapine to 7.5 at bedtime mirtazapine 7.5 at bedtime if activated discontinue 02/02/2025 Patient gradually improving continue Depakote mirtazapine olanzapine Patient educated on: diagnosis, medication risk/benefits and medical condition Informed Consent: further education needed Reason for continued inpatient stay Substantial Risk for: harm to self and rapid decompensation Time Spent With Patient Time: Total time managing care of this patient today ____ minutes.
[2025-02-02 10:24] LABS: Appearance Urine Turbid; Color Urine Yellow; Glucose Urine UA 100 mg/dL (Negative); Leukocyte Esterase Urine Large (3+) (Negative); Nitrite Urine Positive (Negative); Specific Gravity - Urine <= 1.005 (1.005-1.025); UMIC TRIGGER UACC YES; Urine Blood Large (3+) (Negative); Urine Ketones Negative (Negative); Urine Protein 300 (3+) mg/dL (Neg-Trace)
[2025-02-02 10:39] LABS: Bacteria Urine 1+ (None Seen); Hyaline Casts Urine 0-2 /LPF (0-2); Squamous Epithelial Cell Urine 0-2 /HPF (0-2); UACC Culture Trigger YES; WBC Clumps Urine Present; WBC Urine >50 /HPF (0-5)
[2025-02-02] MEDS: Acetaminophen 325 MG TABLET 650 MG PO (15:19)
[2025-02-02 20:00] VITALS: BP 131/62; PULSE 81; RESP 18; TEMP 36.2; O2SAT 97
[2025-02-02] MEDS: Nitrofurantoin Monohyd/M-Cryst 100 MG CAPSULE PO (20:40)
[2025-02-02] MEDS: Atorvastatin Calcium 40 MG TABLET PO (20:40)
[2025-02-02] MEDS: Melatonin 3 MG TABLET 9 MG PO (20:41)
[2025-02-02] MEDS: OLANZapine 7.5 MG TABLET PO (20:42)
[2025-02-02] MEDS: Latanoprost 0.005 % Ophth Sol 2.5 ML DROPS 1 DROP EYE-BOTH (20:43)
[2025-02-02] MEDS: Mirtazapine 7.5 MG TABLET PO (20:43)
[2025-02-03] MEDS: Levothyroxine Sodium 50 MCG TABLET PO (06:04)
[2025-02-03 08:00] VITALS: BP 139/77; PULSE 102; RESP 18; TEMP 36.4; O2SAT 97
[2025-02-03] MEDS: LORazepam 0.5 MG TABLET PO ×3 (08:26→19:44)
[2025-02-03] MEDS: Divalproex Sodium ER 250 MG TAB.ER.24H PO ×2 (08:26→19:44)
[2025-02-03] MEDS: lisinopriL 10 MG TABLET 30 MG PO (08:26)
[2025-02-03] MEDS: Nitrofurantoin Monohyd/M-Cryst 100 MG CAPSULE PO ×2 (08:27→19:45)
--- NOTE | 2025-02-03 12:07 | HO.PSYCHPN ---
Subjective Subjective Date of Service: 02/03/25 Reason For Visit: Psychosis Subjective Notes: Conditional Voluntary Interim History: Sleep all night. She appears more organized in thought process, although continues to report paranoid delusions related to thinking son is in row, and she is also being sentenced somewhere. She worries that being on the unit is also a form of punishment and assisted. She is eating better. She reports feeling less weak and able to ambulate better. She denies SI/HI. Medication Compliance: Yes Side effects from medications: No Mental Status Exam Mental Status Exam Narrative: Appearance: wearing casual clothing, constricted affect. in NAD Behavior: cooperative Psychomotor: no agitation or retardation noted. Speech: clear, normal rate/rhythm/volume, spontaneous TP: mostly linear TC: wanting help to protect her and her son Mood: anxious Affect: constricted SI: denies HI: denies VH/AH: internally preoccupied Delusions: paranoid and persecutory delusions Insight/judgment: impaired x 2. Memory/cog: alert, oriented in month, year, place, not so much situation. Diagnostics Vital Signs (24Hr): Vital Signs - 24 hr 02/02/25 20:00 02/03/25 08:00 Temperature 97.1 F 97.6 F Pulse Rate 81 102 H Respiratory Rate 18 18 Blood Pressure 131/62 139/77 Pulse Oximetry 97 97 Oxygen Delivery Method Room Air Room Air BMI result Body Mass Index 21.8 Labs 02/02/25 07:29 02/02/25 07:29 Labs: Laboratory Results - last 48 hr 02/02/25 02/02/25 07:29 10:16 WBC 9.5 RBC 3.96 L Hgb 12.2 Hct 35.5 L MCV 89.6 MCH 30.8 MCHC 34.4 RDW 12.8 Plt Count 161 D MPV 11.6 Immature Gran % (Auto) 0.6 H Neut % (Auto) 77.6 H Lymph % (Auto) 12.0 L Price % (Auto) 8.8 Eos % (Auto) 0.7 Baso % (Auto) 0.3 Lymph # (Auto) 1.1 L Price # (Auto) 0.8 Eos # (Auto) 0.1 Baso # (Auto) 0.0 Abs Immat Gran (auto) 0.06 H Absolute Neuts (auto) 7.3 Absolute Nucleated RBC 0.000 Nucleated RBC % (auto) 0.0 Sodium 143 Potassium 3.6 Chloride 110 H Carbon Dioxide 25 Anion Gap 12 BUN 5 L Creatinine 0.75 Estim Creat Clear Calc 59.7 Estimated GFR > 60 Fasting Glucose 99 Calcium 8.7 D Total Bilirubin 0.6 AST 14 ALT 13 Alkaline Phosphatase 57 Ammonia 35 Total Protein 5.8 L Albumin 3.5 TSH 3.18 Urine Color Yellow Urine Appearance Turbid Urine pH 7.0 Ur Specific [place] <= 1.005 Urine Protein 300 (3+) H Urine Glucose (UA) 100 H Urine Ketones Negative Urine Blood Large (3+) H Urine Nitrite Positive H Ur Leukocyte Esterase Large (3+) H Urine RBC 3-5 H Urine WBC >50 H Urine WBC Clumps Present Ur Squamous Epith Cells 0-2 Urine Bacteria 1+ Hyaline Casts 0-2 Valproic Acid 52.0 Medications Medications Current Medications Acetaminophen (Acetaminophen 325 Mg Tablet) 650 mg PO Q6H PRN PRN Reason: Headache/Pain Mild Scale (1-3) Last Admin: 02/02/25 15:19 Dose: 650 mg Al Hydroxide/Mg Hydroxide (Magnesium Hydrox/Alum Hydrox 30 Ml Oral.Susp) 30 ml PO Q6H PRN PRN Reason: Heartburn/Nausea Albuterol Sulfate (Albuterol Sulfate 90 Mcg 8 Gm Inhaler) 2 puff INHALE RQ4H PRN PRN Reason: Bronchospasm Atorvastatin Calcium (Atorvastatin Calcium 40 Mg Tablet) 40 mg PO BEDTIME [facility] Last Admin: 02/02/25 20:40 Dose: 40 mg Divalproex Sodium (Divalproex Sodium Er 250 Mg Tab.Er.24h) 250 mg PO BID [facility] Last Admin: 02/03/25 08:26 Dose: 250 mg Docusate Sodium (Docusate Sodium 100 Mg Capsule) 100 mg PO BEDTIME [facility] Last Admin: 02/02/25 20:43 Dose: Not Given Latanoprost (Latanoprost 0.005 % Ophth Hannah 2.5 Ml Drops) 1 drop EYE-BOTH BEDTIME [facility] Last Admin: 02/02/25 20:43 Dose: 1 drop Levothyroxine Sodium (Levothyroxine Sodium 50 Mcg Tablet) 50 mcg PO DAILY@0600 [facility] Last Admin: 02/03/25 06:04 Dose: 50 mcg Lisinopril (Lisinopril 10 Mg Tablet) 30 mg PO DAILY [facility]; Protocol Last Admin: 02/03/25 08:26 Dose: 30 mg Lorazepam (Lorazepam 0.5 Mg Tablet) 0.5 mg PO TID [facility] Last Admin: 02/03/25 08:26 Dose: 0.5 mg Magnesium Hydroxide (Milk Of Magnesia 30 Ml Oral.Susp) 30 ml PO DAILY PRN PRN Reason: Constipation Melatonin (Melatonin 3 Mg Tablet) 9 mg PO BEDTIME [facility] Last Admin: 02/02/25 20:41 Dose: 9 mg Mirtazapine (Mirtazapine 7.5 Mg Tablet) 7.5 mg PO BEDTIME [facility] Last Admin: 02/02/25 20:43 Dose: 7.5 mg Nitrofurantoin Macrocrystals (Nitrofurantoin Monohyd/M-Cryst 100 Mg Capsule) 100 mg PO Q12H [facility] Stop: 02/07/25 08:01 Last Admin: 02/03/25 08:27 Dose: 100 mg Olanzapine (Olanzapine 2.5 Mg Tablet) 2.5 mg PO Q4H PRN PRN Reason: agitation Olanzapine (Olanzapine 7.5 Mg Tablet) 7.5 mg PO BEDTIME [facility] Last Admin: 02/02/25 20:42 Dose: 7.5 mg Senna (Sennosides 8.6 Mg Tablet) 8.6 mg PO DAILY PRN PRN Reason: Constipation Trazodone HCl (Trazodone Hcl 50 Mg Tablet) 50 mg PO BEDTIME MRX1 PRN PRN Reason: Insomnia Last Admin: 01/30/25 20:20 Dose: 50 mg Allergies Allergies Allergy/AdvReac Type Severity Reaction Status Date / Time cat dander [cats] Allergy Unknown Verified 01/18/25 09:04 cortisone Allergy Unknown Verified 01/18/25 09:04 dog dander [dogs] Allergy Unknown Verified 01/18/25 09:04 Assessment & Plan Assessment & Plan (1) Paranoia: Status: Acute Code(s): F22 - Delusional disorders (2) Bipolar disorder: Status: Acute Code(s): F31.9 - Bipolar disorder, unspecified (3) Bipolar disorder, curr episode mixed, severe, with psychotic features: Status: Acute Code(s): F31.64 - Bipolar disorder, current episode mixed, severe, with psychotic features (4) Acute urinary retention: Status: Acute Code(s): R33.8 - Other retention of urine Plan The patient is on psychotic medications that have anticholinergic affects. Gabapentin has been titrated down from 400 mg t.i.d. to 200 mg t.i.d. and patient started on tamsulosin. Agree with medication adjustments and tamsulosin dosing. Urinalysis negative. Continue bladder scan and CIC every 8 hours for PVRs greater than 500 mL 01/29/25 cont olanzapine depakote inc as tolerated 01/30/25 pt somewhat clearer left message for son agitated depression consider ect ? mixed state 01/31/25 pt gradually improving cont depakote olanzapine needs much education reassurance 02/01/2025 Continues to gradually improve lower Depakote to 250 b.i.d. lower olanzapine to 7.5 at bedtime mirtazapine 7.5 at bedtime if activated discontinue 02/02/2025 Patient gradually improving continue Depakote mirtazapine olanzapine 02/03 continue tx. Reason for continued inpatient stay Substantial Risk for: inability to function Time Spent With Patient Time: Total time managing care of this patient today ____ minutes.
[2025-02-03] MEDS: Acetaminophen 325 MG TABLET 650 MG PO (16:26)
[2025-02-03] MEDS: OLANZapine 2.5 MG TABLET PO (16:26)
[2025-02-03] MEDS: Atorvastatin Calcium 40 MG TABLET PO (19:44)
[2025-02-03] MEDS: Mirtazapine 7.5 MG TABLET PO (19:45)
[2025-02-03] MEDS: Docusate Sodium 100 MG CAPSULE PO (19:45)
[2025-02-03] MEDS: Melatonin 3 MG TABLET 9 MG PO (19:45)
[2025-02-03] MEDS: OLANZapine 7.5 MG TABLET PO (19:45)
[2025-02-03] MEDS: Latanoprost 0.005 % Ophth Sol 2.5 ML DROPS 1 DROP EYE-BOTH (19:50)
[2025-02-03 20:00] VITALS: BP 157/75; PULSE 83; TEMP 36.9; O2SAT 97
[2025-02-04] MEDS: Levothyroxine Sodium 50 MCG TABLET PO (05:46)
[2025-02-04 09:39] VITALS: BP 143/65; PULSE 90; RESP 16; TEMP 37.3; O2SAT 96
[2025-02-04] MEDS: lisinopriL 10 MG TABLET 30 MG PO (09:40)
[2025-02-04] MEDS: Nitrofurantoin Monohyd/M-Cryst 100 MG CAPSULE PO ×2 (09:40→20:47)
[2025-02-04] MEDS: Divalproex Sodium ER 250 MG TAB.ER.24H PO ×2 (09:40→20:47)
[2025-02-04] MEDS: LORazepam 0.5 MG TABLET PO ×3 (09:40→20:48)
--- NOTE | 2025-02-04 15:53 | P.PNPSI_ITS ---
Subjective Subjective Reason For Visit: Psychosis Diagnostics Vital Signs (24Hr): Vital Signs - 24 hr 02/03/25 20:00 02/04/25 09:39 Temperature 98.4 F 99.1 F Pulse Rate 83 90 Respiratory Rate 16 Blood Pressure 157/75 H 143/65 H Pulse Oximetry 97 96 Oxygen Delivery Method Room Air Room Air BMI result Body Mass Index 21.8 Labs 02/02/25 07:29 02/02/25 07:29 Medications Medications Current Medications Acetaminophen (Acetaminophen 325 Mg Tablet) 650 mg PO Q6H PRN PRN Reason: Headache/Pain Mild Scale (1-3) Last Admin: 02/03/25 16:26 Dose: 650 mg Al Hydroxide/Mg Hydroxide (Magnesium Hydrox/Alum Hydrox 30 Ml Oral.Susp) 30 ml PO Q6H PRN PRN Reason: Heartburn/Nausea Albuterol Sulfate (Albuterol Sulfate 90 Mcg 8 Gm Inhaler) 2 puff INHALE RQ4H PRN PRN Reason: Bronchospasm Atorvastatin Calcium (Atorvastatin Calcium 40 Mg Tablet) 40 mg PO BEDTIME [facility] Last Admin: 02/03/25 19:44 Dose: 40 mg Divalproex Sodium (Divalproex Sodium Er 250 Mg Tab.Er.24h) 250 mg PO BID [facility] Last Admin: 02/04/25 09:40 Dose: 250 mg Docusate Sodium (Docusate Sodium 100 Mg Capsule) 100 mg PO BEDTIME [facility] Last Admin: 02/03/25 19:45 Dose: 100 mg Latanoprost (Latanoprost 0.005 % Ophth Hannah 2.5 Ml Drops) 1 drop EYE-BOTH BEDTIME [facility] Last Admin: 02/03/25 19:50 Dose: 1 drop Levothyroxine Sodium (Levothyroxine Sodium 50 Mcg Tablet) 50 mcg PO DAILY@0600 [facility] Last Admin: 02/04/25 05:46 Dose: 50 mcg Lisinopril (Lisinopril 10 Mg Tablet) 30 mg PO DAILY [facility]; Protocol Last Admin: 02/04/25 09:40 Dose: 30 mg Lorazepam (Lorazepam 0.5 Mg Tablet) 0.5 mg PO TID [facility] Last Admin: 02/04/25 14:29 Dose: 0.5 mg Magnesium Hydroxide (Milk Of Magnesia 30 Ml Oral.Susp) 30 ml PO DAILY PRN PRN Reason: Constipation Melatonin (Melatonin 3 Mg Tablet) 9 mg PO BEDTIME [facility] Last Admin: 02/03/25 19:45 Dose: 9 mg Mirtazapine (Mirtazapine 7.5 Mg Tablet) 7.5 mg PO BEDTIME [facility] Last Admin: 02/03/25 19:45 Dose: 7.5 mg Nitrofurantoin Macrocrystals (Nitrofurantoin Monohyd/M-Cryst 100 Mg Capsule) 100 mg PO Q12H [facility] Stop: 02/07/25 08:01 Last Admin: 02/04/25 09:40 Dose: 100 mg Olanzapine (Olanzapine 2.5 Mg Tablet) 2.5 mg PO Q4H PRN PRN Reason: agitation Last Admin: 02/03/25 16:26 Dose: 2.5 mg Olanzapine (Olanzapine 7.5 Mg Tablet) 7.5 mg PO BEDTIME [facility] Last Admin: 02/03/25 19:45 Dose: 7.5 mg Senna (Sennosides 8.6 Mg Tablet) 8.6 mg PO DAILY PRN PRN Reason: Constipation Trazodone HCl (Trazodone Hcl 50 Mg Tablet) 50 mg PO BEDTIME MRX1 PRN PRN Reason: Insomnia Last Admin: 01/30/25 20:20 Dose: 50 mg Allergies Allergies Allergy/AdvReac Type Severity Reaction Status Date / Time cat dander [cats] Allergy Unknown Verified 01/18/25 09:04 cortisone Allergy Unknown Verified 01/18/25 09:04 dog dander [dogs] Allergy Unknown Verified 01/18/25 09:04 Assessment & Plan Assessment & Plan (1) Paranoia: Status: Acute Code(s): F22 - Delusional disorders (2) Bipolar disorder: Status: Acute Code(s): F31.9 - Bipolar disorder, unspecified (3) Bipolar disorder, curr episode mixed, severe, with psychotic features: Status: Acute Code(s): F31.64 - Bipolar disorder, current episode mixed, severe, with psychotic features (4) Acute urinary retention: Status: Acute Code(s): R33.8 - Other retention of urine Plan The patient is on psychotic medications that have anticholinergic affects. Gabapentin has been titrated down from 400 mg t.i.d. to 200 mg t.i.d. and patient started on tamsulosin. Agree with medication adjustments and tamsulosin dosing. Urinalysis negative. Continue bladder scan and CIC every 8 hours for PVRs greater than 500 mL 01/29/25 cont olanzapine depakote inc as tolerated 01/30/25 pt somewhat clearer left message for son agitated depression consider ect ? mixed state 01/31/25 pt gradually improving cont depakote olanzapine needs much education reassurance 02/01/2025 Continues to gradually improve lower Depakote to 250 b.i.d. lower olanzapine to 7.5 at bedtime mirtazapine 7.5 at bedtime if activated discontinue 02/02/2025 Patient gradually improving continue Depakote mirtazapine olanzapine 02/03 continue tx. Time Spent With Patient Time: Total time managing care of this patient today ____ minutes.
--- NOTE | 2025-02-04 19:06 | P.PNPSI_ITS ---
Subjective Subjective Date of Service: 02/04/25 Reason For Visit: Psychosis Subjective Notes: Conditional Voluntary Healthcare Proxy: Yes Interim History: Sleep all night. She reports she is doing better. She does question now the idea that her son is on the row. She says she thinks he is safe now. She denies SI/HI. She is worried as to where she will go. She is taking medications as prescribed. No behavioral concerns. Medication Compliance: Yes Review of Systems Review of Systems As per HPI Yes all other systems are reviewed and are negative and Unobtainable due to mental status Constitutional: Reports as per HPI and Reports no additional constitutional complaints Eyes: Reports no additional eye complaints Reports system reviewed and no additional complaints, except as documented Cardiovascular: Reports no additional cardiovascular complaints Respiratory: Reports no additional respiratory complaints Gastrointestinal: Reports no additional gastrointestinal complaints Musculoskeletal: Reports no additional musculoskeletal complaints Skin/Breast: Reports system reviewed and no additional complaints, except as docu Reports system reviewed and no additional complaints, except as documented Psychiatric: Reports no additional psychiatric complaints Endocrine: Reports no additional endocrine complaints Hematologic/Lymphatic: Reports no additional hematologic/lymphatic complaints Allergic/Immunologic: Reports no additional allergic/immunologic complaints Mental Status Exam Mental Status Exam Narrative: Appearance: wearing casual clothing, constricted affect. in NAD Behavior: cooperative Psychomotor: no agitation or retardation noted. Speech: clear, normal rate/rhythm/volume, spontaneous TP: mostly linear TC: wanting help to protect her and her son Mood: better Affect: slightly brighter, non labile SI: denies HI: denies VH/AH: less internally preoccupied Delusions: less paranoid and persecutory delusions Insight/judgment: impaired x 2. Memory/cog: alert, oriented in month, year, place, not so much situation. Diagnostics Vital Signs (24Hr): Vital Signs - 24 hr 02/03/25 20:00 02/04/25 09:39 Temperature 98.4 F 99.1 F Pulse Rate 83 90 Respiratory Rate 16 Blood Pressure 157/75 H 143/65 H Pulse Oximetry 97 96 Oxygen Delivery Method Room Air Room Air BMI result Body Mass Index 21.8 Labs 02/02/25 07:29 02/02/25 07:29 Medications Medications Current Medications Acetaminophen (Acetaminophen 325 Mg Tablet) 650 mg PO Q6H PRN PRN Reason: Headache/Pain Mild Scale (1-3) Last Admin: 02/03/25 16:26 Dose: 650 mg Al Hydroxide/Mg Hydroxide (Magnesium Hydrox/Alum Hydrox 30 Ml Oral.Susp) 30 ml PO Q6H PRN PRN Reason: Heartburn/Nausea Albuterol Sulfate (Albuterol Sulfate 90 Mcg 8 Gm Inhaler) 2 puff INHALE RQ4H PRN PRN Reason: Bronchospasm Atorvastatin Calcium (Atorvastatin Calcium 40 Mg Tablet) 40 mg PO BEDTIME [facility] Last Admin: 02/03/25 19:44 Dose: 40 mg Divalproex Sodium (Divalproex Sodium Er 250 Mg Tab.Er.24h) 250 mg PO BID [facility] Last Admin: 02/04/25 09:40 Dose: 250 mg Docusate Sodium (Docusate Sodium 100 Mg Capsule) 100 mg PO BEDTIME [facility] Last Admin: 02/03/25 19:45 Dose: 100 mg Latanoprost (Latanoprost 0.005 % Ophth Hannah 2.5 Ml Drops) 1 drop EYE-BOTH BEDTIME [facility] Last Admin: 02/03/25 19:50 Dose: 1 drop Levothyroxine Sodium (Levothyroxine Sodium 50 Mcg Tablet) 50 mcg PO DAILY@0600 [facility] Last Admin: 02/04/25 05:46 Dose: 50 mcg Lisinopril (Lisinopril 10 Mg Tablet) 30 mg PO DAILY [facility]; Protocol Last Admin: 02/04/25 09:40 Dose: 30 mg Lorazepam (Lorazepam 0.5 Mg Tablet) 0.5 mg PO TID [facility] Last Admin: 02/04/25 14:29 Dose: 0.5 mg Magnesium Hydroxide (Milk Of Magnesia 30 Ml Oral.Susp) 30 ml PO DAILY PRN PRN Reason: Constipation Melatonin (Melatonin 3 Mg Tablet) 9 mg PO BEDTIME [facility] Last Admin: 02/03/25 19:45 Dose: 9 mg Mirtazapine (Mirtazapine 7.5 Mg Tablet) 7.5 mg PO BEDTIME [facility] Last Admin: 02/03/25 19:45 Dose: 7.5 mg Nitrofurantoin Macrocrystals (Nitrofurantoin Monohyd/M-Cryst 100 Mg Capsule) 100 mg PO Q12H [facility] Stop: 02/07/25 08:01 Last Admin: 02/04/25 09:40 Dose: 100 mg Olanzapine (Olanzapine 2.5 Mg Tablet) 2.5 mg PO Q4H PRN PRN Reason: agitation Last Admin: 02/03/25 16:26 Dose: 2.5 mg Olanzapine (Olanzapine 7.5 Mg Tablet) 7.5 mg PO BEDTIME [facility] Last Admin: 02/03/25 19:45 Dose: 7.5 mg Senna (Sennosides 8.6 Mg Tablet) 8.6 mg PO DAILY PRN PRN Reason: Constipation Trazodone HCl (Trazodone Hcl 50 Mg Tablet) 50 mg PO BEDTIME MRX1 PRN PRN Reason: Insomnia Last Admin: 01/30/25 20:20 Dose: 50 mg Allergies Allergies Allergy/AdvReac Type Severity Reaction Status Date / Time cat dander [cats] Allergy Unknown Verified 01/18/25 09:04 cortisone Allergy Unknown Verified 01/18/25 09:04 dog dander [dogs] Allergy Unknown Verified 01/18/25 09:04 Assessment & Plan Assessment & Plan (1) Bipolar disorder, curr episode mixed, severe, with psychotic features: Status: Acute Code(s): F31.64 - Bipolar disorder, current episode mixed, severe, with psychotic features Assessment and Plan: vs schizoaffective disorder (2) Acute urinary retention: Status: Acute Code(s): R33.8 - Other retention of urine Plan The patient is on psychotic medications that have anticholinergic affects. Gabapentin has been titrated down from 400 mg t.i.d. to 200 mg t.i.d. and patient started on tamsulosin. Agree with medication adjustments and tamsulosin dosing. Urinalysis negative. Continue bladder scan and CIC every 8 hours for PVRs greater than 500 mL 01/29/25 cont olanzapine depakote inc as tolerated 01/30/25 pt somewhat clearer left message for son agitated depression consider ect ? mixed state 01/31/25 pt gradually improving cont depakote olanzapine needs much education reassurance 02/01/2025 Continues to gradually improve lower Depakote to 250 b.i.d. lower olanzapine to 7.5 at bedtime mirtazapine 7.5 at bedtime if activated discontinue 02/02/2025 Patient gradually improving continue Depakote mirtazapine olanzapine 02/03 continue tx. 02/04 continue tx. Reason for continued inpatient stay Substantial Risk for: inability to function Time Spent With Patient Time: Total time managing care of this patient today ____ minutes.
[2025-02-04 19:40] VITALS: BP 150/72; PULSE 94; TEMP 36.8; O2SAT 97
[2025-02-04] MEDS: Acetaminophen 325 MG TABLET 650 MG PO (20:46)
[2025-02-04] MEDS: Atorvastatin Calcium 40 MG TABLET PO (20:47)
[2025-02-04] MEDS: OLANZapine 7.5 MG TABLET PO (20:47)
[2025-02-04] MEDS: Melatonin 3 MG TABLET 9 MG PO (20:47)
[2025-02-04] MEDS: Docusate Sodium 100 MG CAPSULE PO (20:48)
[2025-02-04] MEDS: Mirtazapine 7.5 MG TABLET PO (20:48)
[2025-02-04] MEDS: Latanoprost 0.005 % Ophth Sol 2.5 ML DROPS 1 DROP EYE-BOTH (20:52)
[2025-02-05] MEDS: Levothyroxine Sodium 50 MCG TABLET PO (06:29)
[2025-02-05 08:22] VITALS: BP 134/64; PULSE 83; RESP 15; TEMP 36.8; O2SAT 97
[2025-02-05] MEDS: Nitrofurantoin Monohyd/M-Cryst 100 MG CAPSULE PO ×2 (08:24→20:01)
[2025-02-05] MEDS: lisinopriL 10 MG TABLET 30 MG PO (08:24)
[2025-02-05] MEDS: LORazepam 0.5 MG TABLET PO ×3 (08:24→20:01)
[2025-02-05] MEDS: Divalproex Sodium ER 250 MG TAB.ER.24H PO ×2 (08:24→20:01)
[2025-02-05] MEDS: OLANZapine 2.5 MG TABLET PO ×2 (18:10→22:11)
[2025-02-05 19:47] VITALS: BP 122/63; PULSE 85; RESP 16; TEMP 36.8; O2SAT 97
[2025-02-05] MEDS: Atorvastatin Calcium 40 MG TABLET PO (20:01)
[2025-02-05] MEDS: traZODone HCL 50 MG TABLET PO (20:01)
[2025-02-05] MEDS: Docusate Sodium 100 MG CAPSULE PO (20:01)
[2025-02-05] MEDS: Melatonin 3 MG TABLET 9 MG PO (20:01)
[2025-02-05] MEDS: Mirtazapine 7.5 MG TABLET PO (20:01)
[2025-02-05] MEDS: OLANZapine 7.5 MG TABLET PO (20:01)
[2025-02-05] MEDS: Latanoprost 0.005 % Ophth Sol 2.5 ML DROPS 1 DROP EYE-BOTH (20:37)
--- NOTE | 2025-02-05 22:08 | P.PNPSI_ITS ---
Subjective Subjective Date of Service: 02/05/25 Reason For Visit: Psychosis Subjective Notes: Conditional Voluntary Interim History: Sleep all night. She reports she is doing better. She says she thinks he is safe now. She denies SI/HI. She is worried as to where she will go. She is less paranoid. She is taking medications as prescribed. No behavioral concerns. Review of Systems Review of Systems As per HPI Yes all other systems are reviewed and are negative and Unobtainable due to mental status Constitutional: Reports as per HPI and Reports no additional constitutional complaints Eyes: Reports no additional eye complaints Reports system reviewed and no additional complaints, except as documented Cardiovascular: Reports no additional cardiovascular complaints Respiratory: Reports no additional respiratory complaints Gastrointestinal: Reports no additional gastrointestinal complaints Musculoskeletal: Reports no additional musculoskeletal complaints Skin/Breast: Reports system reviewed and no additional complaints, except as docu Reports system reviewed and no additional complaints, except as documented Psychiatric: Reports no additional psychiatric complaints Endocrine: Reports no additional endocrine complaints Hematologic/Lymphatic: Reports no additional hematologic/lymphatic complaints Allergic/Immunologic: Reports no additional allergic/immunologic complaints Mental Status Exam Mental Status Exam Narrative: Appearance: wearing casual clothing, constricted affect. in NAD Behavior: cooperative Psychomotor: no agitation or retardation noted. Speech: clear, normal rate/rhythm/volume, spontaneous TP: mostly linear TC: wanting help to protect her and her son Mood: better Affect: slightly brighter, non labile SI: denies HI: denies VH/AH: less internally preoccupied Delusions: less paranoid and persecutory delusions Insight/judgment: impaired x 2. Memory/cog: alert, oriented in month, year, place, not so much situation. Diagnostics Vital Signs (24Hr): Vital Signs - 24 hr 02/05/25 08:22 02/05/25 19:47 Temperature 98.2 F 98.2 F Pulse Rate 83 85 Respiratory Rate 15 16 Blood Pressure 134/64 122/63 Pulse Oximetry 97 97 Oxygen Delivery Method Room Air Room Air BMI result Body Mass Index 21.8 Labs 02/02/25 07:29 02/02/25 07:29 Medications Medications Current Medications Acetaminophen (Acetaminophen 325 Mg Tablet) 650 mg PO Q6H PRN PRN Reason: Headache/Pain Mild Scale (1-3) Last Admin: 02/04/25 20:46 Dose: 650 mg Al Hydroxide/Mg Hydroxide (Magnesium Hydrox/Alum Hydrox 30 Ml Oral.Susp) 30 ml PO Q6H PRN PRN Reason: Heartburn/Nausea Albuterol Sulfate (Albuterol Sulfate 90 Mcg 8 Gm Inhaler) 2 puff INHALE RQ4H PRN PRN Reason: Bronchospasm Atorvastatin Calcium (Atorvastatin Calcium 40 Mg Tablet) 40 mg PO BEDTIME [facility] Last Admin: 02/05/25 20:01 Dose: 40 mg Divalproex Sodium (Divalproex Sodium Er 250 Mg Tab.Er.24h) 250 mg PO BID [facility] Last Admin: 02/05/25 20:01 Dose: 250 mg Docusate Sodium (Docusate Sodium 100 Mg Capsule) 100 mg PO BEDTIME [facility] Last Admin: 02/05/25 20:01 Dose: 100 mg Latanoprost (Latanoprost 0.005 % Ophth Hannah 2.5 Ml Drops) 1 drop EYE-BOTH BEDTIME [facility] Last Admin: 02/05/25 20:37 Dose: 1 drop Levothyroxine Sodium (Levothyroxine Sodium 50 Mcg Tablet) 50 mcg PO DAILY@0600 [facility] Last Admin: 02/05/25 06:29 Dose: 50 mcg Lisinopril (Lisinopril 10 Mg Tablet) 30 mg PO DAILY [facility]; Protocol Last Admin: 02/05/25 08:24 Dose: 30 mg Lorazepam (Lorazepam 0.5 Mg Tablet) 0.5 mg PO TID [facility] Last Admin: 02/05/25 20:01 Dose: 0.5 mg Magnesium Hydroxide (Milk Of Magnesia 30 Ml Oral.Susp) 30 ml PO DAILY PRN PRN Reason: Constipation Melatonin (Melatonin 3 Mg Tablet) 9 mg PO BEDTIME [facility] Last Admin: 02/05/25 20:01 Dose: 9 mg Mirtazapine (Mirtazapine 7.5 Mg Tablet) 7.5 mg PO BEDTIME [facility] Last Admin: 02/05/25 20:01 Dose: 7.5 mg Nitrofurantoin Macrocrystals (Nitrofurantoin Monohyd/M-Cryst 100 Mg Capsule) 100 mg PO Q12H [facility] Stop: 02/07/25 08:01 Last Admin: 02/05/25 20:01 Dose: 100 mg Olanzapine (Olanzapine 2.5 Mg Tablet) 2.5 mg PO Q4H PRN PRN Reason: agitation Last Admin: 02/05/25 18:10 Dose: 2.5 mg Olanzapine (Olanzapine 7.5 Mg Tablet) 7.5 mg PO BEDTIME [facility] Last Admin: 02/05/25 20:01 Dose: 7.5 mg Senna (Sennosides 8.6 Mg Tablet) 8.6 mg PO DAILY PRN PRN Reason: Constipation Trazodone HCl (Trazodone Hcl 50 Mg Tablet) 50 mg PO BEDTIME MRX1 PRN PRN Reason: Insomnia Last Admin: 02/05/25 20:01 Dose: 50 mg Allergies Allergies Allergy/AdvReac Type Severity Reaction Status Date / Time cat dander [cats] Allergy Unknown Verified 01/18/25 09:04 cortisone Allergy Unknown Verified 01/18/25 09:04 dog dander [dogs] Allergy Unknown Verified 01/18/25 09:04 Assessment & Plan Assessment & Plan (1) Bipolar disorder, curr episode mixed, severe, with psychotic features: Status: Acute Code(s): F31.64 - Bipolar disorder, current episode mixed, severe, with psychotic features Assessment and Plan: vs schizoaffective disorder (2) Acute urinary retention: Status: Acute Code(s): R33.8 - Other retention of urine Plan The patient is on psychotic medications that have anticholinergic affects. Gabapentin has been titrated down from 400 mg t.i.d. to 200 mg t.i.d. and patient started on tamsulosin. Agree with medication adjustments and tamsulosin dosing. Urinalysis negative. Continue bladder scan and CIC every 8 hours for PVRs greater than 500 mL 01/29/25 cont olanzapine depakote inc as tolerated 01/30/25 pt somewhat clearer left message for son agitated depression consider ect ? mixed state 01/31/25 pt gradually improving cont depakote olanzapine needs much education reassurance 02/01/2025 Continues to gradually improve lower Depakote to 250 b.i.d. lower olanzapine to 7.5 at bedtime mirtazapine 7.5 at bedtime if activated discontinue 02/02/2025 Patient gradually improving continue Depakote mirtazapine olanzapine 02/03 continue tx. 02/04 continue tx. 02/05 continue tx. Reason for continued inpatient stay Substantial Risk for: inability to function Time Spent With Patient Time: Total time managing care of this patient today ____ minutes.
[2025-02-05] MEDS: Acetaminophen 325 MG TABLET 650 MG PO (22:10)
[2025-02-06] MEDS: Levothyroxine Sodium 50 MCG TABLET PO (05:53)
[2025-02-06 08:00] VITALS: BP 134/63; PULSE 82; RESP 20; TEMP 36.7; O2SAT 99
[2025-02-06 08:25] VITALS: BP 134/63
[2025-02-06] MEDS: lisinopriL 10 MG TABLET 30 MG PO (08:25)
[2025-02-06] MEDS: LORazepam 0.5 MG TABLET PO ×3 (08:25→20:22)
[2025-02-06] MEDS: Divalproex Sodium ER 250 MG TAB.ER.24H PO ×2 (08:27→20:21)
[2025-02-06] MEDS: Nitrofurantoin Monohyd/M-Cryst 100 MG CAPSULE PO ×2 (08:27→20:21)
[2025-02-06 09:25] VITALS: BMI 22.0
[2025-02-06] MEDS: OLANZapine 2.5 MG TABLET PO (10:20)
[2025-02-06] MEDS: Acetaminophen 325 MG TABLET 650 MG PO ×2 (14:26→20:23)
[2025-02-06 20:00] VITALS: BP 150/77; PULSE 78; RESP 18; TEMP 36.7; O2SAT 97
[2025-02-06] MEDS: Atorvastatin Calcium 40 MG TABLET PO (20:21)
[2025-02-06] MEDS: Docusate Sodium 100 MG CAPSULE PO (20:22)
[2025-02-06] MEDS: Latanoprost 0.005 % Ophth Sol 2.5 ML DROPS 1 DROP EYE-BOTH (20:22)
[2025-02-06] MEDS: Mirtazapine 7.5 MG TABLET PO (20:22)
[2025-02-06] MEDS: Melatonin 3 MG TABLET 9 MG PO (20:22)
[2025-02-06] MEDS: OLANZapine 10 MG TABLET PO (20:23)
--- NOTE | 2025-02-06 20:49 | HO.PSYCHPN ---
Subjective Subjective Date of Service: 02/06/25 Reason For Visit: Psychosis Subjective Notes: Conditional Voluntary Healthcare Proxy: Yes Interim History: Patient is anxious ruminating frequently worrying ongoing rumination continue. Has small skin tear in her back Limited support system has been worried regarding returning home. Complains of daytime fatigue Medication Compliance: Yes Mental Status Exam Mental Status Exam Narrative: Appearance: wearing casual clothing, constricted affect, anxious in appearance Behavior: cooperative Psychomotor: no agitation or retardation noted. Speech: clear, normal rate/rhythm/volume, spontaneous TP: mostly linear TC: wanting help at home Mood: Anxious Affect: slightly brighter, non labile SI: denies HI: denies VH/AH: less internally preoccupied Delusions: less paranoid and persecutory delusions Insight/judgment: impaired x 2. Memory/cog: alert, oriented in month, year, place, no she is on a psychiatric unit Diagnostics Vital Signs (24Hr): Vital Signs - 24 hr 02/06/25 08:00 02/06/25 08:25 Temperature 98.1 F Pulse Rate 82 Respiratory Rate 20 Blood Pressure 134/63 134/63 Pulse Oximetry 99 Oxygen Delivery Method Room Air BMI result Body Mass Index 22.0 Labs 02/02/25 07:29 02/02/25 07:29 Medications Medications Current Medications Acetaminophen (Acetaminophen 325 Mg Tablet) 650 mg PO Q6H PRN PRN Reason: Headache/Pain Mild Scale (1-3) Last Admin: 02/06/25 20:23 Dose: 650 mg Al Hydroxide/Mg Hydroxide (Magnesium Hydrox/Alum Hydrox 30 Ml Oral.Susp) 30 ml PO Q6H PRN PRN Reason: Heartburn/Nausea Albuterol Sulfate (Albuterol Sulfate 90 Mcg 8 Gm Inhaler) 2 puff INHALE RQ4H PRN PRN Reason: Bronchospasm Atorvastatin Calcium (Atorvastatin Calcium 40 Mg Tablet) 40 mg PO BEDTIME [facility] Last Admin: 02/06/25 20:21 Dose: 40 mg Divalproex Sodium (Divalproex Sodium Er 250 Mg Tab.Er.24h) 250 mg PO BID [facility] Last Admin: 02/06/25 20:21 Dose: 250 mg Docusate Sodium (Docusate Sodium 100 Mg Capsule) 100 mg PO BEDTIME [facility] Last Admin: 02/06/25 20:22 Dose: 100 mg Latanoprost (Latanoprost 0.005 % Ophth Hannah 2.5 Ml Drops) 1 drop EYE-BOTH BEDTIME [facility] Last Admin: 02/06/25 20:22 Dose: 1 drop Levothyroxine Sodium (Levothyroxine Sodium 50 Mcg Tablet) 50 mcg PO DAILY@0600 [facility] Last Admin: 02/06/25 05:53 Dose: 50 mcg Lisinopril (Lisinopril 10 Mg Tablet) 30 mg PO DAILY [facility]; Protocol Last Admin: 02/06/25 08:25 Dose: 30 mg Lorazepam (Lorazepam 0.5 Mg Tablet) 0.5 mg PO TID [facility] Last Admin: 02/06/25 20:22 Dose: 0.5 mg Magnesium Hydroxide (Milk Of Magnesia 30 Ml Oral.Susp) 30 ml PO DAILY PRN PRN Reason: Constipation Melatonin (Melatonin 3 Mg Tablet) 9 mg PO BEDTIME [facility] Last Admin: 02/06/25 20:22 Dose: 9 mg Mirtazapine (Mirtazapine 7.5 Mg Tablet) 7.5 mg PO BEDTIME [facility] Last Admin: 02/06/25 20:22 Dose: 7.5 mg Nitrofurantoin Macrocrystals (Nitrofurantoin Monohyd/M-Cryst 100 Mg Capsule) 100 mg PO Q12H [facility] Stop: 02/07/25 08:01 Last Admin: 02/06/25 20:21 Dose: 100 mg Olanzapine (Olanzapine 2.5 Mg Tablet) 2.5 mg PO Q4H PRN PRN Reason: agitation Last Admin: 02/06/25 10:20 Dose: 2.5 mg Olanzapine (Olanzapine 10 Mg Tablet) 10 mg PO BEDTIME [facility] Last Admin: 02/06/25 20:23 Dose: 10 mg Senna (Sennosides 8.6 Mg Tablet) 8.6 mg PO DAILY PRN PRN Reason: Constipation Allergies Allergies Allergy/AdvReac Type Severity Reaction Status Date / Time cat dander [cats] Allergy Unknown Verified 01/18/25 09:04 cortisone Allergy Unknown Verified 01/18/25 09:04 dog dander [dogs] Allergy Unknown Verified 01/18/25 09:04 Assessment & Plan Assessment & Plan (1) Bipolar disorder, curr episode mixed, severe, with psychotic features: Status: Acute Code(s): F31.64 - Bipolar disorder, current episode mixed, severe, with psychotic features Assessment and Plan: vs schizoaffective disorder (2) Borderline personality disorder: Status: Acute Code(s): F60.3 - Borderline personality disorder (3) Generalized anxiety disorder: Status: Acute Code(s): F41.1 - Generalized anxiety disorder Plan The patient is on psychotic medications that have anticholinergic affects. Gabapentin has been titrated down from 400 mg t.i.d. to 200 mg t.i.d. and patient started on tamsulosin. Agree with medication adjustments and tamsulosin dosing. Urinalysis negative. Continue bladder scan and CIC every 8 hours for PVRs greater than 500 mL 01/29/25 cont olanzapine depakote inc as tolerated 01/30/25 pt somewhat clearer left message for son agitated depression consider ect ? mixed state 01/31/25 pt gradually improving cont depakote olanzapine needs much education reassurance 02/01/2025 Continues to gradually improve lower Depakote to 250 b.i.d. lower olanzapine to 7.5 at bedtime mirtazapine 7.5 at bedtime if activated discontinue 02/02/2025 Patient gradually improving continue Depakote mirtazapine olanzapine 02/03 continue tx. 02/04 continue tx. 02/05 continue tx. 02/06/2025 Patient continues anxious and ruminating increase olanzapine to 10 mg was on a higher dose when previously discharged unclear if mirtazapine helpful. Still seems to have anxious depression question history of mixed states might benefit from ECT Somewhat unclear what patient's baseline can be at this time. Still quite ruminating Reason for continued inpatient stay Substantial Risk for: harm to self, rapid decompensation and med/psych decompensation Time Spent With Patient Time: Total time managing care of this patient today ____ minutes.
[2025-02-06] MEDS: Mirtazapine 15 MG TABLET PO (21:59)
[2025-02-07] MEDS: Levothyroxine Sodium 50 MCG TABLET PO (06:06)
[2025-02-07 08:33] VITALS: BP 129/56; PULSE 98; RESP 20; TEMP 36.6; O2SAT 96
[2025-02-07] MEDS: Nitrofurantoin Monohyd/M-Cryst 100 MG CAPSULE PO (08:34)
[2025-02-07] MEDS: LORazepam 0.5 MG TABLET PO ×3 (08:35→19:50)
[2025-02-07] MEDS: lisinopriL 10 MG TABLET 30 MG PO (08:35)
--- NOTE | 2025-02-07 14:49 | MHC.SHP ---
Pre-Procedural Eval Section A - 24 Hr Update-Section A only Date of Service: 02/07/25 Changes since office visit: Yes Cold of Flu in the past 2 weeks, Yes New Medical Problems and Yes Changes in Medication; No Patient answered all questions The patient has been examined within 24 hours of the surgical procedure. The History & Physical has been completed within 30 days and I have reviewed it.: Yes Section B - Complete if H&P > 30 days Chief Complaint: Psychosis Allergies: Allergies Allergy/AdvReac Type Severity Reaction Status Date / Time cat dander [cats] Allergy Unknown Verified 01/18/25 09:04 cortisone Allergy Unknown Verified 01/18/25 09:04 dog dander [dogs] Allergy Unknown Verified 01/18/25 09:04 Plan I have reviewed the history and physical and performed a pertinent physical examination on my patient. No changes have occurred unless specified. Time Spent With Patient Time: Total time managing care of this patient today ____ minutes.
--- NOTE | 2025-02-07 14:58 | HO.PSYCHPN ---
Subjective Subjective Date of Service: 01/31/25 Reason For Visit: Psychosis Subjective Notes: Conditional Voluntary Healthcare Proxy: Yes Interim History: Pt remains somewhat isolated anxious withdrawn perseverative anxiety Mental Status Exam Mental Status Exam Narrative: Appearance: wearing casual clothing, constricted affect, anxious in appearance Behavior: cooperative Psychomotor: no agitation or retardation noted. Speech: clear, normal rate/rhythm/volume, spontaneous TP: mostly linear TC: wanting help at home perseverative Mood: Anxious Affect: slightly brighter, non labile SI: denies HI: denies VH/AH: less internally preoccupied Delusions: less paranoid and persecutory delusions Insight/judgment: impaired x 2. Memory/cog: alert, oriented in month, year, place, no she is on a psychiatric unit Diagnostics Vital Signs (24Hr): Vital Signs - 24 hr 02/06/25 20:00 02/07/25 08:33 Temperature 98.1 F 97.9 F Pulse Rate 78 98 Respiratory Rate 18 20 Blood Pressure 150/77 H 129/56 L Pulse Oximetry 97 96 Oxygen Delivery Method Room Air Room Air BMI result Body Mass Index 22.0 Labs 02/02/25 07:29 02/02/25 07:29 Medications Medications Current Medications Acetaminophen (Acetaminophen 325 Mg Tablet) 650 mg PO Q6H PRN PRN Reason: Headache/Pain Mild Scale (1-3) Last Admin: 02/06/25 20:23 Dose: 650 mg Al Hydroxide/Mg Hydroxide (Magnesium Hydrox/Alum Hydrox 30 Ml Oral.Susp) 30 ml PO Q6H PRN PRN Reason: Heartburn/Nausea Albuterol Sulfate (Albuterol Sulfate 90 Mcg 8 Gm Inhaler) 2 puff INHALE RQ4H PRN PRN Reason: Bronchospasm Atorvastatin Calcium (Atorvastatin Calcium 40 Mg Tablet) 40 mg PO BEDTIME [facility] Last Admin: 02/06/25 20:21 Dose: 40 mg Divalproex Sodium (Divalproex Sodium Er 500 Mg Tab.Er.24h) 500 mg PO BEDTIME [facility] Docusate Sodium (Docusate Sodium 100 Mg Capsule) 100 mg PO BEDTIME [facility] Last Admin: 02/06/25 20:22 Dose: 100 mg Latanoprost (Latanoprost 0.005 % Ophth Hannah 2.5 Ml Drops) 1 drop EYE-BOTH BEDTIME [facility] Last Admin: 02/06/25 20:22 Dose: 1 drop Levothyroxine Sodium (Levothyroxine Sodium 50 Mcg Tablet) 50 mcg PO DAILY@0600 [facility] Last Admin: 02/07/25 06:06 Dose: 50 mcg Lisinopril (Lisinopril 10 Mg Tablet) 30 mg PO DAILY [facility]; Protocol Last Admin: 02/07/25 08:35 Dose: 30 mg Lorazepam (Lorazepam 0.5 Mg Tablet) 0.5 mg PO TID [facility] Last Admin: 02/07/25 08:35 Dose: 0.5 mg Magnesium Hydroxide (Milk Of Magnesia 30 Ml Oral.Susp) 30 ml PO DAILY PRN PRN Reason: Constipation Melatonin (Melatonin 3 Mg Tablet) 9 mg PO BEDTIME [facility] Last Admin: 02/06/25 20:22 Dose: 9 mg Mirtazapine (Mirtazapine 15 Mg Tablet) 15 mg PO BEDTIME [facility] Last Admin: 02/06/25 21:59 Dose: 7.5 mg Olanzapine (Olanzapine 2.5 Mg Tablet) 2.5 mg PO Q4H PRN PRN Reason: agitation Last Admin: 02/06/25 10:20 Dose: 2.5 mg Olanzapine (Olanzapine 10 Mg Tablet) 10 mg PO BEDTIME [facility] Last Admin: 02/06/25 20:23 Dose: 10 mg Senna (Sennosides 8.6 Mg Tablet) 8.6 mg PO DAILY PRN PRN Reason: Constipation Allergies Allergies Allergy/AdvReac Type Severity Reaction Status Date / Time cat dander [cats] Allergy Unknown Verified 01/18/25 09:04 cortisone Allergy Unknown Verified 01/18/25 09:04 dog dander [dogs] Allergy Unknown Verified 01/18/25 09:04 Assessment & Plan Assessment & Plan (1) Bipolar disorder, curr episode mixed, severe, with psychotic features: Status: Acute Code(s): F31.64 - Bipolar disorder, current episode mixed, severe, with psychotic features Assessment and Plan: vs schizoaffective disorder (2) Borderline personality disorder: Status: Acute Code(s): F60.3 - Borderline personality disorder (3) Generalized anxiety disorder: Status: Acute Code(s): F41.1 - Generalized anxiety disorder Plan The patient is on psychotic medications that have anticholinergic affects. Gabapentin has been titrated down from 400 mg t.i.d. to 200 mg t.i.d. and patient started on tamsulosin. Agree with medication adjustments and tamsulosin dosing. Urinalysis negative. Continue bladder scan and CIC every 8 hours for PVRs greater than 500 mL 01/29/25 cont olanzapine depakote inc as tolerated 01/30/25 pt somewhat clearer left message for son agitated depression consider ect ? mixed state 01/31/25 pt gradually improving cont depakote olanzapine needs much education reassurance 02/01/2025 Continues to gradually improve lower Depakote to 250 b.i.d. lower olanzapine to 7.5 at bedtime mirtazapine 7.5 at bedtime if activated discontinue 02/02/2025 Patient gradually improving continue Depakote mirtazapine olanzapine 02/03 continue tx. 02/04 continue tx. 02/05 continue tx. 02/06/2025 Patient continues anxious and ruminating increase olanzapine to 10 mg was on a higher dose when previously discharged unclear if mirtazapine helpful. Still seems to have anxious depression question history of mixed states might benefit from ECT Somewhat unclear what patient's baseline can be at this time. Still quite ruminating 02/07/25 Pt remains somewhat anxious ruminating limited insight cont zyprexa depakote mirtazapine Patient educated on: diagnosis and medication risk/benefits Reason for continued inpatient stay Substantial Risk for: harm to self, rapid decompensation and med/psych decompensation Time Spent With Patient Time: Total time managing care of this patient today ____ minutes.
--- NOTE | 2025-02-07 15:22 | P.EN_ITS ---
Event Note Date of Service: 02/07/25 Event Note: Pt is a 74 year female admitted to [facility] with hospitalist consult for question of rash concerning for possible drug reaction. Pt seen and examined in her bathroom where she offers no acute complaints. Pt denies pruritus or pain to area. Physical exam reveals a few areas of discrete punctate excoriations in a linear pattern on left flank extending to lower abdomen/groin. No confluence. Does not appear to be drug reaction. Possibly secondary to psychogenic pruritus as pt has a hx of significant anxiety. Overall pt appears asymptomatic and unconcerned with lesions. Origin date of rash unclear as pt has recently been refusing showers or personal care. Currently no indication for acute treatment at this time, though will put in an order for diphenhydramine 2% cream p.r.n. for itching. Time Spent With Patient Time: Total time managing care of this patient today ____ minutes.
[2025-02-07] MEDS: Docusate Sodium 100 MG CAPSULE PO (19:50)
[2025-02-07] MEDS: Mirtazapine 15 MG TABLET PO (19:50)
[2025-02-07] MEDS: Divalproex Sodium ER 500 MG TAB.ER.24H PO (19:50)
[2025-02-07] MEDS: Melatonin 3 MG TABLET 9 MG PO (19:50)
[2025-02-07] MEDS: Atorvastatin Calcium 40 MG TABLET PO (19:50)
[2025-02-07] MEDS: OLANZapine 10 MG TABLET PO (19:51)
[2025-02-07] MEDS: Latanoprost 0.005 % Ophth Sol 2.5 ML DROPS 1 DROP EYE-BOTH (19:51)
[2025-02-07 20:22] VITALS: BP 138/67; PULSE 82; RESP 17; TEMP 36.1; O2SAT 98
[2025-02-08] MEDS: OLANZapine 2.5 MG TABLET PO (01:01)
[2025-02-08] MEDS: Levothyroxine Sodium 50 MCG TABLET PO (05:29)
[2025-02-08 09:04] VITALS: BP 122/60; PULSE 92; RESP 18; TEMP 36.5; O2SAT 98
[2025-02-08] MEDS: lisinopriL 10 MG TABLET 30 MG PO (09:06)
[2025-02-08] MEDS: LORazepam 0.5 MG TABLET PO ×3 (09:06→19:50)
--- NOTE | 2025-02-08 15:27 | HO.PSYCHPN ---
Subjective Subjective Date of Service: 02/08/25 Reason For Visit: Psychosis Interim History: Met with patient; discussed with team; reviewed chart Patient reports that she is not well and cites her ongoing anxiety , saying she is worried about everything... She says she does not like Depakote but not sure why though she says maybe it is making her tipsy; handbook writer agreed to get labs. Staff reports that patient is overall doing better than on admission but remain internally preoccupied, worried she'll be in trouble...and today saying i don't want to get in trouble but on inquiry, cannot explain Patient taking medications Patient taking medications Mental Status Exam Mental Status Exam Narrative: Appearance: wearing casual clothing, well-groomed, constricted affect, anxious in appearance Behavior: cooperative Psychomotor: no agitation or retardation noted. Speech: clear, normal rate/rhythm/volume, spontaneous TP: mostly linear TC: Dealing with anxiety Mood: Very anxious Affect: Congruent, anxious SI: denies HI: denies VH/AH: Remains with internally preoccupations Delusions: Still expressing some paranoid ideations Insight/judgment: impaired Diagnostics Vital Signs (24Hr): Vital Signs - 24 hr 02/07/25 20:22 02/08/25 09:04 Temperature 96.9 F 97.7 F Pulse Rate 82 92 Respiratory Rate 17 18 Blood Pressure 138/67 122/60 Pulse Oximetry 98 98 Oxygen Delivery Method Room Air Room Air BMI result Body Mass Index 22.0 Labs 02/02/25 07:29 02/09/25 08:58 Medications Medications Current Medications Acetaminophen (Acetaminophen 325 Mg Tablet) 650 mg PO Q6H PRN PRN Reason: Headache/Pain Mild Scale (1-3) Last Admin: 02/06/25 20:23 Dose: 650 mg Al Hydroxide/Mg Hydroxide (Magnesium Hydrox/Alum Hydrox 30 Ml Oral.Susp) 30 ml PO Q6H PRN PRN Reason: Heartburn/Nausea Albuterol Sulfate (Albuterol Sulfate 90 Mcg 8 Gm Inhaler) 2 puff INHALE RQ4H PRN PRN Reason: Bronchospasm Atorvastatin Calcium (Atorvastatin Calcium 40 Mg Tablet) 40 mg PO BEDTIME [facility] Last Admin: 02/07/25 19:50 Dose: 40 mg Divalproex Sodium (Divalproex Sodium Er 500 Mg Tab.Er.24h) 500 mg PO BEDTIME [facility] Last Admin: 02/07/25 19:50 Dose: 500 mg Docusate Sodium (Docusate Sodium 100 Mg Capsule) 100 mg PO BEDTIME [facility] Last Admin: 02/07/25 19:50 Dose: 100 mg Latanoprost (Latanoprost 0.005 % Ophth Hannah 2.5 Ml Drops) 1 drop EYE-BOTH BEDTIME [facility] Last Admin: 02/07/25 19:51 Dose: 1 drop Levothyroxine Sodium (Levothyroxine Sodium 50 Mcg Tablet) 50 mcg PO DAILY@0600 [facility] Last Admin: 02/08/25 05:29 Dose: 50 mcg Lisinopril (Lisinopril 10 Mg Tablet) 30 mg PO DAILY [facility]; Protocol Last Admin: 02/08/25 09:06 Dose: 30 mg Lorazepam (Lorazepam 0.5 Mg Tablet) 0.5 mg PO TID [facility] Last Admin: 02/08/25 14:41 Dose: 0.5 mg Magnesium Hydroxide (Milk Of Magnesia 30 Ml Oral.Susp) 30 ml PO DAILY PRN PRN Reason: Constipation Melatonin (Melatonin 3 Mg Tablet) 9 mg PO BEDTIME [facility] Last Admin: 02/07/25 19:50 Dose: 9 mg Mirtazapine (Mirtazapine 15 Mg Tablet) 15 mg PO BEDTIME [facility] Last Admin: 02/07/25 19:50 Dose: 15 mg Olanzapine (Olanzapine 2.5 Mg Tablet) 2.5 mg PO Q4H PRN PRN Reason: agitation Last Admin: 02/08/25 01:01 Dose: 2.5 mg Olanzapine (Olanzapine 10 Mg Tablet) 10 mg PO BEDTIME [facility] Last Admin: 02/07/25 19:51 Dose: 10 mg Senna (Sennosides 8.6 Mg Tablet) 8.6 mg PO DAILY PRN PRN Reason: Constipation Zinc Acetate/Diphenhydramine (Diphenhydramine Hcl 2 % Cream 28 Gm Tube) 1 appl TOPICAL QID PRN; Protocol PRN Reason: Itching Allergies Allergies Allergy/AdvReac Type Severity Reaction Status Date / Time cat dander [cats] Allergy Unknown Verified 01/18/25 09:04 cortisone Allergy Unknown Verified 01/18/25 09:04 dog dander [dogs] Allergy Unknown Verified 01/18/25 09:04 Assessment & Plan Assessment & Plan (1) Bipolar disorder, curr episode mixed, severe, with psychotic features: Status: Acute Code(s): F31.64 - Bipolar disorder, current episode mixed, severe, with psychotic features Assessment and Plan: vs schizoaffective disorder (2) Borderline personality disorder: Status: Acute Code(s): F60.3 - Borderline personality disorder (3) Generalized anxiety disorder: Status: Acute Code(s): F41.1 - Generalized anxiety disorder Plan The patient is on psychotic medications that have anticholinergic affects. Gabapentin has been titrated down from 400 mg t.i.d. to 200 mg t.i.d. and patient started on tamsulosin. Agree with medication adjustments and tamsulosin dosing. Urinalysis negative. Continue bladder scan and CIC every 8 hours for PVRs greater than 500 mL 01/29/25 cont olanzapine depakote inc as tolerated 01/30/25 pt somewhat clearer left message for son agitated depression consider ect ? mixed state 01/31/25 pt gradually improving cont depakote olanzapine needs much education reassurance 02/01/2025 Continues to gradually improve lower Depakote to 250 b.i.d. lower olanzapine to 7.5 at bedtime mirtazapine 7.5 at bedtime if activated discontinue 02/02/2025 Patient gradually improving continue Depakote mirtazapine olanzapine 02/03 continue tx. 02/04 continue tx. 02/05 continue tx. 02/06/2025 Patient continues anxious and ruminating increase olanzapine to 10 mg was on a higher dose when previously discharged unclear if mirtazapine helpful. Still seems to have anxious depression question history of mixed states might benefit from ECT Somewhat unclear what patient's baseline can be at this time. Still quite ruminating 02/07/25 Pt remains somewhat anxious ruminating limited insight cont zyprexa depakote mirtazapine 02/08 Patient reports that she is not well and cites her ongoing anxiety , saying she is worried about everything... She says she does not like Depakote but not sure why though she says maybe it is making her tipsy; handbook writer agreed to get labs. Staff reports that patient is overall doing better than on admission but remain internally preoccupied, worried she'll be in trouble...and today saying i don't want to get in trouble but on inquiry, cannot explain Patient taking medications -continue taking Depakote; will get labs, level -patient remains anxious; Remeron recently increased so will leave as is for now Patient educated on: diagnosis and medication risk/benefits Informed Consent: understands, does not understand and further education needed Reason for continued inpatient stay Substantial Risk for: rapid decompensation Time Spent With Patient Time: Total time managing care of this patient today ____ minutes.
[2025-02-08 19:47] VITALS: BP 151/69; PULSE 83; RESP 16; TEMP 37; O2SAT 97
[2025-02-08] MEDS: Mirtazapine 15 MG TABLET PO (19:50)
[2025-02-08] MEDS: OLANZapine 10 MG TABLET PO (19:50)
[2025-02-08] MEDS: Docusate Sodium 100 MG CAPSULE PO (19:50)
[2025-02-08] MEDS: Melatonin 3 MG TABLET 9 MG PO (19:50)
[2025-02-08] MEDS: Atorvastatin Calcium 40 MG TABLET PO (19:50)
[2025-02-08] MEDS: Divalproex Sodium ER 500 MG TAB.ER.24H PO (19:50)
[2025-02-08] MEDS: Latanoprost 0.005 % Ophth Sol 2.5 ML DROPS 1 DROP EYE-BOTH (19:51)
[2025-02-09] MEDS: Levothyroxine Sodium 50 MCG TABLET PO (04:57)
[2025-02-09 09:14] LABS: Ammonia 27 umol/L (13-55)
[2025-02-09 09:19] LABS: Valproate 33.8 mcg/mL (50.0-100.0)
[2025-02-09 09:23] LABS: Alanine Aminotransferase 13 U/L (0-31); Albumin Level 3.6 g/dL (3.5-5.0); Alkaline Phosphatase 53 U/L (39-117); Anion Gap 13 (12-20); Aspartate Amino Transferase 15 U/L (5-31); Bilirubin Total 0.5 mg/dL (0.0-1.0); Blood Urea Nitrogen 7 mg/dL (9-16); Calcium 8.8 mg/dL (8.4-10.2); Carbon Dioxide 21 mmol/L (22-29); Chloride 109 mmol/L (96-108); Creatinine Clr Calc Pharmacy 66.8; Estimated Glomerular Filt Rate > 60; Glucose Random 158 mg/dL (60-115); Potassium 3.8 mmol/L (3.3-5.1); Sodium 139 mmol/L (135-145); Total Protein 5.9 g/dL (6.5-8.0)
[2025-02-09 09:46] VITALS: BP 144/78; PULSE 94; RESP 18; TEMP 36.7; O2SAT 98
[2025-02-09] MEDS: LORazepam 0.5 MG TABLET PO ×3 (09:53→21:41)
[2025-02-09] MEDS: lisinopriL 10 MG TABLET 30 MG PO (09:53)
--- NOTE | 2025-02-09 17:00 | P.PNPSI_ITS ---
Subjective Subjective Date of Service: 02/09/25 Reason For Visit: Psychosis Interim History: Met with patient; discussed with team Patient reports that she is feeling a little better today, that anxiety is improved. Friendly on approach and chatty with press writer. Patient talked about her siblings some; discussed medications Mental Status Exam Mental Status Exam Narrative: Appearance: wearing casual clothing, well-groomed Behavior: cooperative Psychomotor: no agitation or retardation noted. Speech: clear, normal rate/rhythm/volume, spontaneous TP: mostly linear TC: Dealing with anxiety Mood: better Affect: Congruent, brighter SI: denies HI: denies VH/AH: Remains with internally preoccupations Delusions: Still expressing some paranoid ideations to staff Insight/judgment: impaired Diagnostics Vital Signs (24Hr): Vital Signs - 24 hr 02/08/25 19:47 02/09/25 09:46 Temperature 98.6 F 98.1 F Pulse Rate 83 94 Respiratory Rate 16 18 Blood Pressure 151/69 H 144/78 H Pulse Oximetry 97 98 Oxygen Delivery Method Room Air Room Air BMI result Body Mass Index 22.0 Labs 02/02/25 07:29 02/09/25 08:58 Labs: Laboratory Results - last 48 hr 02/09/25 08:58 Sodium 139 Potassium 3.8 Chloride 109 H Carbon Dioxide 21 L Anion Gap 13 BUN 7 L Creatinine 0.67 Estim Creat Clear Calc 66.8 Estimated GFR > 60 Random Glucose 158 H Calcium 8.8 Total Bilirubin 0.5 AST 15 ALT 13 Alkaline Phosphatase 53 Ammonia 27 Total Protein 5.9 L Albumin 3.6 Valproic Acid 33.8 L Medications Medications Current Medications Acetaminophen (Acetaminophen 325 Mg Tablet) 650 mg PO Q6H PRN PRN Reason: Headache/Pain Mild Scale (1-3) Last Admin: 02/06/25 20:23 Dose: 650 mg Al Hydroxide/Mg Hydroxide (Magnesium Hydrox/Alum Hydrox 30 Ml Oral.Susp) 30 ml PO Q6H PRN PRN Reason: Heartburn/Nausea Albuterol Sulfate (Albuterol Sulfate 90 Mcg 8 Gm Inhaler) 2 puff INHALE RQ4H PRN PRN Reason: Bronchospasm Atorvastatin Calcium (Atorvastatin Calcium 40 Mg Tablet) 40 mg PO BEDTIME [facility] Last Admin: 02/08/25 19:50 Dose: 40 mg Divalproex Sodium (Divalproex Sodium Er 500 Mg Tab.Er.24h) 500 mg PO BEDTIME [facility] Last Admin: 02/08/25 19:50 Dose: 500 mg Docusate Sodium (Docusate Sodium 100 Mg Capsule) 100 mg PO BEDTIME [facility] Last Admin: 02/08/25 19:50 Dose: 100 mg Latanoprost (Latanoprost 0.005 % Ophth Hannah 2.5 Ml Drops) 1 drop EYE-BOTH BEDTIME [facility] Last Admin: 02/08/25 19:51 Dose: 1 drop Levothyroxine Sodium (Levothyroxine Sodium 50 Mcg Tablet) 50 mcg PO DAILY@0600 [facility] Last Admin: 02/09/25 04:57 Dose: 50 mcg Lisinopril (Lisinopril 10 Mg Tablet) 30 mg PO DAILY [facility]; Protocol Last Admin: 02/09/25 09:53 Dose: 30 mg Lorazepam (Lorazepam 0.5 Mg Tablet) 0.5 mg PO TID [facility] Last Admin: 02/09/25 14:33 Dose: 0.5 mg Magnesium Hydroxide (Milk Of Magnesia 30 Ml Oral.Susp) 30 ml PO DAILY PRN PRN Reason: Constipation Melatonin (Melatonin 3 Mg Tablet) 9 mg PO BEDTIME [facility] Last Admin: 02/08/25 19:50 Dose: 9 mg Mirtazapine (Mirtazapine 15 Mg Tablet) 15 mg PO BEDTIME [facility] Last Admin: 02/08/25 19:50 Dose: 15 mg Olanzapine (Olanzapine 2.5 Mg Tablet) 2.5 mg PO Q4H PRN PRN Reason: agitation Last Admin: 02/08/25 01:01 Dose: 2.5 mg Olanzapine (Olanzapine 10 Mg Tablet) 10 mg PO BEDTIME [facility] Last Admin: 02/08/25 19:50 Dose: 10 mg Senna (Sennosides 8.6 Mg Tablet) 8.6 mg PO DAILY PRN PRN Reason: Constipation Zinc Acetate/Diphenhydramine (Diphenhydramine Hcl 2 % Cream 28 Gm Tube) 1 appl TOPICAL QID PRN; Protocol PRN Reason: Itching Allergies Allergies Allergy/AdvReac Type Severity Reaction Status Date / Time cat dander [cats] Allergy Unknown Verified 01/18/25 09:04 cortisone Allergy Unknown Verified 01/18/25 09:04 dog dander [dogs] Allergy Unknown Verified 01/18/25 09:04 Assessment & Plan Assessment & Plan (1) Bipolar disorder, curr episode mixed, severe, with psychotic features: Status: Acute Code(s): F31.64 - Bipolar disorder, current episode mixed, severe, with psychotic features Assessment and Plan: vs schizoaffective disorder (2) Borderline personality disorder: Status: Acute Code(s): F60.3 - Borderline personality disorder (3) Generalized anxiety disorder: Status: Acute Code(s): F41.1 - Generalized anxiety disorder Plan The patient is on psychotic medications that have anticholinergic affects. Gabapentin has been titrated down from 400 mg t.i.d. to 200 mg t.i.d. and patient started on tamsulosin. Agree with medication adjustments and tamsulosin dosing. Urinalysis negative. Continue bladder scan and CIC every 8 hours for PVRs greater than 500 mL 01/29/25 cont olanzapine depakote inc as tolerated 01/30/25 pt somewhat clearer left message for son agitated depression consider ect ? mixed state 01/31/25 pt gradually improving cont depakote olanzapine needs much education reassurance 02/01/2025 Continues to gradually improve lower Depakote to 250 b.i.d. lower olanzapine to 7.5 at bedtime mirtazapine 7.5 at bedtime if activated discontinue 02/02/2025 Patient gradually improving continue Depakote mirtazapine olanzapine 02/03 continue tx. 02/04 continue tx. 02/05 continue tx. 02/06/2025 Patient continues anxious and ruminating increase olanzapine to 10 mg was on a higher dose when previously discharged unclear if mirtazapine helpful. Still seems to have anxious depression question history of mixed states might benefit from ECT Somewhat unclear what patient's baseline can be at this time. Still quite ruminating 02/07/25 Pt remains somewhat anxious ruminating limited insight cont zyprexa depakote mirtazapine 02/08 Patient reports that she is not well and cites her ongoing anxiety , saying she is worried about everything... She says she does not like Depakote but not sure why though she says maybe it is making her tipsy; press writer agreed to get labs. Staff reports that patient is overall doing better than on admission but remain internally preoccupied, worried she'll be in trouble...and today saying i don't want to get in trouble but on inquiry, cannot explain Patient taking medications -continue taking Depakote; will get labs, level -patient remains anxious; Remeron recently increased so will leave as is for now 02/09 doing better today; ruminating still but brighter. Patient educated on: diagnosis and medication risk/benefits Informed Consent: understands, does not understand and further education needed Reason for continued inpatient stay Substantial Risk for: rapid decompensation Time Spent With Patient Time: Total time managing care of this patient today ____ minutes.
[2025-02-09 20:00] VITALS: BP 157/76; PULSE 75; RESP 18; TEMP 36.3; O2SAT 96
[2025-02-09] MEDS: Atorvastatin Calcium 40 MG TABLET PO (21:41)
[2025-02-09] MEDS: Mirtazapine 15 MG TABLET PO (21:41)
[2025-02-09] MEDS: OLANZapine 10 MG TABLET PO (21:41)
[2025-02-09] MEDS: Divalproex Sodium ER 500 MG TAB.ER.24H PO (21:41)
[2025-02-09] MEDS: Docusate Sodium 100 MG CAPSULE PO (21:41)
[2025-02-09] MEDS: Latanoprost 0.005 % Ophth Sol 2.5 ML DROPS 1 DROP EYE-BOTH (21:42)
[2025-02-09] MEDS: Acetaminophen 325 MG TABLET 650 MG PO (21:42)
[2025-02-09] MEDS: Melatonin 3 MG TABLET 9 MG PO (21:42)
[2025-02-10] MEDS: Levothyroxine Sodium 50 MCG TABLET PO (06:41)
[2025-02-10 08:35] VITALS: BP 119/58; PULSE 81; RESP 16; TEMP 37; O2SAT 99
[2025-02-10] MEDS: LORazepam 0.5 MG TABLET PO (08:36)
[2025-02-10] MEDS: lisinopriL 10 MG TABLET 30 MG PO (08:36)
[2025-02-10] MEDS: OLANZapine 2.5 MG TABLET PO (09:40)
--- NOTE | 2025-02-10 11:46 | PC.NURSE ---
Pt reported that she is unable to empty her bladder each time she uses the toilet. This parts data writer bladder scanned her, and got a reading of 115ML. This parts data writer reported this information to Dr. Justus Edwards via [facility]. Answer pending.
--- NOTE | 2025-02-10 13:34 | HO.PSYCHPN ---
Subjective Subjective Date of Service: 02/10/25 Reason For Visit: Psychosis Subjective Notes: Conditional Voluntary Interim History: The nursing staff reported the patient had been paranoid, very delusional but much better since the intake. The occupational therapist reported that she scored 22/30 on the [place] and we are considering the possibility of custodial facility versus [facility] with [facility]. The nursing staff reported the patient was very anxious in the afternoon even though that she received p.r.n. Ativan 0.5 and Zyprexa. On interview the patient reported that she does not believe that she has bipolar disorder. She agreed to increase Ativan p.r.n. anxiety. Mental Status Exam Mental Status Exam Patient Appearance: Appropriate Patient Orientation: Person and Situation Level of Consciousness: Awake and Appropriate Patient Behavior: Guarded and Passive Mood Description: Calm Affect Description: Constricted Patient Cognition Impaired: Yes Ability to Follow Directions: Good Speech Pattern: Clear Hallucinations: None Delusions: Paranoid Ideation Thought Process: Distracted and Slowed Thinking Thought Content: positive for [place] and positive for Poverty of Content Judgement: Fair Diagnostics Vital Signs (24Hr): Vital Signs - 24 hr 02/09/25 20:00 02/10/25 08:35 Temperature 97.3 F 98.6 F Pulse Rate 75 81 Respiratory Rate 18 16 Blood Pressure 157/76 H 119/58 L Pulse Oximetry 96 99 Oxygen Delivery Method Room Air Room Air BMI result Body Mass Index 22.0 Labs 02/02/25 07:29 02/09/25 08:58 Labs: Laboratory Results - last 48 hr 02/09/25 08:58 Sodium 139 Potassium 3.8 Chloride 109 H Carbon Dioxide 21 L Anion Gap 13 BUN 7 L Creatinine 0.67 Estim Creat Clear Calc 66.8 Estimated GFR > 60 Random Glucose 158 H Calcium 8.8 Total Bilirubin 0.5 AST 15 ALT 13 Alkaline Phosphatase 53 Ammonia 27 Total Protein 5.9 L Albumin 3.6 Valproic Acid 33.8 L Medications Medications Current Medications Acetaminophen (Acetaminophen 325 Mg Tablet) 650 mg PO Q6H PRN PRN Reason: Headache/Pain Mild Scale (1-3) Last Admin: 02/09/25 21:42 Dose: 650 mg Al Hydroxide/Mg Hydroxide (Magnesium Hydrox/Alum Hydrox 30 Ml Oral.Susp) 30 ml PO Q6H PRN PRN Reason: Heartburn/Nausea Albuterol Sulfate (Albuterol Sulfate 90 Mcg 8 Gm Inhaler) 2 puff INHALE RQ4H PRN PRN Reason: Bronchospasm Atorvastatin Calcium (Atorvastatin Calcium 40 Mg Tablet) 40 mg PO BEDTIME [facility] Last Admin: 02/09/25 21:41 Dose: 40 mg Divalproex Sodium (Divalproex Sodium Er 500 Mg Tab.Er.24h) 500 mg PO BEDTIME [facility] Last Admin: 02/09/25 21:41 Dose: 500 mg Docusate Sodium (Docusate Sodium 100 Mg Capsule) 100 mg PO BEDTIME [facility] Last Admin: 02/09/25 21:41 Dose: 100 mg Latanoprost (Latanoprost 0.005 % Ophth Hannah 2.5 Ml Drops) 1 drop EYE-BOTH BEDTIME [facility] Last Admin: 02/09/25 21:42 Dose: 1 drop Levothyroxine Sodium (Levothyroxine Sodium 50 Mcg Tablet) 50 mcg PO DAILY@0600 [facility] Last Admin: 02/10/25 06:41 Dose: 50 mcg Lisinopril (Lisinopril 10 Mg Tablet) 30 mg PO DAILY [facility]; Protocol Last Admin: 02/10/25 08:36 Dose: 30 mg Lorazepam (Lorazepam 1 Mg Tablet) 1 mg PO TID [facility] Magnesium Hydroxide (Milk Of Magnesia 30 Ml Oral.Susp) 30 ml PO DAILY PRN PRN Reason: Constipation Melatonin (Melatonin 3 Mg Tablet) 9 mg PO BEDTIME [facility] Last Admin: 02/09/25 21:42 Dose: 9 mg Mirtazapine (Mirtazapine 15 Mg Tablet) 15 mg PO BEDTIME [facility] Last Admin: 02/09/25 21:41 Dose: 15 mg Olanzapine (Olanzapine 2.5 Mg Tablet) 2.5 mg PO Q4H PRN PRN Reason: agitation Last Admin: 02/10/25 09:40 Dose: 2.5 mg Olanzapine (Olanzapine 10 Mg Tablet) 10 mg PO BEDTIME [facility] Last Admin: 02/09/25 21:41 Dose: 10 mg Senna (Sennosides 8.6 Mg Tablet) 8.6 mg PO DAILY PRN PRN Reason: Constipation Zinc Acetate/Diphenhydramine (Diphenhydramine Hcl 2 % Cream 28 Gm Tube) 1 appl TOPICAL QID PRN; Protocol PRN Reason: Itching Allergies Allergies Allergy/AdvReac Type Severity Reaction Status Date / Time cat dander [cats] Allergy Unknown Verified 01/18/25 09:04 cortisone Allergy Unknown Verified 01/18/25 09:04 dog dander [dogs] Allergy Unknown Verified 01/18/25 09:04 Assessment & Plan Assessment & Plan (1) Bipolar disorder, curr episode mixed, severe, with psychotic features: Status: Acute Code(s): F31.64 - Bipolar disorder, current episode mixed, severe, with psychotic features Assessment and Plan: vs schizoaffective disorder (2) Borderline personality disorder: Status: Acute Code(s): F60.3 - Borderline personality disorder (3) Generalized anxiety disorder: Status: Acute Code(s): F41.1 - Generalized anxiety disorder Plan The patient is on psychotic medications that have anticholinergic affects. Gabapentin has been titrated down from 400 mg t.i.d. to 200 mg t.i.d. and patient started on tamsulosin. Agree with medication adjustments and tamsulosin dosing. Urinalysis negative. Continue bladder scan and CIC every 8 hours for PVRs greater than 500 mL 01/29/25 cont olanzapine depakote inc as tolerated 01/30/25 pt somewhat clearer left message for son agitated depression consider ect ? mixed state 01/31/25 pt gradually improving cont depakote olanzapine needs much education reassurance 02/01/2025 Continues to gradually improve lower Depakote to 250 b.i.d. lower olanzapine to 7.5 at bedtime mirtazapine 7.5 at bedtime if activated discontinue 02/02/2025 Patient gradually improving continue Depakote mirtazapine olanzapine 02/03 continue tx. 02/04 continue tx. 02/05 continue tx. 02/06/2025 Patient continues anxious and ruminating increase olanzapine to 10 mg was on a higher dose when previously discharged unclear if mirtazapine helpful. Still seems to have anxious depression question history of mixed states might benefit from ECT Somewhat unclear what patient's baseline can be at this time. Still quite ruminating 02/07/25 Pt remains somewhat anxious ruminating limited insight cont zyprexa depakote mirtazapine 02/08 Patient reports that she is not well and cites her ongoing anxiety , saying she is worried about everything... She says she does not like Depakote but not sure why though she says maybe it is making her tipsy; signwriter agreed to get labs. Staff reports that patient is overall doing better than on admission but remain internally preoccupied, worried she'll be in trouble...and today saying i don't want to get in trouble but on inquiry, cannot explain Patient taking medications -continue taking Depakote; will get labs, level -patient remains anxious; Remeron recently increased so will leave as is for now 02/09 doing better today; ruminating still but brighter. 02/10 increase p.r.n. Ativan up to 1 mg Reason for continued inpatient stay Substantial Risk for: inability to function, rapid decompensation and med/psych decompensation Time Spent With Patient Time: Total time managing care of this patient today __20__ minutes.
[2025-02-10 13:43] LABS: Appearance Urine Clear; Color Urine Yellow; Glucose Urine UA 100 mg/dL (Negative); Leukocyte Esterase Urine Negative (Negative); Nitrite Urine Negative (Negative); PH 6.5 (5.0-9.0); Specific Gravity - Urine <= 1.005 (1.005-1.025); Urine Blood Negative (Negative); Urine Ketones Negative (Negative); Urine Protein Negative (Neg-Trace)
[2025-02-10 13:51] LABS: Bacteria Urine None Seen (None Seen); Hyaline Casts Urine 0-2 /LPF (0-2); RBC Urine 0-2 /HPF (0-2); Squamous Epithelial Cell Urine 0-2 /HPF (0-2); WBC Urine 0-5 /HPF (0-5)
[2025-02-10] MEDS: LORazepam 1 MG TABLET PO ×3 (13:53→20:01)
[2025-02-10] MEDS: Acetaminophen 325 MG TABLET 650 MG PO (16:27)
[2025-02-10 19:58] VITALS: BP 125/60; PULSE 72; RESP 16; TEMP 36.4; O2SAT 97
[2025-02-10] MEDS: Melatonin 3 MG TABLET 9 MG PO (20:01)
[2025-02-10] MEDS: Atorvastatin Calcium 40 MG TABLET PO (20:01)
[2025-02-10] MEDS: Mirtazapine 15 MG TABLET PO (20:01)
[2025-02-10] MEDS: OLANZapine 10 MG TABLET PO (20:01)
[2025-02-10] MEDS: Docusate Sodium 100 MG CAPSULE PO (20:01)
[2025-02-10] MEDS: Divalproex Sodium ER 500 MG TAB.ER.24H PO (20:01)
[2025-02-10] MEDS: Latanoprost 0.005 % Ophth Sol 2.5 ML DROPS 1 DROP EYE-BOTH (20:01)
[2025-02-11] MEDS: Levothyroxine Sodium 50 MCG TABLET PO (05:59)
[2025-02-11 07:55] VITALS: BP 128/62; PULSE 88; RESP 16; TEMP 36.2; O2SAT 98
[2025-02-11] MEDS: lisinopriL 10 MG TABLET 30 MG PO (08:21)
[2025-02-11] MEDS: LORazepam 1 MG TABLET PO ×3 (08:21→20:55)
--- NOTE | 2025-02-11 10:29 | P.PNPSI_ITS ---
Subjective Subjective Date of Service: 02/11/25 Reason For Visit: Psychosis Subjective Notes: Conditional Voluntary Interim History: The nursing staff reported the patient had been flat anxious in bed most of the time restless. She slept 8 hours. The UA came back negative. The social media assistant reported that her son wants her placed in assisted living facility but the patient does not want to go. We discussed on rounds and we decided to increase Zyprexa to 15 mg p.o. q.h.s.. On interview the patient reported that her insight is better but she was requesting the branded Xanax not generic. Mental Status Exam Mental Status Exam Patient Appearance: Appropriate Patient Orientation: Person and Situation Level of Consciousness: Awake and Appropriate Patient Behavior: Guarded and Passive Mood Description: Calm and Constricted Affect Description: Withdrawn Ability to Follow Directions: Good Speech Pattern: Clear Hallucinations: None Delusions: Ideas of Reference Thought Process: Distracted and Slowed Thinking Thought Content: positive for [place] and positive for Poverty of Content Judgement: Fair Diagnostics Vital Signs (24Hr): Vital Signs - 24 hr 02/10/25 19:58 02/11/25 07:55 Temperature 97.5 F 97.2 F Pulse Rate 72 88 Respiratory Rate 16 16 Blood Pressure 125/60 128/62 Pulse Oximetry 97 98 Oxygen Delivery Method Room Air Room Air BMI result Body Mass Index 22.0 Labs 02/02/25 07:29 02/09/25 08:58 Labs: Laboratory Results - last 48 hr 02/10/25 13:00 Urine Color Yellow Urine Appearance Clear Urine pH 6.5 Ur Specific [place] <= 1.005 Urine Protein Negative Urine Glucose (UA) 100 H Urine Ketones Negative Urine Blood Negative Urine Nitrite Negative Ur Leukocyte Esterase Negative Urine RBC 0-2 Urine WBC 0-5 Ur Squamous Epith Cells 0-2 Urine Bacteria None Seen Hyaline Casts 0-2 Medications Medications Current Medications Acetaminophen (Acetaminophen 325 Mg Tablet) 650 mg PO Q6H PRN PRN Reason: Headache/Pain Mild Scale (1-3) Last Admin: 02/10/25 16:27 Dose: 650 mg Al Hydroxide/Mg Hydroxide (Magnesium Hydrox/Alum Hydrox 30 Ml Oral.Susp) 30 ml PO Q6H PRN PRN Reason: Heartburn/Nausea Albuterol Sulfate (Albuterol Sulfate 90 Mcg 8 Gm Inhaler) 2 puff INHALE RQ4H PRN PRN Reason: Bronchospasm Atorvastatin Calcium (Atorvastatin Calcium 40 Mg Tablet) 40 mg PO BEDTIME [facility] Last Admin: 02/10/25 20:01 Dose: 40 mg Divalproex Sodium (Divalproex Sodium Er 500 Mg Tab.Er.24h) 500 mg PO BEDTIME [facility] Last Admin: 02/10/25 20:01 Dose: 500 mg Docusate Sodium (Docusate Sodium 100 Mg Capsule) 100 mg PO BEDTIME [facility] Last Admin: 02/10/25 20:01 Dose: 100 mg Latanoprost (Latanoprost 0.005 % Ophth [place] 2.5 Ml Drops) 1 drop EYE-BOTH BEDTIME [facility] Last Admin: 02/10/25 20:01 Dose: 1 drop Levothyroxine Sodium (Levothyroxine Sodium 50 Mcg Tablet) 50 mcg PO DAILY@0600 [facility] Last Admin: 02/11/25 05:59 Dose: 50 mcg Lisinopril (Lisinopril 10 Mg Tablet) 30 mg PO DAILY [facility]; Protocol Last Admin: 02/11/25 08:21 Dose: 30 mg Lorazepam (Lorazepam 1 Mg Tablet) 1 mg PO TID [facility] Last Admin: 02/11/25 08:21 Dose: 1 mg Magnesium Hydroxide (Milk Of Magnesia 30 Ml Oral.Susp) 30 ml PO DAILY PRN PRN Reason: Constipation Melatonin (Melatonin 3 Mg Tablet) 9 mg PO BEDTIME [facility] Last Admin: 02/10/25 20:01 Dose: 9 mg Mirtazapine (Mirtazapine 15 Mg Tablet) 15 mg PO BEDTIME [facility] Last Admin: 02/10/25 20:01 Dose: 15 mg Olanzapine (Olanzapine 2.5 Mg Tablet) 2.5 mg PO Q4H PRN PRN Reason: agitation Last Admin: 02/10/25 09:40 Dose: 2.5 mg Olanzapine (Olanzapine 7.5 Mg Tablet) 15 mg PO BEDTIME [facility] Senna (Sennosides 8.6 Mg Tablet) 8.6 mg PO DAILY PRN PRN Reason: Constipation Zinc Acetate/Diphenhydramine (Diphenhydramine Hcl 2 % Cream 28 Gm Tube) 1 appl TOPICAL QID PRN; Protocol PRN Reason: Itching Allergies Allergies Allergy/AdvReac Type Severity Reaction Status Date / Time cat dander [cats] Allergy Unknown Verified 01/18/25 09:04 cortisone Allergy Unknown Verified 01/18/25 09:04 dog dander [dogs] Allergy Unknown Verified 01/18/25 09:04 Assessment & Plan Assessment & Plan (1) Bipolar disorder, curr episode mixed, severe, with psychotic features: Status: Acute Code(s): F31.64 - Bipolar disorder, current episode mixed, severe, with psychotic features Assessment and Plan: vs schizoaffective disorder (2) Borderline personality disorder: Status: Acute Code(s): F60.3 - Borderline personality disorder (3) Generalized anxiety disorder: Status: Acute Code(s): F41.1 - Generalized anxiety disorder Plan The patient is on psychotic medications that have anticholinergic affects. Gabapentin has been titrated down from 400 mg t.i.d. to 200 mg t.i.d. and patient started on tamsulosin. Agree with medication adjustments and tamsulosin dosing. Urinalysis negative. Continue bladder scan and CIC every 8 hours for PVRs greater than 500 mL 01/29/25 cont olanzapine depakote inc as tolerated 01/30/25 pt somewhat clearer left message for son agitated depression consider ect ? mixed state 01/31/25 pt gradually improving cont depakote olanzapine needs much education reassurance 02/01/2025 Continues to gradually improve lower Depakote to 250 b.i.d. lower olanzapine to 7.5 at bedtime mirtazapine 7.5 at bedtime if activated discontinue 02/02/2025 Patient gradually improving continue Depakote mirtazapine olanzapine 02/03 continue tx. 02/04 continue tx. 02/05 continue tx. 02/06/2025 Patient continues anxious and ruminating increase olanzapine to 10 mg was on a higher dose when previously discharged unclear if mirtazapine helpful. Still seems to have anxious depression question history of mixed states might benefit from ECT Somewhat unclear what patient's baseline can be at this time. Still quite ruminating 02/07/25 Pt remains somewhat anxious ruminating limited insight cont zyprexa depakote mirtazapine 02/08 Patient reports that she is not well and cites her ongoing anxiety , saying she is worried about everything... She says she does not like Depakote but not sure why though she says maybe it is making her tipsy; racebook writer agreed to get labs. Staff reports that patient is overall doing better than on admission but remain internally preoccupied, worried she'll be in trouble...and today saying i don't want to get in trouble but on inquiry, cannot explain Patient taking medications -continue taking Depakote; will get labs, level -patient remains anxious; Remeron recently increased so will leave as is for now 02/09 doing better today; ruminating still but brighter. 02/10 increase p.r.n. Ativan up to 1 mg. 02/11 increased Zyprexa to 15 mg p.o. q.h.s. Reason for continued inpatient stay Substantial Risk for: inability to function, rapid decompensation and med/psych decompensation Time Spent With Patient Time: Total time managing care of this patient today __20__ minutes.
[2025-02-11] MEDS: OLANZapine 2.5 MG TABLET PO (13:36)
[2025-02-11 20:00] VITALS: BP 119/60; PULSE 74; RESP 16; TEMP 36.8; O2SAT 98
[2025-02-11] MEDS: Melatonin 3 MG TABLET 9 MG PO (20:53)
[2025-02-11] MEDS: OLANZapine 7.5 MG TABLET 15 MG PO (20:53)
[2025-02-11] MEDS: Acetaminophen 325 MG TABLET 650 MG PO (20:54)
[2025-02-11] MEDS: Docusate Sodium 100 MG CAPSULE PO (20:55)
[2025-02-11] MEDS: Latanoprost 0.005 % Ophth Sol 2.5 ML DROPS 1 DROP EYE-BOTH (20:56)
[2025-02-11] MEDS: Mirtazapine 15 MG TABLET PO (20:56)
[2025-02-11] MEDS: Divalproex Sodium ER 500 MG TAB.ER.24H PO (20:56)
[2025-02-11] MEDS: Atorvastatin Calcium 40 MG TABLET PO (20:56)
[2025-02-12] MEDS: Levothyroxine Sodium 50 MCG TABLET PO (06:33)
[2025-02-12 08:15] VITALS: BP 132/76; PULSE 88; RESP 18; TEMP 36.3; O2SAT 98
[2025-02-12] MEDS: lisinopriL 10 MG TABLET 30 MG PO (08:29)
[2025-02-12] MEDS: LORazepam 1 MG TABLET PO ×3 (08:29→20:33)
--- NOTE | 2025-02-12 13:08 | P.PNPSI_ITS ---
Subjective Subjective Date of Service: 02/12/25 Reason For Visit: Psychosis Subjective Notes: Conditional Voluntary Interim History: The nursing staff reported the patient had been anxious flat good appetite. She slept 8 hours. The social problems specialist reported that it is unclear if the patient can go to an assisted living facility but we will work on a discharge plan. On interview I explained her that we can not give her branded Xanax she was paranoid on groups but able to participate with her peers. No evidence of over- sedation with increase of Zyprexa. Mental Status Exam Mental Status Exam Patient Appearance: Appropriate Patient Orientation: Person and Situation Level of Consciousness: Awake and Appropriate Patient Behavior: Guarded and Passive Mood Description: Withdrawn Affect Description: Constricted Patient Cognition Impaired: Yes Ability to Follow Directions: Fair Speech Pattern: Appropriate Hallucinations: None Delusions: Paranoid Ideation Thought Process: Distracted and Slowed Thinking Thought Content: positive for [place] and positive for Poverty of Content Judgement: Fair Diagnostics Vital Signs (24Hr): Vital Signs - 24 hr 02/11/25 20:00 02/12/25 08:15 Temperature 98.3 F 97.4 F Pulse Rate 74 88 Respiratory Rate 16 18 Blood Pressure 119/60 132/76 Pulse Oximetry 98 98 Oxygen Delivery Method Room Air BMI result Body Mass Index 22.0 Labs 02/02/25 07:29 02/09/25 08:58 Labs: Laboratory Results - last 48 hr 02/10/25 13:00 Urine Color Yellow Urine Appearance Clear Urine pH 6.5 Ur Specific [place] <= 1.005 Urine Protein Negative Urine Glucose (UA) 100 H Urine Ketones Negative Urine Blood Negative Urine Nitrite Negative Ur Leukocyte Esterase Negative Urine RBC 0-2 Urine WBC 0-5 Ur Squamous Epith Cells 0-2 Urine Bacteria None Seen Hyaline Casts 0-2 Medications Medications Current Medications Acetaminophen (Acetaminophen 325 Mg Tablet) 650 mg PO Q6H PRN PRN Reason: Headache/Pain Mild Scale (1-3) Last Admin: 02/11/25 20:54 Dose: 650 mg Al Hydroxide/Mg Hydroxide (Magnesium Hydrox/Alum Hydrox 30 Ml Oral.Susp) 30 ml PO Q6H PRN PRN Reason: Heartburn/Nausea Albuterol Sulfate (Albuterol Sulfate 90 Mcg 8 Gm Inhaler) 2 puff INHALE RQ4H PRN PRN Reason: Bronchospasm Atorvastatin Calcium (Atorvastatin Calcium 40 Mg Tablet) 40 mg PO BEDTIME [facility] Last Admin: 02/11/25 20:56 Dose: 40 mg Divalproex Sodium (Divalproex Sodium Er 500 Mg Tab.Er.24h) 500 mg PO BEDTIME [facility] Last Admin: 02/11/25 20:56 Dose: 500 mg Docusate Sodium (Docusate Sodium 100 Mg Capsule) 100 mg PO BEDTIME [facility] Last Admin: 02/11/25 20:55 Dose: 100 mg Latanoprost (Latanoprost 0.005 % Ophth [place] 2.5 Ml Drops) 1 drop EYE-BOTH BEDTIME [facility] Last Admin: 02/11/25 20:56 Dose: 1 drop Levothyroxine Sodium (Levothyroxine Sodium 50 Mcg Tablet) 50 mcg PO DAILY@0600 [facility] Last Admin: 02/12/25 06:33 Dose: 50 mcg Lisinopril (Lisinopril 10 Mg Tablet) 30 mg PO DAILY [facility]; Protocol Last Admin: 02/12/25 08:29 Dose: 30 mg Lorazepam (Lorazepam 1 Mg Tablet) 1 mg PO TID [facility] Last Admin: 02/12/25 08:29 Dose: 1 mg Magnesium Hydroxide (Milk Of Magnesia 30 Ml Oral.Susp) 30 ml PO DAILY PRN PRN Reason: Constipation Melatonin (Melatonin 3 Mg Tablet) 9 mg PO BEDTIME [facility] Last Admin: 02/11/25 20:53 Dose: 9 mg Mirtazapine (Mirtazapine 15 Mg Tablet) 15 mg PO BEDTIME [facility] Last Admin: 02/11/25 20:56 Dose: 15 mg Olanzapine (Olanzapine 2.5 Mg Tablet) 2.5 mg PO Q4H PRN PRN Reason: agitation Last Admin: 02/11/25 13:36 Dose: 2.5 mg Olanzapine (Olanzapine 7.5 Mg Tablet) 15 mg PO BEDTIME [facility] Last Admin: 02/11/25 20:53 Dose: 15 mg Senna (Sennosides 8.6 Mg Tablet) 8.6 mg PO DAILY PRN PRN Reason: Constipation Zinc Acetate/Diphenhydramine (Diphenhydramine Hcl 2 % Cream 28 Gm Tube) 1 appl TOPICAL QID PRN; Protocol PRN Reason: Itching Allergies Allergies Allergy/AdvReac Type Severity Reaction Status Date / Time cat dander [cats] Allergy Unknown Verified 01/18/25 09:04 cortisone Allergy Unknown Verified 01/18/25 09:04 dog dander [dogs] Allergy Unknown Verified 01/18/25 09:04 Assessment & Plan Assessment & Plan (1) Bipolar disorder, curr episode mixed, severe, with psychotic features: Status: Acute Code(s): F31.64 - Bipolar disorder, current episode mixed, severe, with psychotic features Assessment and Plan: vs schizoaffective disorder (2) Borderline personality disorder: Status: Acute Code(s): F60.3 - Borderline personality disorder (3) Generalized anxiety disorder: Status: Acute Code(s): F41.1 - Generalized anxiety disorder Plan The patient is on psychotic medications that have anticholinergic affects. Gabapentin has been titrated down from 400 mg t.i.d. to 200 mg t.i.d. and patient started on tamsulosin. Agree with medication adjustments and tamsulosin dosing. Urinalysis negative. Continue bladder scan and CIC every 8 hours for PVRs greater than 500 mL 01/29/25 cont olanzapine depakote inc as tolerated 01/30/25 pt somewhat clearer left message for son agitated depression consider ect ? mixed state 01/31/25 pt gradually improving cont depakote olanzapine needs much education reassurance 02/01/2025 Continues to gradually improve lower Depakote to 250 b.i.d. lower olanzapine to 7.5 at bedtime mirtazapine 7.5 at bedtime if activated discontinue 02/02/2025 Patient gradually improving continue Depakote mirtazapine olanzapine 02/03 continue tx. 02/04 continue tx. 02/05 continue tx. 02/06/2025 Patient continues anxious and ruminating increase olanzapine to 10 mg was on a higher dose when previously discharged unclear if mirtazapine helpful. Still seems to have anxious depression question history of mixed states might benefit from ECT Somewhat unclear what patient's baseline can be at this time. Still quite ruminating 02/07/25 Pt remains somewhat anxious ruminating limited insight cont zyprexa depakote mirtazapine 02/08 Patient reports that she is not well and cites her ongoing anxiety , saying she is worried about everything... She says she does not like Depakote but not sure why though she says maybe it is making her tipsy; curriculum writer agreed to get labs. Staff reports that patient is overall doing better than on admission but remain internally preoccupied, worried she'll be in trouble...and today saying i don't want to get in trouble but on inquiry, cannot explain Patient taking medications -continue taking Depakote; will get labs, level -patient remains anxious; Remeron recently increased so will leave as is for now 02/09 doing better today; ruminating still but brighter. 02/10 increase p.r.n. Ativan up to 1 mg. 02/11 increased Zyprexa to 15 mg p.o. q.h.s. 02/12 keep same treatment no over-sedation with increase of Zyprexa Reason for continued inpatient stay Substantial Risk for: inability to function, rapid decompensation and med/psych decompensation Time Spent With Patient Time: Total time managing care of this patient today _20___ minutes.
[2025-02-12 20:00] VITALS: BP 120/64; PULSE 85; RESP 18; TEMP 36.6; O2SAT 98
[2025-02-12] MEDS: Acetaminophen 325 MG TABLET 650 MG PO (20:32)
[2025-02-12] MEDS: Melatonin 3 MG TABLET 9 MG PO (20:33)
[2025-02-12] MEDS: Atorvastatin Calcium 40 MG TABLET PO (20:33)
[2025-02-12] MEDS: OLANZapine 7.5 MG TABLET 15 MG PO (20:33)
[2025-02-12] MEDS: Mirtazapine 15 MG TABLET PO (20:33)
[2025-02-12] MEDS: Divalproex Sodium ER 500 MG TAB.ER.24H PO (20:33)
[2025-02-12] MEDS: Docusate Sodium 100 MG CAPSULE PO (20:33)
[2025-02-12] MEDS: Latanoprost 0.005 % Ophth Sol 2.5 ML DROPS 1 DROP EYE-BOTH (20:36)
[2025-02-13] MEDS: Levothyroxine Sodium 50 MCG TABLET PO (06:37)
[2025-02-13 07:50] VITALS: BP 110/64; PULSE 87; RESP 18; TEMP 36.7; O2SAT 98
[2025-02-13] MEDS: lisinopriL 10 MG TABLET 30 MG PO (08:08)
[2025-02-13] MEDS: LORazepam 1 MG TABLET PO ×3 (08:10→19:59)
[2025-02-13 09:40] VITALS: BMI 22.3
[2025-02-13 13:24] LABS: Appearance Urine Turbid; Color Urine Yellow; Glucose Urine UA Negative (Negative); Leukocyte Esterase Urine Large (3+) (Negative); Nitrite Urine Positive (Negative); Specific Gravity - Urine <= 1.005 (1.005-1.025); UMIC TRIGGER UACC YES; Urine Blood Moderate (2+) (Negative); Urine Ketones Negative (Negative); Urine Protein 100 (2+) mg/dL (Neg-Trace)
[2025-02-13 13:58] LABS: Bacteria Urine 4+ (None Seen); RBC Urine 0-2 /HPF (0-2); Squamous Epithelial Cell Urine 0-2 /HPF (0-2); UACC Culture Trigger YES; WBC Urine >50 /HPF (0-5)
--- NOTE | 2025-02-13 14:53 | HO.PSYCHPN ---
Subjective Subjective Date of Service: 02/13/25 Reason For Visit: Psychosis Subjective Notes: Conditional Voluntary Interim History: Nursing staff reported the patient had flat affect, she was been visible in the unit compliant with medications. She denied over-sedation with increase of Zyprexa. Later on the patient complained that she was having UTI symptoms we ordered a UA and came back positive restarted on Ceftin. During the interview the patient also reported that she does not want to go to a long-term facility. We will have a family meeting for long-term discharge. Mental Status Exam Mental Status Exam Patient Appearance: Appropriate Patient Orientation: Person and Situation Level of Consciousness: Awake Patient Behavior: Guarded and Passive Mood Description: Calm Affect Description: Constricted Patient Cognition Impaired: Yes Ability to Follow Directions: Good Speech Pattern: Clear Hallucinations: None Delusions: Ideas of Reference Thought Process: Distracted Thought Content: positive for [place] and positive for Poverty of Content Judgement: Fair Diagnostics Vital Signs (24Hr): Vital Signs - 24 hr 02/12/25 20:00 02/13/25 07:50 Temperature 97.9 F 98.0 F Pulse Rate 85 87 Respiratory Rate 18 18 Blood Pressure 120/64 110/64 Pulse Oximetry 98 98 Oxygen Delivery Method Room Air Room Air BMI result Body Mass Index 22.3 Labs 02/02/25 07:29 02/09/25 08:58 Labs: Laboratory Results - last 48 hr 02/13/25 12:25 Urine Color Yellow Urine Appearance Turbid Urine pH 6.0 Ur Specific [place] <= 1.005 Urine Protein 100 (2+) H Urine Glucose (UA) Negative Urine Ketones Negative Urine Blood Moderate (2+) H Urine Nitrite Positive H Ur Leukocyte Esterase Large (3+) H Urine RBC 0-2 Urine WBC >50 H Ur Squamous Epith Cells 0-2 Urine Bacteria 4+ Hyaline Casts 3-5 Medications Medications Current Medications Acetaminophen (Acetaminophen 325 Mg Tablet) 650 mg PO Q6H PRN PRN Reason: Headache/Pain Mild Scale (1-3) Last Admin: 02/12/25 20:32 Dose: 650 mg Al Hydroxide/Mg Hydroxide (Magnesium Hydrox/Alum Hydrox 30 Ml Oral.Susp) 30 ml PO Q6H PRN PRN Reason: Heartburn/Nausea Albuterol Sulfate (Albuterol Sulfate 90 Mcg 8 Gm Inhaler) 2 puff INHALE RQ4H PRN PRN Reason: Bronchospasm Atorvastatin Calcium (Atorvastatin Calcium 40 Mg Tablet) 40 mg PO BEDTIME [facility] Last Admin: 02/12/25 20:33 Dose: 40 mg Cefuroxime Axetil (Cefuroxime Axetil 250 Mg Tablet) 250 mg PO Q12H [facility] Divalproex Sodium (Divalproex Sodium Er 500 Mg Tab.Er.24h) 500 mg PO BEDTIME [facility] Last Admin: 02/12/25 20:33 Dose: 500 mg Docusate Sodium (Docusate Sodium 100 Mg Capsule) 100 mg PO BEDTIME [facility] Last Admin: 02/12/25 20:33 Dose: 100 mg Latanoprost (Latanoprost 0.005 % Ophth [place] 2.5 Ml Drops) 1 drop EYE-BOTH BEDTIME [facility] Last Admin: 02/12/25 20:36 Dose: 1 drop Levothyroxine Sodium (Levothyroxine Sodium 50 Mcg Tablet) 50 mcg PO DAILY@0600 [facility] Last Admin: 02/13/25 06:37 Dose: 50 mcg Lisinopril (Lisinopril 10 Mg Tablet) 30 mg PO DAILY [facility]; Protocol Last Admin: 02/13/25 08:08 Dose: 30 mg Lorazepam (Lorazepam 1 Mg Tablet) 1 mg PO TID [facility] Last Admin: 02/13/25 08:10 Dose: 1 mg Magnesium Hydroxide (Milk Of Magnesia 30 Ml Oral.Susp) 30 ml PO DAILY PRN PRN Reason: Constipation Melatonin (Melatonin 3 Mg Tablet) 9 mg PO BEDTIME [facility] Last Admin: 02/12/25 20:33 Dose: 9 mg Mirtazapine (Mirtazapine 15 Mg Tablet) 15 mg PO BEDTIME [facility] Last Admin: 02/12/25 20:33 Dose: 15 mg Olanzapine (Olanzapine 2.5 Mg Tablet) 2.5 mg PO Q4H PRN PRN Reason: agitation Last Admin: 02/11/25 13:36 Dose: 2.5 mg Olanzapine (Olanzapine 7.5 Mg Tablet) 15 mg PO BEDTIME [facility] Last Admin: 02/12/25 20:33 Dose: 15 mg Senna (Sennosides 8.6 Mg Tablet) 8.6 mg PO DAILY PRN PRN Reason: Constipation Zinc Acetate/Diphenhydramine (Diphenhydramine Hcl 2 % Cream 28 Gm Tube) 1 appl TOPICAL QID PRN; Protocol PRN Reason: Itching Allergies Allergies Allergy/AdvReac Type Severity Reaction Status Date / Time cat dander [cats] Allergy Unknown Verified 01/18/25 09:04 cortisone Allergy Unknown Verified 01/18/25 09:04 dog dander [dogs] Allergy Unknown Verified 01/18/25 09:04 Assessment & Plan Assessment & Plan (1) Bipolar disorder, curr episode mixed, severe, with psychotic features: Status: Acute Code(s): F31.64 - Bipolar disorder, current episode mixed, severe, with psychotic features Assessment and Plan: vs schizoaffective disorder (2) Borderline personality disorder: Status: Acute Code(s): F60.3 - Borderline personality disorder (3) Generalized anxiety disorder: Status: Acute Code(s): F41.1 - Generalized anxiety disorder Plan The patient is on psychotic medications that have anticholinergic affects. Gabapentin has been titrated down from 400 mg t.i.d. to 200 mg t.i.d. and patient started on tamsulosin. Agree with medication adjustments and tamsulosin dosing. Urinalysis negative. Continue bladder scan and CIC every 8 hours for PVRs greater than 500 mL 01/29/25 cont olanzapine depakote inc as tolerated 01/30/25 pt somewhat clearer left message for son agitated depression consider ect ? mixed state 01/31/25 pt gradually improving cont depakote olanzapine needs much education reassurance 02/01/2025 Continues to gradually improve lower Depakote to 250 b.i.d. lower olanzapine to 7.5 at bedtime mirtazapine 7.5 at bedtime if activated discontinue 02/02/2025 Patient gradually improving continue Depakote mirtazapine olanzapine 02/03 continue tx. 02/04 continue tx. 02/05 continue tx. 02/06/2025 Patient continues anxious and ruminating increase olanzapine to 10 mg was on a higher dose when previously discharged unclear if mirtazapine helpful. Still seems to have anxious depression question history of mixed states might benefit from ECT Somewhat unclear what patient's baseline can be at this time. Still quite ruminating 02/07/25 Pt remains somewhat anxious ruminating limited insight cont zyprexa depakote mirtazapine 02/08 Patient reports that she is not well and cites her ongoing anxiety , saying she is worried about everything... She says she does not like Depakote but not sure why though she says maybe it is making her tipsy; communications writer agreed to get labs. Staff reports that patient is overall doing better than on admission but remain internally preoccupied, worried she'll be in trouble...and today saying i don't want to get in trouble but on inquiry, cannot explain Patient taking medications -continue taking Depakote; will get labs, level -patient remains anxious; Remeron recently increased so will leave as is for now 02/09 doing better today; ruminating still but brighter. 02/10 increase p.r.n. Ativan up to 1 mg. 02/11 increased Zyprexa to 15 mg p.o. q.h.s. 02/12 keep same treatment no over-sedation with increase of Zyprexa 02/13 keep same treatment Reason for continued inpatient stay Substantial Risk for: inability to function, rapid decompensation and med/psych decompensation Time Spent With Patient Time: Total time managing care of this patient today __20__ minutes.
[2025-02-13] MEDS: cefuroxime axetiL 250 MG TABLET PO ×2 (15:08→21:06)
[2025-02-13 19:57] VITALS: BP 131/61; PULSE 88; RESP 15; TEMP 36.8; O2SAT 97
[2025-02-13] MEDS: Melatonin 3 MG TABLET 9 MG PO (19:59)
[2025-02-13] MEDS: Docusate Sodium 100 MG CAPSULE PO (20:00)
[2025-02-13] MEDS: Atorvastatin Calcium 40 MG TABLET PO (20:00)
[2025-02-13] MEDS: Divalproex Sodium ER 500 MG TAB.ER.24H PO (20:00)
[2025-02-13] MEDS: Mirtazapine 15 MG TABLET PO (20:00)
[2025-02-13] MEDS: Acetaminophen 325 MG TABLET 650 MG PO (20:06)
[2025-02-13] MEDS: OLANZapine 7.5 MG TABLET 15 MG PO (20:06)
[2025-02-13] MEDS: Latanoprost 0.005 % Ophth Sol 2.5 ML DROPS 1 DROP EYE-BOTH (20:09)
[2025-02-14] MEDS: Levothyroxine Sodium 50 MCG TABLET PO (05:44)
[2025-02-14 08:25] VITALS: BP 149/72; PULSE 84; RESP 16; TEMP 36.8; O2SAT 100
[2025-02-14] MEDS: LORazepam 1 MG TABLET PO ×3 (08:28→20:24)
[2025-02-14] MEDS: lisinopriL 10 MG TABLET 30 MG PO (08:28)
[2025-02-14] MEDS: cefuroxime axetiL 250 MG TABLET PO ×2 (08:28→20:23)
--- NOTE | 2025-02-14 17:00 | P.PNPSI_ITS ---
Subjective Subjective Date of Service: 02/14/25 Reason For Visit: Psychosis Subjective Notes: Conditional Voluntary Interim History: The nursing staff reported the patient had been compliant with treatment, slept well. The social insurance administrator reported that her son was contacted and we are going to discuss discharge planning next week. On interview the patient was adamant that she wants to go back home. Denies over-sedation with increase of Zyprexa. Mental Status Exam Mental Status Exam Patient Appearance: Appropriate Patient Orientation: Person and Situation Level of Consciousness: Awake and Appropriate Patient Behavior: Guarded and Passive Mood Description: Withdrawn Affect Description: Constricted Patient Cognition Impaired: Yes Ability to Follow Directions: Good Speech Pattern: Clear Hallucinations: None Delusions: Paranoid Ideation and Ideas of Reference Thought Process: Distracted and Slowed Thinking Thought Content: positive for [place] and positive for Poverty of Content Judgement: Fair Diagnostics Vital Signs (24Hr): Vital Signs - 24 hr 02/13/25 19:57 02/14/25 08:25 Temperature 98.2 F 98.2 F Pulse Rate 88 84 Respiratory Rate 15 16 Blood Pressure 131/61 149/72 H Pulse Oximetry 97 100 Oxygen Delivery Method Room Air Room Air BMI result Body Mass Index 22.3 Labs 02/02/25 07:29 02/09/25 08:58 Labs: Laboratory Results - last 48 hr 02/13/25 12:25 Urine Color Yellow Urine Appearance Turbid Urine pH 6.0 Ur Specific [place] <= 1.005 Urine Protein 100 (2+) H Urine Glucose (UA) Negative Urine Ketones Negative Urine Blood Moderate (2+) H Urine Nitrite Positive H Ur Leukocyte Esterase Large (3+) H Urine RBC 0-2 Urine WBC >50 H Ur Squamous Epith Cells 0-2 Urine Bacteria 4+ Hyaline Casts 3-5 Medications Medications Current Medications Acetaminophen (Acetaminophen 325 Mg Tablet) 650 mg PO Q6H PRN PRN Reason: Headache/Pain Mild Scale (1-3) Last Admin: 02/13/25 20:06 Dose: 650 mg Al Hydroxide/Mg Hydroxide (Magnesium Hydrox/Alum Hydrox 30 Ml Oral.Susp) 30 ml PO Q6H PRN PRN Reason: Heartburn/Nausea Albuterol Sulfate (Albuterol Sulfate 90 Mcg 8 Gm Inhaler) 2 puff INHALE RQ4H PRN PRN Reason: Bronchospasm Atorvastatin Calcium (Atorvastatin Calcium 40 Mg Tablet) 40 mg PO BEDTIME [facility] Last Admin: 02/13/25 20:00 Dose: 40 mg Cefuroxime Axetil (Cefuroxime Axetil 250 Mg Tablet) 250 mg PO Q12H [facility] Last Admin: 02/14/25 08:28 Dose: 250 mg Divalproex Sodium (Divalproex Sodium Er 500 Mg Tab.Er.24h) 500 mg PO BEDTIME [facility] Last Admin: 02/13/25 20:00 Dose: 500 mg Docusate Sodium (Docusate Sodium 100 Mg Capsule) 100 mg PO BEDTIME [facility] Last Admin: 02/13/25 20:00 Dose: 100 mg Latanoprost (Latanoprost 0.005 % Ophth [place] 2.5 Ml Drops) 1 drop EYE-BOTH BEDTIME [facility] Last Admin: 02/13/25 20:09 Dose: 1 drop Levothyroxine Sodium (Levothyroxine Sodium 50 Mcg Tablet) 50 mcg PO DAILY@0600 [facility] Last Admin: 02/14/25 05:44 Dose: 50 mcg Lisinopril (Lisinopril 10 Mg Tablet) 30 mg PO DAILY [facility]; Protocol Last Admin: 02/14/25 08:28 Dose: 30 mg Lorazepam (Lorazepam 1 Mg Tablet) 1 mg PO TID [facility] Last Admin: 02/14/25 15:21 Dose: 1 mg Magnesium Hydroxide (Milk Of Magnesia 30 Ml Oral.Susp) 30 ml PO DAILY PRN PRN Reason: Constipation Melatonin (Melatonin 3 Mg Tablet) 9 mg PO BEDTIME [facility] Last Admin: 02/13/25 19:59 Dose: 9 mg Mirtazapine (Mirtazapine 15 Mg Tablet) 15 mg PO BEDTIME [facility] Last Admin: 02/13/25 20:00 Dose: 15 mg Olanzapine (Olanzapine 2.5 Mg Tablet) 2.5 mg PO Q4H PRN PRN Reason: agitation Last Admin: 02/11/25 13:36 Dose: 2.5 mg Olanzapine (Olanzapine 7.5 Mg Tablet) 15 mg PO BEDTIME [facility] Last Admin: 02/13/25 20:06 Dose: 15 mg Senna (Sennosides 8.6 Mg Tablet) 8.6 mg PO DAILY PRN PRN Reason: Constipation Zinc Acetate/Diphenhydramine (Diphenhydramine Hcl 2 % Cream 28 Gm Tube) 1 appl TOPICAL QID PRN; Protocol PRN Reason: Itching Allergies Allergies Allergy/AdvReac Type Severity Reaction Status Date / Time cat dander [cats] Allergy Unknown Verified 01/18/25 09:04 cortisone Allergy Unknown Verified 01/18/25 09:04 dog dander [dogs] Allergy Unknown Verified 01/18/25 09:04 Assessment & Plan Assessment & Plan (1) Bipolar disorder, curr episode mixed, severe, with psychotic features: Status: Acute Code(s): F31.64 - Bipolar disorder, current episode mixed, severe, with psychotic features Assessment and Plan: vs schizoaffective disorder (2) Borderline personality disorder: Status: Acute Code(s): F60.3 - Borderline personality disorder (3) Generalized anxiety disorder: Status: Acute Code(s): F41.1 - Generalized anxiety disorder Plan The patient is on psychotic medications that have anticholinergic affects. Gabapentin has been titrated down from 400 mg t.i.d. to 200 mg t.i.d. and patient started on tamsulosin. Agree with medication adjustments and tamsulosin dosing. Urinalysis negative. Continue bladder scan and CIC every 8 hours for PVRs greater than 500 mL 01/29/25 cont olanzapine depakote inc as tolerated 01/30/25 pt somewhat clearer left message for son agitated depression consider ect ? mixed state 01/31/25 pt gradually improving cont depakote olanzapine needs much education reassurance 02/01/2025 Continues to gradually improve lower Depakote to 250 b.i.d. lower olanzapine to 7.5 at bedtime mirtazapine 7.5 at bedtime if activated discontinue 02/02/2025 Patient gradually improving continue Depakote mirtazapine olanzapine 02/03 continue tx. 02/04 continue tx. 02/05 continue tx. 02/06/2025 Patient continues anxious and ruminating increase olanzapine to 10 mg was on a higher dose when previously discharged unclear if mirtazapine helpful. Still seems to have anxious depression question history of mixed states might benefit from ECT Somewhat unclear what patient's baseline can be at this time. Still quite ruminating 02/07/25 Pt remains somewhat anxious ruminating limited insight cont zyprexa depakote mirtazapine 02/08 Patient reports that she is not well and cites her ongoing anxiety , saying she is worried about everything... She says she does not like Depakote but not sure why though she says maybe it is making her tipsy; health technical writer agreed to get labs. Staff reports that patient is overall doing better than on admission but remain internally preoccupied, worried she'll be in trouble...and today saying i don't want to get in trouble but on inquiry, cannot explain Patient taking medications -continue taking Depakote; will get labs, level -patient remains anxious; Remeron recently increased so will leave as is for now 02/09 doing better today; ruminating still but brighter. 02/10 increase p.r.n. Ativan up to 1 mg. 02/11 increased Zyprexa to 15 mg p.o. q.h.s. 02/12 keep same treatment no over-sedation with increase of Zyprexa 02/13 keep same treatment keep same treatment Reason for continued inpatient stay Substantial Risk for: inability to function, rapid decompensation and med/psych decompensation Time Spent With Patient Time: Total time managing care of this patient today ____ minutes.
[2025-02-14 20:00] VITALS: BP 123/69; PULSE 72; RESP 18; TEMP 36; O2SAT 97
[2025-02-14] MEDS: Atorvastatin Calcium 40 MG TABLET PO (20:23)
[2025-02-14] MEDS: Divalproex Sodium ER 500 MG TAB.ER.24H PO (20:24)
[2025-02-14] MEDS: Mirtazapine 15 MG TABLET PO (20:24)
[2025-02-14] MEDS: Docusate Sodium 100 MG CAPSULE PO (20:24)
[2025-02-14] MEDS: Latanoprost 0.005 % Ophth Sol 2.5 ML DROPS 1 DROP EYE-BOTH (20:24)
[2025-02-14] MEDS: Melatonin 3 MG TABLET 9 MG PO (20:24)
[2025-02-14] MEDS: OLANZapine 7.5 MG TABLET 15 MG PO (20:25)
[2025-02-14] MEDS: Acetaminophen 325 MG TABLET 650 MG PO (20:25)
[2025-02-15] MEDS: Levothyroxine Sodium 50 MCG TABLET PO (05:46)
[2025-02-15 09:55] VITALS: BP 163/78; PULSE 92; RESP 18; TEMP 36.7; O2SAT 98
[2025-02-15] MEDS: lisinopriL 10 MG TABLET 30 MG PO (09:57)
[2025-02-15] MEDS: LORazepam 1 MG TABLET PO ×3 (09:58→20:45)
[2025-02-15] MEDS: cefuroxime axetiL 250 MG TABLET PO ×2 (11:37→20:44)
--- NOTE | 2025-02-15 16:24 | HO.PSYCHPN ---
Subjective Subjective Date of Service: 02/15/25 Reason For Visit: Psychosis Interim History: ambulating in [place], anxious but less intensely so than prior. able to correctly identify MD. asking about medication changes and discharge, referred to speak with team on monday. per staff, anx/dep. TERRY. +UTI, on antibx. pleasant. Mental Status Exam Mental Status Exam Patient Appearance: Appropriate Patient Orientation: Person and Situation Level of Consciousness: Awake and Appropriate Patient Behavior: Guarded and Passive Mood Description: Withdrawn Affect Description: Constricted Patient Cognition Impaired: Yes Ability to Follow Directions: Good Speech Pattern: Clear Hallucinations: None Delusions: Paranoid Ideation and Ideas of Reference Thought Process: Distracted and Slowed Thinking Thought Content: positive for [place] and positive for Poverty of Content Judgement: Fair Diagnostics Vital Signs (24Hr): Vital Signs - 24 hr 02/14/25 20:00 02/15/25 09:55 Temperature 96.8 F 98.1 F Pulse Rate 72 92 Respiratory Rate 18 18 Blood Pressure 123/69 163/78 H Pulse Oximetry 97 98 Oxygen Delivery Method Room Air Room Air BMI result Body Mass Index 22.3 Labs 02/02/25 07:29 02/09/25 08:58 Medications Medications Current Medications Acetaminophen (Acetaminophen 325 Mg Tablet) 650 mg PO Q6H PRN PRN Reason: Headache/Pain Mild Scale (1-3) Last Admin: 02/14/25 20:25 Dose: 650 mg Al Hydroxide/Mg Hydroxide (Magnesium Hydrox/Alum Hydrox 30 Ml Oral.Susp) 30 ml PO Q6H PRN PRN Reason: Heartburn/Nausea Albuterol Sulfate (Albuterol Sulfate 90 Mcg 8 Gm Inhaler) 2 puff INHALE RQ4H PRN PRN Reason: Bronchospasm Atorvastatin Calcium (Atorvastatin Calcium 40 Mg Tablet) 40 mg PO BEDTIME JOHNNY Last Admin: 02/14/25 20:23 Dose: 40 mg Cefuroxime Axetil (Cefuroxime Axetil 250 Mg Tablet) 250 mg PO Q12H JOHNNY Last Admin: 02/15/25 11:37 Dose: 250 mg Divalproex Sodium (Divalproex Sodium Er 500 Mg Tab.Er.24h) 500 mg PO BEDTIME JOHNNY Last Admin: 02/14/25 20:24 Dose: 500 mg Docusate Sodium (Docusate Sodium 100 Mg Capsule) 100 mg PO BEDTIME JOHNNY Last Admin: 02/14/25 20:24 Dose: 100 mg Latanoprost (Latanoprost 0.005 % Ophth Hannah 2.5 Ml Drops) 1 drop EYE-BOTH BEDTIME JOHNNY Last Admin: 02/14/25 20:24 Dose: 1 drop Levothyroxine Sodium (Levothyroxine Sodium 50 Mcg Tablet) 50 mcg PO DAILY@0600 [facility] Last Admin: 02/15/25 05:46 Dose: 50 mcg Lisinopril (Lisinopril 10 Mg Tablet) 30 mg PO DAILY JOHNNY; Protocol Last Admin: 02/15/25 09:57 Dose: 30 mg Lorazepam (Lorazepam 1 Mg Tablet) 1 mg PO TID [facility] Last Admin: 02/15/25 14:41 Dose: 1 mg Magnesium Hydroxide (Milk Of Magnesia 30 Ml Oral.Susp) 30 ml PO DAILY PRN PRN Reason: Constipation Melatonin (Melatonin 3 Mg Tablet) 9 mg PO BEDTIME [facility] Last Admin: 02/14/25 20:24 Dose: 9 mg Mirtazapine (Mirtazapine 15 Mg Tablet) 15 mg PO BEDTIME JOHNNY Last Admin: 02/14/25 20:24 Dose: 15 mg Olanzapine (Olanzapine 2.5 Mg Tablet) 2.5 mg PO Q4H PRN PRN Reason: agitation Last Admin: 02/11/25 13:36 Dose: 2.5 mg Olanzapine (Olanzapine 7.5 Mg Tablet) 15 mg PO BEDTIME [facility] Last Admin: 02/14/25 20:25 Dose: 15 mg Senna (Sennosides 8.6 Mg Tablet) 8.6 mg PO DAILY PRN PRN Reason: Constipation Zinc Acetate/Diphenhydramine (Diphenhydramine Hcl 2 % Cream 28 Gm Tube) 1 appl TOPICAL QID PRN; Protocol PRN Reason: Itching Allergies Allergies Allergy/AdvReac Type Severity Reaction Status Date / Time cat dander [cats] Allergy Unknown Verified 01/18/25 09:04 cortisone Allergy Unknown Verified 01/18/25 09:04 dog dander [dogs] Allergy Unknown Verified 01/18/25 09:04 Assessment & Plan Assessment & Plan (1) Bipolar disorder, curr episode mixed, severe, with psychotic features: Status: Acute Code(s): F31.64 - Bipolar disorder, current episode mixed, severe, with psychotic features Assessment and Plan: vs schizoaffective disorder (2) Borderline personality disorder: Status: Acute Code(s): F60.3 - Borderline personality disorder (3) Generalized anxiety disorder: Status: Acute Code(s): F41.1 - Generalized anxiety disorder Plan The patient is on psychotic medications that have anticholinergic affects. Gabapentin has been titrated down from 400 mg t.i.d. to 200 mg t.i.d. and patient started on tamsulosin. Agree with medication adjustments and tamsulosin dosing. Urinalysis negative. Continue bladder scan and CIC every 8 hours for PVRs greater than 500 mL 01/29/25 cont olanzapine depakote inc as tolerated 01/30/25 pt somewhat clearer left message for son agitated depression consider ect ? mixed state 01/31/25 pt gradually improving cont depakote olanzapine needs much education reassurance 02/01/2025 Continues to gradually improve lower Depakote to 250 b.i.d. lower olanzapine to 7.5 at bedtime mirtazapine 7.5 at bedtime if activated discontinue 02/02/2025 Patient gradually improving continue Depakote mirtazapine olanzapine 02/03 continue tx. 02/04 continue tx. 02/05 continue tx. 02/06/2025 Patient continues anxious and ruminating increase olanzapine to 10 mg was on a higher dose when previously discharged unclear if mirtazapine helpful. Still seems to have anxious depression question history of mixed states might benefit from ECT Somewhat unclear what patient's baseline can be at this time. Still quite ruminating 02/07/25 Pt remains somewhat anxious ruminating limited insight cont zyprexa depakote mirtazapine 02/08 Patient reports that she is not well and cites her ongoing anxiety , saying she is worried about everything... She says she does not like Depakote but not sure why though she says maybe it is making her tipsy; grant writer agreed to get labs. Staff reports that patient is overall doing better than on admission but remain internally preoccupied, worried she'll be in trouble...and today saying i don't want to get in trouble but on inquiry, cannot explain Patient taking medications -continue taking Depakote; will get labs, level -patient remains anxious; Remeron recently increased so will leave as is for now 02/09 doing better today; ruminating still but brighter. 02/10 increase p.r.n. Ativan up to 1 mg. 02/11 increased Zyprexa to 15 mg p.o. q.h.s. 02/12 keep same treatment no over-sedation with increase of Zyprexa 02/13 keep same treatment keep same treatment 02/15: anxious. wondering if medication changes are needed due to strange somatic experiences. continue current mgmt, referred to speak with team on monday. Reason for continued inpatient stay Substantial Risk for: inability to function and rapid decompensation Time Spent With Patient Time: Total time managing care of this patient today ____ minutes.
[2025-02-15 20:00] VITALS: BP 126/69; PULSE 80; RESP 15; TEMP 37.1; O2SAT 98
[2025-02-15] MEDS: Divalproex Sodium ER 500 MG TAB.ER.24H PO (20:44)
[2025-02-15] MEDS: Atorvastatin Calcium 40 MG TABLET PO (20:44)
[2025-02-15] MEDS: Docusate Sodium 100 MG CAPSULE PO (20:44)
[2025-02-15] MEDS: Melatonin 3 MG TABLET 9 MG PO (20:45)
[2025-02-15] MEDS: Latanoprost 0.005 % Ophth Sol 2.5 ML DROPS 1 DROP EYE-BOTH (20:45)
[2025-02-15] MEDS: Mirtazapine 15 MG TABLET PO (20:45)
[2025-02-15] MEDS: OLANZapine 7.5 MG TABLET 15 MG PO (20:48)
[2025-02-15] MEDS: Acetaminophen 325 MG TABLET 650 MG PO (20:48)
[2025-02-16] MEDS: Levothyroxine Sodium 50 MCG TABLET PO (06:02)
[2025-02-16 07:54] VITALS: BP 133/77; PULSE 91; RESP 16; TEMP 36.6; O2SAT 97
[2025-02-16 07:55] VITALS: BP 133/77
[2025-02-16] MEDS: cefuroxime axetiL 250 MG TABLET PO ×2 (07:55→20:57)
[2025-02-16] MEDS: lisinopriL 10 MG TABLET 30 MG PO (07:55)
[2025-02-16] MEDS: LORazepam 1 MG TABLET PO ×3 (07:55→20:57)
[2025-02-16] MEDS: Acetaminophen 325 MG TABLET 650 MG PO (14:40)
--- NOTE | 2025-02-16 16:23 | P.PNPSI_ITS ---
Subjective Subjective Date of Service: 02/16/25 Reason For Visit: Psychosis Interim History: less undone by anxiety. remains anxious, but no longer psychotic, appears to be anxious about relevant issues such as to where she will be discharging and what kinds of support she will be receiving, and from whom. she was redirected to discuss with the primary team on monday. per staff, receiving ceftin for UTI. no issues, no change in presentation. Mental Status Exam Mental Status Exam Patient Appearance: Appropriate Patient Orientation: Person and Situation Level of Consciousness: Awake and Appropriate Patient Behavior: Guarded and Passive Mood Description: Withdrawn Affect Description: Constricted Patient Cognition Impaired: Yes Ability to Follow Directions: Good Speech Pattern: Clear Hallucinations: None Delusions: Paranoid Ideation and Ideas of Reference Thought Process: Distracted and Slowed Thinking Thought Content: positive for [place] and positive for Poverty of Content Judgement: Fair Diagnostics Vital Signs (24Hr): Vital Signs - 24 hr 02/15/25 20:00 02/16/25 07:54 02/16/25 07:55 Temperature 98.7 F 97.8 F Pulse Rate 80 91 Respiratory Rate 15 16 Blood Pressure 126/69 133/77 133/77 Pulse Oximetry 98 97 Oxygen Delivery Method Room Air Room Air BMI result Body Mass Index 22.3 Labs 02/02/25 07:29 02/09/25 08:58 Medications Medications Current Medications Acetaminophen (Acetaminophen 325 Mg Tablet) 650 mg PO Q6H PRN PRN Reason: Headache/Pain Mild Scale (1-3) Last Admin: 02/16/25 14:40 Dose: 650 mg Al Hydroxide/Mg Hydroxide (Magnesium Hydrox/Alum Hydrox 30 Ml Oral.Susp) 30 ml PO Q6H PRN PRN Reason: Heartburn/Nausea Albuterol Sulfate (Albuterol Sulfate 90 Mcg 8 Gm Inhaler) 2 puff INHALE RQ4H PRN PRN Reason: Bronchospasm Atorvastatin Calcium (Atorvastatin Calcium 40 Mg Tablet) 40 mg PO BEDTIME JOHNNY Last Admin: 02/15/25 20:44 Dose: 40 mg Cefuroxime Axetil (Cefuroxime Axetil 250 Mg Tablet) 250 mg PO Q12H JOHNNY Stop: 02/20/25 20:59 Last Admin: 02/16/25 07:55 Dose: 250 mg Divalproex Sodium (Divalproex Sodium Er 500 Mg Tab.Er.24h) 500 mg PO BEDTIME JOHNNY Last Admin: 02/15/25 20:44 Dose: 500 mg Docusate Sodium (Docusate Sodium 100 Mg Capsule) 100 mg PO BEDTIME [facility] Last Admin: 02/15/25 20:44 Dose: 100 mg Latanoprost (Latanoprost 0.005 % Ophth Hannah 2.5 Ml Drops) 1 drop EYE-BOTH BEDTIME [facility] Last Admin: 02/15/25 20:45 Dose: 1 drop Levothyroxine Sodium (Levothyroxine Sodium 50 Mcg Tablet) 50 mcg PO DAILY@0600 [facility] Last Admin: 02/16/25 06:02 Dose: 50 mcg Lisinopril (Lisinopril 10 Mg Tablet) 30 mg PO DAILY [facility]; Protocol Last Admin: 02/16/25 07:55 Dose: 30 mg Lorazepam (Lorazepam 1 Mg Tablet) 1 mg PO TID [facility] Last Admin: 02/16/25 14:40 Dose: 1 mg Magnesium Hydroxide (Milk Of Magnesia 30 Ml Oral.Susp) 30 ml PO DAILY PRN PRN Reason: Constipation Melatonin (Melatonin 3 Mg Tablet) 9 mg PO BEDTIME [facility] Last Admin: 02/15/25 20:45 Dose: 9 mg Mirtazapine (Mirtazapine 15 Mg Tablet) 15 mg PO BEDTIME JOHNNY Last Admin: 02/15/25 20:45 Dose: 15 mg Olanzapine (Olanzapine 2.5 Mg Tablet) 2.5 mg PO Q4H PRN PRN Reason: agitation Last Admin: 02/11/25 13:36 Dose: 2.5 mg Olanzapine (Olanzapine 7.5 Mg Tablet) 15 mg PO BEDTIME [facility] Last Admin: 02/15/25 20:48 Dose: 15 mg Senna (Sennosides 8.6 Mg Tablet) 8.6 mg PO DAILY PRN PRN Reason: Constipation Zinc Acetate/Diphenhydramine (Diphenhydramine Hcl 2 % Cream 28 Gm Tube) 1 appl TOPICAL QID PRN; Protocol PRN Reason: Itching Allergies Allergies Allergy/AdvReac Type Severity Reaction Status Date / Time cat dander [cats] Allergy Unknown Verified 01/18/25 09:04 cortisone Allergy Unknown Verified 01/18/25 09:04 dog dander [dogs] Allergy Unknown Verified 01/18/25 09:04 Assessment & Plan Assessment & Plan (1) Bipolar disorder, curr episode mixed, severe, with psychotic features: Status: Acute Code(s): F31.64 - Bipolar disorder, current episode mixed, severe, with psychotic features Assessment and Plan: vs schizoaffective disorder (2) Borderline personality disorder: Status: Acute Code(s): F60.3 - Borderline personality disorder (3) Generalized anxiety disorder: Status: Acute Code(s): F41.1 - Generalized anxiety disorder Plan The patient is on psychotic medications that have anticholinergic affects. Gabapentin has been titrated down from 400 mg t.i.d. to 200 mg t.i.d. and patient started on tamsulosin. Agree with medication adjustments and tamsulosin dosing. Urinalysis negative. Continue bladder scan and CIC every 8 hours for PVRs greater than 500 mL 01/29/25 cont olanzapine depakote inc as tolerated 01/30/25 pt somewhat clearer left message for son agitated depression consider ect ? mixed state 01/31/25 pt gradually improving cont depakote olanzapine needs much education reassurance 02/01/2025 Continues to gradually improve lower Depakote to 250 b.i.d. lower olanzapine to 7.5 at bedtime mirtazapine 7.5 at bedtime if activated discontinue 02/02/2025 Patient gradually improving continue Depakote mirtazapine olanzapine 02/03 continue tx. 02/04 continue tx. 02/05 continue tx. 02/06/2025 Patient continues anxious and ruminating increase olanzapine to 10 mg was on a higher dose when previously discharged unclear if mirtazapine helpful. Still seems to have anxious depression question history of mixed states might benefit from ECT Somewhat unclear what patient's baseline can be at this time. Still quite ruminating 02/07/25 Pt remains somewhat anxious ruminating limited insight cont zyprexa depakote mirtazapine 02/08 Patient reports that she is not well and cites her ongoing anxiety , saying she is worried about everything... 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 Staff reports that patient is overall doing better than on admission but remain internally preoccupied, worried she'll be in trouble...and today saying i don't want to get in trouble but on inquiry, cannot explain Patient taking medications -continue taking Depakote; will get labs, level -patient remains anxious; Remeron recently increased so will leave as is for now 02/09 doing better today; ruminating still but brighter. 02/10 increase p.r.n. Ativan up to 1 mg. 02/11 increased Zyprexa to 15 mg p.o. q.h.s. 02/12 keep same treatment no over-sedation with increase of Zyprexa 02/13 keep same treatment keep same treatment 02/15: anxious. wondering if medication changes are needed due to strange somatic experiences. continue current mgmt, referred to speak with team on monday. 02/16: anxious re dispo plans. continue current mgmt. Reason for continued inpatient stay Substantial Risk for: inability to function Time Spent With Patient Time: Total time managing care of this patient today ____ minutes.
[2025-02-16 20:00] VITALS: BP 121/60; PULSE 87; RESP 16; TEMP 36.6; O2SAT 96
[2025-02-16] MEDS: Latanoprost 0.005 % Ophth Sol 2.5 ML DROPS 1 DROP EYE-BOTH (20:55)
[2025-02-16] MEDS: Melatonin 3 MG TABLET 9 MG PO (20:55)
[2025-02-16] MEDS: Divalproex Sodium ER 500 MG TAB.ER.24H PO (20:56)
[2025-02-16] MEDS: OLANZapine 7.5 MG TABLET 15 MG PO (20:56)
[2025-02-16] MEDS: Atorvastatin Calcium 40 MG TABLET PO (20:56)
[2025-02-16] MEDS: Mirtazapine 15 MG TABLET PO (20:57)
[2025-02-16] MEDS: Docusate Sodium 100 MG CAPSULE PO (20:57)
[2025-02-17] MEDS: Levothyroxine Sodium 50 MCG TABLET PO (05:53)
[2025-02-17 09:09] VITALS: BP 139/63; PULSE 102; RESP 16; TEMP 36.8; O2SAT 98
[2025-02-17] MEDS: Milk of Magnesia 30 ML ORAL.SUSP PO (09:09)
[2025-02-17] MEDS: cefuroxime axetiL 250 MG TABLET PO ×2 (09:10→20:55)
[2025-02-17] MEDS: LORazepam 1 MG TABLET PO ×3 (09:10→20:56)
[2025-02-17] MEDS: lisinopriL 10 MG TABLET 30 MG PO (09:10)
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
[2025-02-17 20:00] VITALS: BP 141/65; PULSE 86; RESP 18; TEMP 36.4; O2SAT 98
[2025-02-17] MEDS: Melatonin 3 MG TABLET 9 MG PO (20:53)
[2025-02-17] MEDS: OLANZapine 2.5 MG TABLET PO (20:54)
[2025-02-17] MEDS: Divalproex Sodium ER 500 MG TAB.ER.24H PO (20:54)
[2025-02-17] MEDS: Mirtazapine 15 MG TABLET PO (20:54)
[2025-02-17] MEDS: Docusate Sodium 100 MG CAPSULE PO (20:55)
[2025-02-17] MEDS: OLANZapine 7.5 MG TABLET 15 MG PO (20:55)
[2025-02-17] MEDS: Latanoprost 0.005 % Ophth Sol 2.5 ML DROPS 1 DROP EYE-BOTH (20:56)
[2025-02-17] MEDS: Atorvastatin Calcium 40 MG TABLET PO (20:56)
[2025-02-18] MEDS: Levothyroxine Sodium 50 MCG TABLET PO (05:55)
[2025-02-18 08:00] VITALS: BP 126/58; PULSE 85; RESP 16; TEMP 37.2; O2SAT 96
[2025-02-18] MEDS: cefuroxime axetiL 250 MG TABLET PO ×2 (09:00→20:59)
--- NOTE | 2025-02-18 10:53 | P.PNPSI_ITS ---
Subjective Subjective Date of Service: 02/18/25 Reason For Visit: Psychosis Subjective Notes: Conditional Voluntary Interim History: Patient seen psychiatric follow-up chart reviewed patient seen case reviewed in treatment planning. Patient has been somewhat anxious ruminating going to some groups but also quite anxious has ongoing difficult time processing information and holding onto it Medication Compliance: Yes Mental Status Exam Mental Status Exam Patient Appearance: Appropriate Patient Orientation: Person and Situation Level of Consciousness: Awake and Appropriate Patient Behavior: Guarded and Passive Mood Description: Withdrawn Affect Description: Constricted Patient Cognition Impaired: Yes Ability to Follow Directions: Good Speech Pattern: Clear Memory Description: Recent Impaired and Working Impaired Hallucinations: None Delusions: Ideas of Reference Thought Process: Distracted and Slowed Thinking Thought Content: positive for [place] and positive for Poverty of Content Judgement: Fair Diagnostics Vital Signs (24Hr): Vital Signs - 24 hr 02/17/25 20:00 02/18/25 08:00 Temperature 97.5 F 98.9 F Pulse Rate 86 85 Respiratory Rate 18 16 Blood Pressure 141/65 H 126/58 L Pulse Oximetry 98 96 Oxygen Delivery Method Room Air Room Air BMI result Body Mass Index 22.3 Labs 02/02/25 07:29 02/09/25 08:58 Medications Medications Current Medications Acetaminophen (Acetaminophen 325 Mg Tablet) 650 mg PO Q6H PRN PRN Reason: Headache/Pain Mild Scale (1-3) Last Admin: 02/16/25 14:40 Dose: 650 mg Al Hydroxide/Mg Hydroxide (Magnesium Hydrox/Alum Hydrox 30 Ml Oral.Susp) 30 ml PO Q6H PRN PRN Reason: Heartburn/Nausea Albuterol Sulfate (Albuterol Sulfate 90 Mcg 8 Gm Inhaler) 2 puff INHALE RQ4H PRN PRN Reason: Bronchospasm Atorvastatin Calcium (Atorvastatin Calcium 40 Mg Tablet) 40 mg PO BEDTIME JOHNNY Last Admin: 02/17/25 20:56 Dose: 40 mg Cefuroxime Axetil (Cefuroxime Axetil 250 Mg Tablet) 250 mg PO Q12H JOHNNY Stop: 02/20/25 20:59 Last Admin: 02/17/25 20:55 Dose: 250 mg Divalproex Sodium (Divalproex Sodium Er 500 Mg Tab.Er.24h) 500 mg PO BEDTIME JOHNNY Last Admin: 02/17/25 20:54 Dose: 500 mg Docusate Sodium (Docusate Sodium 100 Mg Capsule) 100 mg PO BEDTIME JOHNNY Last Admin: 02/17/25 20:55 Dose: 100 mg Latanoprost (Latanoprost 0.005 % Ophth Hannah 2.5 Ml Drops) 1 drop EYE-BOTH BEDTIME JOHNNY Last Admin: 02/17/25 20:56 Dose: 1 drop Levothyroxine Sodium (Levothyroxine Sodium 50 Mcg Tablet) 50 mcg PO DAILY@0600 JOHNNY Last Admin: 02/18/25 05:55 Dose: 50 mcg Lisinopril (Lisinopril 10 Mg Tablet) 30 mg PO DAILY JOHNNY; Protocol Last Admin: 02/17/25 09:10 Dose: 30 mg Lorazepam (Lorazepam 1 Mg Tablet) 1 mg PO TID [facility] Last Admin: 02/17/25 20:56 Dose: 1 mg Magnesium Hydroxide (Milk Of Magnesia 30 Ml Oral.Susp) 30 ml PO DAILY PRN PRN Reason: Constipation Last Admin: 02/17/25 09:09 Dose: 30 ml Melatonin (Melatonin 3 Mg Tablet) 9 mg PO BEDTIME JOHNNY Last Admin: 02/17/25 20:53 Dose: 9 mg Mirtazapine (Mirtazapine 15 Mg Tablet) 15 mg PO BEDTIME JOHNNY Last Admin: 02/17/25 20:54 Dose: 15 mg Olanzapine (Olanzapine 2.5 Mg Tablet) 2.5 mg PO Q4H PRN PRN Reason: agitation Last Admin: 02/17/25 20:54 Dose: 2.5 mg Olanzapine (Olanzapine 7.5 Mg Tablet) 15 mg PO BEDTIME [facility] Last Admin: 02/17/25 20:55 Dose: 15 mg Senna (Sennosides 8.6 Mg Tablet) 8.6 mg PO DAILY PRN PRN Reason: Constipation Zinc Acetate/Diphenhydramine (Diphenhydramine Hcl 2 % Cream 28 Gm Tube) 1 appl TOPICAL QID PRN; Protocol PRN Reason: Itching Allergies Allergies Allergy/AdvReac Type Severity Reaction Status Date / Time cat dander [cats] Allergy Unknown Verified 01/18/25 09:04 cortisone Allergy Unknown Verified 01/18/25 09:04 dog dander [dogs] Allergy Unknown Verified 01/18/25 09:04 Assessment & Plan Assessment & Plan (1) Bipolar disorder: Status: Acute Code(s): F31.9 - Bipolar disorder, unspecified (2) Bipolar disorder, curr episode mixed, severe, with psychotic features: Status: Acute Code(s): F31.64 - Bipolar disorder, current episode mixed, severe, with psychotic features Plan Discharge planning has been looking into assisted living however patient seems more organized clear of thought and may need to revoke the healthcare proxy. Patient's mood remains generally better future oriented better affective insisting that she wants go home feels like she has some support system there 02/18/2025 Patient continues to be anxious with variable mentation at times much more anxious than at others difficulty at times processing information taking it in holding onto it history of depression anxiety and paranoia currently on Depakote and olanzapine Patient educated on: diagnosis and medication risk/benefits Reason for continued inpatient stay Substantial Risk for: harm to self and rapid decompensation Time Spent With Patient Time: Total time managing care of this patient today __30__ minutes.
[2025-02-18] MEDS: LORazepam 1 MG TABLET PO ×3 (12:31→21:00)
[2025-02-18] MEDS: lisinopriL 10 MG TABLET 30 MG PO (12:44)
[2025-02-18 20:00] VITALS: BP 119/56; PULSE 73; RESP 18; TEMP 36.6; O2SAT 96
[2025-02-18] MEDS: Docusate Sodium 100 MG CAPSULE PO (20:59)
[2025-02-18] MEDS: Atorvastatin Calcium 40 MG TABLET PO (20:59)
[2025-02-18] MEDS: Latanoprost 0.005 % Ophth Sol 2.5 ML DROPS 1 DROP EYE-BOTH (20:59)
[2025-02-18] MEDS: Divalproex Sodium ER 500 MG TAB.ER.24H PO (20:59)
[2025-02-18] MEDS: OLANZapine 7.5 MG TABLET 15 MG PO (21:00)
[2025-02-18] MEDS: Mirtazapine 15 MG TABLET PO (21:00)
[2025-02-18] MEDS: Melatonin 3 MG TABLET 9 MG PO (21:00)
[2025-02-19] MEDS: Levothyroxine Sodium 50 MCG TABLET PO (05:56)
[2025-02-19 08:15] VITALS: BP 154/71; PULSE 67; RESP 16; TEMP 36.8; O2SAT 96
[2025-02-19] MEDS: lisinopriL 10 MG TABLET 30 MG PO (08:43)
[2025-02-19] MEDS: LORazepam 1 MG TABLET PO ×3 (08:43→21:08)
[2025-02-19] MEDS: cefuroxime axetiL 250 MG TABLET PO ×2 (08:43→21:07)
--- NOTE | 2025-02-19 09:19 | HO.PSYCHPN ---
Subjective Subjective Date of Service: 02/19/25 Reason For Visit: Psychosis Subjective Notes: Conditional Voluntary Interim History: pt seen hcp no longer invoked seen with her brother went over dx issues and tx issues . Pt with some anxiety significantly improved worried re d/c placement issues Mental Status Exam Mental Status Exam Patient Appearance: Appropriate Patient Orientation: Person and Situation Level of Consciousness: Awake and Appropriate Patient Behavior: Guarded and Passive Mood Description: Withdrawn Affect Description: Constricted Patient Cognition Impaired: Yes Ability to Follow Directions: Good Speech Pattern: Clear Memory Description: Recent Impaired and Working Impaired Hallucinations: None Delusions: Ideas of Reference Thought Process: Distracted and Slowed Thinking Thought Content: positive for [place] and positive for Poverty of Content Judgement: Fair Diagnostics Vital Signs (24Hr): Vital Signs - 24 hr 02/18/25 20:00 Temperature 98 F Pulse Rate 73 Respiratory Rate 18 Blood Pressure 119/56 L Pulse Oximetry 96 Oxygen Delivery Method Room Air BMI result Body Mass Index 22.3 Labs 02/02/25 07:29 02/09/25 08:58 Medications Medications Current Medications Acetaminophen (Acetaminophen 325 Mg Tablet) 650 mg PO Q6H PRN PRN Reason: pain (1-10) Al Hydroxide/Mg Hydroxide (Magnesium Hydrox/Alum Hydrox 30 Ml Oral.Susp) 30 ml PO Q6H PRN PRN Reason: Heartburn/Nausea Albuterol Sulfate (Albuterol Sulfate 90 Mcg 8 Gm Inhaler) 2 puff INHALE RQ4H PRN PRN Reason: Bronchospasm Atorvastatin Calcium (Atorvastatin Calcium 40 Mg Tablet) 40 mg PO BEDTIME [facility] Last Admin: 02/18/25 20:59 Dose: 40 mg Cefuroxime Axetil (Cefuroxime Axetil 250 Mg Tablet) 250 mg PO Q12H [facility] Stop: 02/20/25 20:59 Last Admin: 02/19/25 08:43 Dose: 250 mg Divalproex Sodium (Divalproex Sodium Er 500 Mg Tab.Er.24h) 500 mg PO BEDTIME [facility] Last Admin: 02/18/25 20:59 Dose: 500 mg Docusate Sodium (Docusate Sodium 100 Mg Capsule) 100 mg PO BEDTIME [facility] Last Admin: 02/18/25 20:59 Dose: 100 mg Latanoprost (Latanoprost 0.005 % Ophth Hannah 2.5 Ml Drops) 1 drop EYE-BOTH BEDTIME [facility] Last Admin: 02/18/25 20:59 Dose: 1 drop Levothyroxine Sodium (Levothyroxine Sodium 50 Mcg Tablet) 50 mcg PO DAILY@0600 [facility] Last Admin: 02/19/25 05:56 Dose: 50 mcg Lisinopril (Lisinopril 10 Mg Tablet) 30 mg PO DAILY [facility]; Protocol Last Admin: 02/19/25 08:43 Dose: 30 mg Lorazepam (Lorazepam 1 Mg Tablet) 1 mg PO TID [facility] Last Admin: 02/19/25 08:43 Dose: 1 mg Magnesium Hydroxide (Milk Of Magnesia 30 Ml Oral.Susp) 30 ml PO DAILY PRN PRN Reason: Constipation Last Admin: 02/17/25 09:09 Dose: 30 ml Melatonin (Melatonin 3 Mg Tablet) 9 mg PO BEDTIME [facility] Last Admin: 02/18/25 21:00 Dose: 9 mg Mirtazapine (Mirtazapine 15 Mg Tablet) 15 mg PO BEDTIME [facility] Last Admin: 02/18/25 21:00 Dose: 15 mg Olanzapine (Olanzapine 2.5 Mg Tablet) 2.5 mg PO Q4H PRN PRN Reason: agitation Last Admin: 02/17/25 20:54 Dose: 2.5 mg Olanzapine (Olanzapine 7.5 Mg Tablet) 15 mg PO BEDTIME [facility] Last Admin: 02/18/25 21:00 Dose: 15 mg Senna (Sennosides 8.6 Mg Tablet) 8.6 mg PO DAILY PRN PRN Reason: Constipation Zinc Acetate/Diphenhydramine (Diphenhydramine Hcl 2 % Cream 28 Gm Tube) 1 appl TOPICAL QID PRN; Protocol PRN Reason: Itching Allergies Allergies Allergy/AdvReac Type Severity Reaction Status Date / Time cat dander [cats] Allergy Unknown Verified 01/18/25 09:04 cortisone Allergy Unknown Verified 01/18/25 09:04 dog dander [dogs] Allergy Unknown Verified 01/18/25 09:04 Assessment & Plan Assessment & Plan (1) Bipolar disorder: Status: Acute Code(s): F31.9 - Bipolar disorder, unspecified (2) Bipolar disorder, curr episode mixed, severe, with psychotic features: Status: Acute Code(s): F31.64 - Bipolar disorder, current episode mixed, severe, with psychotic features Plan Discharge planning has been looking into assisted living however patient seems more organized clear of thought and may need to revoke the healthcare proxy. Patient's mood remains generally better future oriented better affective insisting that she wants go home feels like she has some support system there 02/18/2025 Patient continues to be anxious with variable mentation at times much more anxious than at others difficulty at times processing information taking it in holding onto it history of depression anxiety and paranoia currently on Depakote and olanzapine 02/19/25 Cont depakote olanzapine Patient educated on: diagnosis and medication risk/benefits Informed Consent: further education needed Reason for continued inpatient stay Substantial Risk for: inability to function and rapid decompensation Time Spent With Patient Time: Total time managing care of this patient today ____ minutes.
[2025-02-19] MEDS: Milk of Magnesia 30 ML ORAL.SUSP PO (09:20)
--- NOTE | 2025-02-19 09:24 | PC.NURSE ---
complaining of constipation given MOM, discussed with her about drinking prune juice with her breakfast to assist, She has a fedish about moving her bowels while here in the facility
[2025-02-19 20:00] VITALS: BP 110/54; PULSE 83; RESP 15; TEMP 37.2; O2SAT 97
[2025-02-19] MEDS: Atorvastatin Calcium 40 MG TABLET PO (21:07)
[2025-02-19] MEDS: OLANZapine 7.5 MG TABLET 15 MG PO (21:07)
[2025-02-19] MEDS: Divalproex Sodium ER 500 MG TAB.ER.24H PO (21:07)
[2025-02-19] MEDS: Latanoprost 0.005 % Ophth Sol 2.5 ML DROPS 1 DROP EYE-BOTH (21:07)
[2025-02-19] MEDS: Melatonin 3 MG TABLET 9 MG PO (21:08)
[2025-02-19] MEDS: Mirtazapine 15 MG TABLET PO (21:08)
[2025-02-20] MEDS: Levothyroxine Sodium 50 MCG TABLET PO (06:34)
[2025-02-20 08:00] VITALS: BP 134/70; PULSE 87; RESP 18; TEMP 36.3; O2SAT 97
[2025-02-20] MEDS: cefuroxime axetiL 250 MG TABLET PO (08:10)
[2025-02-20] MEDS: LORazepam 1 MG TABLET PO ×3 (08:10→20:40)
[2025-02-20] MEDS: lisinopriL 10 MG TABLET 30 MG PO (08:10)
[2025-02-20 10:41] VITALS: BMI 22.9
[2025-02-20 20:00] VITALS: BP 120/55; PULSE 87; RESP 16; TEMP 36.2; O2SAT 96
[2025-02-20] MEDS: OLANZapine 10 MG TABLET PO (20:40)
[2025-02-20] MEDS: Latanoprost 0.005 % Ophth Sol 2.5 ML DROPS 1 DROP EYE-BOTH (20:40)
[2025-02-20] MEDS: Melatonin 3 MG TABLET 9 MG PO (20:40)
[2025-02-20] MEDS: Divalproex Sodium ER 500 MG TAB.ER.24H PO (20:40)
[2025-02-20] MEDS: Mirtazapine 15 MG TABLET PO (20:40)
[2025-02-20] MEDS: Docusate Sodium 100 MG CAPSULE PO (20:40)
[2025-02-20] MEDS: Atorvastatin Calcium 40 MG TABLET PO (20:41)
--- NOTE | 2025-02-20 22:13 | P.PNPSI_ITS ---
Subjective Subjective Date of Service: 02/20/25 Reason For Visit: Psychosis Subjective Notes: Conditional Voluntary Medical Problems Affecting Mental Status: Yes (uti) Interim History: Grisel soto tends to be anxious and ruminating somewhat shuffling engaged in treatment tends to ruminate has no current psychotic symptoms able to participate in discharge planning Though not psychotic continues to ruminate is spending a lot of time in her room Mental Status Exam Mental Status Exam Patient Appearance: Appropriate Patient Orientation: Person and Situation Level of Consciousness: Awake and Appropriate Patient Behavior: Guarded and Passive Mood Description: Withdrawn Affect Description: Constricted Patient Cognition Impaired: Yes Ability to Follow Directions: Good Speech Pattern: Clear Memory Description: Recent Impaired and Working Impaired Hallucinations: None Delusions: Ideas of Reference Thought Process: Distracted and Slowed Thinking Thought Content: positive for [place] and positive for Poverty of Content Judgement: Fair Diagnostics Vital Signs (24Hr): Vital Signs - 24 hr 02/20/25 08:00 Temperature 97.3 F Pulse Rate 87 Respiratory Rate 18 Blood Pressure 134/70 Pulse Oximetry 97 Oxygen Delivery Method Room Air BMI result Body Mass Index 22.9 Labs 02/02/25 07:29 02/09/25 08:58 Medications Medications Current Medications Acetaminophen (Acetaminophen 325 Mg Tablet) 650 mg PO Q6H PRN PRN Reason: pain (1-10) Al Hydroxide/Mg Hydroxide (Magnesium Hydrox/Alum Hydrox 30 Ml Oral.Susp) 30 ml PO Q6H PRN PRN Reason: Heartburn/Nausea Albuterol Sulfate (Albuterol Sulfate 90 Mcg 8 Gm Inhaler) 2 puff INHALE RQ4H PRN PRN Reason: Bronchospasm Atorvastatin Calcium (Atorvastatin Calcium 40 Mg Tablet) 40 mg PO BEDTIME [facility] Last Admin: 02/20/25 20:41 Dose: 40 mg Divalproex Sodium (Divalproex Sodium Er 500 Mg Tab.Er.24h) 500 mg PO BEDTIME [facility] Last Admin: 02/20/25 20:40 Dose: 500 mg Docusate Sodium (Docusate Sodium 100 Mg Capsule) 100 mg PO BEDTIME [facility] Last Admin: 02/20/25 20:40 Dose: 100 mg Latanoprost (Latanoprost 0.005 % Ophth Hannah 2.5 Ml Drops) 1 drop EYE-BOTH BEDTIME [facility] Last Admin: 02/20/25 20:40 Dose: 1 drop Levothyroxine Sodium (Levothyroxine Sodium 50 Mcg Tablet) 50 mcg PO DAILY@0600 [facility] Last Admin: 02/20/25 06:34 Dose: 50 mcg Lisinopril (Lisinopril 10 Mg Tablet) 30 mg PO DAILY [facility]; Protocol Last Admin: 02/20/25 08:10 Dose: 30 mg Lorazepam (Lorazepam 1 Mg Tablet) 1 mg PO TID [facility] Last Admin: 02/20/25 20:40 Dose: 1 mg Magnesium Hydroxide (Milk Of Magnesia 30 Ml Oral.Susp) 30 ml PO DAILY PRN PRN Reason: Constipation Last Admin: 02/19/25 09:20 Dose: 30 ml Melatonin (Melatonin 3 Mg Tablet) 9 mg PO BEDTIME [facility] Last Admin: 02/20/25 20:40 Dose: 9 mg Mirtazapine (Mirtazapine 15 Mg Tablet) 15 mg PO BEDTIME [facility] Last Admin: 02/20/25 20:40 Dose: 15 mg Olanzapine (Olanzapine 2.5 Mg Tablet) 2.5 mg PO Q4H PRN PRN Reason: agitation Last Admin: 02/17/25 20:54 Dose: 2.5 mg Olanzapine (Olanzapine 10 Mg Tablet) 10 mg PO BEDTIME [facility] Last Admin: 02/20/25 20:40 Dose: 10 mg Senna (Sennosides 8.6 Mg Tablet) 8.6 mg PO DAILY PRN PRN Reason: Constipation Zinc Acetate/Diphenhydramine (Diphenhydramine Hcl 2 % Cream 28 Gm Tube) 1 appl TOPICAL QID PRN; Protocol PRN Reason: Itching Allergies Allergies Allergy/AdvReac Type Severity Reaction Status Date / Time cat dander [cats] Allergy Unknown Verified 01/18/25 09:04 cortisone Allergy Unknown Verified 01/18/25 09:04 dog dander [dogs] Allergy Unknown Verified 01/18/25 09:04 Assessment & Plan Assessment & Plan (1) Bipolar disorder: Status: Acute Code(s): F31.9 - Bipolar disorder, unspecified (2) Bipolar disorder, curr episode mixed, severe, with psychotic features: Status: Acute Code(s): F31.64 - Bipolar disorder, current episode mixed, severe, with psychotic features Plan Discharge planning has been looking into assisted living however patient seems more organized clear of thought and may need to revoke the healthcare proxy. Patient's mood remains generally better future oriented better affective insisting that she wants go home feels like she has some support system there 02/18/2025 Patient continues to be anxious with variable mentation at times much more anxious than at others difficulty at times processing information taking it in holding onto it history of depression anxiety and paranoia currently on Depakote and olanzapine 02/19/25 Cont depakote olanzapine 02/20 25 Lower olanzapine 10 mg may be causing some EPS Depakote level is unremarkable Lower mirtazapine continue discharge planning Patient educated on: diagnosis and medication risk/benefits Informed Consent: further education needed Reason for continued inpatient stay Substantial Risk for: inability to function, rapid decompensation and med/psych decompensation Time Spent With Patient Time: Total time managing care of this patient today ____ minutes.
[2025-02-20] MEDS: Acetaminophen 325 MG TABLET 650 MG PO (22:52)
[2025-02-20] MEDS: OLANZapine 2.5 MG TABLET PO (22:53)
[2025-02-21] MEDS: Levothyroxine Sodium 50 MCG TABLET PO (06:21)
[2025-02-21 08:27] VITALS: BP 158/79; PULSE 90; RESP 18; TEMP 36.4; O2SAT 97
[2025-02-21] MEDS: LORazepam 1 MG TABLET PO ×3 (08:29→21:42)
[2025-02-21] MEDS: lisinopriL 10 MG TABLET 30 MG PO (08:29)
--- NOTE | 2025-02-21 09:08 | P.PNPSI_ITS ---
Subjective Subjective Date of Service: 02/21/25 Reason For Visit: Psychosis Subjective Notes: Conditional Voluntary Interim History: Patient does get easily discouraged tends toward negative self thought. She has been staying in bed a lot of day had strongly recommended spending more time out of bed had difficulty with sleep last night Mental Status Exam Mental Status Exam Patient Appearance: Appropriate Patient Orientation: Person and Situation Level of Consciousness: Awake and Appropriate Patient Behavior: Guarded and Passive Mood Description: Withdrawn Affect Description: Constricted Patient Cognition Impaired: Yes Ability to Follow Directions: Good Speech Pattern: Clear Memory Description: Recent Impaired and Working Impaired Hallucinations: None Delusions: Ideas of Reference Thought Process: Distracted and Slowed Thinking Thought Content: positive for [place] and positive for Poverty of Content Judgement: Fair Diagnostics Vital Signs (24Hr): Vital Signs - 24 hr 02/20/25 20:00 02/21/25 08:27 Temperature 97.1 F 97.5 F Pulse Rate 87 90 Respiratory Rate 16 18 Blood Pressure 120/55 L 158/79 H Pulse Oximetry 96 97 Oxygen Delivery Method Room Air Room Air BMI result Body Mass Index 22.9 Labs 02/02/25 07:29 02/09/25 08:58 Medications Medications Current Medications Acetaminophen (Acetaminophen 325 Mg Tablet) 650 mg PO Q6H PRN PRN Reason: pain (1-10) Last Admin: 02/20/25 22:52 Dose: 650 mg Al Hydroxide/Mg Hydroxide (Magnesium Hydrox/Alum Hydrox 30 Ml Oral.Susp) 30 ml PO Q6H PRN PRN Reason: Heartburn/Nausea Albuterol Sulfate (Albuterol Sulfate 90 Mcg 8 Gm Inhaler) 2 puff INHALE RQ4H PRN PRN Reason: Bronchospasm Atorvastatin Calcium (Atorvastatin Calcium 40 Mg Tablet) 40 mg PO BEDTIME [facility] Last Admin: 02/20/25 20:41 Dose: 40 mg Divalproex Sodium (Divalproex Sodium Er 500 Mg Tab.Er.24h) 500 mg PO BEDTIME [facility] Last Admin: 02/20/25 20:40 Dose: 500 mg Docusate Sodium (Docusate Sodium 100 Mg Capsule) 100 mg PO BEDTIME [facility] Last Admin: 02/20/25 20:40 Dose: 100 mg Latanoprost (Latanoprost 0.005 % Ophth Hannah 2.5 Ml Drops) 1 drop EYE-BOTH BEDTIME [facility] Last Admin: 02/20/25 20:40 Dose: 1 drop Levothyroxine Sodium (Levothyroxine Sodium 50 Mcg Tablet) 50 mcg PO DAILY@0600 [facility] Last Admin: 02/21/25 06:21 Dose: 50 mcg Lisinopril (Lisinopril 10 Mg Tablet) 30 mg PO DAILY [facility]; Protocol Last Admin: 02/21/25 08:29 Dose: 30 mg Lorazepam (Lorazepam 1 Mg Tablet) 1 mg PO TID [facility] Last Admin: 02/21/25 08:29 Dose: 1 mg Magnesium Hydroxide (Milk Of Magnesia 30 Ml Oral.Susp) 30 ml PO DAILY PRN PRN Reason: Constipation Last Admin: 02/19/25 09:20 Dose: 30 ml Melatonin (Melatonin 3 Mg Tablet) 9 mg PO BEDTIME [facility] Last Admin: 02/20/25 20:40 Dose: 9 mg Mirtazapine (Mirtazapine 7.5 Mg Tablet) 7.5 mg PO BEDTIME [facility] Olanzapine (Olanzapine 2.5 Mg Tablet) 2.5 mg PO Q4H PRN PRN Reason: agitation Last Admin: 02/20/25 22:53 Dose: 2.5 mg Olanzapine (Olanzapine 10 Mg Tablet) 10 mg PO BEDTIME [facility] Last Admin: 02/20/25 20:40 Dose: 10 mg Senna (Sennosides 8.6 Mg Tablet) 8.6 mg PO DAILY PRN PRN Reason: Constipation Zinc Acetate/Diphenhydramine (Diphenhydramine Hcl 2 % Cream 28 Gm Tube) 1 appl TOPICAL QID PRN; Protocol PRN Reason: Itching Allergies Allergies Allergy/AdvReac Type Severity Reaction Status Date / Time cat dander [cats] Allergy Unknown Verified 01/18/25 09:04 cortisone Allergy Unknown Verified 01/18/25 09:04 dog dander [dogs] Allergy Unknown Verified 01/18/25 09:04 Assessment & Plan Assessment & Plan (1) Bipolar disorder: Status: Acute Code(s): F31.9 - Bipolar disorder, unspecified (2) Bipolar disorder, curr episode mixed, severe, with psychotic features: Status: Acute Code(s): F31.64 - Bipolar disorder, current episode mixed, severe, with psychotic features Plan Discharge planning has been looking into assisted living however patient seems more organized clear of thought and may need to revoke the healthcare proxy. Patient's mood remains generally better future oriented better affective insisting that she wants go home feels like she has some support system there 02/18/2025 Patient continues to be anxious with variable mentation at times much more anxious than at others difficulty at times processing information taking it in holding onto it history of depression anxiety and paranoia currently on Depakote and olanzapine 02/19/25 Cont depakote olanzapine 02/20 25 Lower olanzapine 10 mg may be causing some EPS Depakote level is unremarkable Lower mirtazapine continue discharge planning 02/21/2025 Continue olanzapine and Depakote encourage out of bed encourage patient to challenge more negativistic in train thinking encourage more socialization light exposure might benefit from partial hospital type setting if available Reason for continued inpatient stay Substantial Risk for: inability to function, rapid decompensation and med/psych decompensation Time Spent With Patient Time: Total time managing care of this patient today ____ minutes.
[2025-02-21 20:00] VITALS: BP 96/59; PULSE 69; RESP 16; TEMP 36.6; O2SAT 96
[2025-02-21] MEDS: OLANZapine 10 MG TABLET PO (21:42)
[2025-02-21] MEDS: Latanoprost 0.005 % Ophth Sol 2.5 ML DROPS 1 DROP EYE-BOTH (21:42)
[2025-02-21] MEDS: Mirtazapine 7.5 MG TABLET PO (21:43)
[2025-02-21] MEDS: Docusate Sodium 100 MG CAPSULE PO (21:43)
[2025-02-21] MEDS: Divalproex Sodium ER 500 MG TAB.ER.24H PO (21:43)
[2025-02-21] MEDS: Atorvastatin Calcium 40 MG TABLET PO (21:43)
[2025-02-21] MEDS: Melatonin 3 MG TABLET 9 MG PO (21:44)
[2025-02-22] MEDS: Levothyroxine Sodium 50 MCG TABLET PO (06:07)
[2025-02-22 08:00] VITALS: BP 137/60; PULSE 80; RESP 18; TEMP 36.8; O2SAT 96
[2025-02-22 08:58] VITALS: BP 137/60
[2025-02-22] MEDS: LORazepam 1 MG TABLET PO ×3 (08:58→20:23)
[2025-02-22] MEDS: lisinopriL 10 MG TABLET 30 MG PO (08:58)
--- NOTE | 2025-02-22 09:34 | P.PNPSI_ITS ---
Subjective Subjective Date of Service: 02/22/25 Reason For Visit: Psychosis Interim History: Interactive with peers in milieu. Team reports pt will discharge next week and they have no concerns regarding sx. Pt is well engaged in discussion, she questions if she should go to an [facility] and will be discussing this with her family. 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 She believes she is prepared to discharge yet has apprehension. Medication Compliance: Yes Side effects from medications: No Attending Groups: Yes Review of Systems Review of Systems Denies today Mental Status Exam Mental Status Exam Patient Appearance: Appropriate Patient Orientation: Person, Place and Situation Level of Consciousness: Alert Patient Behavior: Talkative and Good Eye Contact Mood Description: Apprehensive Affect Description: Apprehensive Ability to Follow Directions: Good Speech Pattern: Spontaneous Speech Hallucinations: None Delusions: Not Present Thought Process: Goal Oriented Thought Content: positive for Goal Oriented and positive for Suicidal Ideation (denies) Depressive Symptoms: Thoughts of /Suicide (denies) Judgement: Fair Diagnostics Vital Signs (24Hr): Vital Signs - 24 hr 02/21/25 20:00 02/22/25 08:00 02/22/25 08:58 Temperature 97.8 F 98.3 F Pulse Rate 69 80 Respiratory Rate 16 18 Blood Pressure 96/59 L 137/60 137/60 Pulse Oximetry 96 96 Oxygen Delivery Method Room Air Room Air BMI result Body Mass Index 22.9 Labs 02/02/25 07:29 02/09/25 08:58 Medications Medications Current Medications Acetaminophen (Acetaminophen 325 Mg Tablet) 650 mg PO Q6H PRN PRN Reason: pain (1-10) Last Admin: 02/20/25 22:52 Dose: 650 mg Al Hydroxide/Mg Hydroxide (Magnesium Hydrox/Alum Hydrox 30 Ml Oral.Susp) 30 ml PO Q6H PRN PRN Reason: Heartburn/Nausea Albuterol Sulfate (Albuterol Sulfate 90 Mcg 8 Gm Inhaler) 2 puff INHALE RQ4H PRN PRN Reason: Bronchospasm Atorvastatin Calcium (Atorvastatin Calcium 40 Mg Tablet) 40 mg PO BEDTIME [facility] Last Admin: 02/21/25 21:43 Dose: 40 mg Divalproex Sodium (Divalproex Sodium Er 500 Mg Tab.Er.24h) 500 mg PO BEDTIME [facility] Last Admin: 02/21/25 21:43 Dose: 500 mg Docusate Sodium (Docusate Sodium 100 Mg Capsule) 100 mg PO BEDTIME [facility] Last Admin: 02/21/25 21:43 Dose: 100 mg Latanoprost (Latanoprost 0.005 % Ophth Hannah 2.5 Ml Drops) 1 drop EYE-BOTH BEDTIME [facility] Last Admin: 02/21/25 21:42 Dose: 1 drop Levothyroxine Sodium (Levothyroxine Sodium 50 Mcg Tablet) 50 mcg PO DAILY@0600 [facility] Last Admin: 02/22/25 06:07 Dose: 50 mcg Lisinopril (Lisinopril 10 Mg Tablet) 30 mg PO DAILY [facility]; Protocol Last Admin: 02/22/25 08:58 Dose: 30 mg Lorazepam (Lorazepam 1 Mg Tablet) 1 mg PO TID [facility] Last Admin: 02/22/25 08:58 Dose: 1 mg Magnesium Hydroxide (Milk Of Magnesia 30 Ml Oral.Susp) 30 ml PO DAILY PRN PRN Reason: Constipation Last Admin: 02/19/25 09:20 Dose: 30 ml Melatonin (Melatonin 3 Mg Tablet) 9 mg PO BEDTIME [facility] Last Admin: 02/21/25 21:44 Dose: 9 mg Mirtazapine (Mirtazapine 7.5 Mg Tablet) 7.5 mg PO BEDTIME [facility] Last Admin: 02/21/25 21:43 Dose: 7.5 mg Olanzapine (Olanzapine 2.5 Mg Tablet) 2.5 mg PO Q4H PRN PRN Reason: agitation Last Admin: 02/20/25 22:53 Dose: 2.5 mg Olanzapine (Olanzapine 10 Mg Tablet) 10 mg PO BEDTIME [facility] Last Admin: 02/21/25 21:42 Dose: 10 mg Senna (Sennosides 8.6 Mg Tablet) 8.6 mg PO DAILY PRN PRN Reason: Constipation Zinc Acetate/Diphenhydramine (Diphenhydramine Hcl 2 % Cream 28 Gm Tube) 1 appl TOPICAL QID PRN; Protocol PRN Reason: Itching Allergies Allergies Allergy/AdvReac Type Severity Reaction Status Date / Time cat dander [cats] Allergy Unknown Verified 01/18/25 09:04 cortisone Allergy Unknown Verified 01/18/25 09:04 dog dander [dogs] Allergy Unknown Verified 01/18/25 09:04 Assessment & Plan Assessment & Plan (1) Bipolar disorder: Status: Acute Code(s): F31.9 - Bipolar disorder, unspecified (2) Bipolar disorder, curr episode mixed, severe, with psychotic features: Status: Acute Code(s): F31.64 - Bipolar disorder, current episode mixed, severe, with psychotic features Plan Discharge planning has been looking into assisted living however patient seems more organized clear of thought and may need to revoke the healthcare proxy. Patient's mood remains generally better future oriented better affective insisting that she wants go home feels like she has some support system there 02/18/2025 Patient continues to be anxious with variable mentation at times much more anxious than at others difficulty at times processing information taking it in holding onto it history of depression anxiety and paranoia currently on Depakote and olanzapine 02/19/25 Cont depakote olanzapine 02/20 25 Lower olanzapine 10 mg may be causing some EPS Depakote level is unremarkable Lower mirtazapine continue discharge planning 02/21/2025 Continue olanzapine and Depakote encourage out of bed encourage patient to challenge more negativistic in train thinking encourage more socialization light exposure might benefit from partial hospital type setting if available 02/22/25 Continue regime and plan of care Reason for continued inpatient stay Substantial Risk for: rapid decompensation Time Spent With Patient Time: Total time managing care of this patient today ____ minutes.
[2025-02-22] MEDS: Loperamide HCl 2 MG CAPSULE 4 MG PO (13:59)
[2025-02-22 20:00] VITALS: BP 141/64; PULSE 79; RESP 18; TEMP 36.7; O2SAT 97
[2025-02-22] MEDS: Melatonin 3 MG TABLET 9 MG PO (20:22)
[2025-02-22] MEDS: Mirtazapine 7.5 MG TABLET PO (20:23)
[2025-02-22] MEDS: Atorvastatin Calcium 40 MG TABLET PO (20:23)
[2025-02-22] MEDS: OLANZapine 10 MG TABLET PO (20:23)
[2025-02-22] MEDS: Divalproex Sodium ER 500 MG TAB.ER.24H PO (20:23)
[2025-02-22] MEDS: OLANZapine 2.5 MG TABLET PO (20:24)
[2025-02-22] MEDS: Docusate Sodium 100 MG CAPSULE PO (20:24)
[2025-02-22] MEDS: Latanoprost 0.005 % Ophth Sol 2.5 ML DROPS 1 DROP EYE-BOTH (20:24)
[2025-02-23] MEDS: Levothyroxine Sodium 50 MCG TABLET PO (06:03)
[2025-02-23 07:39] VITALS: BP 129/60; PULSE 76; RESP 18; TEMP 36.4; O2SAT 98
[2025-02-23] MEDS: LORazepam 1 MG TABLET PO ×3 (08:21→20:33)
[2025-02-23] MEDS: lisinopriL 10 MG TABLET 30 MG PO (08:21)
--- NOTE | 2025-02-23 09:16 | P.PNPSI_ITS ---
Subjective Subjective Date of Service: 02/23/25 Reason For Visit: Psychosis Interim History: Today: Patient was flat but pleasant on approach. Was seen in tv room, watching a show with peers. According to staff she dad been anxious earlier in the day about discharge and was given PRN Zyprexa which was helpful. Appears unkempt, otherwise alert. NAD. No complaints. Monday: Interactive with peers in milieu. Team reports pt will discharge next week and they have no concerns regarding sx. Pt is well engaged in discussion, she questions if she should go to an [facility] and will be discussing this with her family. 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 She believes she is prepared to discharge yet has apprehension. Medication Compliance: Yes Side effects from medications: No Attending Groups: Yes Review of Systems Acute medical concerns: No Review of Systems Review of Systems Denies today Yes all other systems are reviewed and are negative and Unobtainable due to mental status Constitutional: Reports as per HPI and Reports no additional constitutional complaints Eyes: Reports no additional eye complaints Reports system reviewed and no additional complaints, except as documented Cardiovascular: Reports no additional cardiovascular complaints Respiratory: Reports no additional respiratory complaints Gastrointestinal: Reports no additional gastrointestinal complaints Musculoskeletal: Reports no additional musculoskeletal complaints Skin/Breast: Reports system reviewed and no additional complaints, except as docu Reports system reviewed and no additional complaints, except as documented Psychiatric: Reports no additional psychiatric complaints Endocrine: Reports no additional endocrine complaints Hematologic/Lymphatic: Reports no additional hematologic/lymphatic complaints Allergic/Immunologic: Reports no additional allergic/immunologic complaints Mental Status Exam Mental Status Exam Narrative: Appearance: wearing casual clothing, well-groomed Behavior: cooperative Psychomotor: no agitation or retardation noted. Speech: clear, normal rate/rhythm/volume, spontaneous TP: mostly linear TC: Dealing with anxiety Mood: better Affect: Congruent, brighter SI: denies HI: denies VH/AH: Remains with internally preoccupations Delusions: Still expressing some paranoid ideations to staff Insight/judgment: impaired Patient Appearance: Appropriate Patient Orientation: Person, Place and Situation Level of Consciousness: Alert Patient Behavior: Talkative and Good Eye Contact Mood Description: Apprehensive Affect Description: Apprehensive Patient Cognition Impaired: Yes Ability to Follow Directions: Good Speech Pattern: Spontaneous Speech Memory Description: Recent Impaired and Working Impaired Diagnostics Vital Signs (24Hr): Vital Signs - 24 hr 02/22/25 20:00 02/23/25 07:39 Temperature 98.1 F 97.5 F Pulse Rate 79 76 Respiratory Rate 18 18 Blood Pressure 141/64 H 129/60 Pulse Oximetry 97 98 Oxygen Delivery Method Room Air Room Air BMI result Body Mass Index 22.9 Labs 02/02/25 07:29 02/09/25 08:58 Medications Medications Current Medications Acetaminophen (Acetaminophen 325 Mg Tablet) 650 mg PO Q6H PRN PRN Reason: pain (1-10) Last Admin: 02/20/25 22:52 Dose: 650 mg Al Hydroxide/Mg Hydroxide (Magnesium Hydrox/Alum Hydrox 30 Ml Oral.Susp) 30 ml PO Q6H PRN PRN Reason: Heartburn/Nausea Albuterol Sulfate (Albuterol Sulfate 90 Mcg 8 Gm Inhaler) 2 puff INHALE RQ4H PRN PRN Reason: Bronchospasm Atorvastatin Calcium (Atorvastatin Calcium 40 Mg Tablet) 40 mg PO BEDTIME [facility] Last Admin: 02/22/25 20:23 Dose: 40 mg Divalproex Sodium (Divalproex Sodium Er 500 Mg Tab.Er.24h) 500 mg PO BEDTIME [facility] Last Admin: 02/22/25 20:23 Dose: 500 mg Docusate Sodium (Docusate Sodium 100 Mg Capsule) 100 mg PO BEDTIME [facility] Last Admin: 02/22/25 20:24 Dose: 100 mg Latanoprost (Latanoprost 0.005 % Ophth Hannah 2.5 Ml Drops) 1 drop EYE-BOTH BEDTIME [facility] Last Admin: 02/22/25 20:24 Dose: 1 drop Levothyroxine Sodium (Levothyroxine Sodium 50 Mcg Tablet) 50 mcg PO DAILY@0600 [facility] Last Admin: 02/23/25 06:03 Dose: 50 mcg Lisinopril (Lisinopril 10 Mg Tablet) 30 mg PO DAILY [facility]; Protocol Last Admin: 02/23/25 08:21 Dose: 30 mg Lorazepam (Lorazepam 1 Mg Tablet) 1 mg PO TID [facility] Last Admin: 02/23/25 08:21 Dose: 1 mg Magnesium Hydroxide (Milk Of Magnesia 30 Ml Oral.Susp) 30 ml PO DAILY PRN PRN Reason: Constipation Last Admin: 02/19/25 09:20 Dose: 30 ml Melatonin (Melatonin 3 Mg Tablet) 9 mg PO BEDTIME [facility] Last Admin: 02/22/25 20:22 Dose: 9 mg Mirtazapine (Mirtazapine 7.5 Mg Tablet) 7.5 mg PO BEDTIME [facility] Last Admin: 02/22/25 20:23 Dose: 7.5 mg Olanzapine (Olanzapine 2.5 Mg Tablet) 2.5 mg PO Q4H PRN PRN Reason: agitation Last Admin: 02/22/25 20:24 Dose: 2.5 mg Olanzapine (Olanzapine 10 Mg Tablet) 10 mg PO BEDTIME [facility] Last Admin: 02/22/25 20:23 Dose: 10 mg Senna (Sennosides 8.6 Mg Tablet) 8.6 mg PO DAILY PRN PRN Reason: Constipation Zinc Acetate/Diphenhydramine (Diphenhydramine Hcl 2 % Cream 28 Gm Tube) 1 appl TOPICAL QID PRN; Protocol PRN Reason: Itching Allergies Allergies Allergy/AdvReac Type Severity Reaction Status Date / Time cat dander [cats] Allergy Unknown Verified 01/18/25 09:04 cortisone Allergy Unknown Verified 01/18/25 09:04 dog dander [dogs] Allergy Unknown Verified 01/18/25 09:04 Assessment & Plan Assessment & Plan (1) Bipolar disorder: Status: Acute Code(s): F31.9 - Bipolar disorder, unspecified (2) Bipolar disorder, curr episode mixed, severe, with psychotic features: Status: Acute Code(s): F31.64 - Bipolar disorder, current episode mixed, severe, with psychotic features Plan Discharge planning has been looking into assisted living however patient seems more organized clear of thought and may need to revoke the healthcare proxy. Patient's mood remains generally better future oriented better affective insisting that she wants go home feels like she has some support system there 02/18/2025 Patient continues to be anxious with variable mentation at times much more anxious than at others difficulty at times processing information taking it in holding onto it history of depression anxiety and paranoia currently on Depakote and olanzapine 02/19/25 Cont depakote olanzapine 02/20 25 Lower olanzapine 10 mg may be causing some EPS Depakote level is unremarkable Lower mirtazapine continue discharge planning 02/21/2025 Continue olanzapine and Depakote encourage out of bed encourage patient to challenge more negativistic in train thinking encourage more socialization light exposure might benefit from partial hospital type setting if available 02/22/25 Continue regime and plan of care 02/23/25: intermittent anxiety approaching discharge. No acute issues. continue trtmt plan Patient educated on: diagnosis and medication risk/benefits Informed Consent: understands Reason for continued inpatient stay Substantial Risk for: med/psych decompensation Time Spent With Patient Time: Total time managing care of this patient today ____ minutes.
[2025-02-23] MEDS: OLANZapine 2.5 MG TABLET PO ×2 (14:09→23:27)
[2025-02-23 20:00] VITALS: BP 118/61; PULSE 87; RESP 16; TEMP 36.9; O2SAT 98
[2025-02-23] MEDS: Docusate Sodium 100 MG CAPSULE PO (20:33)
[2025-02-23] MEDS: Latanoprost 0.005 % Ophth Sol 2.5 ML DROPS 1 DROP EYE-BOTH (20:33)
[2025-02-23] MEDS: Atorvastatin Calcium 40 MG TABLET PO (20:33)
[2025-02-23] MEDS: Divalproex Sodium ER 500 MG TAB.ER.24H PO (20:33)
[2025-02-23] MEDS: Melatonin 3 MG TABLET 9 MG PO (20:34)
[2025-02-23] MEDS: OLANZapine 10 MG TABLET PO (20:34)
[2025-02-23] MEDS: Mirtazapine 7.5 MG TABLET PO (20:34)
[2025-02-24] MEDS: Levothyroxine Sodium 50 MCG TABLET PO (05:28)
[2025-02-24 08:00] VITALS: BP 112/60; PULSE 94; TEMP 36.5; O2SAT 99
[2025-02-24 09:13] VITALS: BP 112/60
[2025-02-24] MEDS: LORazepam 1 MG TABLET PO ×3 (09:13→20:45)
[2025-02-24] MEDS: lisinopriL 10 MG TABLET 30 MG PO (09:13)
[2025-02-24] MEDS: Acetaminophen 325 MG TABLET 650 MG PO (15:12)
--- NOTE | 2025-02-24 15:59 | HO.PSYCHPN ---
Subjective Subjective Date of Service: 02/24/25 Reason For Visit: Psychosis Subjective Notes: Conditional Voluntary Interim History: Patient not psychotic future oriented somewhat isolated in her room has anxiety regarding discharge him whether she will be able to maintain herself Medication Compliance: Yes Diagnostics Vital Signs (24Hr): Vital Signs - 24 hr 02/23/25 20:00 02/24/25 08:00 02/24/25 09:13 Temperature 98.4 F 97.7 F Pulse Rate 87 94 Respiratory Rate 16 Blood Pressure 118/61 112/60 112/60 Pulse Oximetry 98 99 Oxygen Delivery Method Room Air Room Air BMI result Body Mass Index 22.9 Labs 02/02/25 07:29 02/09/25 08:58 Medications Medications Current Medications Acetaminophen (Acetaminophen 325 Mg Tablet) 650 mg PO Q6H PRN PRN Reason: pain (1-10) Last Admin: 02/24/25 15:12 Dose: 650 mg Al Hydroxide/Mg Hydroxide (Magnesium Hydrox/Alum Hydrox 30 Ml Oral.Susp) 30 ml PO Q6H PRN PRN Reason: Heartburn/Nausea Albuterol Sulfate (Albuterol Sulfate 90 Mcg 8 Gm Inhaler) 2 puff INHALE RQ4H PRN PRN Reason: Bronchospasm Atorvastatin Calcium (Atorvastatin Calcium 40 Mg Tablet) 40 mg PO BEDTIME [facility] Last Admin: 02/23/25 20:33 Dose: 40 mg Divalproex Sodium (Divalproex Sodium 500 Mg Tablet.Dr) 500 mg PO BEDTIME [facility] Docusate Sodium (Docusate Sodium 100 Mg Capsule) 100 mg PO BEDTIME [facility] Last Admin: 02/23/25 20:33 Dose: 100 mg Latanoprost (Latanoprost 0.005 % Ophth Hannah 2.5 Ml Drops) 1 drop EYE-BOTH BEDTIME [facility] Last Admin: 02/23/25 20:33 Dose: 1 drop Levothyroxine Sodium (Levothyroxine Sodium 50 Mcg Tablet) 50 mcg PO DAILY@0600 [facility] Last Admin: 02/24/25 05:28 Dose: 50 mcg Lisinopril (Lisinopril 10 Mg Tablet) 30 mg PO DAILY [facility]; Protocol Last Admin: 02/24/25 09:13 Dose: 30 mg Lorazepam (Lorazepam 1 Mg Tablet) 1 mg PO TID [facility] Last Admin: 02/24/25 15:12 Dose: 1 mg Magnesium Hydroxide (Milk Of Magnesia 30 Ml Oral.Susp) 30 ml PO DAILY PRN PRN Reason: Constipation Last Admin: 02/19/25 09:20 Dose: 30 ml Melatonin (Melatonin 3 Mg Tablet) 9 mg PO BEDTIME [facility] Last Admin: 02/23/25 20:34 Dose: 9 mg Mirtazapine (Mirtazapine 7.5 Mg Tablet) 7.5 mg PO BEDTIME [facility] Last Admin: 02/23/25 20:34 Dose: 7.5 mg Olanzapine (Olanzapine 2.5 Mg Tablet) 2.5 mg PO Q4H PRN PRN Reason: agitation Last Admin: 02/23/25 23:27 Dose: 2.5 mg Olanzapine (Olanzapine 10 Mg Tablet) 10 mg PO BEDTIME [facility] Last Admin: 02/23/25 20:34 Dose: 10 mg Senna (Sennosides 8.6 Mg Tablet) 8.6 mg PO DAILY PRN PRN Reason: Constipation Zinc Acetate/Diphenhydramine (Diphenhydramine Hcl 2 % Cream 28 Gm Tube) 1 appl TOPICAL QID PRN; Protocol PRN Reason: Itching Allergies Allergies Allergy/AdvReac Type Severity Reaction Status Date / Time cat dander [cats] Allergy Unknown Verified 01/18/25 09:04 cortisone Allergy Unknown Verified 01/18/25 09:04 dog dander [dogs] Allergy Unknown Verified 01/18/25 09:04 Assessment & Plan Assessment & Plan (1) Bipolar disorder: Status: Acute Code(s): F31.9 - Bipolar disorder, unspecified (2) Bipolar disorder, curr episode mixed, severe, with psychotic features: Status: Acute Code(s): F31.64 - Bipolar disorder, current episode mixed, severe, with psychotic features Plan Discharge planning has been looking into assisted living however patient seems more organized clear of thought and may need to revoke the healthcare proxy. Patient's mood remains generally better future oriented better affective insisting that she wants go home feels like she has some support system there 02/18/2025 Patient continues to be anxious with variable mentation at times much more anxious than at others difficulty at times processing information taking it in holding onto it history of depression anxiety and paranoia currently on Depakote and olanzapine 02/19/25 Cont depakote olanzapine 02/20 25 Lower olanzapine 10 mg may be causing some EPS Depakote level is unremarkable Lower mirtazapine continue discharge planning 02/21/2025 Continue olanzapine and Depakote encourage out of bed encourage patient to challenge more negativistic in train thinking encourage more socialization light exposure might benefit from partial hospital type setting if available 02/22/25 Continue regime and plan of care 02/23/25: intermittent anxiety approaching discharge. No acute issues. continue trtmt plan 02/24/2025 Has anxiety regarding discharge otherwise future oriented not psychotic not overly depressed. Change Depakote ER to Depakote may have less sedation fogginess she states during the day Patient educated on: diagnosis and medication risk/benefits Informed Consent: further education needed Reason for continued inpatient stay Substantial Risk for: rapid decompensation Time Spent With Patient Time: Total time managing care of this patient today __35__ minutes.
[2025-02-24 20:00] VITALS: BP 110/57; PULSE 61; RESP 16; TEMP 36.3; O2SAT 96
[2025-02-24] MEDS: Atorvastatin Calcium 40 MG TABLET PO (20:45)
[2025-02-24] MEDS: Divalproex Sodium 500 MG TABLET.DR PO (20:45)
[2025-02-24] MEDS: Docusate Sodium 100 MG CAPSULE PO (20:45)
[2025-02-24] MEDS: Latanoprost 0.005 % Ophth Sol 2.5 ML DROPS 1 DROP EYE-BOTH (20:45)
[2025-02-24] MEDS: Melatonin 3 MG TABLET 9 MG PO (20:45)
[2025-02-24] MEDS: OLANZapine 10 MG TABLET PO (20:46)
[2025-02-24] MEDS: Mirtazapine 7.5 MG TABLET PO (20:46)
[2025-02-25] MEDS: Levothyroxine Sodium 50 MCG TABLET PO (05:36)
[2025-02-25 08:00] VITALS: BP 116/53; PULSE 85; RESP 16; O2SAT 96
[2025-02-25] MEDS: lisinopriL 10 MG TABLET 30 MG PO (08:30)
[2025-02-25] MEDS: LORazepam 1 MG TABLET PO (08:35)
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
== END 2025-02-25 12:20 | disposition home health service (06) | DRG 885 ==
LOC: HO.ED 18:40 → HO.PGERI 21:34
PROVIDERS: Psychiatry & Neurology Psychiatry; Social Worker; Admitting Provider Psychiatry & Neurology Psychiatry; Emergency Provider Emergency Medicine; PCP Internal Medicine Geriatric Medicine; Visit Provider Psychiatry & Neurology Psychiatry
DX: F31.64 Bipolar disorder, current episode mixed, severe, with psychotic features (principal); R33.0 Drug induced retention of urine; T42.6X5A Adverse effect of other antiepileptic and sedative-hypnotic drugs, initial encounter; F60.3 Borderline personality disorder; F41.1 Generalized anxiety disorder; R21 Rash and other nonspecific skin eruption; Z20.822 Contact with and (suspected) exposure to COVID-19; Z79.890 Hormone replacement therapy; Z79.899 Other long term (current) drug therapy
CPT/HCPCS: 0241U; 36415; 70450; 80048; 80053; 80061; 80143; 80164; 80179; 80307; 81001; 81003; 82140; 82607; 82746; 83036; 84443; 85025; 87086; 87088; 87186; 93005; 97161; 99285; S9485

== ENCOUNTER → 2025-01-18 10:43 | Outpatient (BNV) | payer MEDICARE, OTHER, SELFPAY | PROVIDERS: Admitting Provider Psychiatry & Neurology Psychiatry; Emergency Provider Emergency Medicine; PCP Internal Medicine Geriatric Medicine; Visit Provider Internal Medicine Cardiovascular Disease | DX: I49.1 Atrial premature depolarization (principal); I45.6 Pre-excitation syndrome | CPT/HCPCS: 93010 ==

== ENCOUNTER → 2025-01-18 14:35 | Outpatient (BNV) | payer MEDICARE, OTHER, SELFPAY | PROVIDERS: Emergency Provider Emergency Medicine; PCP Internal Medicine Geriatric Medicine; Visit Provider Specialist | DX: F22 Delusional disorders (principal); R41.89 Other symptoms and signs involving cognitive functions and awareness | CPT/HCPCS: 70450 ==

== ENCOUNTER → 2025-01-18 21:06 | Outpatient (BNV) | payer MEDICARE, OTHER, SELFPAY | PROVIDERS: Admitting Provider Psychiatry & Neurology Psychiatry; Emergency Provider Emergency Medicine; PCP Internal Medicine Geriatric Medicine; Visit Provider Psychiatry & Neurology Psychiatry | DX: F31.64 Bipolar disorder, current episode mixed, severe, with psychotic features (principal); R33.8 Other retention of urine | CPT/HCPCS: 99232 ==

== ENCOUNTER → 2025-01-18 21:06 | Outpatient (BNV) | payer MEDICARE, OTHER, SELFPAY | PROVIDERS: Admitting Provider Psychiatry & Neurology Psychiatry; Emergency Provider Emergency Medicine; PCP Internal Medicine Geriatric Medicine; Visit Provider Urology | DX: R33.8 Other retention of urine (principal); F22 Delusional disorders; F31.9 Bipolar disorder, unspecified; F31.64 Bipolar disorder, current episode mixed, severe, with psychotic features | CPT/HCPCS: 99222 ==

== ENCOUNTER → 2025-01-18 21:06 | Outpatient (BNV) | payer MEDICARE, OTHER, SELFPAY | PROVIDERS: Admitting Provider Psychiatry & Neurology Psychiatry; Emergency Provider Emergency Medicine; PCP Internal Medicine Geriatric Medicine; Visit Provider Psychiatry & Neurology Psychiatry | DX: F29 Unspecified psychosis not due to a substance or known physiological condition (principal) | CPT/HCPCS: 90792; 99232 ==